=== PATIENT | male | born 1945 | race Caucasian/White ===

== ENCOUNTER 2024-02-08 11:16 | Inpatient (IN) | payer OTHER, MEDICARE, SELFPAY ==
[2024-02-08] VITALS (98 sets, daily range): BP systolic 82–140; BP diastolic 42–91; PULSE 88–160; RESP 0–41; TEMP 36.3–39.5; O2SAT 48–100; BMI 31.7
--- NOTE | 2024-02-08 11:29 | XRR_ITS ---
PROCEDURE INFORMATION: Exam: XR Chest Exam date and time: 02/08/2024 12:00 PM Age: 78 years old Clinical indication: Fever; Prior surgery; Surgery date: 1-6 months; Surgery type: Heart valve replacement September 2023; Pacemaker 6+ months ago; Patient HX: PT was at [facility], bystanders called EMS d/t PT weakness and confusion. PT C/O trouble urinating since yesterday. EMS states PT BP was 50s/30s, EMS gave 500mls fluid in route. EMS states PT heart rate ranged from 60-160 TECHNIQUE: Imaging protocol: Radiologic exam of the chest. Views: 1 view. COMPARISON: CR XR chest 1V [id number] 09/21/2018 1:13 PM FINDINGS: Tubes, catheters and devices: There is a dual-lead AICD with leads positioned in the right atrium and right ventricle. Aortic valve prosthesis and sternal reconstruction hardware is visible. Lungs: Lungs are clear. Pleural spaces: There is no pleural effusion or pneumothorax. Heart/Mediastinum: There is mild enlargement of the cardiac silhouette. Bones/joints: There is mild degenerative disease at both shoulders. No acute osseous findings. XR/XR chest 1V portable [id number] IMPRESSION: 1. Lungs are clear. 2. Mild cardiac enlargement. 3. 2 lead AICD in expected position.
--- NOTE | 2024-02-08 11:31 | ECG_ITS ---
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 Measurements Intervals [place] Rate: 146 P: 0 [place]: 0 QRS: -54 QRSD: 106 T: 111 QT: 305 QTc: 476 Interpretive Statements ATRIAL FIBRILLATION WITH RAPID VENTRICULAR RESPONSE LOW QRS VOLTAGE IN PRECORDIAL LEADS LEFT VENTRICULAR HYPERTROPHY AND ST-T CHANGE POSSIBLE SEPTAL MYOCARDIAL INFARCTION , PROBABLY OLD No previous ECG available for comparison Electronically Signed On 02-08-2024 14:02:16 EXTERNAL GRINDER TENDER by Raven Brito M.D. [email or web address]
[2024-02-08] MEDS: acetaminophen 325 mg Tablet 1000 MG PO (11:58)
[2024-02-08] MEDS: cefTRIAXone 1,000 mg SDV 1000 MG IVP (11:59)
[2024-02-08 12:00] LABS: Basophils % 0.3 %; Hematocrit 28.9 % (37-53); Lymphocytes # 0.9 10^3/uL (0.8-4.8); Lymphocytes % 8.2 %; Mean Corpuscular HGB Conc 28.7 g/dL (30-55); Mean Platelet Volume 10.7 fL (7.4-10.4); Monocytes # 0.5 10^3/uL (0.2-0.9); Monocytes % 4.1 %; Neutrophils # 9.44 10^3/uL (1.8-7.7); Neutrophils % 86.8 %; Nucleated Red Blood Cells % 0 %; Platelet Count 205 10^3/cmm (157-399); Red Blood Count 3.32 10^6/uL (3.85-5.65); White Blood Count 10.87 10^3/uL (3.29-11.43)
[2024-02-08] MEDS: sodium chloride 0.9% 1,000 ML 999 ML IV ×2 (12:00→14:42)
[2024-02-08] MEDS: dilTIAZem 5 mg/mL SDV 5 mL 10 MG IVP (12:00)
[2024-02-08 12:22] LABS: Alanine Aminotransferase 11 U/L (0-41); Albumin Level 2.9 g/dL (3.5-5.2); Alkaline Phosphatase 137 U/L (40-130); Anion Gap 16.3 (5-19); Aspartate Amino Transferase 12 U/L (0-40); Blood Urea Nitrogen 18 mg/dL (8-23); Calcium 7.5 mg/dL (8.5-10.5); Carbon Dioxide 22 mmol/L (22-29); Chloride 102 mmol/L (98-107); Creatinine Clr Calc Pharmacy 60.8659; Globulin 3.4 g/dL (1.3-4.6); Glucose 136 mg/dL (65-115); Osmolality Calculated 286 mOsm/kg (285-295); Potassium 4.3 mmol/L (3.5-5.1); Sodium 136 mmol/L (136-145); Total Bilirubin 0.4 mg/dL (0.15-1.2); Total Protein 6.3 g/dL (6.6-8.7)
[2024-02-08 12:23] LABS: Lactic Sepsis W/Reflex 2.4 mmol/L (0.5-2.2)
[2024-02-08 12:58] LABS: Bilirubin Urine Negative (Negative); Blood Urine Negative (Negative); Glucose Urine UA Negative (Normal); Ketones Urine Trace (Negative); Leukocyte Esterase Urine 1+ (Negative); Nitrate Urine Positive (Negative); Protein Urine Trace (Negative); Specific Gravity, Urine 1.022 (1.005-1.030); Urine Appearance Cloudy (CLEAR); Urine Color Yellow (Yellow); pH Urine 5.5 (5-7)
[2024-02-08 13:03] LABS: Add Urine Microscopic? YES; Bacteria Urine 4+ /hpf; RBC Urine 0-2 /hpf (0-2); Squamous Epithelial Cell Urine 0-5 /hpf (0-5)
[2024-02-08 13:13] LABS: Add Urine Culture? Yes
[2024-02-08 13:44] LABS: Reflex Lactate Order REFLEX LACTIC ORDERD
--- NOTE | 2024-02-08 14:01 | ED_ITS ---
HPI - Weakness 2 General: Chief complaint: Weakness Stated complaint: AMS; weakness Time Seen by Provider: 02/08/24 11:19 History of Present Illness: This patient is a 78-year-old white male who presents to the emergency department stating that he has had trouble urinating for the past few days. He has been incontinent at times. Is not having any dysuria or abdominal pain. He has been running a fever. His temp here is 103.1. Patient denies cough or congestion. Denies chest pain. Denies shortness of breath. Denies nausea, vomiting and diarrhea. Patient does have a history of coronary artery disease and according to family member he does have a history of atrial fibrillation. Associated symptoms: Reports fever(s) Review of Systems 2 General: Reports: 10 or more systems reviewed and unremarkable except in HPI and below Const: Reports: fever(s) : Reports: urinary dribbling and urinary incontinence Physical Exam 2 Const: COMMON NORMALS: patient oriented x3 GENERAL APPEARANCE: cooperative HENMT: COMMON NORMALS: normocephalic, atraumatic, Normal nasal mucous membranes and turbinates present, moist oral mucous membranes and oropharynx normal HEAD & SCALP: normal to inspection, normocephalic and atraumatic F SUZY & SINUS: normal facial exam NOSE: Normal nasal mucous membranes and turbinates present Eye: COMMON NORMALS: Equal, round and reactive pupils present, EOMs intact bilaterally and conjunctivae normal GENERAL EYE: appearance normal, both eyes and all related structures CONJUNCTIVA: Yes conjunctivae normal PUPIL: Yes Equal, round and reactive pupils present Neck/C-Spine: COMMON NORMALS: supple Chest: COMMONS NORMALS: normal inspection of the chest Resp: COMMON NORMALS: normal respiratory effort and clear to auscultation bilaterally AUSCULTATION: clear to auscultation bilaterally Cardio: RATE: tachycardic RHYTHM: abnormal rhythm irregularly irregular GI: COMMON NORMALS: Normal to inspection, nondistended, normoactive bowel sounds present, Soft to palpation and non-tender AUSCULTATION: Yes normoactive bowel sounds PALPATION: Yes Soft to palpation : COMMON NORMALS: Yes no CVA tenderness BLADDER/KIDNEY EXAM: Yes no CVA tenderness Back/Pelvis: COMMON NORMALS: no CVA tenderness and thoracic and lumbar spine normal to inspection Extremity: COMMON NORMALS: normal to inspection Neuro: COMMON NORMALS: patient oriented x3 and CN's II-XII intact bilaterally Psych: COMMON NORMALS: mental status grossly normal, Normal thought process present and cooperative THOUGHT PROCESS: Normal thought process present Skin: COMMON NORMALS: no rashes or lesions noted, turgor normal and no jaundice GENERAL SKIN EXAM: no rashes or lesions noted and turgor normal Course 2 Vital Signs: Vital signs: Vital Signs Temperature 103.1 F H 02/08/24 11:17 Pulse Rate 100 02/08/24 13:09 Respiratory Rate 18 02/08/24 11:28 Blood Pressure 90/55 02/08/24 14:40 Pulse Oximetry 95 02/08/24 13:09 Oxygen Delivery Me thod Room Air 02/08/24 13:09 MDM - Weakness Medical Decision Making Upon arrival the patient's heart rate was in the 160s. He appeared to be in atrial fibrillation with rapid ventricular response. His EKG does confirm A-fib with RVR with V rate of 146. Chest x-ray was normal. CBC revealed a hemoglobin of 8.3. CMP normal. Lactic acid 2.4. Urine analysis is consistent with a urinary tract infection. Patient was started on Cardizem drip and given a Cardizem bolus. He was given several boluses of normal saline due to hypotension. He was given 1 g of Rocephin for the urinary tract infection. We did get his heart rate down to around 100 with the above measures. Systolic blood pressures in the 90s. I discussed the case with Dr. Hernadez, hospitalist. She would like a CT scan of the abdomen pelvis just to be sure he does not have an obstructed ureter. We did obtain that and that CT was read by the radiologist as normal. Dr. Hernadez has accepted the patient. Patient will be admitted to the intensive care unit. He is stable. Lab Data 02/08/24 11:50 02/08/24 11:50 Radiology Impressions Chest X-Ray 02/08/24 11:29 IMPRESSION: 1. Lungs are clear. 2. Mild cardiac enlargement. 3. 2 lead AICD in expected position. Abdomen/Pelvis CT 02/08/24 14:32 IMPRESSION: 1. No obstructive uropathy. No stones. 2. Trace simple dependent bilateral pleural effusions. 3. Incidental findings above. Laboratory Results WBC 10.87 10^3/uL (3.29-11.43) 02/08/24 11:50 RBC 3.32 10^6/uL (3.85-5.65) L 02/08/24 11:50 Hgb 8.30 g/dL (11.27-16.99) L 02/08/24 11:50 Hct 28.9 % (37-53) L 02/08/24 11:50 MCV 87.0 fl (82-101) 02/08/24 11:50 MCH 25.0 pg (27-33) L 02/08/24 11:50 MCHC 28.7 g/dL (30-55) L 02/08/24 11:50 RDW 16.0 % (12.1-15.1) H 02/08/24 11:50 Plt Count 205 10^3/cmm (157-399) 02/08/24 11:50 MPV 10.7 fL (7.4-10.4) H 02/08/24 11:50 Neut % (Auto) 86.8 % 02/08/24 11:50 Lymph % (Auto) 8.2 % 02/08/24 11:50 [place] % (Auto) 4.1 % 02/08/24 11:50 Eos % (Auto) 0.0 % 02/08/24 11:50 Baso % (Auto) 0.3 % 02/08/24 11:50 Neut # (Auto) 9.44 10^3/uL (1.8-7.7) H 02/08/24 11:50 Lymph # (Auto) 0.9 10^3/uL (0.8-4.8) 02/08/24 11:50 [place] # (Auto) 0.5 10^3/uL (0.2-0.9) 02/08/24 11:50 Eos # (Auto) 0.0 10^3/uL (0.0-0.8) 02/08/24 11:50 Baso # (Auto) 0.0 10^3/uL (0.0-0.1) 02/08/24 11:50 Nucleated RBC % (auto) 0 % 02/08/24 11:50 Nucleated RBCs # 0.0 /100WBC 02/08/24 11:50 Sodium 136 mmol/L (136-145) 02/08/24 11:50 Potassium 4.3 mmol/L (3.5-5.1) 02/08/24 11:50 Chloride 102 mmol/L (98-107) 02/08/24 11:50 Carbon Dioxide 22 mmol/L (22-29) 02/08/24 11:50 Anion Gap 16.3 (5-19) 02/08/24 11:50 BUN 18 mg/dL (8-23) 02/08/24 11:50 Creatinine 1.3 mg/dL (0.7-1.2) H 02/08/24 11:50 GFR Calculation Not Reportable 02/08/24 11:50 Glucose 136 mg/dL (65-115) H 02/08/24 11:50 Calculated Osmolality 286 mOsm/kg (285-295) 02/08/24 11:50 Lactic Acid 2.4 mmol/L (0.5-2.2) H 02/08/24 11:50 Calcium 7.5 mg/dL (8.5-10.5) L 02/08/24 11:50 Total Bilirubin 0.4 mg/dL (0.15-1.2) 02/08/24 11:50 AST 12 U/L (0-40) 02/08/24 11:50 ALT 11 U/L (0-41) 02/08/24 11:50 Alkaline Phosphatase 137 U/L (40-130) H 02/08/24 11:50 Total Protein 6.3 g/dL (6.6-8.7) L 02/08/24 11:50 Albumin 2.9 g/dL (3.5-5.2) L 02/08/24 11:50 Globulin 3.4 g/dL (1.3-4.6) 02/08/24 11:50 Urine Color Yellow (Yellow) 02/08/24 12:50 Urine Appearance Cloudy (CLEAR) A 02/08/24 12:50 Urine pH 5.5 (5-7) 02/08/24 12:50 Ur Specific [place] 1.022 (1.005-1.030) 02/08/24 12:50 Urine Protein Trace (Negative) A 02/08/24 12:50 Urine Glucose (UA) Negative (Normal) 02/08/24 12:50 Urine Ketones Trace (Negative) 02/08/24 12:50 Urine Blood Negative (Negative) 02/08/24 12:50 Urine Nitrate Positive (Negative) A 02/08/24 12:50 Urine Bilirubin Negative (Negative) 02/08/24 12:50 Urine Urobilinogen 1.0 mg/dL (Negative) 02/08/24 12:50 Ur Leukocyte Esterase 1+ (Negative) A 02/08/24 12:50 Urine RBC 0-2 /hpf (0-2) 02/08/24 12:50 Urine WBC 11-20 /hpf (0-5) H 02/08/24 12:50 Ur Squamous Epith Cells 0-5 /hpf (0-5) 02/08/24 12:50 Amorphous Sediment Not Reportable 02/08/24 12:50 Urine Bacteria 4+ /hpf (NONE) H 02/08/24 12:50 Hyaline Casts 3.30 /lpf 02/08/24 12:50 All radiology interpretation(s) finalized by discharge Discharge Plan Discharge Patient Disposition: Admitted As Inpatient Clinical Impression: Sepsis, Acute UTI, Atrial fibrillation with rapid ventricular response Condition: Stable Prescriptions: No Action No Known Home Medications Referrals: WESTON PARSON, [Family Provider] - Coding Level of Care Code ED Life Skills Consultant for g Fwd Related Data Home Medications Medication Instructions Recorded Confirmed No Known Home Medications 02/08/24 02/08/24 Allergies Allergy/AdvReac Type Severity Reaction Status Date / Time No Known Allergies Allergy Verified 02/08/24 11:47
--- NOTE | 2024-02-08 14:32 | CTR_ITS ---
PROCEDURE INFORMATION: Exam: CT Abdomen And Pelvis Without Contrast Exam date and time: 02/08/2024 3:59 PM Age: 78 years old Clinical indication: Other: Urosepsis, R/O obstruction TECHNIQUE: Imaging protocol: Computed tomography of the abdomen and pelvis without contrast. Radiation optimization: All CT scans at this facility use at least one of these dose optimization techniques: automated exposure control; mA and/or kV adjustment per patient size (includes targeted exams where dose is matched to clinical indication); or iterative reconstruction. COMPARISON: CR (CHEST, ) 02/08/2024 12:00 PM RADIATION DOSE METRICS: Total DLP (mGy-cm): 1008.5 FINDINGS: Lungs: There is subsegmental atelectasis in the lung bases. Pleural spaces: There are trace simple dependent bilateral pleural effusions. Heart: Trace pericardial effusion. Diaphragm: There is a small sliding-type hiatal hernia. Liver: The liver is normal. Gallbladder and biliary ducts: Cholelithiasis is present. There is no sign of cholecystitis. There is no intrahepatic or extrahepatic bile duct dilation. Pancreas: There is mild atrophy of the pancreas. Spleen: The spleen is unremarkable. Adrenal glands: The adrenal glands are unremarkable. Kidneys and ureters: The kidneys are unremarkable. No hydronephrosis or stones. No ureteral dilation. Stomach and bowel: The stomach is nondistended, limiting assessment of wall thickness. The small bowel is nondilated. There is mild distal descending and sigmoid colonic diverticulosis without evidence of diverticulitis. Appendix: The appendix is normal. Intraperitoneal space: There is no free air or significant intraperitoneal free fluid. Vasculature: There is moderate aortic atherosclerotic disease. Lymph nodes: There is no lymphadenopathy in the retroperitoneum, mesentery, pelvis or inguinal regions. Urinary bladder: The urinary bladder is unremarkable. Reproductive: There is nonspecific mild enlargement of the prostate gland. Bones/joints: There is moderate degenerative disease in the lumbar spine. There is mild degenerative disease of both hips. The bony pelvis is intact. Soft tissues: The abdominal wall is intact. CT/CT abdomen pelvis wo con [id number] IMPRESSION: 1. No obstructive uropathy. No stones. 2. Trace simple dependent bilateral pleural effusions. 3. Incidental findings above.
[2024-02-08 17:45] LABS: Glucose Point of Care 122 mg/dL (70-110)
--- NOTE | 2024-02-08 18:31 | PM.HP ---
Providers/Chief Complaint Admitting Physician: Airam Hernadez MD Chief Complaint: AMS; weakness History of Present Illness Jose Matthew is a 78 year old male with a past medical history of aortic stenosis, status post recent TAVR at [address] [place] [address] on December 30, 2023. Prior history also of CHF, history of CAD with multiple stents in the past, currently has a pacemaker in place. Patient was recently admitted at [facility] for TAVR. It appears hospital course may have been complicated and he did require Impella. Patient believes he may have had a stroke after Impella was removed as he had transient dysarthria, however states that at the time of discharge this was excluded by a normal CT head. Patient was discharged to rehab to recover from his acute illness, however he elected to leave AMA on Friday (today is Friday), so he could get out and work. Since returning home he had been ambulating. He was feeling like he is back to baseline. He went to [facility] this evening where [facility] members noted him to be unwell and sent him to the ER for evaluation. Upon arrival he had a fever of 103 Fahrenheit. Blood pressure was soft between 87-91 systolic. He was in A-fib with RVR with heart rate up to 160. He received a bolus of Cardizem 10 mg and was started on a Cardizem infusion. This has been discontinued upon arrival to the ICU as his heart rate is currently 93/min, blood pressure 108/72 mmHg.. Previously in the ER blood pressure was ranging 91/58 mmHg. He denies any cough chest pain dyspnea or palpitations. He does not believe he has any active urinary symptoms though his urine did test positive for nitrates, leukocyte Estrace, WBC 11-20. Denies any past history of UTIs. Review of Systems General: Reports: 10 or more systems reviewed and unremarkable except in HPI and below Const: Denies: fever(s), chills or body aches Eyes: Denies: change in vision, blurry vision or photophobia ENMT: Reports: hoarseness; Denies: throat pain, enlarged tonsils, odynophagia or nasal congestion Card: Denies: chest pain, palpitations, irregular heart rhythm, edema, swelling of feet/ankles, lightheadedness, pre-syncope, dyspnea on exertion or orthopnea Resp: Denies: dyspnea, productive cough, non-productive cough, wheezing, stridor, pain on inspiration, change in phlegm color, hemoptysis or chest congestion GI: Denies: abdominal pain, nausea, vomiting, hematemesis, coffee ground emesis, dysphagia, heartburn, diarrhea, constipation, GI cramping, change in stool character, hematochezia or melena : Denies: flank pain, dysuria, urinary frequency, urinary urgency, urinary hesitancy or hematuria Musc: Denies: neck pain, back pain, extremity pain, joint swelling, joint warmth or deformity Neuro: Denies: headache(s), numbness in extremities, weakness in extremities, sensory changes, difficulty walking, frequent falls, dizziness, vertigo, behavioral changes, Slurred speech present or seizure-like activity Psych: Denies: anxiety, depression, suicidal ideation or homicidal ideation Endo: Denies: polyuria, polydipsia, tired all the time, cold intolerance or hot flashes [place]/Lymph: Denies: easy bruising or easy bleeding Medications/Allergies Home Medications Medication Instructions Recorded Confirmed Last Taken Type apixaban 2.5 mg tablet (Eliquis) 2.5 mg PO BID 02/08/24 Unknown History carvedilol 3.125 mg tablet 3.125 mg PO Q12H 02/08/24 Unknown History insulin glargine 100 unit/mL 13 unit SUBCUT QPM 02/08/24 Unknown History subcutaneous cartridge lovastatin 10 mg tablet 10 mg PO DAILY 02/08/24 Unknown History Allergies Allergy/AdvReac Type Severity Reaction Status Date / Time No Known Allergies Allergy Verified 02/08/24 11:47 PFSH Acute PFSH: Medical History (Updated 02/08/24 @ 18:40 by Airam Hernadez MD) Valvular heart disease Pacemaker Surgical History (Updated 02/08/24 @ 18:36 by Airam Hernadez MD) History of heart artery stent History of heart valve repair Vitals/I&O/Wt Last Vital Signs Temp 103.1 F H 02/08/24 11:17 Pulse 93 02/08/24 15:58 Resp 18 02/08/24 11:28 BP 91/58 02/08/24 15:58 Pulse Ox 98 02/08/24 15:58 O2 Del Method Room Air 02/08/24 13:09 02/08/24 02/08/24 02/08/24 06:59 14:59 22:59 Intake Total 1000 / 1000 Balance 1000 / 1000 Weight last 48 hrs Weight 106.141 kg Weight 106.141 kg Physical Exam Narrative: General: No acute distress, AO x3 HEENT: PERRLA, pupils bilaterally equal and reactive, pallors not present Chest: Normal vesicular breath sounds, no added sounds, equal good air entry bilaterally CVS: S1-S2 regular, no murmurs, no tachycardia, no gallops, no rubs Abdomen: Soft, nontender, no organomegaly, bowel sounds present Neuro: No focal deficits, no facial deformity, AO x3, power 5/5 in all limbs Data 02/08/24 11:50 02/08/24 11:50 Micro: Microbiology 02/08/24 11:39 Blood Culture - Preliminary Blood SPECIMEN COLLECTED 02/08/24 11:50 Blood Culture - Preliminary Blood SPECIMEN COLLECTED A&P Assessment and plan (1) Atrial fibrillation with rapid ventricular response: Patient with a recent history of TAVR at [facility] presenting today with A-fib RVR, hypotension, and fever 103 Fahrenheit. Patient is typically on carvedilol 3.125 mg p.o. every 12 hours He was noted to be in A-fib with RVR with heart rate in the 160s upon initial arrival. Likely this was being driven by fever of 103 Fahrenheit and acute infection. Patient received Cardizem bolus in the emergency room and was started on Cardizem infusion. This did result in hypotension with blood pressure systolic ranging between 87 to 91 mmHg. Cardizem has been discontinued at this point. Instead switch to amiodarone 150 mg bolus over 15 minutes followed by infusion. If blood pressure improves will aim to resume beta-blockers at some point. For now may need transient pressor support along with amiodarone infusion. No recent echocardiogram available. 1 has been ordered. Requested recent records from [facility]. Anticoagulation continued with Eliquis 2.5 mg p.o. twice daily. I am uncertain why patient is on a lower dose of Eliquis currently. Will need to request and review records. (2) Acute UTI: Fever 103 Fahrenheit, currently presumed to be from a UTI given positive nitrate and leukocyte esterase on UA. Patient denies any yu symptoms of dysuria, however states he has been having some increased frequency recently. Urine culture taken in the emergency room Blood culture taken in the emergency room He received ceftriaxone 1 g IV every 24 hours Will start Zosyn empirically while pending urine and blood cultures. Check COVID PCR. Chest x-ray without any evidence of consolidation CT of the abdomen and pelvis without any obstructive uropathy. No stones. There are trace dependent bilateral pleural effusions. (3) CHF (congestive heart failure): Acute on chronic CHF exacerbation. Patient typically also takes Lasix at home. States that CHF was the indication for TAVR. He has received 2 L IV fluid bolus in the emergency room Will hold off on any further fluids since patient has 2+ pitting edema bilateral lower extremity. Appears to be clinically in CHF. I do not know at this time if he has systolic or diastolic heart failure, as stated records have been requested from [facility]. Lasix 40 mg IV now. Further doses to be dependent on urine output and kidney function. Closely monitor I&O's. May need pressor support to allow blood pressure room to be given Lasix. Check BNP. Has bilateral dependent pleural effusions likely from fluid overload. Plan Diabetes mellitus: Continue home dose of Lantus 13 units, insulin sliding scale additionally Premeal. DVT prophylaxis: Currently on Eliquis 2.5 mg twice daily Full code Attestations Medical Necessity Statement*: Greater than 2 midnight admission is anticipated. Currently in the ICU for amiodarone infusion, possible need to start pressor support, need for IV diuresis and infectious evaluation. Critical Care Time: The high probability of a clinically significant, sudden or life threatening deterioration of the patient's [cardiac, respiratory] system(s) required my full and direct attention, intervention and personal management. The critical care time is as shown. This time is in addition to time spent performing any reported procedures but includes the following: [x] Data and vital sign review and interpretation [x] Patient assessment, examination and intervention [x] Documentation [x] Medication orders and management Critical Care Time (min): 55 Coding Level of Care Code Critical Care >/= 30 minutes Diagnoses Atrial fibrillation with rapid ventricular response I48.91 Acute UTI N39.0 CHF (congestive heart failure) I50.9
[2024-02-08 18:57] LABS: NT Pro B Type Natriuretic Pept 9386 pg/mL (0-450)
[2024-02-08] MEDS: amiodarone 150 MG/100 ML PREMIX 400 MG IV (19:25)
[2024-02-08] MEDS: FUROsemide 10 mg/mL SDV 4mL 40 MG IVP (19:25)
[2024-02-08] MEDS: piperacillin-tazobactam 3.375 GM in sodium chloride 0.9% (plus) 50 ML IV (19:26)
[2024-02-08 20:03] LABS: Covid PCR NEGATIVE (Negative); Influenza A NEGATIVE (Negative); Influenza B NEGATIVE (Negative); Respiratory Syncytial Virus Ce NEGATIVE (Negative)
[2024-02-08 20:34] LABS: Glucose Point of Care 170 mg/dL (70-110)
[2024-02-08] MEDS: insulin lispro 100 unit/1 mL SUBCUT (20:56)
[2024-02-08] MEDS: apixaban 5 mg Tablet 2.5 MG PO (20:57)
[2024-02-08] MEDS: insulin glargine 100 units/1 mL 13 UNIT SUBCUT (21:23)
[2024-02-09] VITALS (215 sets, daily range): BP systolic 71–157; BP diastolic 51–122; PULSE 88–127; RESP 0–36; TEMP 36.7–37.8; O2SAT 74–100
--- NOTE | 2024-02-09 00:43 | ECG_ITS ---
[facility] Test Date: 2024-02-09 Pat Name: Jose Matthew Department: Room: ICU11 Gender: Male Intellectual Property Manager: : 1945 Requested By: Jimmy Weller Order Number: [id number] Mamie MD: Guilherme Do M.D. Measurements Intervals [place] Rate: 90 P: 189 [place]: 289 QRS: -53 QRSD: 114 T: 147 QT: 397 QTc: 487 Interpretive Statements ELECTRONIC ATRIAL PACEMAKER LEFT ANTERIOR FASCICULAR BLOCK [QRS AXIS <= -45, QR IN I, RS IN II] LEFT VENTRICULAR HYPERTROPHY AND ST-T CHANGE [VOLTAGE CRITERIA PLUS ST/T ABNORMALITY] POSSIBLE ANTEROSEPTAL MYOCARDIAL INFARCTION , OF INDETERMINATE AGE [30 ms Q WAVE IN V1-V4] INTERPRETATION BASED ON A DEFAULT AGE OF 40 YEARS Compared to ECG 02/08/2024 11:28:14 Left anterior fascicular block now present Atrial fibrillation no longer present ST (T wave) deviation still present Myocardial infarct finding still present Electronically Signed On 02-12-2024 21:59:22 LANGUAGE INSTRUCTOR by Guilherme Do M.D. [email or web address]
--- NOTE | 2024-02-09 00:55 | ECG_ITS ---
[facility] Test Date: 2024-02-09 Pat Name: Jose Matthew Department: Room: [facility] Gender: Male Sales Assistant Entertainment And Media: : 1945 Requested By: Jimmy Weller Order Number: [id number] Mamie MD: Guilherme Do M.D. Measurements Intervals [place] Rate: 90 P: 191 [place]: 292 QRS: -52 QRSD: 111 T: 148 QT: 406 QTc: 498 Interpretive Statements ELECTRONIC ATRIAL PACEMAKER ELECTRONIC VENTRICULAR PACEMAKER -- CONTOUR ANALYSIS BASED ON INTRINSIC RHYTHM LEFT ANTERIOR FASCICULAR BLOCK [QRS AXIS <= -45, QR IN I, RS IN II] LEFT VENTRICULAR HYPERTROPHY AND ST-T CHANGE [VOLTAGE CRITERIA PLUS ST/T ABNORMALITY] POSSIBLE ANTEROSEPTAL MYOCARDIAL INFARCTION , OF INDETERMINATE AGE [30 ms Q WAVE IN V1-V4] INTERPRETATION BASED ON A DEFAULT AGE OF 40 YEARS Compared to ECG 02/09/2024 00:44:39 No significant changes Electronically Signed On 02-12-2024 21:59:32 BRIDGE BUILDER by Guilherme Do M.D. [email or web address]
[2024-02-09 01:09] LABS: Basophils % 0.2 %; Hematocrit 25.5 % (37-53); Lymphocytes % 8.2 %; Mean Corpuscular HGB Conc 29.4 g/dL (30-55); Mean Corpuscular Hemoglobin 24.7 pg (27-33); Mean Corpuscular Volume 83.9 fl (82-101); Mean Platelet Volume 10.1 fL (7.4-10.4); Monocytes # 0.5 10^3/uL (0.2-0.9); Monocytes % 3.8 %; Neutrophils # 10.51 10^3/uL (1.8-7.7); Neutrophils % 87.4 %; Nucleated Red Blood Cells % 0 %; Platelet Count 156 10^3/cmm (157-399); Red Blood Count 3.04 10^6/uL (3.85-5.65); White Blood Count 12.02 10^3/uL (3.29-11.43)
--- NOTE | 2024-02-09 01:25 | P.PN_ITS ---
Subjective 2 Subjective: I was called to bedside to evaluate rhythm change with ST segment elevation. The patient had recent TAVR valve placed within the last couple of weeks at a tertiary care facility from which we do not have records yet. I am told he was then staying at the [place] facility that he left AMA. Patient denies chest pain states he feels fine he goes in and out of this rhythm. Vitals/I&O/Wt Last Vital Signs Temp 98.1 F 02/09/24 00:00 Pulse 90 02/09/24 01:05 Resp 16 02/09/24 01:05 BP 96/52 02/09/24 01:05 Pulse Ox 99 02/09/24 01:05 O2 Del Method Room Air 02/08/24 13:09 02/08/24 02/08/24 02/09/24 14:59 22:59 06:59 Intake Total 1000 / 1000 480 / 1480 50 / 1530 Output Total 500 / 500 Balance 1000 / 1000 -20 / 980 50 / 1030 Weight last 48 hrs Weight 106.141 kg Weight 106.141 kg Physical Exam 2 Narrative: General Well-developed well-nourished overweight male in no acute cardiopulmonary distress CV regular rate and rhythm no loud murmur in the right upper and left upper sternal border Data 02/09/24 01:01 02/08/24 11:50 Micro: Microbiology 02/08/24 11:39 Blood Culture - Preliminary Blood SPECIMEN COLLECTED 02/08/24 11:50 Blood Culture - Preliminary Blood SPECIMEN COLLECTED EKG 1: My Interpretation: This shows sinus rhythm with frequent ectopy. Intermittently he goes to a RV paced rhythm with left bundle branch block that shows with that and ST segment is uninterpretable in that situation. At baseline no ST segment abnormality. I saw him go in and out of paced rhythm and I do not see bradycardia or any good explanation for why he is going into a paced rhythm. A&P Assessment and plan (1) Atrial fibrillation with rapid ventricular response: Was started on amiodarone for atrial fibrillation and converted to sinus with frequent PACs is unclear to me why he has prolonged pacing without preceding bradycardia (2) Pacemaker: Cannot exclude pacemaker malfunction. If not more apparent to the incoming hospitalist potentially could be reviewed by cardiology. We obtain rhythm strips and EKGs Attestations 2 Medical Necessity Statement*: Patient's hospitalization will span greater than 2 midnights Coding Level of Care Code Acute Code for Chg Fwd Diagnoses Atrial fibrillation with rapid ventricular response I48.91 Pacemaker Z95.0
[2024-02-09 01:37] LABS: Troponin(5th) Baseline 56 ng/L (0-15)
[2024-02-09 01:40] LABS: Alanine Aminotransferase 12 U/L (0-41); Albumin Level 2.8 g/dL (3.5-5.2); Alkaline Phosphatase 128 U/L (40-130); Anion Gap 14.2 (5-19); Aspartate Amino Transferase 15 U/L (0-40); Blood Urea Nitrogen 20 mg/dL (8-23); Calcium 7.4 mg/dL (8.5-10.5); Carbon Dioxide 23 mmol/L (22-29); Chloride 103 mmol/L (98-107); Creatinine Clr Calc Pharmacy 56.5183; Globulin 2.7 g/dL (1.3-4.6); Glucose 164 mg/dL (65-115); Magnesium 1.8 mg/dL (1.7-2.3); Osmolality Calculated 288 mOsm/kg (285-295); Potassium 4.2 mmol/L (3.5-5.1); Sodium 136 mmol/L (136-145); Total Bilirubin 0.3 mg/dL (0.15-1.2); Total Protein 5.5 g/dL (6.6-8.7)
[2024-02-09] MEDS: piperacillin-tazobactam 3.375 GM in sodium chloride 0.9% (plus) 50 ML IV ×2 (02:27→11:49)
--- NOTE | 2024-02-09 02:38 | ECG_ITS ---
[employer] Test Date: 2024-02-09 Pat Name: Jose Matthew Department: Room: ICU11 Gender: Male Customer Trainer: : 1945 Requested By: Jimmy Weller Order Number: [id number] Reading MD: MARYJANE GREENE Measurements Intervals [place] Rate: 90 P: -48 RI: 308 QRS: -54 QRSD: 101 T: 122 QT: 394 QTc: 483 Interpretive Statements ELECTRONIC ATRIAL PACEMAKER LEFT AXIS DEVIATION [QRS AXIS < -30] MODERATE VOLTAGE CRITERIA FOR LVH, CONSIDER NORMAL VARIANT [MEETS CRITERIA IN ONE OF: R(aVL), S(V1), R(V5), R(V5/V6)+S(V1)] POSSIBLE ANTEROSEPTAL MYOCARDIAL INFARCTION , OF INDETERMINATE AGE [30 ms Q WAVE IN V1-V4] MODERATE T-WAVE ABNORMALITY, CONSIDER LATERAL ISCHEMIA [-0.1+ mV T-WAVE IN I/aVL/V5/V6] Electronically Signed On 02-13-2024 00:43:39 FINANCIAL SERVICES MANAGER by MARYJANE GREENE [id number]
[2024-02-09 03:48] LABS: Troponin 5 2HR 52.49 ng/L (0-15); Troponin 5 2HR Delta -3.51 ABS# (0-10)
--- NOTE | 2024-02-09 06:55 | ECG_ITS ---
[employer] Test Date: 2024-02-09 Pat Name: Jose Matthew Department: Room: ICU11 Gender: Male Micromatic Hone Operator: : 1945 Requested By: Jimmy Weller Order Number: [id number] Reading MD: MARYJANE GREENE Measurements Intervals [place] Rate: 97 P: 93 CA: 252 QRS: -54 QRSD: 99 T: 98 QT: 342 QTc: 436 Interpretive Statements ELECTRONIC ATRIAL PACEMAKER LEFT AXIS DEVIATION [QRS AXIS < -30] MODERATE VOLTAGE CRITERIA FOR LVH, CONSIDER NORMAL VARIANT [MEETS CRITERIA IN ONE OF: R(aVL), S(V1), R(V5), R(V5/V6)+S(V1)] ANTEROSEPTAL MYOCARDIAL INFARCTION , OF INDETERMINATE AGE [40+ ms Q WAVE IN V1-V4] MODERATE T-WAVE ABNORMALITY, CONSIDER LATERAL ISCHEMIA [-0.1+ mV T-WAVE IN I/aVL/V5/V6] Compared to ECG 02/09/2024 02:38:55 No significant changes Electronically Signed On 02-13-2024 00:42:46 LICENSING REPRESENTATIVE by MARYJANE GREENE [id number]
[2024-02-09 07:33] LABS: Troponin 5 6HR 46.12 ng/L (0-15)
[2024-02-09 07:40] LABS: Glucose Point of Care 157 mg/dL (70-110)
[2024-02-09 07:51] LABS: Troponin 5 6HR Delta -9.88 ng/L (0-12)
[2024-02-09] MEDS: apixaban 5 mg Tablet 2.5 MG PO ×2 (08:43→20:13)
[2024-02-09] MEDS: insulin lispro 100 unit/1 mL SUBCUT ×4 (08:43→20:13)
[2024-02-09] MEDS: pantoprazole DR 40 mg Tablet PO (08:43)
[2024-02-09] MEDS: atorvastatin 40 mg Tablet 20 MG PO (08:43)
--- NOTE | 2024-02-09 11:40 | XR_ITS ---
WS: [id number] XR chest 1V portable [id number] REASON FOR EXAM: SOB FINDINGS: Compared to the examination of the previous day there are now all reticular interstitial lung opaciti es in the right lower lung field with slight accentuation of the minor fissure. There may be similar findings on the left which are equivocal. The findings are most compatible with congestive heart fail ure. XR/XR chest 1V portable [id number] IMPRESSION: Interval change in the chest which may represent early congestive heart failure .
[2024-02-09 11:43] LABS: Glucose Point of Care 177 mg/dL (70-110)
[2024-02-09] MEDS: ondansetron 2 mg/ML SDV 2 mL 4 MG IVP (12:17)
--- NOTE | 2024-02-09 13:46 | PM.CONSULT ---
Documented by User: Romy Torres NP 02/09/24 14:12 Providers/Reason For Consult Consulting Physician/Specialty*: Prem David MD Reason for Consult*: Atrial fibrillation with RVR Requesting Physician: Dr. Santamaria Attending Physician: Iraida Santamaria MD History of Present Illness History of Present Illness Jose Matthew is a very pleasant 78 year old male with a past medical history of aortic stenosis, status post recent surgical aortic valve replacement with bioprosthetic at [address] [place] [address] on December 30, 2023. Prior history also of CHF, carotid artery stenosis, bicuspid aortic valve, history of CAD with multiple stents in the past one to the LAD, currently has a pacemaker in place that he states was placeed a couple of years ago. Patient was recently admitted at [facility] for open heart aortic valve replacement with impella placement. Patient believes he may have had a stroke after Impella was removed as he had transient dysarthria, however states that at the time of discharge this was excluded by a normal CT head. Patient was discharged to rehab to recover from his acute illness, however he elected to leave A, so he could get out and work. Since returning home he had been ambulating. He was feeling like he is back to baseline. He went to [facility] where jewish members noted him to be unwell and sent him to the ER for evaluation. Upon arrival he had a fever of 103 Fahrenheit. Blood pressure was soft between 87-91 systolic. He was in A-fib with RVR with heart rate up to 160. He received a bolus of Cardizem 10 mg and was started on a Cardizem infusion. This has been discontinued. He was given an amiodarone bolus with drip. BP stable at 127/79. Heart rate still elevated. When I was assessing patient it was around 106-110, but with activity went up to 114-115, but quickly returned back down. He has anemia with hemoglobin at 7.5. Systolic murmur 3/6 in the aortic space auscultated. He denies any cough chest pain dyspnea or palpitations. He currently has evidence of UTI. He has positive blood cultures for Streptococcus. CBC shows left shift with white blood cell count at 12.02. Patient has a current low-grade fever at 100. He is receiving Zosyn. Review of Systems Narrative: Consitutional: denies fever, chills, body aches, or changes in appetite, denies abnormal weight loss Eyes: Denies changes in vision Card: Denies chest pain, palpitations, edema, syncope, shortness of breath, orthopnea, leg pain with exertion Resp: Denies shortness of breath, denies hemoptysis, denies cough : reports difficulty urinating Musc: Denies extremity pain, denies limited range of motion or recent injury Skin: reports sternotomy scar from previous open heart surgery Neuro: Denies nubmness in extremities, h/a, s/s of stroke [place]: Denies easy bruiding/bleeding All: Denies s/s of allergies Medications/Allergies Home Medications Medication Instructions Recorded Confirmed Last Taken Type apixaban 2.5 mg tablet (Eliquis) 2.5 mg PO BID 02/08/24 02/09/24 Unknown History carvedilol 3.125 mg tablet 3.125 mg PO Q12H 02/08/24 02/09/24 Unknown History insulin glargine 100 unit/mL 13 unit SUBCUT QPM 02/08/24 02/09/24 Unknown History subcutaneous cartridge lovastatin 10 mg tablet 10 mg PO DAILY 02/08/24 02/09/24 Unknown History Allergies Allergy/AdvReac Type Severity Reaction Status Date / Time No Known Allergies Allergy Verified 02/08/24 11:47 Current Medications Generic Name Dose Route Start Last Admin Trade Name Freq PRN Reason Stop Dose Admin Apixaban 2.5 mg 02/08/24 21:00 02/09/24 08:43 Apixaban 5 Mg Tablet PO 2.5 mg BID@0900,2100 FELIPE Administration Atorvastatin Calcium 20 mg 02/09/24 09:00 02/09/24 08:43 Atorvastatin 40 Mg Tablet PO 20 mg DAILY FELIPE Administration Amiodarone HCl/Dextrose 360 mg in 200 mls @ 0 mls/hr 02/08/24 18:30 02/09/24 02:28 Nexterone IV 0.5 mg/min .Q0M FELIPE 16.67 mls/hr Administration Protocol Per Protocol Piperacillin Sod/Tazobactam 50 mls @ 12.5 mls/hr 02/08/24 19:15 02/09/24 11:49 Sod 3.375 gm/ Sodium Chloride IV 12.5 mls/hr Q8H FELIPE Administration Insulin Glargine 13 unit 02/08/24 21:00 02/08/24 21:23 Insulin Glargine 100 Units/1 Ml SUBCUT 13 unit BEDTIME FELIPE Administration Insulin Human Lispro 0 unit 02/08/24 21:00 02/09/24 11:49 Insulin Lispro 100 Unit/1 Ml SUBCUT 2 unit WM&BEDTIME FELIPE Administration Protocol Ondansetron HCl 4 mg 02/08/24 18:24 02/09/24 12:17 Ondansetron 2 Mg/Ml Sdv 2 Ml IVP 4 mg Q8H PRN Administration vomiting, or N/V if npo Pantoprazole Sodium 40 mg 02/09/24 09:00 02/09/24 08:[address] 40 Mg Tablet PO 40 mg DAILY FELIPE Administration PFSH Acute PFSH: Medical History (Updated 02/09/24 @ 14:10 by Romy Torres NP) Valvular heart disease Pacemaker Surgical History (Updated 02/08/24 @ 18:36 by Airam Hernadez MD) History of heart artery stent History of heart valve repair Vitals/I&O/Wt Last Vital Signs Temp 100.0 F H 02/09/24 13:18 Pulse 114 H 02/09/24 12:05 Resp 21 H 02/09/24 12:05 BP 127/79 02/09/24 12:05 Pulse Ox 94 02/09/24 12:05 O2 Del Method Room Air 02/08/24 13:09 02/08/24 02/09/24 02/09/24 22:59 06:59 14:59 Intake Total 480 / 1480 624.426 / 2104.426 480 / 480 Output Total 500 / 500 800 / 1300 495 / 495 Balance -20 / 980 -175.574 / 804.426 -15 / -15 Weight last 48 hrs Weight 234 lb 12.677 oz Weight 234 lb Weight 234 lb Physical Exam Narrative: General: No apparent distress, healthy appearing, well nourished HENMT: normoceophalic Eye: PERRL Neck: No carotid bruit bilaterally Muskuloskeletal: Full ROM Respiratory: Normal respiratory effort, slightly diminished bilateral lower lobes, otherwise clear, no use of accessory muscles Cardio: No JVD, irregular rate and rhythm, S1 S2 normal, grade 3/6 murmur auscultated in the aortic space, peripheral pulses 2+ throughout Extremities: Full ROM, normal, normal capillary refill, no cyanosis or edema Neuro: Alert and oriented x4, no focal motor deficits Psych: Affect normal, denies suicidal ideation, mental status grossly normal Skin: Previous sternotomy wound healed, no s/s of infection present Data 02/09/24 14:25 02/09/24 14:25 Micro: Microbiology 02/08/24 11:39 Blood Culture - Preliminary Blood NEGATIVE TO DATE 02/08/24 11:50 Blood Culture - Preliminary Blood Streptococcus species 02/08/24 12:50 Urine Culture - Preliminary Urine,Clean Catch Gram Negative Rods A&P Assessment and plan (1) Atrial fibrillation with rapid ventricular response: Patient received Cardizem bolus with drip but developed hypotension thus it was discontinued. Agree with amiodarone drip. Will continue at this time. Heart rate sustaining 90-110 is okay. In the presence of sepsis we may avoid adding beta-isaiah at this time to avoid potential hypotensive response. (2) Aortic valve stenosis: Patient status post aortic valve replacement with bioprosthetic valve via open heart surgery about a month and a half ago at [facility] by Dr. Griffin. He does have a murmur present with fever. Will need echo at this time. Qualifiers: Cardiac valve disease etiology: etiology unspecified Qualified Code(s): I35.0 - Nonrheumatic aortic (valve) stenosis (3) Pacemaker: S/P pacemaker placement. Patient incision site well healed w/o s/s of infection present. Patient is a paced at times. (4) CHF (congestive heart failure): Patient's most recent echo around May of this year showed EF to be about 50 to 55%. Will repeat echo to evaluate heart failure status Qualifiers: Heart failure chronicity: acute on chronic Heart failure type: diastolic Qualified Code(s): I50.33 - Acute on chronic diastolic (congestive) heart failure (5) Sepsis: Patient receiving antibiotics. Per hospitalist team. Blood culture was positive for Streptococcus. If patient's EF is okay on the echo may give fluid bolus. Qualifiers: Sepsis acute organ dysfunction status: without acute organ dysfunction Sepsis type: sepsis due to unspecified organism Qualified Code(s): A41.9 - Sepsis, unspecified organism (6) Acute UTI: Per hospitalist team. Receiving antibiotics at this time. Gram-negative bacteria in patient's urine. (7) Coronary artery disease: Patient status post PCI in the past. No evidence of acute ischemia at this time. Denies chest pain or shortness of breath Qualifiers: Associated angina: without angina Coronary Disease-Associated Artery/Lesion type: [place] artery [place] vs. transplanted heart: [place] heart Qualified Code(s): I25.10 - Atherosclerotic heart disease of [place] coronary artery without angina pectoris Plan At this time the plan for this very pleasant 78-year-old gentleman is to obtain an echocardiogram. If EF is okay may give fluid bolus. Patient's heart rate is elevated but due to patient being septic will wait to add on beta blocking agents. Hopefully this will improve when anemia and infection starts to clear. Further recommendations to be made after echo. Thank you for allowing us to take care of this very pleasant 78-year-old gentleman. Consult Attestations Medical Necessity Statement: Defer to primary. Coding Level of Care Code Acute Code for [facility] Fwd Diagnoses Atrial fibrillation with rapid ventricular response I48.91 Aortic valve stenosis, etiology of cardiac valve disease unspecified I35.0 Cardiac valve disease etiology: etiology unspecified Pacemaker Z95.0 Acute on chronic diastolic congestive heart failure I50.33 Heart failure chronicity: acute on chronic Heart failure type: diastolic Sepsis A41.9 Sepsis acute organ dysfunction status: without acute organ dysfunction Sepsis type: sepsis due to unspecified organism Acute UTI N39.0 Coronary artery disease involving [place] coronary artery of [place] heart without angina pectoris I25.10 Associated angina: without angina Coronary Disease-Associated Artery/Lesion type: [place] artery [place] vs. transplanted heart: [place] heart Documented by User: Prem David MD 02/09/24 22:42 History of Present Illness History of Present Illness Attestation: Patient was evaluated and cared for in conjunction with an advanced practice practitioner. I personally examined the patient and reviewed the chart and all pertinent data including imaging, telemetry, and laboratory results. I discussed the patient in detail with the advanced practice practitioner. Please see their note for complete H&P testing result and agreed upon plan of care for the patient. GENERAL: Patient is alert, awake and oriented x3. HEART: Regular S1 and S2. No murmur, rub or gallop. LUNGS: Clear to auscultate bilaterally. CENTRAL NERVOUS SYSTEM: Grossly nonfocal. EXTREMITIES: Lower extremities with out edema bilaterally. Assessment and plan Atrial fibrillation Urosepsis History of coronary artery disease History of bioprosthetic aortic valve New LV dysfunction Continue IV antibiotic Atrial fibrillation rapid ventricular found most likely secondary sepsis continue amiodarone add metoprolol to tartrate 12.5 mg p.o. twice daily Once stable blood pressure kenny I agree with SP to rule out prosthetic valve endocarditis Once cleared from infection before discharge may consider left heart catheterization to rule out ischemic etiology for LV dysfunction Once blood pressure stable will start patient on guideline medical therapy for heart failure and ischemic heart disease Jose Matthew is a very pleasant 78 year old male with a past medical history of aortic stenosis, status post recent surgical aortic valve replacement with bioprosthetic at [address] [place] [address] on December 30, 2023. Prior history also of CHF, carotid artery stenosis, bicuspid aortic valve, history of CAD with multiple stents in the past one to the LAD, currently has a pacemaker in place that he states was placeed a couple of years ago. Patient was recently admitted at [facility] for open heart aortic valve replacement with impella placement. Patient believes he may have had a stroke after Impella was removed as he had transient dysarthria, however states that at the time of discharge this was excluded by a normal CT head. Patient was discharged to rehab to recover from his acute illness, however he elected to leave A, so he could get out and work. Since returning home he had been ambulating. He was feeling like he is back to baseline. He went to [facility] where jewish members noted him to be unwell and sent him to the ER for evaluation. Upon arrival he had a fever of 103 Fahrenheit. Blood pressure was soft between 87-91 systolic. He was in A-fib with RVR with heart rate up to 160. He received a bolus of Cardizem 10 mg and was started on a Cardizem infusion. This has been discontinued. He was given an amiodarone bolus with drip. BP stable at 127/79. Heart rate still elevated. When I was assessing patient it was around 106-110, but with activity went up to 114-115, but quickly returned back down. He has anemia with hemoglobin at 7.5. Systolic murmur 3/6 in the aortic space auscultated. He denies any cough chest pain dyspnea or palpitations. He currently has evidence of UTI. He has positive blood cultures for Streptococcus. CBC shows left shift with white blood cell count at 12.02. Patient has a current low-grade fever at 100. He is receiving Zosyn. Medications/Allergies Home Medications Medication Instructions Recorded Confirmed Last Taken Type apixaban 2.5 mg tablet (Eliquis) 2.5 mg PO BID 02/08/24 02/09/24 Unknown History carvedilol 3.125 mg tablet 3.125 mg PO Q12H 02/08/24 02/09/24 Unknown History insulin glargine 100 unit/mL 13 unit SUBCUT QPM 02/08/24 02/09/24 Unknown History subcutaneous cartridge lovastatin 10 mg tablet 10 mg PO DAILY 02/08/24 02/09/24 Unknown History Allergies Allergy/AdvReac Type Severity Reaction Status Date / Time No Known Allergies Allergy Verified 02/08/24 11:47 PFSH Acute PFSH: Medical History (Updated 02/09/24 @ 14:10 by Romy Torres NP) Valvular heart disease Pacemaker Surgical History (Updated 02/08/24 @ 18:36 by Airam Hernadez MD) History of heart artery stent History of heart valve repair Data 02/09/24 14:25 02/09/24 14:25 A&P Assessment and plan (1) Atrial fibrillation with rapid ventricular response: (2) Aortic valve stenosis: Qualifiers: Cardiac valve disease etiology: etiology unspecified Qualified Code(s): I35.0 - Nonrheumatic aortic (valve) stenosis (3) Pacemaker: (4) CHF (congestive heart failure): Qualifiers: Heart failure chronicity: acute on chronic Heart failure type: diastolic Qualified Code(s): I50.33 - Acute on chronic diastolic (congestive) heart failure (5) Sepsis: Qualifiers: Sepsis acute organ dysfunction status: without acute organ dysfunction Sepsis type: sepsis due to unspecified organism Qualified Code(s): A41.9 - Sepsis, unspecified organism (6) Acute UTI: (7) Coronary artery disease: Qualifiers: Associated angina: without angina Coronary Disease-Associated Artery/Lesion type: [place] artery [place] vs. transplanted heart: [place] heart Qualified Code(s): I25.10 - Atherosclerotic heart disease of [place] coronary artery without angina pectoris Coding Level of Care Code Acute Code for Chg Fwd Diagnoses Atrial fibrillation with rapid ventricular response I48.91 Aortic valve stenosis, etiology of cardiac valve disease unspecified I35.0 Cardiac valve disease etiology: etiology unspecified Pacemaker Z95.0 Acute on chronic diastolic congestive heart failure I50.33 Heart failure chronicity: acute on chronic Heart failure type: diastolic Sepsis A41.9 Sepsis acute organ dysfunction status: without acute organ dysfunction Sepsis type: sepsis due to unspecified organism Acute UTI N39.0 Coronary artery disease involving [place] coronary artery of [place] heart without angina pectoris I25.10 Associated angina: without angina Coronary Disease-Associated Artery/Lesion type: [place] artery [place] vs. transplanted heart: [place] heart
[2024-02-09 14:58] LABS: Basophils % 0.3 %; Hematocrit 28.2 % (37-53); Lymphocytes # 0.6 10^3/uL (0.8-4.8); Lymphocytes % 4.1 %; Mean Corpuscular HGB Conc 30.5 g/dL (30-55); Mean Corpuscular Hemoglobin 25.6 pg (27-33); Mean Corpuscular Volume 83.9 fl (82-101); Monocytes # 0.4 10^3/uL (0.2-0.9); Monocytes % 2.8 %; Neutrophils # 13.98 10^3/uL (1.8-7.7); Neutrophils % 92.3 %; Nucleated Red Blood Cells % 0 %; Platelet Count 192 10^3/cmm (157-399); Red Blood Count 3.36 10^6/uL (3.85-5.65); Red Cell Distribution Width 16.3 % (12.1-15.1); White Blood Count 15.14 10^3/uL (3.29-11.43)
[2024-02-09 15:19] LABS: Troponin(5th) Baseline 60 ng/L (0-15)
[2024-02-09 15:22] LABS: Anion Gap 17.5 (5-19); Blood Urea Nitrogen 26 mg/dL (8-23); Calcium 7.8 mg/dL (8.5-10.5); Carbon Dioxide 21 mmol/L (22-29); Chloride 100 mmol/L (98-107); Creatinine Clr Calc Pharmacy 49.5333; Glucose 190 mg/dL (65-115); Magnesium 1.8 mg/dL (1.7-2.3); Osmolality Calculated 288 mOsm/kg (285-295); Potassium 4.5 mmol/L (3.5-5.1); Sodium 134 mmol/L (136-145)
--- NOTE | 2024-02-09 15:42 | P.PHAVANC_ITS ---
Vancomycin Goal - Goal Vancomycin Goal:: 10-15 mg/L Vancomycin Indication:: Other (SUSPECTED INFECTION) - Therapy Current therapy:: Pip/Tazo (3.375 IVPB Q12H) Day of therpy:: Day [1]of [] . Actual body weight (kg): 106.5 kg [place] body weight: 77.6 kg Dosing weight (kg): 106.5 kg - Data Labs: WBC 15.14 10^3/uL (3.29-11.43) H 02/09/24 14:25 RBC 3.36 10^6/uL (3.85-5.65) L 02/09/24 14:25 Hgb 8.60 g/dL (11.27-16.99) L 02/09/24 14:25 Hct 28.2 % (37-53) L 02/09/24 14:25 MCV 83.9 fl (82-101) 02/09/24 14:25 MCH 25.6 pg (27-33) L 02/09/24 14:25 MCHC 30.5 g/dL (30-55) 02/09/24 14:25 RDW 16.3 % (12.1-15.1) H 02/09/24 14:25 Sodium 134 mmol/L (136-145) L 02/09/24 14:25 Potassium 4.5 mmol/L (3.5-5.1) 02/09/24 14:25 Chloride 100 mmol/L (98-107) 02/09/24 14:25 Carbon Dioxide 21 mmol/L (22-29) L 02/09/24 14:25 Anion Gap 17.5 (5-19) 02/09/24 14:25 BUN 26 mg/dL (8-23) H 02/09/24 14:25 Creatinine 1.6 mg/dL (0.7-1.2) H 02/09/24 14:25 GFR Calculation Not Reportable 02/09/24 14:25 Last dialysis session:: N/A Drug administration history:: Medications Vancomycin HCl (Vancocin) 2,000 mg in 400 mls @ 200 mls/hr IV ONCE ONE Stop: 02/09/24 17:44 Vancomycin HCl 1,000 mg/ (Sodium Chloride) 250 mls @ 250 mls/hr IV Q12H FELIPE Piperacillin Sod/Tazobactam (Sod 3.375 gm/ Sodium Chloride) 50 mls @ 12.5 mls/hr IV Q8H FELIPE Last Admin: 02/09/24 11:49 Dose: 12.5 mls/hr Treatment plan:: new consult Regimen:: Vancomycin 2000 mg loading dose followed by 1 gm q12h Follow up:: Pharmacy to monitor daily. Scr daily with AM labs
--- NOTE | 2024-02-09 15:45 | ECG_ITS ---
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: : 1945 Requested By: Iraida Santamaria Order Number: [id number] Reading MD: MARYJANE GREENE Measurements Intervals [place] Rate: 97 P: 181 UT: 231 QRS: -55 QRSD: 114 T: 126 QT: 366 QTc: 466 Interpretive Statements ELECTRONIC ATRIAL PACEMAKER ELECTRONIC VENTRICULAR PACEMAKER ABNORMAL RHYTHM ECG Compared to ECG 02/09/2024 09:42:53 Left-axis deviation no longer present Myocardial infarct finding no longer present T-wave abnormality no longer present Possible ischemia no longer present Electronically Signed On 02-13-2024 00:42:14 PLUG CUTTER by MARYJANE GREENE [email or web address]
[2024-02-09 15:46] LABS: Lactic Sepsis W/Reflex 1.9 mmol/L (0.5-2.2)
--- NOTE | 2024-02-09 16:24 | PM.TDS ---
Transfer Summary Providers Date of Admission: 02/08/24 15:23 Date of Discharge/Transfer: 02/09/24 Attending Provider at Admission: Airam Hernadez MD Attending Provider at Transfer: Iraida Santamaria MD Primary Care Provider: Gatito Hall Transfer Plans: Anticipated date of transfer: 02/09/24. Receiving Facility: [facility]. Receiving Provider: Dr. Griffin. Diagnoses at Discharge Discharge Diagnosis (1) Atrial fibrillation with rapid ventricular response: Status: Acute (2) Aortic valve stenosis: Status: Acute Qualifiers: Cardiac valve disease etiology: etiology unspecified Qualified Code(s): I35.0 - Nonrheumatic aortic (valve) stenosis (3) Pacemaker: Status: Acute (4) CHF (congestive heart failure): Status: Acute Qualifiers: Heart failure type: diastolic Heart failure chronicity: acute on chronic Qualified Code(s): I50.33 - Acute on chronic diastolic (congestive) heart failure (5) Sepsis: Status: Acute Qualifiers: Sepsis acute organ dysfunction status: without acute organ dysfunction Sepsis type: sepsis due to unspecified organism Qualified Code(s): A41.9 - Sepsis, unspecified organism (6) Acute UTI: Status: Acute (7) Coronary artery disease: Status: Acute Qualifiers: Coronary Disease-Associated Artery/Lesion type: [place] artery [place] vs. transplanted heart: [place] heart Associated angina: without angina Qualified Code(s): I25.10 - Atherosclerotic heart disease of [place] coronary artery without angina pectoris Reason for Visit Reason for Visit AMS; weakness Brief History: Jose Matthew is a 78 year old male with a past medical history of aortic stenosis, status post recent TAVR at [address] [place] [address] on December 30, 2023. Prior history also of CHF, history of CAD with multiple stents in the past, currently has a pacemaker in place. Patient was recently admitted at [facility] for TAVR. It appears hospital course may have been complicated and he did require Impella. Patient believes he may have had a stroke after Impella was removed as he had transient dysarthria, however states that at the time of discharge this was excluded by a normal CT head. Patient was discharged to rehab to recover from his acute illness, however he elected to leave AMA on Friday (today is Friday), so he could get out and work. Since returning home he had been ambulating. He was feeling like he is back to baseline. He went to [employer] this evening where [employer] members noted him to be unwell and sent him to the ER for evaluation. Upon arrival he had a fever of 103 Fahrenheit. Blood pressure was soft between 87-91 systolic. He was in A-fib with RVR with heart rate up to 160. He received a bolus of Cardizem 10 mg and was started on a Cardizem infusion. This has been discontinued upon arrival to the ICU as his heart rate is currently 93/min, blood pressure 108/72 mmHg.. Previously in the ER blood pressure was ranging 91/58 mmHg. He denies any cough chest pain dyspnea or palpitations. He does not believe he has any active urinary symptoms though his urine did test positive for nitrates, leukocyte Estrace, WBC 11-20. Denies any past history of UTIs. 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 He was febrile on admission fever 103. Was in A-fib with RVR. Currently on an amiodarone drip. Continue Eliquis. Urinalysis positive but unsure if sample was clean. Blood culture from admission positive for out of 4 bottles for Streptococcus species. Patient placed on vancomycin and Zosyn initially however after speaking to CT surgery at [facility] will switch to meropenem as per the recommendation. CT abdomen pelvis without any obstructive uropathy. No stones. Trace dependent bilateral pleural effusions present. No evidence of pneumonia on scan. Patient also has a UTI. Patient did receive 2 L IV fluid bolus in the ER as a septic bolus. However further fluids were held and he was given 1 dose of Lasix. He has been febrile today as well. We currently do not have infectious disease specialty available at our hospital. David england discuss with ID over the phone. TTE negative for vegetations at this time. SP has been ordered. Discussed with cardiology team. We may be able to possibly get that done by tomorrow if patient is still here. Discussed with CT surgery team at [facility]. Discussed with patient's surgeon Dr. Hinojosa who accepted patient for transfer for further management and workup as he has had a recent CABG and TAVR. Family informed over the phone. Discussed with patient who is agreeable to transfer at this time. Currently stable for transfer. Physical Exam Narrative: General Well-developed well-nourished overweight male in no acute cardiopulmonary distress CV regular rate and rhythm no loud murmur in the right upper and left upper sternal border Currently on amiodarone drip Saturating 98% on 2 L nasal cannula Abdomen soft nontender 1+ bilateral lower extremity edema. Sternal wound appears clean no erythema TS Data Studies Completed and Pending Pending at discharge Category Date Time Status Blood Culture Stat Lab 02/08/24 11:39 Results Blood Culture Stat Lab 02/09/24 14:27 Results Troponin(5th) 2 Hour. Timed Lab 02/09/24 16:25 Ordered Troponin(5th) 6 hour. Timed Lab 02/09/24 20:25 Ordered Urine Culture Stat Lab 02/08/24 12:50 Results Completed Studies During Hospitalization Category Date Time Status CT abdomen pelvis wo con [id number] Stat Cat Scan 02/08/24 14:32 Completed XR chest 1V portable [id number] Stat Exams 02/08/24 11:29 Completed XR chest 1V portable [id number] Stat Exams 02/09/24 11:40 Completed CV. echo complete* [id number] Routine Ultrasound 02/09/24 18:40 Completed Laboratory Last Values WBC 15.14 10^3/uL (3.29-11.43) H 02/09/24 14:25 RBC 3.36 10^6/uL (3.85-5.65) L 02/09/24 14:25 Hgb 8.60 g/dL (11.27-16.99) L 02/09/24 14:25 Hct 28.2 % (37-53) L 02/09/24 14:25 MCV 83.9 fl (82-101) 02/09/24 14:25 MCH 25.6 pg (27-33) L 02/09/24 14:25 MCHC 30.5 g/dL (30-55) 02/09/24 14:25 RDW 16.3 % (12.1-15.1) H 02/09/24 14:25 Plt Count 192 10^3/cmm (157-399) 02/09/24 14:25 MPV 11.0 fL (7.4-10.4) H 02/09/24 14:25 Neut % (Auto) 92.3 % 02/09/24 14:25 Lymph % (Auto) 4.1 % 02/09/24 14:25 Benson % (Auto) 2.8 % 02/09/24 14:25 Eos % (Auto) 0.0 % 02/09/24 14:25 Baso % (Auto) 0.3 % 02/09/24 14:25 Neut # (Auto) 13.98 10^3/uL (1.8-7.7) H 02/09/24 14:25 Lymph # (Auto) 0.6 10^3/uL (0.8-4.8) L 02/09/24 14:25 Benson # (Auto) 0.4 10^3/uL (0.2-0.9) 02/09/24 14:25 Eos # (Auto) 0.0 10^3/uL (0.0-0.8) 02/09/24 14:25 Baso # (Auto) 0.0 10^3/uL (0.0-0.1) 02/09/24 14:25 Nucleated RBC % (auto) 0 % 02/09/24 14:25 Nucleated RBCs # 0.0 /100WBC 02/09/24 14:25 Sodium 134 mmol/L (136-145) L 02/09/24 14:25 Potassium 4.5 mmol/L (3.5-5.1) 02/09/24 14:25 Chloride 100 mmol/L (98-107) 02/09/24 14:25 Carbon Dioxide 21 mmol/L (22-29) L 02/09/24 14:25 Anion Gap 17.5 (5-19) 02/09/24 14:25 BUN 26 mg/dL (8-23) H 02/09/24 14:25 Creatinine 1.6 mg/dL (0.7-1.2) H 02/09/24 14:25 GFR Calculation Not Reportable 02/09/24 14:25 Glucose 190 mg/dL (65-115) H 02/09/24 14:25 POC Glucose 177 mg/dL (70-110) H 02/09/24 11:34 Calculated Osmolality 288 mOsm/kg (285-295) 02/09/24 14:25 Lactic Acid 1.9 mmol/L (0.5-2.2) 02/09/24 14:25 Lactic Acid (Sepsis) 1.0 mmol/L (0.5-2.2) 02/08/24 14:58 Calcium 7.8 mg/dL (8.5-10.5) L 02/09/24 14:25 Magnesium 1.8 mg/dL (1.7-2.3) 02/09/24 14:25 Total Bilirubin 0.3 mg/dL (0.15-1.2) 02/09/24 01:01 AST 15 U/L (0-40) 02/09/24 01:01 ALT 12 U/L (0-41) 02/09/24 01:01 Alkaline Phosphatase 128 U/L (40-130) 02/09/24 01:01 Troponin T Baseline 60 ng/L (0-15) H 02/09/24 14:25 Troponin T 120 Minute 52.49 ng/L (0-15) H 02/09/24 02:53 Delta Troponin T -3.51 ABS# (0-10) L 02/09/24 02:53 Troponin T Hi Sens 6Hr 46.12 ng/L (0-15) H 02/09/24 06:58 Troponin T Hi Sens 6Hr Delta -9.88 ng/L (0-12) L 02/09/24 06:58 NT-Pro-B Natriuret Pep 9386 pg/mL (0-450) H 02/08/24 11:50 Total Protein 5.5 g/dL (6.6-8.7) L 02/09/24 01:01 Albumin 2.8 g/dL (3.5-5.2) L 02/09/24 01:01 Globulin 2.7 g/dL (1.3-4.6) 02/09/24 01:01 TSH 0.40 uIU/mL (0.27-4.20) 02/08/24 11:50 Urine Color Yellow (Yellow) 02/08/24 12:50 Urine Appearance Cloudy (CLEAR) A 02/08/24 12:50 Urine pH 5.5 (5-7) 02/08/24 12:50 Ur Specific [place] 1.022 (1.005-1.030) 02/08/24 12:50 Urine Protein Trace (Negative) A 02/08/24 12:50 Urine Glucose (UA) Negative (Normal) 02/08/24 12:50 Urine Ketones Trace (Negative) 02/08/24 12:50 Urine Blood Negative (Negative) 02/08/24 12:50 Urine Nitrate Positive (Negative) A 02/08/24 12:50 Urine Bilirubin Negative (Negative) 02/08/24 12:50 Urine Urobilinogen 1.0 mg/dL (Negative) 02/08/24 12:50 Ur Leukocyte Esterase 1+ (Negative) A 02/08/24 12:50 Urine RBC 0-2 /hpf (0-2) 02/08/24 12:50 Urine WBC 11-20 /hpf (0-5) H 02/08/24 12:50 Ur Squamous Epith Cells 0-5 /hpf (0-5) 02/08/24 12:50 Amorphous Sediment Not Reportable 02/08/24 12:50 Urine Bacteria 4+ /hpf (NONE) H 02/08/24 12:50 Hyaline Casts 3.30 /lpf 02/08/24 12:50 Coronavirus (PCR) Negative (Negative) 02/08/24 19:10 Influenza A (PCR) Negative (Negative) 02/08/24 19:10 Influenza Type B (PCR) Negative (Negative) 02/08/24 19:10 RSV (PCR) Negative (Negative) 02/08/24 19:10 Radiology Impressions Abdomen/Pelvis CT 02/08/24 14:32 IMPRESSION: 1. No obstructive uropathy. No stones. 2. Trace simple dependent bilateral pleural effusions. 3. Incidental findings above. Chest X-Ray 02/09/24 11:40 IMPRESSION: Interval change in the chest which may represent early congestive heart failure. Recent Clincial Data Last Vital Signs Temp 100.0 F H 02/09/24 13:18 Pulse 103 H 02/09/24 16:10 Resp 20 H 02/09/24 12:25 BP 125/64 02/09/24 16:10 Pulse Ox 100 02/09/24 16:10 O2 Del Method Room Air 02/08/24 13:09 Vital Signs Temp Pulse Resp BP Pulse Ox 02/09/24 16:10 103 H 125/64 100 02/09/24 16:05 105 H 125/64 98 02/09/24 16:00 117 H 109/63 98 02/09/24 15:55 109 H 109/63 96 02/09/24 15:50 110 H 109/63 96 02/09/24 15:45 95 109/63 100 02/09/24 15:40 98 114/74 100 02/09/24 15:35 97 114/74 100 02/09/24 15:30 99 108/58 100 02/09/24 15:25 98 108/58 100 02/09/24 15:20 99 108/58 99 02/09/24 15:15 99 108/58 100 02/09/24 15:10 105 H 109/89 100 02/09/24 15:05 114 H 109/89 96 02/09/24 15:00 108 H 117/69 100 02/09/24 14:55 111 H 117/69 99 02/09/24 14:50 116 H 117/69 96 02/09/24 14:45 107 H 112/64 98 02/09/24 14:40 98 112/64 96 02/09/24 14:35 99 112/64 92 02/09/24 14:30 105 H 112/64 89 L 02/09/24 14:25 104 H 91/69 91 02/09/24 14:20 107 H 91/69 86 L 02/09/24 14:15 105 H 91/69 93 02/09/24 14:10 108 H 115/70 95 02/09/24 14:05 107 H 115/70 96 02/09/24 14:00 112 H 83/63 90 02/09/24 13:55 111 H 83/63 96 02/09/24 13:50 113 H 83/63 100 02/09/24 13:45 112 H 100/68 93 02/09/24 13:40 117 H 98 02/09/24 13:35 111 H 90 02/09/24 13:30 111 H 118/66 97 02/09/24 13:25 108 H 118/66 93 02/09/24 13:20 115 H 118/66 84 L 02/09/24 13:18 100.0 F H 02/09/24 13:15 111 H 110/68 99 02/09/24 13:10 116 H 110/68 100 02/09/24 13:05 110 H 110/68 87 L 02/09/24 13:00 112 H 88/71 95 02/09/24 12:55 110 H 88/71 100 02/09/24 12:50 106 H 88/71 96 02/09/24 12:45 117 H 88/71 100 02/09/24 12:40 115 H 109/67 99 02/09/24 12:35 117 H 109/67 89 L 02/09/24 12:30 120 H 157/84 94 02/09/24 12:25 119 H 20 H 157/84 02/09/24 12:20 120 H 29 H 157/84 02/09/24 12:15 127 H 21 H 127/79 96 02/09/24 12:10 127/79 97 02/09/24 12:05 114 H 21 H 127/79 94 02/09/24 12:00 120 H 19 H 127/79 90 02/09/24 11:55 123 H 31 H 150/122 98 02/09/24 11:50 120 H 31 H 150/122 85 L 02/09/24 11:45 119 H 36 H 127/70 02/09/24 11:40 115 H 32 H 127/70 86 L 02/09/24 11:35 120 H 23 H 127/70 92 02/09/24 11:30 117 H 25 H 127/70 97 02/09/24 11:25 118 H 32 H 100/75 98 02/09/24 11:20 114 H 26 H 100/75 95 02/09/24 11:15 110 H 24 H 100/75 94 02/09/24 11:10 111 H 23 H 118/77 100 02/09/24 11:05 109 H 24 H 118/77 99 02/09/24 11:00 106 H 17 118/77 100 02/09/24 10:55 110 H 16 100 02/09/24 10:50 113 H 20 H 100 02/09/24 10:45 113 H 26 H 120/67 94 02/09/24 10:40 96 27 H 120/67 100 02/09/24 10:35 98 16 120/67 100 02/09/24 10:30 100 27 H 120/67 100 02/09/24 10:25 106 H 20 H 136/63 100 02/09/24 10:20 102 H 32 H 136/63 99 02/09/24 10:15 105 H 23 H 136/63 100 02/09/24 10:10 99 22 H 135/67 95 02/09/24 10:05 108 H 23 H 135/67 98 02/09/24 10:00 103 H 26 H 135/67 97 02/09/24 09:55 107 H 25 H 135/90 100 02/09/24 09:50 101 H 27 H 135/90 99 02/09/24 09:45 98 31 H 135/90 100 02/09/24 09:40 99 20 H 112/77 100 02/09/24 09:35 92 23 H 112/77 74 L 02/09/24 09:30 97 18 112/77 02/09/24 09:25 97 25 H 98/69 02/09/24 09:20 96 26 H 98/69 02/09/24 09:15 99 25 H 121/76 02/09/24 09:10 95 21 H 121/76 81 L 02/09/24 09:05 98 26 H 121/76 75 L 02/09/24 09:00 99 24 H 127/80 02/09/24 08:55 99 18 127/80 02/09/24 08:50 93 22 H 127/80 02/09/24 08:45 97 29 H 124/71 02/09/24 08:40 108 H 28 H 124/71 02/09/24 08:35 105 H 24 H 124/71 02/09/24 08:30 99 21 H 97/60 81 L 02/09/24 08:25 98 24 H 97/60 02/09/24 08:20 96 23 H 97/60 02/09/24 08:15 92 21 H 126/69 02/09/24 08:10 91 18 126/69 96 02/09/24 08:05 99 15 126/69 99 02/09/24 08:00 102 H 17 97/73 02/09/24 08:00 91 18 126/69 91 02/09/24 07:45 93 20 H 114/68 02/09/24 07:40 91 17 114/68 02/09/24 07:35 98 24 H 114/68 02/09/24 07:30 90 23 H 118/64 02/09/24 07:25 90 25 H 118/64 90 02/09/24 07:10 93 21 H 95/70 02/09/24 07:05 90 18 95/70 96 02/09/24 07:00 89 15 102/74 100 02/09/24 06:55 90 20 H 102/74 97 02/09/24 06:50 90 6 L 102/74 96 02/09/24 06:45 90 6 L 104/60 95 02/09/24 06:40 90 6 L 104/60 99 02/09/24 06:35 90 14 104/60 99 02/09/24 06:30 90 16 102/59 96 02/09/24 06:25 91 13 102/59 96 02/09/24 06:20 90 5 L 102/59 97 02/09/24 06:15 90 1 L 81/52 98 02/09/24 06:10 90 3 L 81/52 99 02/09/24 06:05 88 17 81/52 96 02/09/24 06:00 91 0 L 92/65 98 02/09/24 06:00 90 02/09/24 05:55 90 14 92/65 96 02/09/24 05:50 90 0 L 92/65 97 02/09/24 05:45 90 5 L 100/65 98 02/09/24 05:40 90 17 100/65 99 02/09/24 05:35 90 4 L 100/65 99 02/09/24 05:30 90 3 L 104/64 98 02/09/24 05:25 90 6 L 104/64 98 02/09/24 05:20 90 17 104/64 96 02/09/24 05:15 90 4 L 99/60 99 02/09/24 05:10 90 17 99/60 96 02/09/24 05:05 90 2 L 99/60 100 02/09/24 05:00 90 3 L 95/60 99 02/09/24 04:55 90 2 L 95/60 99 02/09/24 04:50 90 5 L 95/60 100 02/09/24 04:45 90 14 107/63 87 L 02/09/24 04:40 90 0 L 107/63 99 02/09/24 04:35 90 9 L 107/63 93 02/09/24 04:30 90 15 102/61 Intake & Output/Weight 02/07/24 02/08/24 02/09/24 02/10/24 07:59 06:59 06:59 06:59 Intake Total 2104.426 / 210.426 730 / 730 Output Total 1300 / 1300 495 / 495 Balance 804.426 / 804.426 235 / 235 Weight 106.5 kg Vitals Last Vital Signs Temp 100.0 F H 02/09/24 13:18 Pulse 103 H 02/09/24 16:10 Resp 20 H 02/09/24 12:25 BP 125/64 02/09/24 16:10 Pulse Ox 100 02/09/24 16:10 O2 Del Method Room Air 02/08/24 13:09 TS Medications Medications Acetaminophen (Acetaminophen 325 Mg Tablet) 650 mg PO Q6H PRN PRN Reason: Mild/Mod Pain Or Temp >/= 101 Apixaban (Apixaban 5 Mg Tablet) 2.5 mg PO BID@0900,2100 [facility] Last Admin: 02/09/24 08:43 Dose: 2.5 mg Atorvastatin Calcium (Atorvastatin 40 Mg Tablet) 20 mg PO DAILY FELIPE Last Admin: 02/09/24 08:43 Dose: 20 mg Glucagon (Glucagon 1 Mg/Ml Kit 1 Ml) 1 mg IM ONCE PRN; Protocol PRN Reason: Adult Acute Hypoglycemia Nursing Prot. Dextrose (D5w) 500 mls @ 0 mls/hr IV ONCE PRN; Protocol PRN Reason: Adult Acute Hypoglycemia Prot Dextrose (D10w) 125 mls @ 750 mls/hr IV PRN PRN; Protocol PRN Reason: Adult Acute Hypoglycemia Nursing Protocol Dextrose (D10w) 250 mls @ 1,000 mls/hr IV PRN PRN; Protocol PRN Reason: Adult Acute Hypoglycemia Nursing Protocol Amiodarone HCl/Dextrose (Nexterone) 360 mg in 200 mls @ 0 mls/hr IV .Q0M FELIPE; Protocol Last Admin: 02/09/24 14:28 Dose: 0.5 mg/min, 16.67 mls/hr Norepinephrine Bitartrate (Levophed) 4 mg in 250 mls @ 0 mls/hr IV .Q0M FELIPE; Protocol Vancomycin HCl (Vancocin) 2,000 mg in 400 mls @ 200 mls/hr IV ONCE ONE Stop: 02/09/24 17:44 Vancomycin HCl 1,000 mg/ (Sodium Chloride) 250 mls @ 250 mls/hr IV Q12H FELIPE Meropenem 2,000 mg/ Sodium (Chloride) 50 mls @ 100 mls/hr IV Q8H FELIPE; Protocol Insulin Glargine (Insulin Glargine 100 Units/1 Ml) 13 unit SUBCUT BEDTIME FELIPE Last Admin: 02/08/24 21:23 Dose: 13 unit Insulin Human Lispro (Insulin Lispro 100 Unit/1 Ml) 0 unit SUBCUT WM&BEDTIME FELIPE; Protocol Last Admin: 02/09/24 11:49 Dose: 2 unit Ondansetron HCl (Ondansetron 2 Mg/Ml Sdv 2 Ml) 4 mg IVP Q8H PRN PRN Reason: vomiting, or N/V if npo Last Admin: 02/09/24 12:17 Dose: 4 mg Pantoprazole Sodium (Pantoprazole Dr 40 Mg Tablet) 40 mg PO DAILY FELIPE Last Admin: 02/09/24 08:43 Dose: 40 mg Vancomycin HCl (Vancomycin 1,000 Mg Sdv (Pharmacy Mix)) 0 mg XX PRN PRN PRN Reason: Pharmacy to Dose Discontinued Medications Acetaminophen (Acetaminophen 325 Mg Tablet) 1,000 mg PO ONCE ONE Stop: 02/08/24 11:30 Last Admin: 02/08/24 11:58 Dose: 1,000 mg Ceftriaxone Sodium (Ceftriaxone 1,000 Mg Sdv) 1,000 mg IVP ONCE ONE; Protocol Stop: 02/08/24 11:30 Last Admin: 02/08/24 11:59 Dose: 1,000 mg Diltiazem HCl (Diltiazem 5 Mg/Ml Sdv 5 Ml) 10 mg IVP ONCE ONE Stop: 02/08/24 11:34 Last Admin: 02/08/24 12:00 Dose: 10 mg Furosemide (Furosemide 10 Mg/Ml Sdv 4ml) 40 mg IVP ONCE ONE Stop: 02/08/24 18:25 Last Admin: 02/08/24 19:25 Dose: 40 mg Furosemide (Furosemide 10 Mg/Ml Sdv 4ml) 40 mg IVP ONCE ONE Stop: 02/09/24 12:22 Sodium Chloride (Sodium Chloride 0.9%) 1,000 mls @ 999 mls/hr IV .Q1H1M ONE Stop: 02/08/24 12:29 Last Infusion: 02/08/24 14:42 Dose: Infused Diltiazem HCl 100 mg/ Sodium (Chloride) 100 mls @ 0 mls/hr IV .Q0M FELIPE; Protocol Sodium Chloride (Sodium Chloride 0.9%) 1,000 mls @ 999 mls/hr IV .Q1H1M ONE Stop: 02/08/24 13:30 Last Admin: 02/08/24 14:42 Dose: 999 mls/hr Piperacillin Sod/Tazobactam (Sod / Sodium Chloride) 50 mls @ 0 mls/hr [id number] CONT FELIPE; Protocol Amiodarone HCl/Dextrose (Nexterone) 150 mg in 100 mls @ 400 mls/hr IV ONCE ONE Stop: 02/08/24 18:44 Last Infusion: 02/09/24 04:20 Dose: Infused Piperacillin Sod/Tazobactam (Sod 3.375 gm/ Sodium Chloride) 50 mls @ 12.5 mls/hr IV Q8H [facility] Last Infusion: 02/09/24 16:14 Dose: Infused Sodium Chloride (Sodium Chloride 0.9%) 500 mls @ 500 mls/hr IV ONCE ONE Stop: 02/09/24 15:49 Allergies No Known Allergies Allergy (Verified 02/08/24 11:47) Home Medications apixaban 2.5 mg tablet (Eliquis) 2.5 mg PO BID 02/08/24 [History Confirmed 02/09/24] carvedilol 3.125 mg tablet 3.125 mg PO Q12H 02/08/24 [History Confirmed 02/09/24] insulin glargine 100 unit/mL subcutaneous cartridge 13 unit SUBCUT QPM 02/08/24 [History Confirmed 02/09/24] lovastatin 10 mg tablet 10 mg PO DAILY 02/08/24 [History Confirmed 02/09/24] Discharge Plan Discharge Patient Disposition: Xfer Other Condition: Stable Prescriptions: No Action Eliquis 2.5 mg Tablet 2.5 mg PO BID carvedilol 3.125 mg Tablet 3.125 mg PO Q12H Rx Instructions: must administer with a meal/food lovastatin 10 mg Tablet 10 mg PO DAILY Lantus U-100 Insulin 100 unit/mL Cartridge 13 unit SUBCUT QPM Referrals: WESTON PARSON, [Family Provider] - Patient Instructions: Opioid Safety Transfer Attestations Time Spent in Transfer Care: greater than 30 min Quality Metrics Clinical Quality Measures [ No reported AMI, CVA or VTE this stay] Coding Level of Care Code 95916 Total time (in minutes) for Discharge: 75 Diagnoses Atrial fibrillation with rapid ventricular response I48.91 Aortic valve stenosis, etiology of cardiac valve disease unspecified I35.0 Cardiac valve disease etiology: etiology unspecified Pacemaker Z95.0 Acute on chronic diastolic congestive heart failure I50.33 Heart failure type: diastolic Heart failure chronicity: acute on chronic Sepsis A41.9 Sepsis acute organ dysfunction status: without acute organ dysfunction Sepsis type: sepsis due to unspecified organism Acute UTI N39.0 Coronary artery disease involving [place] coronary artery of [place] heart without angina pectoris I25.10 Coronary Disease-Associated Artery/Lesion type: [place] artery [place] vs. transplanted heart: [place] heart Associated angina: without angina
[2024-02-09] MEDS: MEROPENEM 2,000 MG in sodium chloride 0.9% (plus) 50 ML 100 MG IV (16:43)
[2024-02-09] MEDS: vancomycin 2,000 MG/400 ML PIGGYBACK 200 MG IV (16:43)
[2024-02-09 17:27] LABS: Troponin 5 2HR 63.63 ng/L (0-15); Troponin 5 2HR Delta 3.63 ABS# (0-10)
[2024-02-09 18:30] LABS: Glucose Point of Care 181 mg/dL (70-110)
--- NOTE | 2024-02-09 18:40 | USCV_ITS ---
Jose Matthew Age: 78 Gender: M : 1945 Exam Date: 02/09/2024 07:30 Ordering Phys: Airam Hernadez MD Technologist: [place] [facility] [place]: cp BP: 103 / 60 HR: 474 Rhythm: Sinus Technical Quality: Adequate MEASUREMENTS (Male / Female) Normal Values 2D ECHO LV Diastolic Diameter PLAX 5.6 cm 4.2 - 5.9 / 3.9 - 5.3 cm IVS Diastolic Thickness 1.4 cm 0.6 - 1.0 / 0.6 - 0.9 cm IVS Systolic Thickness 1.9 cm LVPW Diastolic Thickness 1.3 cm 0.6 - 1.0 / 0.6 - 0.9 cm LVPW Systolic Thickness 1.3 cm LVOT Diameter 2.1 cm LV Ejection Fraction 2D Teich 14.5 % LV Ejection Fraction MOD 4C 42.7 % LV Ejection Fraction MOD 2C 53.7 % LV Ejection Fraction 2C AL 54.6 % LA Diameter 4.3 cm RA Systolic Volume 4C AL 120.5 ml RA Systolic Volume 4C MOD 113.3 ml Aorta at Sinotubular Diameter 3.5 cm M-MODE LA Ao Ratio MM 1.3 AV Cusp Separation MM 1.8 cm DOPPLER AV Peak Velocity 96.7 cm/s LVOT Peak Velocity 89.0 cm/s AV Area Cont Eq vti 3.8 cm squared AV Area Cont Eq pk 3.1 cm squared MV Area PHT 6.7 cm squared Mitral E to A Ratio 3.6 TR Peak Velocity 178.0 cm/s TR Peak Gradient 12.7 mmHg TV Peak E Velocity 101.0 cm/s Right Atrial Pressure 3.0 mmHg Pulmonary Artery Systolic Pressu 15.7 mmHg PV Peak Velocity 88.0 cm/s FINDINGS Left Ventricle Moderately increased left ventricular cavity size. Severely decreased left ventricular systolic function. Left ventricular ejection fraction is estimated at 25 %. There appeared to be mid to distal anterior septal and apical akinesis consistent with ischemic heart disease. In the presence of atrial fibrillation diastolic function cannot be assessed accurately. Right Ventricle The right ventricle is normal in size and function. Right Atrium The right atrium is normal in size. Left Atrium Moderately increased left atrial size. Mitral Valve Moderately thickened mitral valve. Mitral annular calcification. Moderate-severe mitral valve regurgitation. Aortic Valve Bioprosthetic aortic valve was sitting in a normal position no significant valvular regurgitation noticed. Tricuspid Valve Structurally normal tricuspid valve without significant stenosis or regurgitation. Pulmonary artery systolic pressure is normal. Pulmonic Valve Structurally normal pulmonic valve without significant stenosis. There is no pulmonic regurgitation. Pericardium Normal pericardium without effusion. Aorta Normal ascending aorta dimension. IVC The inferior vena cava appears normal. CONCLUSIONS Moderately increased left ventricular cavity size. Severely decreased left ventricular systolic function. Left ventricular ejection fraction is estimated at 25 %. There appeared to be mid to distal anterior septal and apical akinesis consistent with ischemic heart disease.diastolic function cannot be assessed accurately in the presence of atrial for. Moderately increased left atrial size. Moderately thickened mitral valve. Mitral annular calcification. Moderate-severe mitral valve regurgitation. Bioprosthetic aortic valve was sitting in a normal position no significant valvular regurgitation noticed. There is no pericardial effusion. If there is suspicion for endocarditis transesophageal echocardiogram is a better modality to assess for vegetation. Prem David MD (Electronically Signed) Final Date: 09 February 2024 15:35 S
[2024-02-09 20:05] LABS: Glucose Point of Care 173 mg/dL (70-110)
[2024-02-09] MEDS: metoprolol tartrate 25 mg Tablet 12.5 MG PO (20:13)
[2024-02-09] MEDS: insulin glargine 100 units/1 mL 13 UNIT SUBCUT (20:13)
[2024-02-09 20:54] LABS: Troponin 5 6HR 56.29 ng/L (0-15)
[2024-02-09 20:55] LABS: Troponin 5 6HR Delta -3.71 ng/L (0-12)
[2024-02-10] VITALS (190 sets, daily range): BP systolic 83–141; BP diastolic 51–97; PULSE 86–127; RESP 0–27; TEMP 36.9; O2SAT 69–100
[2024-02-10] MEDS: MEROPENEM 2,000 MG in sodium chloride 0.9% (plus) 50 ML 100 MG IV ×3 (00:31→16:01)
[2024-02-10] MEDS: VANCOMYCIN ADD-Vantage 1,000 MG in 0.9% NaCl ADD-Vantage 250 ML 250 MG IV ×2 (03:37→16:02)
[2024-02-10 04:05] LABS: Basophils % 0.3 %; Eosinophils % 0.2 %; Hematocrit 28.4 % (37-53); Lymphocytes # 1.4 10^3/uL (0.8-4.8); Lymphocytes % 12.5 %; Mean Corpuscular HGB Conc 29.6 g/dL (30-55); Mean Corpuscular Hemoglobin 25.3 pg (27-33); Mean Corpuscular Volume 85.5 fl (82-101); Mean Platelet Volume 10.2 fL (7.4-10.4); Monocytes # 0.7 10^3/uL (0.2-0.9); Monocytes % 5.6 %; Neutrophils # 9.35 10^3/uL (1.8-7.7); Neutrophils % 80.9 %; Nucleated Red Blood Cells % 0 %; Platelet Count 168 10^3/cmm (157-399); Red Blood Count 3.32 10^6/uL (3.85-5.65); White Blood Count 11.56 10^3/uL (3.29-11.43)
[2024-02-10 04:23] LABS: Anion Gap 14.8 (5-19); Blood Urea Nitrogen 24 mg/dL (8-23); Calcium 7.8 mg/dL (8.5-10.5); Carbon Dioxide 24 mmol/L (22-29); Chloride 103 mmol/L (98-107); Creatinine Clr Calc Pharmacy 60.9641; Glucose 120 mg/dL (65-115); Osmolality Calculated 291 mOsm/kg (285-295); Potassium 3.8 mmol/L (3.5-5.1); Sodium 138 mmol/L (136-145)
[2024-02-10 08:35] LABS: Glucose Point of Care 94 mg/dL (70-110)
[2024-02-10] MEDS: atorvastatin 40 mg Tablet 20 MG PO (08:46)
[2024-02-10] MEDS: pantoprazole DR 40 mg Tablet PO (08:46)
[2024-02-10] MEDS: metoprolol tartrate 25 mg Tablet 12.5 MG PO ×2 (08:47→21:36)
[2024-02-10] MEDS: apixaban 5 mg Tablet 2.5 MG PO ×2 (08:47→21:36)
--- NOTE | 2024-02-10 10:03 | PM.CONSULT ---
Providers/Reason For Consult Consulting Physician/Specialty*: Airam Hernadez MD / Infectious Disease Reason for Consult*: Infective endocarditis Requesting Physician: Iraida Santamaria MD Attending Physician: Iraida Santamaria MD Primary Care Provider: Gatito Hall History of Present Illness History of Present Illness Jose Matthew is a 78 year old male who was previously seen by me as a hospitalist. Patient is a 78-year-old male with a past medical history of coronary artery disease, aortic valve stenosis, CHF, A-fib RVR who was recently admitted at [facility] where he underwent aortic valve replacement with a bioprosthetic valve on December 30, 2023. It appears he had an extended stay and needed treatment for CHF perioperatively. He was sent to rehab to recover, however elected to leave AMA 1 week ago. He was admitted via the emergency room on February 08, 2024 when he presented with fever up to 103 Fahrenheit, signs of developing sepsis and A-fib RVR. Initially appeared to have a urinary tract infection, however subsequently his blood cultures have now been reported positive for Streptococcus species. 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 His chest x-ray was without any consolidation or signs of pneumonia. Patient denies having any had any sore throat cough or dyspnea recently. CT of the abdomen and pelvis did not show any obstructive urinary process. He denies any dysuria. Transthoracic echocardiogram showed moderately increased LVEF. Severely decreased LV systolic function. LVEF of 25%. Mid to distal anterior septal and apical akinesis consistent with ischemic heart disease. Moderately thickened mitral valve. Moderate to severe mitral valve regurgitation. Bioprosthetic aortic valve in a normal position. SP is planned and is currently pending. Last Tmax over 24 hours is 100 Fahrenheit. Patient was initially on treatment with piperacillin/tazobactam from 02/07-02/08. Currently on meropenem. Vancomycin was added on 02/08 after discussion with hospitalist. Review of Systems General: Reports: 10 or more systems reviewed and unremarkable except in HPI and below Const: Denies: fever(s), chills or body aches Eyes: Denies: change in vision, blurry vision or photophobia ENMT: Reports: hoarseness; Denies: throat pain, enlarged tonsils, odynophagia or nasal congestion Card: Denies: chest pain, palpitations, irregular heart rhythm, edema, swelling of feet/ankles, lightheadedness, pre-syncope, dyspnea on exertion or orthopnea Resp: Denies: dyspnea, productive cough, non-productive cough, wheezing, stridor, pain on inspiration, change in phlegm color, hemoptysis or chest congestion GI: Denies: abdominal pain, nausea, vomiting, hematemesis, coffee ground emesis, dysphagia, heartburn, diarrhea, constipation, GI cramping, change in stool character, hematochezia or melena : Denies: flank pain, dysuria, urinary frequency, urinary urgency, urinary hesitancy or hematuria Musc: Denies: neck pain, back pain, extremity pain, joint swelling, joint warmth or deformity Neuro: Denies: headache(s), numbness in extremities, weakness in extremities, sensory changes, difficulty walking, frequent falls, dizziness, vertigo, behavioral changes, Slurred speech present or seizure-like activity Psych: Denies: anxiety, depression, suicidal ideation or homicidal ideation Endo: Denies: polyuria, polydipsia, tired all the time, cold intolerance or hot flashes [place]/Lymph: Denies: easy bruising or easy bleeding Medications/Allergies Home Medications Medication Instructions Recorded Confirmed Last Taken Type apixaban 2.5 mg tablet (Eliquis) 2.5 mg PO BID 02/08/24 02/09/24 Unknown History carvedilol 3.125 mg tablet 3.125 mg PO Q12H 02/08/24 02/09/24 Unknown History insulin glargine 100 unit/mL 13 unit SUBCUT QPM 02/08/24 02/09/24 Unknown History subcutaneous cartridge lovastatin 10 mg tablet 10 mg PO DAILY 02/08/24 02/09/24 Unknown History Allergies Allergy/AdvReac Type Severity Reaction Status Date / Time No Known Allergies Allergy Verified 02/08/24 11:47 Current Medications Generic Name Dose Route Start Last Admin Trade Name Kokoq PRN Reason Stop Dose Admin Apixaban 2.5 mg 02/08/24 21:00 02/10/24 08:47 Apixaban 5 Mg Tablet PO 2.5 mg BID@0900,2100 FELIPE Administration Atorvastatin Calcium 20 mg 02/09/24 09:00 02/10/24 08:46 Atorvastatin 40 Mg Tablet PO 20 mg DAILY FELIPE Administration Amiodarone HCl/Dextrose 360 mg in 200 mls @ 0 mls/hr 02/08/24 18:30 02/10/24 03:40 Nexterone IV 0.5 mg/min .Q0M FELIPE 16.67 mls/hr Administration Protocol Per Protocol Vancomycin HCl 1,000 mg/ 250 mls @ 250 mls/hr 02/10/24 04:00 02/10/24 07:46 Sodium Chloride IV Infused Q12H FELIPE Infusion Meropenem 2,000 mg/ Sodium 50 mls @ 100 mls/hr 02/09/24 16:30 02/10/24 09:20 Chloride IV Infused Q8H FELIPE Infusion Protocol Insulin Glargine 13 unit 02/08/24 21:00 02/09/24 20:13 Insulin Glargine 100 Units/1 Ml SUBCUT 13 unit BEDTIME FELIPE Administration Insulin Human Lispro 0 unit 02/08/24 21:00 02/10/24 08:40 Insulin Lispro 100 Unit/1 Ml SUBCUT Not Given WM&BEDTIME FELIPE Protocol Metoprolol Tartrate 12.5 mg 02/09/24 21:00 02/10/24 08:47 Metoprolol Tartrate 25 Mg Tablet PO 12.5 mg BID@0900,2100 FELIPE Administration Ondansetron HCl 4 mg 02/08/24 18:24 02/09/24 12:17 Ondansetron 2 Mg/Ml Sdv 2 Ml IVP 4 mg Q8H PRN Administration vomiting, or N/V if npo Pantoprazole Sodium 40 mg 02/09/24 09:00 02/10/24 08:[address] 40 Mg Tablet PO 40 mg DAILY FELIPE Administration PFSH Acute PFSH: Medical History (Updated 02/10/24 @ 10:13 by Airam Hernadez MD) Valvular heart disease Pacemaker Surgical History (Updated 02/10/24 @ 10:12 by Airam Hernadez MD) History of heart artery stent History of heart valve repair Vitals/I&O/Wt Last Vital Signs Temp 98.1 F 02/09/24 20:40 Pulse 90 02/10/24 09:25 Resp 14 02/10/24 09:25 BP 111/69 02/10/24 09:25 Pulse Ox 95 02/10/24 09:25 O2 Del Method Room Air 02/08/24 13:09 02/09/24 02/10/24 02/10/24 22:59 06:59 14:59 Intake Total 620 / 1300 310 / 1610 300 / 300 Output Total 300 / 795 850 / 1645 Balance 320 / 505 -540 / -35 300 / 300 Weight last 48 hrs Weight 105 kg Weight 106.5 kg Weight 106.141 kg Weight 106.141 kg Physical Exam Narrative: General: No acute distress, AO x3 HEENT: PERRLA, pupils bilaterally equal and reactive, pallors not present Chest: Normal vesicular breath sounds, no added sounds, equal good air entry bilaterally CVS: S1-S2 regular, no murmurs, no tachycardia, no gallops, no rubs Abdomen: Soft, nontender, no organomegaly, bowel sounds present Neuro: No focal deficits, no facial deformity, AO x3, power 5/5 in all limbs Urinary Catheter Management: Posadas: Cath Placed During This Visit: yes Reason for Continuing Indwelling Catheter: Accurate Measurement of Urinary Output in Critically Ill Patients Urinary Catheter Date of Insertion: 02/09/24 Urinary Catheter Time of Insertion: 17:10 Data 02/10/24 03:56 02/10/24 03:56 Micro: Microbiology 02/08/24 12:50 Urine Culture - Final Urine,Clean Catch Klebsiella pneumonia esbl NAME: Jose Matthew [facility] #: [id number] LOC: ICU U #: [id number] AGE/SX: 78/M ROOM: [facility] RE02/08/[address]: Iraida Santamaria MD : 1945 BED: 1 DIS: FAX #: STATUS: ADM IN TLOC: Spec #: [id number] Arya: 02/08/24 Status: COMP Req #: [id number] Recd: 02/08/24-[address]: Juanito Chisholm MD Src: Urine CC SpDesc: Ordered: Procedure Result Verified Site Urine Culture Final 02/10/24 Organism 1 Klebsiella pneumonia esbl [place] Count >100,000 CFU/ml DAY 2 Klepnesbl M.I.C. RX --------- ------ * Amikacin <=16 S * Amoxicillin/Clavulanate >16/8 R * Ampicillin/Sulbactam >16/8 R * Aztreonam >16 R * Cefepime >16 R * Ceftriaxone >32 R * Cefuroxime >16 R * Ciprofloxacin 2 I * Gentamicin <=2 S * Imipenem <=1 S * Levofloxacin <=2 S * Nitrofurantoin 64 I * Tetracycline >8 R * Trimethoprim/Sulfamethoxazole >2/38 R * Piperacillin/Tazobactam <=16 S 02/09/24 14:27 Blood Culture - Preliminary Blood SPECIMEN COLLECTED 02/09/24 14:25 Blood Culture - Preliminary Blood SPECIMEN COLLECTED 02/08/24 11:39 Blood Culture - Preliminary Blood NEGATIVE TO DATE 02/08/24 11:50 Blood Culture - Preliminary Blood Streptococcus species NAME: Jose Matthew LOC: [facility] U #: [id number] AGE/SX: 78/M ROOM: [facility] RE02/08/[address]: Iraida Santamaria MD : 1945 BED: 1 DIS: FAX #: STATUS: ADM IN TLOC: Spec #: [id number] Arya: 02/08/24-1149 Status: RES Req #: [id number] Recd: 02/08/[address]: Juanito Chisholm MD Src: Blood SpDesc: Ordered: Bcult Procedure Result Verified Site Blood Culture Preliminary 02/09/24-6 4 OF 4 BOTTLES POSITIVE DIRECT GRAM STAIN: GRAM POSITIVE COCCI IN CHAINS RESULTS TO FOLLOW Organism 1 Streptococcus species Growth 4 BOTTLES Gram Stain Charge Charge for Gram Stain CRITICAL RESULT YES/NO: YES CRITICAL CALLED BY: DILLON TO AND READ BACK BY: GAEL DATE: 02/09/24 TIME: 414 Blood Culture Preliminary (changed) 02/09/24-414 2 OF 4 BOTTLES POSITIVE DIRECT GRAM STAIN: GRAM POSITIVE COCCI IN CHAINS RESULTS TO FOLLOW CRITICAL RESULT YES/NO: YES CRITICAL CALLED BY: DILLON TO AND READ BACK BY: GAEL DATE: 02/09/24 TIME: 414 Blood Culture Preliminary (changed) 02/08/24-1202 SPECIMEN COLLECTED Other data: Radiology Impressions Abdomen/Pelvis CT 02/08/24 14:32 IMPRESSION: 1. No obstructive uropathy. No stones. 2. Trace simple dependent bilateral pleural effusions. 3. Incidental findings above. Chest X-Ray 02/09/24 11:40 IMPRESSION: Interval change in the chest which may represent early congestive heart failure. Laboratory Results WBC 11.56 10^3/uL (3.29-11.43) H 02/10/24 03:56 RBC 3.32 10^6/uL (3.85-5.65) L 02/10/24 03:56 Hgb 8.40 g/dL (11.27-16.99) L 02/10/24 03:56 Hct 28.4 % (37-53) L 02/10/24 03:56 MCV 85.5 fl (82-101) 02/10/24 03:56 MCH 25.3 pg (27-33) L 02/10/24 03:56 MCHC 29.6 g/dL (30-55) L 02/10/24 03:56 RDW 16.0 % (12.1-15.1) H 02/10/24 03:56 Plt Count 168 10^3/cmm (157-399) 02/10/24 03:56 MPV 10.2 fL (7.4-10.4) 02/10/24 03:56 Neut % (Auto) 80.9 % 02/10/24 03:56 Lymph % (Auto) 12.5 % 02/10/24 03:56 [place] % (Auto) 5.6 % 02/10/24 03:56 Eos % (Auto) 0.2 % 02/10/24 03:56 Baso % (Auto) 0.3 % 02/10/24 03:56 Neut # (Auto) 9.35 10^3/uL (1.8-7.7) H 02/10/24 03:56 Lymph # (Auto) 1.4 10^3/uL (0.8-4.8) 02/10/24 03:56 [place] # (Auto) 0.7 10^3/uL (0.2-0.9) 02/10/24 03:56 Eos # (Auto) 0.0 10^3/uL (0.0-0.8) 02/10/24 03:56 Baso # (Auto) 0.0 10^3/uL (0.0-0.1) 02/10/24 03:56 Nucleated RBC % (auto) 0 % 02/10/24 03:56 Nucleated RBCs # 0.0 /100WBC 02/10/24 03:56 Sodium 138 mmol/L (136-145) 02/10/24 03:56 Potassium 3.8 mmol/L (3.5-5.1) 02/10/24 03:56 Chloride 103 mmol/L (98-107) 02/10/24 03:56 Carbon Dioxide 24 mmol/L (22-29) 02/10/24 03:56 Anion Gap 14.8 (5-19) 02/10/24 03:56 BUN 24 mg/dL (8-23) H 02/10/24 03:56 Creatinine 1.3 mg/dL (0.7-1.2) H 02/10/24 03:56 GFR Calculation Not Reportable 02/10/24 03:56 Glucose 120 mg/dL (65-115) H 02/10/24 03:56 POC Glucose 94 mg/dL (70-110) 02/10/24 08:31 Calculated Osmolality 291 mOsm/kg (285-295) 02/10/24 03:56 Lactic Acid 1.9 mmol/L (0.5-2.2) 02/09/24 14:25 Lactic Acid (Sepsis) 1.0 mmol/L (0.5-2.2) 02/08/24 14:58 Calcium 7.8 mg/dL (8.5-10.5) L 02/10/24 03:56 Magnesium 2.0 mg/dL (1.7-2.3) 02/10/24 03:56 Total Bilirubin 0.3 mg/dL (0.15-1.2) 02/09/24 01:01 AST 15 U/L (0-40) 02/09/24 01:01 ALT 12 U/L (0-41) 02/09/24 01:01 Alkaline Phosphatase 128 U/L (40-130) 02/09/24 01:01 Troponin T Baseline 60 ng/L (0-15) H 02/09/24 14:25 Troponin T 120 Minute 63.63 ng/L (0-15) H 02/09/24 16:37 Delta Troponin T 3.63 ABS# (0-10) 02/09/24 16:37 Troponin T Hi Sens 6Hr 56.29 ng/L (0-15) H 02/09/24 20:22 Troponin T Hi Sens 6Hr Delta -3.71 ng/L (0-12) L 02/09/24 20:22 NT-Pro-B Natriuret Pep 9386 pg/mL (0-450) H 02/08/24 11:50 Total Protein 5.5 g/dL (6.6-8.7) L 02/09/24 01:01 Albumin 2.8 g/dL (3.5-5.2) L 02/09/24 01:01 Globulin 2.7 g/dL (1.3-4.6) 02/09/24 01:01 TSH 0.40 uIU/mL (0.27-4.20) 02/08/24 11:50 Urine Color Yellow (Yellow) 02/08/24 12:50 Urine Appearance Cloudy (CLEAR) A 02/08/24 12:50 Urine pH 5.5 (5-7) 02/08/24 12:50 Ur Specific [place] 1.022 (1.005-1.030) 02/08/24 12:50 Urine Protein Trace (Negative) A 02/08/24 12:50 Urine Glucose (UA) Negative (Normal) 02/08/24 12:50 Urine Ketones Trace (Negative) 02/08/24 12:50 Urine Blood Negative (Negative) 02/08/24 12:50 Urine Nitrate Positive (Negative) A 02/08/24 12:50 Urine Bilirubin Negative (Negative) 02/08/24 12:50 Urine Urobilinogen 1.0 mg/dL (Negative) 02/08/24 12:50 Ur Leukocyte Esterase 1+ (Negative) A 02/08/24 12:50 Urine RBC 0-2 /hpf (0-2) 02/08/24 12:50 Urine WBC 11-20 /hpf (0-5) H 02/08/24 12:50 Ur Squamous Epith Cells 0-5 /hpf (0-5) 02/08/24 12:50 Amorphous Sediment Not Reportable 02/08/24 12:50 Urine Bacteria 4+ /hpf (NONE) H 02/08/24 12:50 Hyaline Casts 3.30 /lpf 02/08/24 12:50 Coronavirus (PCR) Negative (Negative) 02/08/24 19:10 Influenza A (PCR) Negative (Negative) 02/08/24 19:10 Influenza Type B (PCR) Negative (Negative) 02/08/24 19:10 RSV (PCR) Negative (Negative) 02/08/24 19:10 Ordering Provider/Ordering MD: Airam Hernadez MD Date of Service: 02/09/24 Procedure(s): CV. echo complete* [id number] CONCLUSIONS Moderately increased left ventricular cavity size. Severely decreased left ventricular systolic function. Left ventricular ejection fraction is estimated at 25 %. There appeared to be mid to distal anterior septal and apical akinesis consistent with ischemic heart disease.diastolic function cannot be assessed accurately in the presence of atrial for. Moderately increased left atrial size. Moderately thickened mitral valve. Mitral annular calcification. Moderate-severe mitral valve regurgitation. Bioprosthetic aortic valve was sitting in a normal position no significant valvular regurgitation noticed. There is no pericardial effusion. If there is suspicion for endocarditis transesophageal echocardiogram is a better modality to assess for vegetation. A&P Assessment and plan (1) Infective endocarditis: 78-year-old male with a recent history history of placement of a bioprosthetic aortic valve, presenting with fever and streptococcal bacteremia. Streptococcus species is not currently further identified, lab is working on typing and identification, to be set up today. TTE is currently showing moderately thickened mitral valve, moderate to severe mitral valve regurgitation,(no prior echocardiogram to compare) bioprosthetic aortic valve appears to be in normal position without significant valvular regurgitation within limits of the TTE. SP is recommended and is being planned for tomorrow 02/11/2024. At this given time clinical picture highly suspicious for infective endocarditis. Patient would meet modified [place] criteria for infective endocarditis with recovery of a typical organism, predisposing heart condition, fever, +/- pending information regarding dehiscence or valvular regurgitation of the aortic valve from SP, at a minimum we are seeing some mitral valve regurgitation, which is unknown at this time is new versus old. Patient is currently on meropenem 2 g IV every 8 hours which can continue pending further susceptibilities from streptococcal species. Meropenem would additionally cover for the ESBL Klebsiella pneumoniae isolated from the urine. Recommended to add vancomycin while pending strep identification and susceptibilities for possibility of penicillin resistant VGS. Once identification and susceptibilities are available and SP results are available, further treatment would likely involve a combination of beta-lactam plus gentamicin. Until these results are available, it is difficult to predict the right combination of antibiotics at this time. Patient needs continued follow-up with infectious disease cardiology and CT surgery to best optimize his care. Unfortunately, I will be away and not available to follow the patient until returning on 02/20/2024. Agree with transfer to [facility] where patient recently had his surgery. Case is already been discussed by primary team with patient's CT surgeon who has accepted the patient under his care. Qualifiers: Infective endocarditis organism: bacterial Chronicity: acute Qualified Code(s): I33.0 - Acute and subacute infective endocarditis (2) Aortic valve stenosis: Status post recent surgical intervention Qualifiers: Cardiac valve disease etiology: etiology unspecified Qualified Code(s): I35.0 - Nonrheumatic aortic (valve) stenosis (3) Atrial fibrillation with rapid ventricular response: Management per primary (4) Pacemaker: (5) Urinary tract infection: UTI versus colonization with ESBL Klebsiella pneumonia-patient currently does not report any urinary symptoms. Denies having had any dysuria, however difficult to assess in the presence of fever and other signs of infection if this is also contributing. Continue meropenem 2 g IV every 8 hours Consult Attestations Medical Necessity Statement: Per admitting Coding Level of Care Code Acute Code for Chg Fwd High MDM includes number and complexity of problems actively addressed during encounter, amount and/or complexity of data reviewed/ordered and described risk of complication, morbidity or mortality of management as documented Diagnoses Acute bacterial endocarditis I33.0 Infective endocarditis organism: bacterial Chronicity: acute Aortic valve stenosis, etiology of cardiac valve disease unspecified I35.0 Cardiac valve disease etiology: etiology unspecified Atrial fibrillation with rapid ventricular response I48.91 Pacemaker Z95.0 Urinary tract infection N39.0
--- NOTE | 2024-02-10 12:04 | P.PN_ITS ---
Documented by User: Romy Torres NP 02/10/24 12:17 Subjective 2 Subjective: Patient doing well this morning. Overall no complaints. Blood pressure stable. Pulse is improved consistently in the 90s. Patient's blood pressure has tolerated adding on of metoprolol. Patient is on amio drip. White cell has come down from yesterday. Denies fever chills or bodyaches. Denies chest pain shortness of breath. Medications: Reviewed: Yes Vitals/I&O/Wt Last Vital Signs Temp 98.1 F 02/09/24 20:40 Pulse 90 02/10/24 09:25 Resp 14 02/10/24 09:25 BP 111/69 02/10/24 09:25 Pulse Ox 95 02/10/24 09:25 O2 Del Method Room Air 02/08/24 13:09 02/09/24 02/10/24 02/10/24 22:59 06:59 14:59 Intake Total 620 / 1300 310 / 1610 300 / 300 Output Total 300 / 795 850 / 1645 Balance 320 / 505 -540 / -35 300 / 300 Weight last 48 hrs Weight 231 lb 7.766 oz Weight 234 lb 12.677 oz Weight 234 lb Physical Exam 2 Narrative: General: No apparent distress, healthy appearing, well nourished HENMT: normoceophalic Eye: PERRL Neck: No carotid bruit bilaterally Muskuloskeletal: Full ROM Lymphatic: no lymphedema noted Respiratory: Normal respiratory effort, clear to auscultation bilaterally throughout all lung angel, no use of accessory muscles Cardio: No JVD, regular rate, regular rhythm, S1 S2 normal, systolic murmur aortic space 2/3, peripheral pulses 2+ radial palpated bilaterally Extremities: Full ROM, normal, normal capillary refill, no cyanosis or edema Neuro: Alert and oriented x4, no focal motor deficits Psych: Affect normal, denies suicidal ideation, mental status grossly normal Skin: No rashes or lesions noted, no wounds Urinary Catheter Management: Posadas: Cath Placed During This Visit: yes Reason for Continuing Indwelling Catheter: Accurate Measurement of Urinary Output in Critically Ill Patients Urinary Catheter Date of Insertion: 02/09/24 Urinary Catheter Time of Insertion: 17:10 Data 02/10/24 03:56 02/10/24 03:56 Micro: Microbiology 02/08/24 12:50 Urine Culture - Final Urine,Clean Catch Klebsiella pneumonia esbl 02/09/24 14:27 Blood Culture - Preliminary Blood SPECIMEN COLLECTED 02/09/24 14:25 Blood Culture - Preliminary Blood SPECIMEN COLLECTED 02/08/24 11:39 Blood Culture - Preliminary Blood NEGATIVE TO DATE 02/08/24 11:50 Blood Culture - Preliminary Blood Streptococcus species Other data: Echo complete: CONCLUSIONS Moderately increased left ventricular cavity size. Severely decreased left ventricular systolic function. Left ventricular ejection fraction is estimated at 25 %. There appeared to be mid to distal anterior septal and apical akinesis consistent with ischemic heart disease.diastolic function cannot be assessed accurately in the presence of atrial for. Moderately increased left atrial size. Moderately thickened mitral valve. Mitral annular calcification. Moderate-severe mitral valve regurgitation. Bioprosthetic aortic valve was sitting in a normal position no significant valvular regurgitation noticed. There is no pericardial effusion. If there is suspicion for endocarditis transesophageal echocardiogram is a better modality to assess for vegetation. A&P Assessment and plan (1) Atrial fibrillation with rapid ventricular response: Patient's heart rate better controlled. Will transition to oral amiodarone 400 TIDx5 days, 400 BIDx5 days, then 400 daily. Continue metoprolol 12.5 twice daily. (2) Aortic valve stenosis: Patient status post aortic valve replacement with bioprosthetic valve via open heart surgery about a month and a half ago at [facility] by Dr. Griffin. He does have a murmur present with fever. Will need echo at this time. Qualifiers: Cardiac valve disease etiology: etiology unspecified Qualified Code(s): I35.0 - Nonrheumatic aortic (valve) stenosis (3) Pacemaker: S/P pacemaker placement. Patient incision site well healed w/o s/s of infection present. Patient is a paced at times. (4) CHF (congestive heart failure): Severely decreased EF at 25%. No s/s of fluid overload at this time. Qualifiers: Heart failure chronicity: acute on chronic Heart failure type: d iastolic Qualified Code(s): I50.33 - Acute on chronic diastolic (congestive) heart failure (5) Sepsis: Patient receiving antibiotics. Per hospitalist team. Blood culture was positive for Streptococcus. Patient getting SP today to evaluate aortic valve. Was ok on transthoracic echo. Qualifiers: Sepsis acute organ dysfunction status: without acute organ dysfunction Sepsis type: sepsis due to unspecified organism Qualified Code(s): A41.9 - Sepsis, unspecified organism (6) Acute UTI: Per hospitalist team. Receiving antibiotics at this time. Gram-negative bacteria in patient's urine. (7) Coronary artery disease: Patient status post PCI in the past. No evidence of acute ischemia at this time. Denies chest pain or shortness of breath Qualifiers: Associated angina: without angina Coronary Disease-Associated Artery/Lesion type: [place] artery [place] vs. transplanted heart: [place] heart Qualified Code(s): I25.10 - Atherosclerotic heart disease of [place] coronary artery without angina pectoris Plan At this time the plan for this very pleasant 78-year-old gentleman is to undergo a SP. Will transition patient to oral amiodarone. From a cardiology standpoint, patient most likely will not need surgical intervention of the aortic valve. Surgical replacement of the valve would not be necessary unless abscess was seen on SP. At this point, we recommend continue current care at this facility with appropriate abx therapy. Will leave decision to transfer up to the hospitalist team. Attestations 2 Medical Necessity Statement*: Deferred to primary Coding Level of Care Code Acute Code for [facility] Fwd Diagnoses Atrial fibrillation with rapid ventricular response I48.91 Aortic valve stenosis, etiology of cardiac valve disease unspecified I35.0 Cardiac valve disease etiology: etiology unspecified Pacemaker Z95.0 Acute on chronic diastolic congestive heart failure I50.33 Heart failure chronicity: acute on chronic Heart failure type: diastolic Sepsis A41.9 Sepsis acute organ dysfunction status: without acute organ dysfunction Sepsis type: sepsis due to unspecified organism Acute UTI N39.0 Coronary artery disease involving [place] coronary artery of [place] heart without angina pectoris I25.10 Associated angina: without angina Coronary Disease-Associated Artery/Lesion type: [place] artery [place] vs. transplanted heart: [place] heart Documented by User: Prem David MD 02/10/24 23:43 Subjective 2 Subjective: Patient was evaluated and cared for in conjunction with an advanced practice practitioner. I personally examined the patient and reviewed the chart and all pertinent data including imaging, telemetry, and laboratory results. I discussed the patient in detail with the advanced practice practitioner. Please see their note for complete H&P testing result and agreed upon plan of care for the patient. Patient did well this morning however had multiple episodes of short runs of nonsustained few beats ventricular tachycardia here there not more than 5-6 beats in a row GENERAL: Patient is alert, awake and oriented x3. Laying in the bed HEART: Regular S1 and S2. No murmur, rub or gallop. LUNGS: Clear to auscultate bilaterally. CENTRAL NERVOUS SYSTEM: Grossly nonfocal. Assessment and plan Atrial fibrillation rapid ventricular Short runs of VT LV dysfunction Sepsis Bioprosthetic aortic valve Positive blood culture Continue current management, add back IV amiodarone for short-term VT, keep mag around 2 and potassium in normal range of 4.0 Continue IV antibiotics as per medicine Once stable blood pressure kenny guideline medical therapy for heart failure will be added Patient doing well this morning. Overall no complaints. Blood pressure stable. Pulse is improved consistently in the 90s. Patient's blood pressure has tolerated adding on of metoprolol. Patient is on amio drip. White cell has come down from yesterday. Denies fever chills or bodyaches. Denies chest pain shortness of breath. Physical Exam 2 Urinary Catheter Management: Posadas: Cath Placed During This Visit: yes Data 02/10/24 03:56 02/10/24 03:56 A&P Assessment and plan (1) Atrial fibrillation with rapid ventricular response: (2) Aortic valve stenosis: Qualifiers: Cardiac valve disease etiology: etiology unspecified Qualified Code(s): I35.0 - Nonrheumatic aortic (valve) stenosis (3) Pacemaker: (4) CHF (congestive heart failure): Qualifiers: Heart failure chronicity: acute on chronic Heart failure type: d iastolic Qualified Code(s): I50.33 - Acute on chronic diastolic (congestive) heart failure (5) Sepsis: Qualifiers: Sepsis acute organ dysfunction status: without acute organ dysfunction Sepsis type: sepsis due to unspecified organism Qualified Code(s): A41.9 - Sepsis, unspecified organism (6) Acute UTI: (7) Coronary artery disease: Qualifiers: Associated angina: without angina Coronary Disease-Associated Artery/Lesion type: [place] artery [place] vs. transplanted heart: [place] heart Qualified Code(s): I25.10 - Atherosclerotic heart disease of [place] coronary artery without angina pectoris Coding Level of Care Code Acute Code for [facility] Fwd Diagnoses Atrial fibrillation with rapid ventricular response I48.91 Aortic valve stenosis, etiology of cardiac valve disease unspecified I35.0 Cardiac valve disease etiology: etiology unspecified Pacemaker Z95.0 Acute on chronic diastolic congestive heart failure I50.33 Heart failure chronicity: acute on chronic Heart failure type: diastolic Sepsis A41.9 Sepsis acute organ dysfunction status: without acute organ dysfunction Sepsis type: sepsis due to unspecified organism Acute UTI N39.0 Coronary artery disease involving [place] coronary artery of [place] heart without angina pectoris I25.10 Associated angina: without angina Coronary Disease-Associated Artery/Lesion type: [place] artery [place] vs. transplanted heart: cloverdale heart
[2024-02-10 12:28] LABS: Glucose Point of Care 100 mg/dL (70-110)
[2024-02-10] MEDS: amiodarone 200 mg Tablet 400 MG PO (16:01)
--- NOTE | 2024-02-10 16:05 | P.PN_ITS ---
Subjective 2 Subjective: seen today bcx sensitivity still pending talked with ID doc Dr. Hernadez. She wont be able to follow patient as she will be unavailable till february 19. ID recommeding transfer to [place] for ID services and CT surgery consult. Patient has been accepted to [place] under Dr. Griffin's care. Pat recently had CABG and TAVR (discussed with Dr. Griffin on 02/08 over the phone). Urine growing ESBL Klebsiella. pt on meropenem and vanc HR controlled. lopressor added by cardiology team pt having nonsustained beats of vtach had a discussion with pt who is agreeable for transfer at this time. tte appreacited with ef 25% prior EF in dec 2023 was 19%. Report in chart. Vitals/I&O/Wt Last Vital Signs Temp 98.1 F 02/09/24 20:40 Pulse 97 02/10/24 13:30 Resp 14 02/10/24 13:30 BP 95/59 02/10/24 13:30 Pulse Ox 100 02/10/24 13:30 O2 Del Method Room Air 02/08/24 13:09 02/10/24 02/10/24 02/10/24 06:59 14:59 22:59 Intake Total 310 / 1610 300 / 300 Output Total 850 / 1645 Balance -540 / -35 300 / 300 Weight last 48 hrs Weight 105 kg Weight 106.5 kg Physical Exam 2 Narrative: General Well-developed well-nourished overweight male in no acute cardiopulmonary distress CV regular rate and rhythm no loud murmur in the right upper and left upper sternal border Currently on amiodarone drip Saturating 98% on 2 L nasal cannula Abdomen soft nontender 1+ bilateral lower extremity edema. Sternal wound appears clean no erythema Urinary Catheter Management: Posadas: Cath Placed During This Visit: yes Reason for Continuing Indwelling Catheter: Accurate Measurement of Urinary Output in Critically Ill Patients Urinary Catheter Date of Insertion: 02/09/24 Urinary Catheter Time of Insertion: 17:10 Data 02/10/24 03:56 02/10/24 03:56 Micro: Microbiology 02/09/24 14:27 Blood Culture - Preliminary Blood NEGATIVE TO DATE 02/09/24 14:25 Blood Culture - Preliminary Blood NEGATIVE TO DATE 02/08/24 12:50 Urine Culture - Final Urine,Clean Catch Klebsiella pneumonia esbl 02/08/24 11:39 Blood Culture - Preliminary Blood NEGATIVE TO DATE 02/08/24 11:50 Blood Culture - Preliminary Blood Streptococcus species A&P Assessment and plan (1) Infective endocarditis: Qualifiers: Infective endocarditis organism: bacterial Chronicity: acute Qualified Code(s): I33.0 - Acute and subacute infective endocarditis (2) Aortic valve stenosis: Status post recent surgical intervention Qualifiers: Cardiac valve disease etiology: etiology unspecified Qualified Code(s): I35.0 - Nonrheumatic aortic (valve) stenosis (3) Atrial fibrillation with rapid ventricular response: (4) Pacemaker: (5) Urinary tract infection: UTI versus colonization with ESBL Klebsiella pneumonia-patient currently does not report any urinary symptoms. Denies having had any dysuria, however difficult to assess in the presence of fever and other signs of infection if this is also contributing. Continue meropenem 2 g IV every 8 hours Plan #Infective endocarditis #Strep bacteremia #Fever on admission #Recent CABG and TAVR #Chronic anticoagulation #Afib with RVR #NSVT #Systolic HF EF 25% #CAD #ESBL UTI - Urine growing Klebsiella ESBL. Continue meropenem every 8 hours. Will complete 7 days total. ? Repeat blood cultures from 02/08 are pending at this time. Initial blood cultures from admission are positive for Streptococcus species 4 bottles out of 4 bottles positive. Culture has been plated. Sensitivities are pending. They should be available in next 48 hours. ? ID consulted at this time. They recommend transfer to higher level of care for CT surgery and continued follow-up with ID service. Unfortunately this week we do not have ID available at our hospital. Discussed with patient's CT surgeon at [facility] , and patient has been accepted for transfer to higher level of care. ID consult appreciated. ? Amiodarone drip stopped by cardiology at this time. Switch to oral amiodarone as per cardiology recommendations ? Continue Lopressor 12.5 twice daily. ? Patient is having NSVT's. ? Systolic heart failure EF 25%. Previous EF 20%. Patient does appear to be euvolemic. Did get Lasix initially on admission. Will continue to watch. Will diurese with as needed Lasix as needed -Patient's family and patient agreeable to transfer at this time. -Patient will be going for SP in morning with cardiology. ? Continue to monitor for fever. Check CBC BMP, magnesium daily. -Continue with PT. ? Patient awaiting transfer to [facility]. Full code DVT prophylaxis: Continue Eliquis at this time Attestations 2 Medical Necessity Statement*: infective endocarditis workup, awaiting transfer to [place] Diagnoses Acute bacterial endocarditis I33.0 Infective endocarditis organism: bacterial Chronicity: acute Aortic valve stenosis, etiology of cardiac valve disease unspecified I35.0 Cardiac valve disease etiology: etiology unspecified Atrial fibrillation with rapid ventricular response I48.91 Pacemaker Z95.0 Urinary tract infection N39.0
[2024-02-10 17:08] LABS: Glucose Point of Care 163 mg/dL (70-110)
[2024-02-10] MEDS: insulin lispro 100 unit/1 mL SUBCUT ×2 (17:12→21:35)
[2024-02-10] MEDS: potassium chloride ER 20 mEq Tablet 40 MEQ PO (17:12)
[2024-02-10] MEDS: insulin glargine 100 units/1 mL 13 UNIT SUBCUT (21:36)
[2024-02-10 21:41] LABS: Glucose Point of Care 224 mg/dL (70-110)
[2024-02-11] VITALS (204 sets, daily range): BP systolic 81–140; BP diastolic 56–92; PULSE 89–97; RESP 0–28; TEMP 36.1–36.4; O2SAT 77–100
[2024-02-11] MEDS: MEROPENEM 2,000 MG in sodium chloride 0.9% (plus) 50 ML 100 MG IV ×3 (00:45→16:00)
[2024-02-11] MEDS: VANCOMYCIN ADD-Vantage 1,000 MG in 0.9% NaCl ADD-Vantage 250 ML 250 MG IV ×2 (03:37→16:01)
[2024-02-11 04:48] LABS: Basophils % 0.4 %; Eosinophils # 0.1 10^3/uL (0.0-0.8); Eosinophils % 0.6 %; Hematocrit 29.1 % (37-53); Lymphocytes # 1.1 10^3/uL (0.8-4.8); Lymphocytes % 10.9 %; Mean Corpuscular HGB Conc 28.9 g/dL (30-55); Mean Corpuscular Hemoglobin 24.3 pg (27-33); Mean Corpuscular Volume 84.3 fl (82-101); Mean Platelet Volume 11.8 fL (7.4-10.4); Monocytes # 0.7 10^3/uL (0.2-0.9); Monocytes % 6.4 %; Neutrophils # 8.42 10^3/uL (1.8-7.7); Nucleated Red Blood Cells % 0 %; Platelet Count 197 10^3/cmm (157-399); Red Blood Count 3.45 10^6/uL (3.85-5.65); White Blood Count 10.38 10^3/uL (3.29-11.43)
[2024-02-11 05:04] LABS: Anion Gap 11.4 (5-19); Blood Urea Nitrogen 24 mg/dL (8-23); Calcium 7.9 mg/dL (8.5-10.5); Carbon Dioxide 24 mmol/L (22-29); Chloride 104 mmol/L (98-107); Creatinine Clr Calc Pharmacy 56.2286; Glucose 142 mg/dL (65-115); Magnesium 2.1 mg/dL (1.7-2.3); Osmolality Calculated 286 mOsm/kg (285-295); Potassium 4.4 mmol/L (3.5-5.1); Sodium 135 mmol/L (136-145)
[2024-02-11 08:08] LABS: Glucose Point of Care 145 mg/dL (70-110)
[2024-02-11] MEDS: apixaban 5 mg Tablet 2.5 MG PO ×2 (08:42→20:07)
[2024-02-11] MEDS: pantoprazole DR 40 mg Tablet PO (08:42)
[2024-02-11] MEDS: atorvastatin 40 mg Tablet 20 MG PO (08:42)
[2024-02-11] MEDS: insulin lispro 100 unit/1 mL SUBCUT (08:43)
--- NOTE | 2024-02-11 10:32 | P.ANESASSM_ITS ---
Pre-Anesthetic Assessment Height/Weight: Height 1.83 m Weight 106.593 kg Temp Pulse Resp BP Pulse Ox O2 Del Method 96.9 F L 90 16 123/83 93 Room Air 02/11/24 08:00 02/11/24 09:00 02/11/24 09:00 02/11/24 09:00 02/11/24 09:00 02/08/24 13:09 SP Familial anesthetic complications: None Was Beta Lemuel taken within 24 hours: Yes Was Clonidine taken within 24 hours: N/A Last intake: > 8hrs Social No alcohol and No tobacco Exam alert, oriented x 3, clear to auscultation bilaterally and regular rate & rhythm Airway Mallampati: Class I Dentition: full CV/HEM Atrial Fibrillation, Coronary Artery Disease (cabg), Congestive Heart Failure and Hypertension pacemaker EF 25% Anesthetic Plan ASA status: 4 Anesthesia: MAC Risk of > 500 ml blood loss (7ml/kg in children): No Medications/Allergies Home Medications Medication Instructions Recorded Confirmed Last Taken Type apixaban 2.5 mg tablet (Eliquis) 2.5 mg PO BID 02/08/24 02/09/24 Unknown History carvedilol 3.125 mg tablet 3.125 mg PO Q12H 02/08/24 02/09/24 Unknown History insulin glargine 100 unit/mL 13 unit SUBCUT QPM 02/08/24 02/09/24 Unknown History subcutaneous cartridge lovastatin 10 mg tablet 10 mg PO DAILY 02/08/24 02/09/24 Unknown History Allergies Allergy/AdvReac Type Severity Reaction Status Date / Time No Known Allergies Allergy Verified 02/08/24 11:47 Current Medications Generic Name Dose Route Start Last Admin Trade Name Freq PRN Reason Stop Dose Admin Apixaban 2.5 mg 02/08/24 21:00 02/11/24 08:42 Apixaban 5 Mg Tablet PO 2.5 mg BID@0900,2100 FELIPE Administration Atorvastatin Calcium 20 mg 02/09/24 09:00 02/11/24 08:42 Atorvastatin 40 Mg Tablet PO 20 mg DAILY FELIPE Administration Vancomycin HCl 1,000 mg/ 250 mls @ 250 mls/hr 02/10/24 04:00 02/11/24 03:37 Sodium Chloride IV 250 mls/hr Q12H FELIPE Administration Meropenem 2,000 mg/ Sodium 50 mls @ 100 mls/hr 02/09/24 16:30 02/11/24 08:42 Chloride IV 100 mls/hr Q8H FELIPE Administration Protocol Amiodarone HCl/Dextrose 360 mg in 200 mls @ 0 mls/hr 02/10/24 16:47 02/10/24 23:27 Nexterone IV 1 mg/min .Q0M FELIPE 33.33 mls/hr Administration Protocol Per Protocol Insulin Glargine 13 unit 02/08/24 21:00 02/10/24 21:36 Insulin Glargine 100 Units/1 Ml SUBCUT 13 unit BEDTIME FELIPE Administration Insulin Human Lispro 0 unit 02/08/24 21:00 02/11/24 08:43 Insulin Lispro 100 Unit/1 Ml SUBCUT 2 unit WM&BEDTIME FELIPE Administration Protocol Metoprolol Tartrate 12.5 mg 02/09/24 21:00 02/11/24 08:43 Metoprolol Tartrate 25 Mg Tablet PO Not Given BID@0900,2100 FELIPE Ondansetron HCl 4 mg 02/08/24 18:24 02/09/24 12:17 Ondansetron 2 Mg/Ml Sdv 2 Ml IVP 4 mg Q8H PRN Administration vomiting, or N/V if npo Pantoprazole Sodium 40 mg 02/09/24 09:00 02/11/24 08:[address] 40 Mg Tablet PO 40 mg DAILY FELIPE Administration PFSH Anesthesia Medical History (Updated 02/10/24 @ 10:13 by Airam Hernadez MD) Valvular heart disease Pacemaker Surgical History (Updated 02/10/24 @ 10:12 by Airam Hernadez MD) History of heart artery stent History of heart valve repair Data Anesthesia 02/11/24 04:35 02/11/24 04:35 Short CBC 02/09/24 02/10/24 02/11/24 Range/Units 14:25 03:56 04:35 WBC 15.14 H 11.56 H 10.38 (3.29-11.43) 10^3/uL Hgb 8.60 L 8.40 L 8.40 L (11.27-16.99) g/dL Hct 28.2 L 28.4 L 29.1 L (37-53) % MCV 83.9 85.5 84.3 (82-101) fl Plt Count 192 168 197 (157-399) 10^3/cmm Neut % (Auto) 92.3 80.9 81.0 % Neut # (Auto) 13.98 H 9.35 H 8.42 H (1.8-7.7) 10^3/uL BMP 02/09/24 02/10/24 02/11/24 14:25 03:56 04:35 Sodium 134 L 138 135 L Potassium 4.5 3.8 4.4 Chloride 100 103 104 Carbon Dioxide 21 L 24 24 BUN 26 H 24 H 24 H Creatinine 1.6 H 1.3 H 1.4 H Glucose 190 H 120 H 142 H Calcium 7.8 L 7.8 L 7.9 L Cardiac Enzymes 02/09/24 02/09/24 02/09/24 Range/Units 14:25 16:37 20:22 Troponin T Baseline 60 H (0-15) ng/L Troponin T 120 Minute 63.63 H (0-15) ng/L Delta Troponin T 3.63 (0-10) ABS# Troponin T Hi Sens 6Hr 56.29 H (0-15) ng/L Troponin T Hi Sens 6Hr Delta -3.71 L (0-12) ng/L Microbiology 02/09/24 14:27 Blood Culture - Preliminary Blood NEGATIVE TO DATE 02/09/24 14:25 Blood Culture - Preliminary Blood NEGATIVE TO DATE 02/08/24 12:50 Urine Culture - Final Urine,Clean Catch Klebsiella pneumonia esbl Cardiac Studies: 2 Echocardiogram 02/09/24
--- NOTE | 2024-02-11 11:00 | USCV_ITS ---
Jose Matthew Age: 78 Gender: M : 1945 Exam Date: 02/11/2024 11:55 Ordering Phys: Romy Torres NP Technologist: Rohan Armas [place] [facility] [place]: ? veg BP: / HR: Rhythm: Sinus Technical Quality: MEASUREMENTS (Male / Female) Normal Values Medications Patient given IV sedation by anesthesia service, for details please refer to the anesthesia report. Complications None. Proc. Components FINDINGS Left Ventricle Moderately increased left ventricular cavity size. Severely decreased left ventricular systolic function. Global left ventricular hypokinesis. Left ventricular ejection fraction is estimated at 20-25 %. Grade II/IV diastolic dysfunction, moderately elevated filling pressures. Right Ventricle The right ventricle is normal in size and function. Right Atrium The right atrium is normal in size. Left Atrium Moderately increased left atrial size. LA Appendage No thrombus visualized in the left atrial appendage. IA Septum No [id number] shunt seen at the atrial level. No right-to- left shunt seen at the atrial level with contrast. Mitral Valve Moderately thickened mitral valve. No mitral valve stenosis. Mild mitral valve regurgitation. Aortic Valve Bioprosthetic aortic valve. No prosthetic stenosis or regurgitation. No obvious vegetation Tricuspid Valve Thickened tricuspid valve. No tricuspid valve stenosis. Mild tricuspid valve regurgitation. Pulmonic Valve Structurally normal pulmonic valve without significant stenosis. There is no pulmonic regurgitation. Pericardium Normal pericardium without effusion. Aorta Normal ascending aorta dimension. CONCLUSIONS Moderately increased left ventricular cavity size. Severely decreased left ventricular systolic function. Global left ventricular hypokinesis. Left ventricular ejection fraction is estimated at 20-25 %. Grade II/IV diastolic dysfunction, moderately elevated filling pressures. Moderately increased left atrial size. No [id number] shunt seen at the atrial level. No right-to- left shunt seen at the atrial level with contrast. Moderately thickened mitral valve. No mitral valve stenosis. Mild mitral valve regurgitation. Bioprosthetic aortic valve. No prosthetic stenosis or regurgitation. No obvious vegetation There is no pericardial effusion. No thrombus visualized in the left atrial appendage. No [id number] shunt seen at the atrial level. No right-to- left shunt seen at the atrial level with contrast. No obvious intracardiac source for infection identified Prem David MD (Electronically Signed) Final Date: 12 February 2024 21:57 S
[2024-02-11 13:00] LABS: Glucose Point of Care 127 mg/dL (70-110)
--- NOTE | 2024-02-11 14:58 | P.PN_ITS ---
Documented by User: Romy Torres NP 02/11/24 16:35 Subjective 2 Subjective: Patient went for SP today. No evidence of vegetation/endocarditis seen. Patient tolerated well without complication. He did have a 10 beat run of V. tach this morning. Apparently blood pressure got soft during the SP and a 500 cc bolus was given to the patient. Medications: Reviewed: Yes Vitals/I&O/Wt Last Vital Signs Temp 96.9 F L 02/11/24 08:00 Pulse 90 02/11/24 12:50 Resp 19 H 02/11/24 12:50 BP 108/75 02/11/24 12:50 Pulse Ox 89 L 02/11/24 12:50 O2 Del Method Room Air 02/08/24 13:09 02/10/24 02/11/24 02/11/24 22:59 06:59 14:59 Intake Total 620 / 920 450 / 1370 300 / 300 Output Total 350 / 350 350 / 700 Balance 270 / 570 100 / 670 300 / 300 Weight last 48 hrs Weight 234 lb 15.951 oz Weight 231 lb 7.766 oz Physical Exam 2 Narrative: General: No apparent distress, healthy appearing, well nourished Muskuloskeletal: Full ROM Lymphatic: no lymphedema noted Respiratory: Normal respiratory effort, bilateral lower lobes crackles, no use of accessory muscles Cardio: No JVD, regular rate, regular rhythm, S1 S2 normal, no murmurs, peripheral pulses 2+ throughout GI: Normal to inspection, nondistended Extremities: 2+ pitting edema bilateral lower extremity Neuro: Alert and oriented x4, no focal motor deficits Psych: Affect normal, denies suicidal ideation, mental status grossly normal Skin: No rashes or lesions noted, no wounds Urinary Catheter Management: Posadas: Cath Placed During This Visit: yes Reason for Continuing Indwelling Catheter: Accurate Measurement of Urinary Output in Critically Ill Patients Urinary Catheter Date of Insertion: 02/09/24 Urinary Catheter Time of Insertion: 17:10 Data 02/11/24 04:35 02/11/24 04:35 Micro: Microbiology 02/09/24 14:27 Blood Culture - Preliminary Blood NEGATIVE TO DATE 02/09/24 14:25 Blood Culture - Preliminary Blood NEGATIVE TO DATE A&P Assessment and plan (1) Atrial fibrillation with rapid ventricular response: Patient had episodes of nonsustained V. tach anywhere from 3-10 beats. Oral amiodarone was stopped. Drip was placed at 1 mg/h. Continue metoprolol 12.5 twice daily. (2) Aortic valve stenosis: Patient status post aortic valve replacement with bioprosthetic valve via open heart surgery about a month and a half ago at [facility] by Dr. Griffin. He will need continued antibiotics. From cardiology standpoint no evidence of endocarditis present on SP. Qualifiers: Cardiac valve disease etiology: etiology unspecified Qualified Code(s): I35.0 - Nonrheumatic aortic (valve) stenosis (3) Pacemaker: S/P pacemaker placement. Patient incision site well healed w/o s/s of infection present. Patient is a paced at times. (4) CHF (congestive heart failure): Severely decreased EF at 25%. No s/s of fluid overload at this time. Qualifiers: Heart failure chronicity: acute on chronic Heart failure type: d iastolic Qualified Code(s): I50.33 - Acute on chronic diastolic (congestive) heart failure (5) Sepsis: Patient receiving antibiotics. Per hospitalist team. Blood culture was positive for Streptococcus. SP today did not show vegitation. Qualifiers: Sepsis acute organ dysfunction status: without acute organ dysfunction Sepsis type: sepsis due to unspecified organism Qualified Code(s): A41.9 - Sepsis, unspecified organism (6) Acute UTI: Per hospitalist team. Receiving antibiotics at this time. Gram-negative bacteria in patient's urine. (7) Coronary artery disease: Patient status post PCI in the past. No evidence of acute ischemia at this time. Denies chest pain or shortness of breath Qualifiers: Associated angina: without angina Coronary Disease-Associated Artery/Lesion type: [place] artery [place] vs. transplanted heart: [place] heart Qualified Code(s): I25.10 - Atherosclerotic heart disease of [place] coronary artery without angina pectoris (8) NSVT (nonsustained ventricular tachycardia): Plan At this time the plan for this very pleasant 78-year-old gentleman is to continue rate control, transition amio to oral after 1 dose d/c drip, continue metoprolol, continue abx therapy, continue monitoring for arrhythmias. Patient asymptomatic at this time. Patient does have some signs of fluid overload with pitting edema and crackles in bilateral lower lobes. Oxygen saturation is stable 97% on room air. Will give one-time dose of Lasix 40 mg with potassium 20 meq. Attestations 2 Medical Necessity Statement*: Deferred to primary Coding Level of Care Code Acute Code for [facility] Fwd Diagnoses Atrial fibrillation with rapid ventricular response I48.91 Aortic valve stenosis, etiology of cardiac valve disease unspecified I35.0 Cardiac valve disease etiology: etiology unspecified Pacemaker Z95.0 Acute on chronic diastolic congestive heart failure I50.33 Heart failure chronicity: acute on chronic Heart failure type: diastolic Sepsis A41.9 Sepsis acute organ dysfunction status: without acute organ dysfunction Sepsis type: sepsis due to unspecified organism Acute UTI N39.0 Coronary artery disease involving [place] coronary artery of [place] heart without angina pectoris I25.10 Associated angina: without angina Coronary Disease-Associated Artery/Lesion type: [place] artery [place] vs. transplanted heart: [place] heart NSVT (nonsustained ventricular tachycardia) I47.29 Documented by User: Prem David MD 02/11/24 19:34 Subjective 2 Subjective: Patient went for SP today. No evidence of vegetation seen. Patient tolerated well without complication. He did have a 10 beat run of V. tach this morning. Apparently blood pressure got soft during the SP and a 500 cc bolus was given to the patient. Physical Exam 2 Urinary Catheter Management: Posadas: Cath Placed During This Visit: yes Data 02/11/24 04:35 02/11/24 04:35 A&P Assessment and plan (1) Atrial fibrillation with rapid ventricular response: Patient was evaluated and cared for in conjunction with an advanced practice practitioner. I personally examined the patient and reviewed the chart and all pertinent data including imaging, telemetry, and laboratory results. I discussed the patient in detail with the advanced practice practitioner. Please see their note for complete H&P testing result and agreed upon plan of care for the patient. GENERAL: Patient is alert, awake and oriented x3. HEART: Regular S1 and S2. No murmur, rub or gallop. LUNGS: Clear to auscultate bilaterally. CENTRAL NERVOUS SYSTEM: Grossly nonfocal. EXTREMITIES: Lower extremities with out edema bilaterally. Assessment and plan A-fib with RVR NSVT Severely depressed left ventricle ejection fraction 30 to 35% History of coronary artery disease prior PCI Status post TAVR Sepsis with bacteremia Transesophageal echocardiogram was performed which showed well-seated bioprosthetic aortic valve no obvious vegetation noted on mitral aortic tricuspid or pulmonic valve. There was no significant suspicious regurgitation, patient has known severely depressed left ventricular ejection fraction. Plan continue amiodarone for A-fib/NSVT Continue IV antibiotics Plan for left heart cath rule out ischemic etiology of shortness of ventricular tachycardia Optimize beta-isaiah Patient had episodes of nonsustained V. tach anywhere from 3-10 beats. Oral amiodarone was stopped. Drip was placed at 1 mg/h. Continue metoprolol 12.5 twice daily. (2) Aortic valve stenosis: Qualifiers: Cardiac valve disease etiology: etiology unspecified Qualified Code(s): I35.0 - Nonrheumatic aortic (valve) stenosis (3) Pacemaker: (4) CHF (congestive heart failure): Qualifiers: Heart failure chronicity: acute on chronic Heart failure type: d iastolic Qualified Code(s): I50.33 - Acute on chronic diastolic (congestive) heart failure (5) Sepsis: Qualifiers: Sepsis acute organ dysfunction status: without acute organ dysfunction Sepsis type: sepsis due to unspecified organism Qualified Code(s): A41.9 - Sepsis, unspecified organism (6) Acute UTI: (7) Coronary artery disease: Qualifiers: Associated angina: without angina Coronary Disease-Associated Artery/Lesion type: [place] artery [place] vs. transplanted heart: [place] heart Qualified Code(s): I25.10 - Atherosclerotic heart disease of [place] coronary artery without angina pectoris (8) NSVT (nonsustained ventricular tachycardia): Patient has short runs of ventricular tachycardia 7-10 beats nonsustained without any hemodynamic compromise. Denies any chest pain, he is slightly volume overloaded we will give IV diuretics. Once clear with more sepsis plan for left heart cath to rule out ischemic etiology. For now continue amiodarone which was switched to p.o. Coding Level of Care Code Acute Code for [facility] Fwd Diagnoses Atrial fibrillation with rapid ventricular response I48.91 Aortic valve stenosis, etiology of cardiac valve disease unspecified I35.0 Cardiac valve disease etiology: etiology unspecified Pacemaker Z95.0 Acute on chronic diastolic congestive heart failure I50.33 Heart failure chronicity: acute on chronic Heart failure type: diastolic Sepsis A41.9 Sepsis acute organ dysfunction status: without acute organ dysfunction Sepsis type: sepsis due to unspecified organism Acute UTI N39.0 Coronary artery disease involving [place] coronary artery of [place] heart without angina pectoris I25.10 Associated angina: without angina Coronary Disease-Associated Artery/Lesion type: [place] artery [place] vs. transplanted heart: [place] heart NSVT (nonsustained ventricular tachycardia) I47.29
--- NOTE | 2024-02-11 15:01 | P.PN_ITS ---
Subjective 2 Subjective: Seen this morning. No acute events overnight. Blood cultures are still pending at this time however lab does indicate to me that it is alphahemolytic Streptococcus. It is not strep pneumo. There is a possibility of sanguinous versus viridans or mutations at this point. SP was performed today. No sign of vegetations as per cardiology. Patient did have hypotension with anesthesia and had to be given Scooter-Synephrine pushes. Blood pressure did drop down to 60s. Currently he is resting comfortably in bed and blood pressure seems to be stable. On 2 L nasal cannula at this time. Vitals/I&O/Wt Last Vital Signs Temp 96.9 F L 02/11/24 08:00 Pulse 90 02/11/24 12:50 Resp 19 H 02/11/24 12:50 BP 108/75 02/11/24 12:50 Pulse Ox 89 L 02/11/24 12:50 O2 Del Method Room Air 02/08/24 13:09 02/11/24 02/11/24 02/11/24 06:59 14:59 22:59 Intake Total 450 / 1370 300 / 300 Output Total 350 / 700 Balance 100 / 670 300 / 300 Weight last 48 hrs Weight 106.593 kg Weight 105 kg Physical Exam 2 Narrative: General Well-developed well-nourished overweight male in no acute cardiopulmonary distress. Sedated at this time from being postop from SP anesthesia. CV regular rate and rhythm no loud murmur in the right upper and left upper sternal border Currently on amiodarone drip Saturating 98% on 2 L nasal cannula Abdomen soft nontender 1+ bilateral lower extremity edema. Sternal wound appears clean no erythema Urinary Catheter Management: Posadas: Cath Placed During This Visit: yes Reason for Continuing Indwelling Catheter: Accurate Measurement of Urinary Output in Critically Ill Patients Urinary Catheter Date of Insertion: 02/09/24 Urinary Catheter Time of Insertion: 17:10 Data 02/11/24 04:35 02/11/24 04:35 Micro: Microbiology 02/09/24 14:27 Blood Culture - Preliminary Blood NEGATIVE TO DATE 02/09/24 14:25 Blood Culture - Preliminary Blood NEGATIVE TO DATE A&P Assessment and plan (1) Infective endocarditis: Qualifiers: Infective endocarditis organism: bacterial Chronicity: acute Qualified Code(s): I33.0 - Acute and subacute infective endocarditis (2) Aortic valve stenosis: Status post recent surgical intervention Qualifiers: Cardiac valve disease etiology: etiology unspecified Qualified Code(s): I35.0 - Nonrheumatic aortic (valve) stenosis (3) Atrial fibrillation with rapid ventricular response: (4) Pacemaker: (5) Urinary tract infection: UTI versus colonization with ESBL Klebsiella pneumonia-patient currently does not report any urinary symptoms. Denies having had any dysuria, however difficult to assess in the presence of fever and other signs of infection if this is also contributing. Continue meropenem 2 g IV every 8 hours Plan #Infective endocarditis #Strep bacteremia #Fever on admission #Recent CABG and TAVR #Chronic anticoagulation #Afib with RVR #NSVT #Systolic HF EF 25% #CAD #ESBL UTI - Urine growing Klebsiella ESBL. Continue meropenem every 8 hours. Will complete 7 days total. ? Repeat blood cultures from 02/08 are pending at this time. Initial blood cultures from admission are positive for Streptococcus species 4 bottles out of 4 bottles positive. Culture has been plated. Sensitivities are pending. They should be available in next 48 hours. ? ID consulted at this time. They recommend transfer to higher level of care for CT surgery and continued follow-up with ID service. Unfortunately this week we do not have ID available at our hospital. Discussed with patient's CT surgeon at [facility] , and patient has been accepted for transfer to higher level of care. ID consult appreciated. ? Amiodarone drip stopped by cardiology at this time. Switch to oral amiodarone as per cardiology recommendations ? Continue Lopressor 12.5 twice daily. ? Patient is having NSVT's. ? Systolic heart failure EF 25%. Previous EF 20%. Patient does appear to be euvolemic. Did get Lasix initially on admission. Will continue to watch. Will diurese with as needed Lasix as needed -Patient's family and patient agreeable to transfer at this time. -Patient will be going for SP in morning with cardiology. ? Continue to monitor for fever. Check CBC BMP, magnesium daily. -Continue with PT. ? Patient awaiting transfer to [facility]. Full code DVT prophylaxis: Continue Eliquis at this time 02/11/2024 Blood cultures are possibly alphahemolytic Streptococcus mu times sanguinous or burdens at this time. Discussed with lab personally over the phone. All 4 bottles are positive from admission. Repeat cultures are negative to date so far. 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 Another possibility of possible source may be sternal plate that patient has. He will definitely need evaluation by CT surgery for that. Patient will need tagged WBC scan to isolate the source at this time. ? He will need 6 weeks of IV antibiotics going forward and continued ID follow- up. He is still awaiting transfer to [facility] at this time. He was having nonsustained V. tach yesterday and was continued on amiodarone drip at this time. Will discuss with cardiology regarding switching the dose for that. EF 30 to 35% on SP as per cardiology. Official report is pending at this time. ? Patient currently sedated secondary to postop anesthesia. Will continue to monitor vital signs in the ICU. Continue meropenem and vancomycin. Attestations 2 Medical Necessity Statement*: infective endocarditis workup, awaiting transfer to [place] Diagnoses Acute bacterial endocarditis I33.0 Infective endocarditis organism: bacterial Chronicity: acute Aortic valve stenosis, etiology of cardiac valve disease unspecified I35.0 Cardiac valve disease etiology: etiology unspecified Atrial fibrillation with rapid ventricular response I48.91 Pacemaker Z95.0 Urinary tract infection N39.0
[2024-02-11 17:24] LABS: Glucose Point of Care 119 mg/dL (70-110)
[2024-02-11] MEDS: FUROsemide 10 mg/mL SDV 4mL 40 MG IVP (17:27)
[2024-02-11] MEDS: potassium chloride ER 20 mEq Tablet PO (17:27)
[2024-02-11] MEDS: amiodarone 200 mg Tablet 400 MG PO (20:07)
[2024-02-11] MEDS: metoprolol tartrate 25 mg Tablet 12.5 MG PO (20:08)
[2024-02-11 20:17] LABS: Glucose Point of Care 149 mg/dL (70-110)
[2024-02-11] MEDS: insulin glargine 100 units/1 mL 13 UNIT SUBCUT (20:37)
[2024-02-12] VITALS (38 sets, daily range): BP systolic 86–137; BP diastolic 56–92; PULSE 86–92; RESP 6–20; TEMP 36.2–37.1; O2SAT 90–98
[2024-02-12] MEDS: MEROPENEM 2,000 MG in sodium chloride 0.9% (plus) 50 ML 100 MG IV ×3 (01:07→18:08)
[2024-02-12 03:40] LABS: Vancomycin Trough 23.1 ug/mL (10-15)
[2024-02-12 07:43] LABS: Glucose Point of Care 114 mg/dL (70-110)
[2024-02-12] MEDS: atorvastatin 40 mg Tablet 20 MG PO (09:11)
[2024-02-12] MEDS: pantoprazole DR 40 mg Tablet PO (09:12)
[2024-02-12] MEDS: metoprolol tartrate 25 mg Tablet 12.5 MG PO ×2 (09:12→20:40)
[2024-02-12] MEDS: amiodarone 200 mg Tablet 400 MG PO ×3 (09:12→20:41)
[2024-02-12 10:35] LABS: Basophils % 0.5 %; Eosinophils # 0.1 10^3/uL (0.0-0.8); Eosinophils % 0.8 %; Hematocrit 34.2 % (37-53); Lymphocytes # 0.9 10^3/uL (0.8-4.8); Mean Corpuscular HGB Conc 28.7 g/dL (30-55); Mean Corpuscular Hemoglobin 24.1 pg (27-33); Mean Corpuscular Volume 84.2 fl (82-101); Mean Platelet Volume 11.2 fL (7.4-10.4); Monocytes # 0.6 10^3/uL (0.2-0.9); Monocytes % 6.5 %; Neutrophils # 7.09 10^3/uL (1.8-7.7); Neutrophils % 81.7 %; Nucleated Red Blood Cells % 0 %; Platelet Count 217 10^3/cmm (157-399); Red Blood Count 4.06 10^6/uL (3.85-5.65); White Blood Count 8.67 10^3/uL (3.29-11.43)
[2024-02-12 10:52] LABS: Anion Gap 11.4 (5-19); Blood Urea Nitrogen 19 mg/dL (8-23); Calcium 8.1 mg/dL (8.5-10.5); Carbon Dioxide 28 mmol/L (22-29); Chloride 105 mmol/L (98-107); Glucose 98 mg/dL (65-115); Magnesium 2.1 mg/dL (1.7-2.3); Osmolality Calculated 292 mOsm/kg (285-295); Potassium 4.4 mmol/L (3.5-5.1); Sodium 140 mmol/L (136-145)
--- NOTE | 2024-02-12 11:30 | PC.NURSE ---
Pt to [employer] lab[employer].
--- NOTE | 2024-02-12 11:40 | W.PM.OPSUD ---
Surgery/Procedure H&P Update DATE OF PROCEDURE: February 12, 2024 DATE H&P PERFORMED: 02/10/24 H&P UPDATE INFORMATION: I have reviewed H&P completed within last 30 days, I have examined patient prior to procedure and No changes to prior documentation CHANGES TO PREVIOUS DOCUMENTATION: Ventricular tachycardia nonsustained PREOP DIAGNOSIS: Short nonsustained VT's PATIENT REASSESSED PRIOR TO SEDATION, WITH NO CHANGE NOTED: Yes PHYSICAL EXAM: alert, oriented x 3, clear to auscultation bilaterally, regular rate & rhythm and operative site marked OTHER PERTINENT EXAM FINDINGS: Mallampati 2
[2024-02-12 11:45] LABS: Glucose Point of Care 127 mg/dL (70-110)
--- NOTE | 2024-02-12 12:24 | PC.SOCIAL ---
Home Health Patient has been accepted @ [facility] and they have auth from [facility] for when patient DC's.
--- NOTE | 2024-02-12 12:53 | PM.PN ---
Subjective Subjective: Patient underwent left heart catheterization today he was noted to have patent previously placed mid LAD stent with mild in-stent restenosis, left main left circumflex and RCA has luminal irregularities without significant stenosis. Bioprosthetic valve was not crossed. Medications: Reviewed: Yes Vitals/I&O/Wt Last Vital Signs Temp 97.1 F L 02/12/24 07:30 Pulse 90 02/12/24 11:00 Resp 11 L 02/12/24 11:00 BP 125/84 02/12/24 11:00 Pulse Ox 96 02/12/24 11:00 O2 Del Method Room Air 02/12/24 11:00 02/11/24 02/12/24 02/12/24 22:59 06:59 14:59 Intake Total 708.901 / 1008.901 50 / 1058.901 Output Total 900 / 900 2550 / 3450 Balance -191.099 / 108.901 -2500 / -2391.099 Weight last 48 hrs Weight 229 lb 14.4 oz Weight 234 lb 15.951 oz Physical Exam Const: COMMON NORMALS: alert Resp: COMMON NORMALS: clear to auscultation bilaterally AUSCULTATION: clear to auscultation bilaterally Neuro: SENSORIUM/ORIENTATION: Yes alert Urinary Catheter Management: Posadas: Cath Placed During This Visit: yes Reason for Continuing Indwelling Catheter: Accurate Measurement of Urinary Output in Critically Ill Patients Urinary Catheter Date of Insertion: 02/09/24 Urinary Catheter Time of Insertion: 17:10 Data 02/12/24 10:20 02/12/24 10:20 A&P Assessment and plan (1) Atrial fibrillation with rapid ventricular response: On today's visit dated 02/12/2024 patient underwent left heart catheterization noted to have patent previously placed mid LAD stent. Patient has 50 to 60% ostial diagonal stenosis, patient has left circumflex left main and RCA without significant stenosis. Does not appear to me that his very short runs of nonsustained ventricular tachycardia were ischemic most likely sepsis and scarring, currently appear to be stable continue p.o. amiodarone recommend LifeVest and optimization of heart failure medication including Entresto if tolerated blood pressure kenny. Resume apixaban from tonight Patient was evaluated and cared for in conjunction with an advanced practice practitioner. I personally examined the patient and reviewed the chart and all pertinent data including imaging, telemetry, and laboratory results. I discussed the patient in detail with the advanced practice practitioner. Please see their note for complete H&P testing result and agreed upon plan of care for the patient. GENERAL: Patient is alert, awake and oriented x3. HEART: Regular S1 and S2. No murmur, rub or gallop. LUNGS: Clear to auscultate bilaterally. CENTRAL NERVOUS SYSTEM: Grossly nonfocal. EXTREMITIES: Lower extremities with out edema bilaterally. Assessment and plan A-fib with RVR NSVT Severely depressed left ventricle ejection fraction 30 to 35% History of coronary artery disease prior PCI Status post TAVR Sepsis with bacteremia Transesophageal echocardiogram was performed which showed well-seated bioprosthetic aortic valve no obvious vegetation noted on mitral aortic tricuspid or pulmonic valve. There was no significant suspicious regurgitation, patient has known severely depressed left ventricular ejection fraction. Plan continue amiodarone for A-fib/NSVT Continue IV antibiotics Plan for left heart cath rule out ischemic etiology of shortness of ventricular tachycardia Optimize beta-isaiah Patient had episodes of nonsustained V. tach anywhere from 3-10 beats. Oral amiodarone was stopped. Drip was placed at 1 mg/h. Continue metoprolol 12.5 twice daily. (2) Aortic valve stenosis: Aortic valve bioprosthetic sitting in a good position working normally without significant valvular or paravalvular leak. No obvious source of endocarditis or vegetation noted on any valves. Continue IV antibiotic as per medicine recommendation Qualifiers: Cardiac valve disease etiology: etiology unspecified Qualified Code(s): I35.0 - Nonrheumatic aortic (valve) stenosis (3) Pacemaker: S/P pacemaker placement. Patient incision site well healed w/o s/s of infection present. Patient is a paced at times. (4) CHF (congestive heart failure): Appear to be compensated however ejection fraction below 35%. Add Entresto continue beta-isaiah once blood pressure improved and out of sepsis Qualifiers: Heart failure type: diastolic Heart failure chronicity: acute on chronic Qualified Code(s): I50.33 - Acute on chronic diastolic (congestive) heart failure (5) Sepsis: Antibiotics as per hospital team Qualifiers: Sepsis acute organ dysfunction status: without acute organ dysfunction Sepsis type: sepsis due to unspecified organism Qualified Code(s): A41.9 - Sepsis, unspecified organism (6) Acute UTI: Per hospitalist team. Receiving antibiotics at this time. Gram-negative bacteria in patient's urine. (7) Coronary artery disease: Patient status post PCI in the past patient is not on Plavix, his mid LAD stent was more than 2-year ago we will reconfirm through record will ask for medical records. Left heart cath as defined above did not show significant stenosis. Qualifiers: Coronary Disease-Associated Artery/Lesion type: [place] artery [place] vs. transplanted heart: [place] heart Associated angina: without angina Qualified Code(s): I25.10 - Atherosclerotic heart disease of [place] coronary artery without angina pectoris (8) NSVT (nonsustained ventricular tachycardia): Much better and improved continue amiodarone rule out ischemic etiology with left heart catheter Plan Continue as above Attestations Medical Necessity Statement*: Patient is admitted and requiring continuation hospitalization as defined above. Coding Level of Care Code Acute Code for [facility] Fwd Diagnoses Atrial fibrillation with rapid ventricular response I48.91 Aortic valve stenosis, etiology of cardiac valve disease unspecified I35.0 Cardiac valve disease etiology: etiology unspecified Pacemaker Z95.0 Acute on chronic diastolic congestive heart failure I50.33 Heart failure type: diastolic Heart failure chronicity: acute on chronic Sepsis A41.9 Sepsis acute organ dysfunction status: without acute organ dysfunction Sepsis type: sepsis due to unspecified organism Acute UTI N39.0 Coronary artery disease involving [place] coronary artery of [place] heart without angina pectoris I25.10 Coronary Disease-Associated Artery/Lesion type: [place] artery [place] vs. transplanted heart: [place] heart Associated angina: without angina NSVT (nonsustained ventricular tachycardia) I47.29
--- NOTE | 2024-02-12 13:00 | PC.NURSE ---
Pt arrives back to ICU from lab specialist. RIght groin soft, no bleeding or hematoma noted. Right dorasal pedis pulse remains faint. Pt instructed to lie flat and not move that leg for 5 hours as ordered.
--- NOTE | 2024-02-12 13:47 | P.PN_ITS ---
Subjective 2 Subjective: seen this am going for cath this am ct surgery requested cardiac cath for patient. dr. huber spoke with dr paulson on phone. still waiting for Vitals/I&O/Wt Last Vital Signs Temp 97.1 F L 02/12/24 07:30 Pulse 90 02/12/24 11:00 Resp 11 L 02/12/24 11:00 BP 125/84 02/12/24 11:00 Pulse Ox 96 02/12/24 11:00 O2 Del Method Room Air 02/12/24 11:00 02/11/24 02/12/24 02/12/24 22:59 06:59 14:59 Intake Total 708.901 / 1008.901 50 / 1058.901 Output Total 900 / 900 2550 / 3450 Balance -191.099 / 108.901 -2500 / -2391.099 Weight last 48 hrs Weight 104.281 kg Weight 106.593 kg Physical Exam 2 Narrative: General no acute distress laying in bed CV regular rate and rhythm no loud murmur in the right upper and left upper sternal border on room air Abdomen soft nontender trace bilateral lower extremity edema. Sternal wound appears clean no erythema Urinary Catheter Management: Posadas: Cath Placed During This Visit: yes Reason for Continuing Indwelling Catheter: Accurate Measurement of Urinary Output in Critically Ill Patients Urinary Catheter Date of Insertion: 02/09/24 Urinary Catheter Time of Insertion: 17:10 Data 02/12/24 10:20 02/12/24 10:20 A&P Assessment and plan (1) Infective endocarditis: Qualifiers: Infective endocarditis organism: bacterial Chronicity: acute Qualified Code(s): I33.0 - Acute and subacute infective endocarditis (2) Aortic valve stenosis: Status post recent surgical intervention Qualifiers: Cardiac valve disease etiology: etiology unspecified Qualified Code(s): I35.0 - Nonrheumatic aortic (valve) stenosis (3) Atrial fibrillation with rapid ventricular response: (4) Pacemaker: (5) Urinary tract infection: UTI versus colonization with ESBL Klebsiella pneumonia-patient currently does not report any urinary symptoms. Denies having had any dysuria, however difficult to assess in the presence of fever and other signs of infection if this is also contributing. Continue meropenem 2 g IV every 8 hours Plan #Infective endocarditis #Strep bacteremia #Fever on admission #Recent CABG and TAVR #Chronic anticoagulation #Afib with RVR #NSVT #Systolic HF EF 25% #CAD #ESBL UTI - Urine growing Klebsiella ESBL. Continue meropenem every 8 hours. Will complete 7 days total. ? Repeat blood cultures from 02/08 are pending at this time. Initial blood cultures from admission are positive for Streptococcus species 4 bottles out of 4 bottles positive. Culture has been plated. Sensitivities are pending. They should be available in next 48 hours. ? ID consulted at this time. They recommend transfer to higher level of care for CT surgery and continued follow-up with ID service. Unfortunately this week we do not have ID available at our hospital. Discussed with patient's CT surgeon at [place] , and patient has been accepted for transfer to higher level of care. ID consult appreciated. ? Amiodarone drip stopped by cardiology at this time. Switch to oral amiodarone as per cardiology recommendations ? Continue Lopressor 12.5 twice daily. ? Patient is having NSVT's. ? Systolic heart failure EF 25%. Previous EF 20%. Patient does appear to be euvolemic. Did get Lasix initially on admission. Will continue to watch. Will diurese with as needed Lasix as needed -Patient's family and patient agreeable to transfer at this time. -Patient will be going for SP in morning with cardiology. ? Continue to monitor for fever. Check CBC BMP, magnesium daily. -Continue with PT. ? Patient awaiting transfer to [place]. Full code DVT prophylaxis: Continue Eliquis at this time 02/12/2024 Blood cultures are possibly alphahemolytic Streptococcus mutans sanguinous or viridans at this time. All 4 bottles are positive from admission. Repeat cultures are negative to date so far. 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 Another possibility of possible source may be sternal plate that patient has. He will definitely need evaluation by CT surgery for that. Patient will need tagged WBC scan to isolate the source at this time. bcx speciation pending at this time. Discussed with lab today. Organism has still not been identified completely and sensitivities are still pending. I have been told that we will be available tomorrow 02/12. Will continue antibiotics for now. ? He will need 6 weeks of IV antibiotics going forward and continued ID follow- up. He is still awaiting transfer to [place] at this time. Nonsustained V. tach: continue oral amioEF 30 to 35% on SP as per cardiology. Official report is pending at this time. Going for cath today ? Continue meropenem and vancomycin. There seems to be a confusion regarding patient's CABG history. According to notes from [place] and records he had a PCI done in 2021. There seems to be some confusion regarding the CABG. When I spoke to Dr. huber on friday I was told that he had a CABG and a TAVR 2 months ago. However we cannot find record of that at this time. Discussed with cardiology team today. They will be reaching out to CT surgeon to clarify that. Attestations 2 Medical Necessity Statement*: infective endocarditis workup, awaiting transfer to [facility] Diagnoses Acute bacterial endocarditis I33.0 Infective endocarditis organism: bacterial Chronicity: acute Aortic valve stenosis, etiology of cardiac valve disease unspecified I35.0 Cardiac valve disease etiology: etiology unspecified Atrial fibrillation with rapid ventricular response I48.91 Pacemaker Z95.0 Urinary tract infection N39.0
[2024-02-12] MEDS: vancomycin 1,500 MG/300 ML PIGGYBACK 150 MG IV (14:42)
--- NOTE | 2024-02-12 18:00 | PC.NURSE ---
Bedrest completed. Right groin site remains soft with no hematomas or bleeding.
[2024-02-12 18:19] LABS: Glucose Point of Care 138 mg/dL (70-110)
--- NOTE | 2024-02-12 19:15 | PC.NURSE ---
Shift summary: Paced rhythm noted on monitor, [place] is very long. Occasionally axis on rhythm will flip and monitor will alarm V-tach. V- tach has not been present. Lungs sounds clear and diminished. Pt followed post cath restrictions with no problems. today. Ccath site soft with no hematomas noted. Left Ac IV infitrated at end of shift, area around AC puffy and edematous. No streaking or bright red noted. Pt requested hot blankets over area, they were provided. New IV insertion on right was Ultrasound guided. Meropenem and Vancomycin were his IV meds today. No shortness of breath, chest pains or dizziness complained of today. Urine output of 645 ml noted. No BM noted. Pt has two visitors today. Two daughters are travelling in and expect to be here to see him tonight. As of today no beds available at [facility] for his transfer.
[2024-02-12 20:34] LABS: Glucose Point of Care 200 mg/dL (70-110)
[2024-02-12] MEDS: insulin lispro 100 unit/1 mL SUBCUT (20:42)
[2024-02-12] MEDS: insulin glargine 100 units/1 mL 13 UNIT SUBCUT (20:43)
--- NOTE | 2024-02-12 21:36 | PC.NURSE ---
[facility] Transfer center called for update on patient status. No bed available for transfer at present time.
--- NOTE | 2024-02-12 23:47 | PC.NURSE ---
Patients daughters from out of state arrived at hospital. At bedside talking with patient and updated on plan of care. Questions answered.
[2024-02-13] VITALS (14 sets, daily range): BP systolic 95–123; BP diastolic 60–74; PULSE 90–91; RESP 10–20; TEMP 36.3–36.8; O2SAT 90–96
[2024-02-13] MEDS: MEROPENEM 2,000 MG in sodium chloride 0.9% (plus) 50 ML 100 MG IV ×3 (00:02→16:54)
[2024-02-13 05:18] LABS: Basophils % 0.3 %; Eosinophils # 0.1 10^3/uL (0.0-0.8); Eosinophils % 1.4 %; Hematocrit 32.4 % (37-53); Lymphocytes # 1.1 10^3/uL (0.8-4.8); Lymphocytes % 10.8 %; Mean Corpuscular Hemoglobin 24.2 pg (27-33); Mean Corpuscular Volume 83.5 fl (82-101); Mean Platelet Volume 11.7 fL (7.4-10.4); Monocytes # 0.7 10^3/uL (0.2-0.9); Monocytes % 7.1 %; Neutrophils # 7.79 10^3/uL (1.8-7.7); Neutrophils % 79.8 %; Nucleated Red Blood Cells % 0 %; Platelet Count 198 10^3/cmm (157-399); Red Blood Count 3.88 10^6/uL (3.85-5.65); Red Cell Distribution Width 16.2 % (12.1-15.1); White Blood Count 9.77 10^3/uL (3.29-11.43)
[2024-02-13 05:36] LABS: Anion Gap 11.3 (5-19); Blood Urea Nitrogen 20 mg/dL (8-23); Calcium 7.8 mg/dL (8.5-10.5); Carbon Dioxide 26 mmol/L (22-29); Chloride 103 mmol/L (98-107); Creatinine Clr Calc Pharmacy 71.5636; Glucose 93 mg/dL (65-115); Osmolality Calculated 284 mOsm/kg (285-295); Potassium 4.3 mmol/L (3.5-5.1); Sodium 136 mmol/L (136-145)
[2024-02-13] MEDS: pantoprazole DR 40 mg Tablet PO (08:42)
[2024-02-13] MEDS: atorvastatin 40 mg Tablet 20 MG PO (08:42)
[2024-02-13] MEDS: amiodarone 200 mg Tablet 400 MG PO (08:42)
[2024-02-13] MEDS: metoprolol tartrate 25 mg Tablet 12.5 MG PO ×2 (08:42→20:21)
[2024-02-13 09:09] LABS: Glucose Point of Care 93 mg/dL (70-110)
[2024-02-13 09:28] LABS: Glucose Point of Care 89 mg/dL (70-110)
[2024-02-13] MEDS: apixaban 5 mg Tablet 2.5 MG PO ×2 (10:50→20:21)
[2024-02-13] MEDS: polyethylene glycol 3350 Pkt 17 gm PO (10:50)
[2024-02-13] MEDS: sennosides-docusate Tablet 1 TAB PO ×2 (10:51→16:55)
--- NOTE | 2024-02-13 11:09 | P.PN_ITS ---
Subjective 2 Subjective: seen this morning blood cultures are still pending hr well controlled coronary angiogram negative from yesterday resting comfortably in bed. Vitals/I&O/Wt Last Vital Signs Temp 97.3 F L 02/13/24 08:00 Pulse 90 02/13/24 05:56 Resp 19 H 02/13/24 04:00 BP 106/68 02/13/24 04:00 Pulse Ox 94 02/13/24 04:00 O2 Del Method Room Air 02/13/24 04:00 02/12/24 02/13/24 02/13/24 22:59 06:59 14:59 Intake Total 850 / 1150 300 / 1450 350 / 350 Output Total 675 / 675 550 / 1225 100 / 100 Balance 175 / 475 -250 / 225 250 / 250 Weight last 48 hrs Weight 105 kg Weight 104.281 kg Physical Exam 2 Narrative: General no acute distress laying in bed CV regular rate and rhythm, loud murmur in the right upper and left upper sternal border on room air Abdomen soft nontender trace bilateral lower extremity edema. Sternal wound appears clean no erythema Urinary Catheter Management: Posadas: Cath Placed During This Visit: yes Reason for Continuing Indwelling Catheter: Accurate Measurement of Urinary Output in Critically Ill Patients Urinary Catheter Date of Insertion: 02/09/24 Urinary Catheter Time of Insertion: 17:10 Data 02/13/24 05:06 02/13/24 05:06 A&P Assessment and plan (1) Infective endocarditis: Qualifiers: Infective endocarditis organism: bacterial Chronicity: acute Qualified Code(s): I33.0 - Acute and subacute infective endocarditis (2) Aortic valve stenosis: Status post recent surgical intervention Qualifiers: Cardiac valve disease etiology: etiology unspecified Qualified Code(s): I35.0 - Nonrheumatic aortic (valve) stenosis (3) Atrial fibrillation with rapid ventricular response: (4) Pacemaker: (5) Urinary tract infection: UTI versus colonization with ESBL Klebsiella pneumonia-patient currently does not report any urinary symptoms. Denies having had any dysuria, however difficult to assess in the presence of fever and other signs of infection if this is also contributing. Continue meropenem 2 g IV every 8 hours Plan #Infective endocarditis #Strep bacteremia #Fever on admission #Recent CABG and TAVR #Chronic anticoagulation #Afib with RVR #NSVT #Systolic HF EF 25% #CAD #ESBL UTI - Urine growing Klebsiella ESBL. Continue meropenem every 8 hours. Will complete 7 days total. ? Repeat blood cultures from 02/08 are pending at this time. Initial blood cultures from admission are positive for Streptococcus species 4 bottles out of 4 bottles positive. Culture has been plated. Sensitivities are pending. They should be available in next 48 hours. ? ID consulted at this time. They recommend transfer to higher level of care for CT surgery and continued follow-up with ID service. Unfortunately this week we do not have ID available at our hospital. Discussed with patient's CT surgeon at [place] , and patient has been accepted for transfer to higher level of care. ID consult appreciated. ? Amiodarone drip stopped by cardiology at this time. Switch to oral amiodarone as per cardiology recommendations ? Continue Lopressor 12.5 twice daily. ? Patient is having NSVT's. ? Systolic heart failure EF 25%. Previous EF 20%. Patient does appear to be euvolemic. Did get Lasix initially on admission. Will continue to watch. Will diurese with as needed Lasix as needed -Patient's family and patient agreeable to transfer at this time. -Patient will be going for SP in morning with cardiology. ? Continue to monitor for fever. Check CBC BMP, magnesium daily. -Continue with PT. ? Patient awaiting transfer to [place]. Full code DVT prophylaxis: Continue Eliquis at this time 02/13/2024 Blood cultures are possibly alphahemolytic Streptococcus mutans sanguinous or viridans at this time. All 4 bottles are positive from admission. Repeat cultures are negative to date so far. 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 Another possibility of possible source may be sternal plate that patient has. He will definitely need evaluation by CT surgery for that. Patient will need tagged WBC scan to isolate the source at this time. bcx speciation pending at this time. Organism has still not been identified completely and sensitivities are still pending. CULTURES ARE STILL PENDING. Will continue antibiotics for now. ? He will need 6 weeks of IV antibiotics going forward and continued ID follow- up. He is still awaiting transfer to [place] at this time. Nonsustained V. tach: continue oral amioEF 30 to 35% on SP as per cardiology. Official report is pending at this time. Cath completed, negative. ? Continue meropenem and vancomycin. - Transfer to [facility] Attestations 2 Medical Necessity Statement*: infective endocarditis workup, awaiting transfer to [facility] Diagnoses Acute bacterial endocarditis I33.0 Infective endocarditis organism: bacterial Chronicity: acute Aortic valve stenosis, etiology of cardiac valve disease unspecified I35.0 Cardiac valve disease etiology: etiology unspecified Atrial fibrillation with rapid ventricular response I48.91 Pacemaker Z95.0 Urinary tract infection N39.0
[2024-02-13 12:24] LABS: Glucose Point of Care 148 mg/dL (70-110)
[2024-02-13] MEDS: insulin lispro 100 unit/1 mL SUBCUT ×2 (12:27→20:22)
[2024-02-13] MEDS: vancomycin 1,500 MG/300 ML PIGGYBACK 150 MG IV (12:28)
--- NOTE | 2024-02-13 15:44 | P.PN_ITS ---
Subjective 2 Subjective: Patient doing well and sitting up in chair today. Patient now in sinus rhythm. Heart rate maintaining in the 90s. Patient denies any significant shortness of breath or chest pain. Medications: Reviewed: Yes Vitals/I&O/Wt Last Vital Signs Temp 98.3 F 02/13/24 12:00 Pulse 90 02/13/24 05:56 Resp 19 H 02/13/24 04:00 BP 106/68 02/13/24 04:00 Pulse Ox 94 02/13/24 12:44 O2 Del Method Room Air 02/13/24 12:44 02/13/24 02/13/24 02/13/24 06:59 14:59 22:59 Intake Total 300 / 1450 350 / 350 Output Total 550 / 1225 300 / 300 Balance -250 / 225 50 / 50 Weight last 48 hrs Weight 231 lb 7.766 oz Weight 229 lb 14.4 oz Physical Exam 2 Narrative: General: No apparent distress, healthy appearing, well nourished HENMT: normoceophalic Lymphatic: no lymphedema noted Respiratory: Normal respiratory effort, clear to auscultation bilaterally throughout all lung angel, no use of accessory muscles Cardio: No JVD, regular rate, regular rhythm, S1 S2 normal, no murmurs Extremities:no cyanosis or edema Neuro: Alert and oriented x4, no focal motor deficits Psych: Affect normal, denies suicidal ideation, mental status grossly normal Urinary Catheter Management: Posadas: Cath Placed During This Visit: yes Reason for Continuing Indwelling Catheter: Accurate Measurement of Urinary Output in Critically Ill Patients Urinary Catheter Date of Insertion: 02/09/24 Urinary Catheter Time of Insertion: 17:10 Data 02/13/24 05:06 02/13/24 05:06 Micro: Microbiology 02/08/24 11:50 Blood Culture - Final Blood Streptococcus species Streptococcus mitis oralis 02/08/24 11:39 Blood Culture - Final Blood NO GROWTH AFTER 5 DAYS A&P Assessment and plan (1) Atrial fibrillation with rapid ventricular response: (2) Aortic valve stenosis: Patient status post aortic valve replacement with bioprosthetic valve via open heart surgery about a month and a half ago at [facility] by Dr. Griffin. He will need continued antibiotics. From cardiology standpoint no evidence of endocarditis present on SP. Qualifiers: Cardiac valve disease etiology: etiology unspecified Qualified Code(s): I35.0 - Nonrheumatic aortic (valve) stenosis (3) Pacemaker: Patient is a paced. (4) CHF (congestive heart failure): Severely decreased EF at 25%. No s/s of fluid overload at this time. Will need life vest upon discharge. Entresto may be added when blood pressures can tolerate. Qualifiers: Heart failure type: diastolic Heart failure chronicity: acute on chronic Qualified Code(s): I50.33 - Acute on chronic diastolic (congestive) heart failure (5) Sepsis: Patient receiving antibiotics. Per hospitalist team. Blood culture was positive for Streptococcus. SP today did not show vegitation. Qualifiers: Sepsis acute organ dysfunction status: without acute organ dysfunction Sepsis type: sepsis due to unspecified organism Qualified Code(s): A41.9 - Sepsis, unspecified organism (6) Acute UTI: Per hospitalist team. Receiving antibiotics at this time. Gram-negative bacteria in patient's urine. (7) Coronary artery disease: Patient status post PCI in the past. No evidence of acute ischemia at this time. Denies chest pain or shortness of breath Stent was patent on angiogram done yesterday. Qualifiers: Coronary Disease-Associated Artery/Lesion type: [place] artery [place] vs. transplanted heart: [place] heart Associated angina: without angina Qualified Code(s): I25.10 - Atherosclerotic heart disease of [place] coronary artery without angina pectoris (8) NSVT (nonsustained ventricular tachycardia): Continue oral amiodarone. Plan At this time the plan for this very pleasant 78-year-old gentleman is to continue rate control, continue oral amio and metoprol. Continue to monitor for arrhythmias. Attestations 2 Medical Necessity Statement*: Deferred to primary Coding Level of Care Code Acute Code for [facility] Fwd Diagnoses Atrial fibrillation with rapid ventricular response I48.91 Aortic valve stenosis, etiology of cardiac valve disease unspecified I35.0 Cardiac valve disease etiology: etiology unspecified Pacemaker Z95.0 Acute on chronic diastolic congestive heart failure I50.33 Heart failure type: diastolic Heart failure chronicity: acute on chronic Sepsis A41.9 Sepsis acute organ dysfunction status: without acute organ dysfunction Sepsis type: sepsis due to unspecified organism Acute UTI N39.0 Coronary artery disease involving [place] coronary artery of [place] heart without angina pectoris I25.10 Coronary Disease-Associated Artery/Lesion type: [place] artery [place] vs. transplanted heart: [place] heart Associated angina: without angina NSVT (nonsustained ventricular tachycardia) I47.29
[2024-02-13 17:09] LABS: Glucose Point of Care 162 mg/dL (70-110)
[2024-02-13 20:14] LABS: Glucose Point of Care 245 mg/dL (70-110)
[2024-02-13] MEDS: insulin glargine 100 units/1 mL 13 UNIT SUBCUT (20:22)
[2024-02-14] MEDS: MEROPENEM 2,000 MG in sodium chloride 0.9% (plus) 50 ML 100 MG IV ×2 (00:28→08:03)
[2024-02-14 03:15] VITALS: BP 114/82; PULSE 90; RESP 15; TEMP 36.8; O2SAT 91
[2024-02-14 04:09] LABS: Basophils % 0.4 %; Eosinophils # 0.2 10^3/uL (0.0-0.8); Eosinophils % 1.9 %; Hematocrit 29.7 % (37-53); Lymphocytes % 11.6 %; Mean Corpuscular HGB Conc 29.3 g/dL (30-55); Mean Corpuscular Hemoglobin 24.3 pg (27-33); Mean Platelet Volume 11.2 fL (7.4-10.4); Monocytes # 0.6 10^3/uL (0.2-0.9); Neutrophils # 7.05 10^3/uL (1.8-7.7); Neutrophils % 78.3 %; Nucleated Red Blood Cells % 0 %; Platelet Count 159 10^3/cmm (157-399); Red Blood Count 3.58 10^6/uL (3.85-5.65); Red Cell Distribution Width 16.3 % (12.1-15.1)
[2024-02-14 04:32] LABS: Anion Gap 11.5 (5-19); Blood Urea Nitrogen 24 mg/dL (8-23); Carbon Dioxide 25 mmol/L (22-29); Chloride 101 mmol/L (98-107); Creatinine Clr Calc Pharmacy 60.5538; Glucose 139 mg/dL (65-115); Osmolality Calculated 282 mOsm/kg (285-295); Potassium 4.5 mmol/L (3.5-5.1); Sodium 133 mmol/L (136-145)
[2024-02-14 04:41] VITALS: PULSE 90
[2024-02-14 06:27] LABS: Glucose Point of Care 154 mg/dL (70-110)
[2024-02-14 07:29] VITALS: BP 107/63; PULSE 92; RESP 18; TEMP 37; O2SAT 96
[2024-02-14] MEDS: insulin lispro 100 unit/1 mL SUBCUT ×2 (08:04→13:11)
[2024-02-14] MEDS: amiodarone 200 mg Tablet 400 MG PO (08:06)
[2024-02-14] MEDS: atorvastatin 40 mg Tablet 20 MG PO (08:07)
[2024-02-14] MEDS: pantoprazole DR 40 mg Tablet PO (08:07)
[2024-02-14] MEDS: sennosides-docusate Tablet 1 TAB PO (08:07)
[2024-02-14] MEDS: apixaban 5 mg Tablet 2.5 MG PO (08:14)
[2024-02-14] MEDS: metoprolol tartrate 25 mg Tablet 12.5 MG PO (08:14)
[2024-02-14 11:55] VITALS: BP 115/79; PULSE 90; RESP 20; TEMP 37; O2SAT 95
[2024-02-14 12:04] LABS: Glucose Point of Care 206 mg/dL (70-110)
--- NOTE | 2024-02-14 12:46 | PM.PN ---
Subjective Subjective: Patient awaiting transfer to [place] Bacteria has been identified as strep mitis oralis sensitive to beta-lactam ceftriaxone. Lyudmilaide discussed with ID physician on the phone. Patient will definitely need at least 2 weeks of gentamicin however we do not have gentamicin trough monitoring capabilities at our facility even as an outpatient. Recommendation is still to transfer patient to higher level of care for ID services. In the meantime patient to remain on vancomycin and meropenem NSVT's have improved. Patient is on oral amiodarone and metoprolol. Patient is resting comfortably in recliner. Looks a lot better compared to admission. Has been afebrile. White count normal. 2 daughters present at bedside, 1 daughter present on FaceTime. Updated daughters in detail. Spent greater than 30 minutes discussing patient's complete case current status and further management. He will need a LifeVest prior to discharge. Vitals/I&O/Wt Last Vital Signs Temp 98.6 F 02/14/24 11:55 Pulse 90 02/14/24 11:55 Resp 20 H 02/14/24 11:55 BP 115/79 02/14/24 11:55 Pulse Ox 95 02/14/24 11:55 O2 Del Method Room Air 02/14/24 11:55 02/13/24 02/14/24 02/14/24 22:59 06:59 14:59 Intake Total 520 / 870 410 / 1280 290 / 290 Output Total 550 / 850 Balance 520 / 570 -140 / 430 290 / 290 Weight last 48 hrs Weight 105 kg Physical Exam Narrative: General no acute distress laying in bed CV regular rate and rhythm, loud murmur in the right upper and left upper sternal border on room air Abdomen soft nontender trace bilateral lower extremity edema. Sternal wound appears clean no erythema Urinary Catheter Management: Posadas: Cath Placed During This Visit: yes Reason for Continuing Indwelling Catheter: Accurate Measurement of Urinary Output in Critically Ill Patients Urinary Catheter Date of Insertion: 02/09/24 Urinary Catheter Time of Insertion: 17:10 Data 02/14/24 03:53 02/14/24 03:53 Micro: Microbiology 02/08/24 11:50 Blood Culture - Final Blood Streptococcus species Streptococcus mitis oralis 02/08/24 11:39 Blood Culture - Final Blood NO GROWTH AFTER 5 DAYS A&P Assessment and plan (1) Infective endocarditis: Qualifiers: Infective endocarditis organism: bacterial Chronicity: acute Qualified Code(s): I33.0 - Acute and subacute infective endocarditis (2) Aortic valve stenosis: Status post recent surgical intervention Qualifiers: Cardiac valve disease etiology: etiology unspecified Qualified Code(s): I35.0 - Nonrheumatic aortic (valve) stenosis (3) Atrial fibrillation with rapid ventricular response: (4) Pacemaker: (5) Urinary tract infection: UTI versus colonization with ESBL Klebsiella pneumonia-patient currently does not report any urinary symptoms. Denies having had any dysuria, however difficult to assess in the presence of fever and other signs of infection if this is also contributing. Continue meropenem 2 g IV every 8 hours Plan #Infective endocarditis #Strep bacteremia #Fever on admission #Recent CABG and TAVR #Chronic anticoagulation #Afib with RVR #NSVT #Systolic HF EF 25% #CAD #ESBL UTI - Urine growing Klebsiella ESBL. Continue meropenem every 8 hours. Will complete 7 days total. ? Repeat blood cultures from 02/08 are pending at this time. Initial blood cultures from admission are positive for Streptococcus species 4 bottles out of 4 bottles positive. Culture has been plated. Sensitivities are pending. They should be available in next 48 hours. ? ID consulted at this time. They recommend transfer to higher level of care for CT surgery and continued follow-up with ID service. Unfortunately this week we do not have ID available at our hospital. Discussed with patient's CT surgeon at [place] , and patient has been accepted for transfer to higher level of care. ID consult appreciated. ? Amiodarone drip stopped by cardiology at this time. Switch to oral amiodarone as per cardiology recommendations ? Continue Lopressor 12.5 twice daily. ? Patient is having NSVT's. ? Systolic heart failure EF 25%. Previous EF 20%. Patient does appear to be euvolemic. Did get Lasix initially on admission. Will continue to watch. Will diurese with as needed Lasix as needed -Patient's family and patient agreeable to transfer at this time. -Patient will be going for SP in morning with cardiology. ? Continue to monitor for fever. Check CBC BMP, magnesium daily. -Continue with PT. ? Patient awaiting transfer to [place]. Full code DVT prophylaxis: Continue Eliquis at this time 02/14/2024 ID Blood cultures positive for strep mitis oralis 4 out of 4 bottles from admission. Patient recommended to have at least 2 weeks of gentamicin and 6 weeks of ceftriaxone. Florian discussed with ID over the phone however we do not have gentamicin trough monitoring capabilities at our facility. Patient will also need further evaluation with ID therefore recommendation is to still transfer to higher level of care. Discussed this with the daughter in detail. Repeat cultures have been negative. Urine culture positive for Klebsiella pneumonia ESBL. Meropenem should cover his UTI. Plan to keep patient on vancomycin and meropenem till the transfer to [place] at which point ID may decide to change antibiotics. Cardio NSVT: Continue amiodarone and metoprolol at this point. Continue Eliquis. ? Patient will be set up with a LifeVest. Echo completed, SP does not show any gross vegetations. 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 Possibly infective endocarditis as patient does make modified [place] criteria for endocarditis. Coronary angiogram completed no evidence of any obstruction. Previous stent is patent. Please see cath report for further details. Will order LifeVest for patient today. Patient awaiting transfer to [place]. Continue to work with physical therapy. Attestations Medical Necessity Statement*: Awaiting transfer to [place]. Coding Level of Care Code 15631 High Time for a total of 60 minutes, includes examining/interviewing patient, placing orders, counseling patient/family/other support, updating patient/family/other support, discussing plan of care with staff, communicating with other healthcare providers, documenting encounter and coordinating care Diagnoses Acute bacterial endocarditis I33.0 Infective endocarditis organism: bacterial Chronicity: acute Aortic valve stenosis, etiology of cardiac valve disease unspecified I35.0 Cardiac valve disease etiology: etiology unspecified Atrial fibrillation with rapid ventricular response I48.91 Pacemaker Z95.0 Urinary tract infection N39.0
[2024-02-14] MEDS: vancomycin 1,500 MG/300 ML PIGGYBACK 150 MG IV (13:11)
[2024-02-14 14:00] VITALS: PULSE 90
--- NOTE | 2024-02-14 14:51 | PC.NURSE ---
attempted to call report to [facility] at [phone], nurse has just went to lunch. Will call back.
[2024-02-14 16:31] VITALS: BP 124/74; PULSE 85; RESP 18; TEMP 36.8; O2SAT 95
== END 2024-02-14 16:33 | disposition short-term general hospital (02) | DRG 286 ==
LOC: ER 15:31 → ICU 15:33 → CSU 02-13 16:11
PROVIDERS: Internal Medicine; Internal Medicine Cardiovascular Disease; Admitting Provider Student in an Organized Health Care Education/Training Program; Emergency Provider Emergency Medicine; PCP Internal Medicine; Visit Provider Internal Medicine
PROC: B2111ZZ Fluoroscopy of Multiple Coronary Arteries using Low Osmolar Contrast (ICD-10-PCS; principal; 2024-02-12 11:45)
DX: T82.6XXA Infection and inflammatory reaction due to cardiac valve prosthesis, initial encounter (principal); A41.9 Sepsis, unspecified organism; I50.43 Acute on chronic combined systolic (congestive) and diastolic (congestive) heart failure; I33.0 Acute and subacute infective endocarditis; N39.0 Urinary tract infection, site not specified; Z16.12 Extended spectrum beta lactamase (ESBL) resistance; I47.20 Ventricular tachycardia, unspecified; Y71.8 Miscellaneous cardiovascular devices associated with adverse incidents, not elsewhere classified; I48.91 Unspecified atrial fibrillation; I25.10 Atherosclerotic heart disease of native coronary artery without angina pectoris; Z95.5 Presence of coronary angioplasty implant and graft; T82.855A Stenosis of coronary artery stent, initial encounter; Z95.3 Presence of xenogenic heart valve; Z79.01 Long term (current) use of anticoagulants; Z95.0 Presence of cardiac pacemaker; B95.5 Unspecified streptococcus as the cause of diseases classified elsewhere; B96.1 Klebsiella pneumoniae [K. pneumoniae] as the cause of diseases classified elsewhere; I35.1 Nonrheumatic aortic (valve) insufficiency
CPT/HCPCS: 0241U; 12345; 36415; 36416; 51701; 51702; 71045; 74176; 80048; 80053; 80202; 81001; 82962; 83605; 83735; 83880; 84443; 84484; 85025; 87040; 87077; 87086; 87186; 92523; 92526; 92610; 93005; 93306; 93312; 93320; 93325; 93454; 96365; 96366; 96372; 96374; 96375; 96376; 97110; 97116; 97163; 97530; 99152; 99291; A4222; C1760; C1769; C1887; C1894; G0269; J0283; J0696; J1644; J1815; J1940; J2185; J2250; J2405; J2543; J2704; J3010; J3370; J3372; J3490; J7030; J7050; Q9967

== ENCOUNTER 2024-07-29 09:21 | Inpatient (IN) | payer OTHER, SELFPAY ==
[2024-07-29] VITALS (11 sets, daily range): BP systolic 106–130; BP diastolic 66–87; PULSE 87–94; RESP 16–24; TEMP 36.4–36.9; O2SAT 93–100; BMI 29.2; BMI 32.5
--- NOTE | 2024-07-29 09:28 | CT_ITS ---
WS: [id number] CT HEAD TECHNIQUE: Noncontrast CT of the head obtained from the skullbase to the vertex. CLINICAL INFORMATION: Weakness and slurred speech x4 days. 4 days. COMPARISON: None. DLP: [address] scans at [facility] use at least one of these dose optimization techniques: automated exposure control; mA and/or kV adjustment per patient size (includes targeted exams where dose is matched to clinical indication); or iterative reconstruction. FINDINGS: No evidence of intracranial hemorrhage or mass effect. Ventricular system and basal cisterns are patent. Moderate small vessel changes with moderate parenchymal volume loss. Chronic lacunar infarcts in the beebe radiata and basal ganglia. Small chronic appearing infarct in the RIGHT cerebellum. Vascular calcification. Paranasal sinuses and mastoid air cells are well aerated. .Normal visualized soft tissues. CT/CT head thrombolytic 91809 IMPRESSION: 1. No evidence of intracranial hemorrhage or mass effect. 2. Moderate small vessel changes. Moderate parenchymal volume loss. 3. Chronic lacunar infarcts in the LEFT greater than RIGHT basal ganglia. Hydro Excavation Operator kayleigh infarct in the RIGHT cerebellum. 4. Vascular calcification. 5. Some images are degraded due to beam hardening and motion artifact. 6. No acute intracranial findings.
--- NOTE | 2024-07-29 09:39 | XR_ITS ---
WS: [id number] Exam: XR chest 1V portable [id number] Date/Time of Exam: 07/29/2024 9:47 AM Reason For Exam: dyspnea/cough Comparison 02/09/2024. Lungs are clear and fully expanded. Mild cardiac enlargement unchanged. No pleural effusion noted. Permanent cardiac pacer seen over the LEFT chest. The mediastinum is normal in contour. Signs of cardiac surgery and median sternotomy. Bony structures are intact. XR/XR chest 1V portable [id number] IMPRESSION: 1. Mild cardiac enlargement unchanged. No acute process noted.
--- NOTE | 2024-07-29 09:39 | W.ED.GENADLT ---
HPI - General Adult General: Chief complaint: Weakness Stated complaint: stroke symptoms Time Seen by Provider: 07/29/24 09:26 History of Present Illness: 79-year-old male presents to the emergency room with complaint of weakness and slurred speech. He is accompanied by his daughter. They state the slurred speech has started on Friday 4 days ago. He had a stroke in January of last year intermittently has slurred speech since then. His bigger complaint today is shortness of breath and weakness. He was seen in [place] 5 days ago I told him he had heart failure and he was discharged home he has been taking Lasix he feels like his breathing and exercise tolerance has continually worsened since then. He has chronic orthopnea and sleeps in a hospital bed with the head of the bed elevated at all times. He has a known history of heart disease and had bypass surgery in January 2024. Patient is on oral anticoagulants. His symptoms are present for greater than 24 hours. Last known well was 4 days ago Associated symptoms: Reports chest pain (Discomfort/pressure) and dyspnea; Deny rash Related Data Home Medications ?Medication ?Instructions ?Recorded ?Confirmed carvedilol 3.125 mg tablet 3.125 mg PO Q12H 02/08/24 07/29/24 insulin glargine 100 unit/mL 13 unit SUBCUT QPM 02/08/24 07/29/24 subcutaneous cartridge apixaban 5 mg tablet (Eliquis) 5 mg PO BID 07/29/24 07/29/24 atorvastatin 40 mg tablet 40 mg PO QPM 07/29/24 07/29/24 cholecalciferol (vitamin D3) 50 50 mcg PO DAILY 07/29/24 07/29/24 mcg (2,000 unit) capsule (Vitamin D3) clopidogrel 75 mg tablet 75 mg PO DAILY 07/29/24 07/29/24 furosemide 40 mg tablet 40 mg PO DAILY 07/29/24 07/29/24 magnesium 200 mg tablet 400 mg PO DAILY 07/29/24 07/29/24 metformin 1,000 mg tablet 1,000 mg PO BID 07/29/24 07/29/24 omeprazole 20 mg capsule,delayed 20 mg PO DAILY 07/29/24 07/29/24 release pramipexole 0.5 mg tablet 0.5 mg PO QPM 07/29/24 07/29/24 Allergies Allergy/AdvReac Type Severity Reaction Status Date / Time No Known Allergies Allergy Verified 02/08/24 11:47 Review of Systems Const: Denies: fever(s) or chills Card: Reports: chest pain (Discomfort/pressure), edema, swelling of feet/ankles and lightheadedness Resp: Reports: dyspnea GI: Denies: abdominal pain : Denies: dysuria, urinary frequency or urinary urgency Musc: Denies: neck pain or back pain Skin/Breast: Denies: rash Neuro: Reports: Slurred speech present (Onset 4 days ago) PFSH ED PFSH: Medical History Valvular heart disease Pacemaker Surgical History History of heart artery stent History of heart valve repair Physical Exam Const: GENERAL APPEARANCE: cooperative ORIENTATION/CONSCIOUSNESS: Yes awake, Yes oriented to person, Yes oriented to place and Yes oriented to time HENMT: COMMON NORMALS: normocephalic, atraumatic and hearing grossly normal bilaterally HEAD & SCALP: normocephalic and atraumatic Resp: COMMON NORMALS: normal respiratory effort, No retractions, No use of accessory muscles and clear to auscultation bilaterally AUSCULTATION: clear to auscultation bilaterally Cardio: COMMON NORMALS: regular rate, regular rhythm and No murmurs present (Cardio) RATE: regular rate RHYTHM: regular rhythm GI: COMMON NORMALS: Soft to palpation and No hepatosplenomegaly present AUSCULTATION: Yes normoactive bowel sounds PALPATION: Yes Soft to palpation, No Tenderness to palpation present (GI), No Guarding due to palpation present (GI) and Yes No hepatosplenomegaly present Extremity: COMMON NORMALS: normal to inspection, capillary refill normal and no calf tenderness OTHER: 2+ edema lower extremities Neuro: SENSORIUM/ORIENTATION: Yes oriented to person, Yes oriented to place and Yes oriented to time Skin: COMMON NORMALS: no rashes or lesions noted GENERAL SKIN EXAM: no rashes or lesions noted Course Vital Signs: Vital signs: Vital Signs Temperature 97.7 F 07/30/24 07:50 Pulse Rate 90 07/30/24 07:50 Respiratory Rate 24 H 07/30/24 07:50 Blood Pressure 110/67 07/30/24 07:50 Pulse Oximetry 100 07/30/24 07:50 Oxygen Delivery Me thod Nasal Cannula 07/30/24 07:50 Oxygen Flow Rate 2 07/29/24 16:05 MDM - General Adult Medical Decision Making Labs and imaging reviewed EKG reviewed as found in the chart no acute changes. Patient in decompensated congestive heart failure with acute kidney injury. Liver enzymes elevated. Suspect this is a result of his heart failure which is also likely causing his kidney issues. Discussed with hospitalist will admit. Orders written. Patient previous echo showed EF 20 to 25%. He also has mild hyperkalemia which was treated in the emergency room and his INR is elevated. Troponins trending negative. Patient has no chest pain at this time Differential Diagnosis Pneumonia congestive heart failure acute [place] Medical Records I reviewed the patient's medical records. Lab Data I reviewed the patient's lab results. 07/30/24 02:42 07/30/24 02:[address] 07/29/24 09:28 IMPRESSION: 1. No evidence of intracranial hemorrhage or mass effect. 2. Moderate small vessel changes. Moderate parenchymal volume loss. 3. Chronic lacunar infarcts in the LEFT greater than RIGHT basal ganglia. Chronic infarct in the RIGHT cerebellum. 4. Vascular calcification. 5. Some images are degraded due to beam hardening and motion artifact. 6. No acute intracranial findings. Chest X-Ray 07/29/24 09:39 IMPRESSION: 1. Mild cardiac enlargement unchanged. No acute process noted. Gallbladder Ultrasound 07/29/24 11:48 IMPRESSION: 1. Technically limited RIGHT upper quadrant ultrasound. 2. No cholelithiasis identified. Gallbladder ultrasound is limited. 3. Cirrhotic liver. 4. No intrahepatic duct dilatation. 5. Small complex RIGHT pleural effusion. Chest/Abdomen/Pelvis CT 07/29/24 13:48 IMPRESSION: 1. Moderate RIGHT and small LEFT pleural effusions. 2. Groundglass infiltrates worse in the RIGHT upper lobe described above compatible with pneumonitis. 3. Somewhat shrunken configuration to the liver can be seen with early cirrhosis. Recommend correlation with liver function test. Spleen size is normal. No visualized varices. 4. Moderate esophageal hiatal hernia. 5. Sigmoid constipation. 6. No other acute findings in the abdomen or pelvis. Laboratory Results WBC 7.03 10^3/uL (3.29-11.43) 07/29/24 09:45 RBC 4.07 10^6/uL (3.85-5.65) 07/29/24 09:45 Hgb 10.20 g/dL (11.27-16.99) L 07/29/24 09:45 Hct 36.8 % (37-53) L 07/29/24 09:45 MCV 90.4 fl (82-101) 07/29/24 09:45 MCH 25.1 pg (27-33) L 07/29/24 09:45 MCHC 27.7 g/dL (30-55) L 07/29/24 09:45 RDW 18.5 % (12.1-15.1) H 07/29/24 09:45 Plt Count 158 10^3/cmm (157-399) 07/29/24 09:45 MPV 12.1 fL (7.4-10.4) H 07/29/24 09:45 Neut % (Auto) 76.0 % 07/29/24 09:45 Lymph % (Auto) 13.9 % 07/29/24 09:45 [place] % (Auto) 9.5 % 07/29/24 09:45 Eos % (Auto) 0.0 % 07/29/24 09:45 Baso % (Auto) 0.3 % 07/29/24 09:45 Neut # (Auto) 5.34 10^3/uL (1.8-7.7) 07/29/24 09:45 Lymph # (Auto) 1.0 10^3/uL (0.8-4.8) 07/29/24 09:45 [place] # (Auto) 0.7 10^3/uL (0.2-0.9) 07/29/24 09:45 Eos # (Auto) 0.0 10^3/uL (0.0-0.8) 07/29/24 09:45 Baso # (Auto) 0.0 10^3/uL (0.0-0.1) 07/29/24 09:45 Nucleated RBC % (auto) 0 % 07/29/24 09:45 Nucleated RBCs # 0.0 /100WBC 07/29/24 09:45 PT 41.90 SECONDS (12.1-14.9) H 07/29/24 09:45 INR 4.11 (0.8-1.2) H 07/29/24 09:45 APTT 31.5 SECONDS (23.9-36.7) 07/29/24 09:45 Sodium 139 mmol/L (136-145) 07/29/24 13:51 Potassium 5.0 mmol/L (3.5-5.1) 07/29/24 13:51 Chloride 104 mmol/L (98-107) 07/29/24 13:51 Carbon Dioxide 23 mmol/L (22-29) 07/29/24 13:51 Anion Gap 17.0 (5-19) 07/29/24 13:51 BUN 47 mg/dL (8-23) H 07/29/24 13:51 Creatinine 2.5 mg/dL (0.7-1.2) H 07/29/24 13:51 GFR Calculation Not Reportable 07/29/24 13:51 Glucose 112 mg/dL (65-115) 07/29/24 13:51 POC Glucose 141 mg/dL (70-110) H 07/29/24 14:06 Estimat Average Glucose 134 07/29/24 09:45 Hemoglobin A1c 6.3 % (4.0-6.0) H 07/29/24 09:45 Calculated Osmolality 301 mOsm/kg (285-295) H 07/29/24 13:51 Calcium 9.0 mg/dL (8.5-10.5) 07/29/24 13:51 Iron 20 ug/dL (59-158) L 07/29/24 13:51 TIBC 328 mcg/dl 07/29/24 13:51 % Saturation 6.0 % (20-50) L 07/29/24 13:51 Unsat Iron Binding 308 ug/dL (112-347) 07/29/24 13:51 Ferritin 74 ng/mL (30-400) 07/29/24 13:51 Total Bilirubin 0.9 mg/dL (0.15-1.2) 07/29/24 13:51 AST 480 U/L (0-40) H 07/29/24 13:51 ALT 413 U/L (0-41) H 07/29/24 13:51 Alkaline Phosphatase 141 U/L (40-130) H 07/29/24 13:51 Troponin T Baseline 49 ng/L (0-15) H 07/29/24 09:45 Troponin T 120 Minute 49.22 ng/L (0-15) H 07/29/24 11:39 Delta Troponin T 0.22 ABS# (0-10) 07/29/24 11:39 C-Reactive Protein 9.8 mg/L (0.0-4.9) H 07/29/24 09:45 NT-Pro-B Natriuret Pep 04464 pg/mL (0-450) H 07/29/24 09:45 Total Protein 6.2 g/dL (6.6-8.7) L 07/29/24 13:51 Albumin 3.3 g/dL (3.5-5.2) L 07/29/24 13:51 Globulin 2.9 g/dL (1.3-4.6) 07/29/24 13:51 Triglycerides 65 mg/dL (0-150) 07/29/24 09:45 Cholesterol 101 mg/dL (0-200) 07/29/24 09:45 LDL Cholesterol, Calc 50 mg/dL (50-129) 07/29/24 09:45 HDL Cholesterol 38 mg/dL (60-100) L 07/29/24 09:45 LDL/HDL Ratio 1.32 RATIO (0.00-3.22) 07/29/24 09:45 Cholesterol/HDL Ratio 2.66 mg/dL (1.0-5.00) 07/29/24 09:45 Procalcitonin 0.08 ng/mL (0-0.5) 07/29/24 13:51 TSH 2.16 uIU/mL (0.27-4.20) 07/29/24 09:45 Urine Color Yellow (Yellow) 07/29/24 10:37 Urine Appearance Clear (CLEAR) 07/29/24 10:37 Urine pH 5.0 (5-7) 07/29/24 10:37 Ur Specific [place] 1.031 (1.005-1.030) H 07/29/24 10:37 Urine Protein 1+ (Negative) A 07/29/24 10:37 Urine Glucose (UA) 3+ (Normal) H 07/29/24 10:37 Urine Ketones Trace (Negative) 07/29/24 10:37 Urine Blood Negative (Negative) 07/29/24 10:37 Urine Nitrate Negative (Negative) 07/29/24 10:37 Urine Bilirubin Negative (Negative) 07/29/24 10:37 Urine Urobilinogen 1.0 mg/dL (Negative) 07/29/24 10:37 Ur Leukocyte Esterase Negative (Negative) 07/29/24 10:37 Urine RBC 0-2 /hpf (0-2) 07/29/24 10:37 Urine WBC 0-5 /hpf (0-5) 07/29/24 10:37 Ur Squamous Epith Cells 0-5 /hpf (0-5) 07/29/24 10:37 Amorphous Sediment Not Reportable 07/29/24 10:37 Urine Bacteria None seen /hpf (NONE) 07/29/24 10:37 Hyaline Casts 12.41 /lpf 07/29/24 10:37 Urine Opiates Screen Negative ng/mL (Negative) 07/29/24 10:37 Ur Barbiturates Screen Negative ng/mL (Negative) 07/29/24 10:37 Ur Phencyclidine Scrn Negative ng/mL (Negative) 07/29/24 10:37 Ur Amphetamines Screen Negative ng/mL (Negative) 07/29/24 10:37 U Benzodiazepines Scrn Negative ng/mL (Negative) 07/29/24 10:37 Urine Cocaine Screen Negative ng/mL (Negative) 07/29/24 10:37 U Marijuana (THC) Screen Negative ng/mL (Negative) 07/29/24 10:37 All radiology interpretation(s) finalized by discharge Discharge Plan Discharge Patient Disposition: Admitted As Inpatient Admit Provider: Iraida Santamaria Clinical Impression: Acute on chronic systolic heart failure, Decompensated heart failure, Supratherapeutic INR, Diabetes mellitus, Elevated liver enzymes, LAUREN (acute kidney injury), Hyperkalemia Condition: Stable Coding Level of Care Code ED Graphic Design Assistant for [place]
--- NOTE | 2024-07-29 09:40 | ECG_ITS ---
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 Measurements Intervals [place] Rate: 90 P: -85 MD: 247 QRS: -89 QRSD: 220 T: 79 QT: 501 QTc: 615 Interpretive Statements ELECTRONIC ATRIAL PACEMAKER ELECTRONIC VENTRICULAR PACEMAKER ABNORMAL RHYTHM ECG Compared to ECG 02/09/2024 15:45:16 No significant changes Electronically Signed On 07-30-2024 10:37:53 CDT by Guilherme Do M.D. [email or web address]
[2024-07-29 09:53] LABS: Basophils % 0.3 %; Hematocrit 36.8 % (37-53); Lymphocytes % 13.9 %; Mean Corpuscular HGB Conc 27.7 g/dL (30-55); Mean Corpuscular Hemoglobin 25.1 pg (27-33); Mean Corpuscular Volume 90.4 fl (82-101); Mean Platelet Volume 12.1 fL (7.4-10.4); Monocytes # 0.7 10^3/uL (0.2-0.9); Monocytes % 9.5 %; Neutrophils # 5.34 10^3/uL (1.8-7.7); Nucleated Red Blood Cells % 0 %; Platelet Count 158 10^3/cmm (157-399); Red Blood Count 4.07 10^6/uL (3.85-5.65); Red Cell Distribution Width 18.5 % (12.1-15.1); White Blood Count 7.03 10^3/uL (3.29-11.43)
[2024-07-29 10:09] LABS: INR 4.11 (0.8-1.2); Partial Thromboplastin Time 31.5 SECONDS (23.9-36.7)
[2024-07-29 10:16] LABS: Glucose Point of Care 166 mg/dL (70-110)
[2024-07-29 10:17] LABS: Troponin(5th) Baseline 49 ng/L (0-15)
[2024-07-29] MEDS: FUROsemide 10 mg/mL SDV 2mL 20 MG IVP (10:19)
[2024-07-29 10:47] LABS: Alanine Aminotransferase 357 U/L (0-41); Albumin Level 3.7 g/dL (3.5-5.2); Alkaline Phosphatase 161 U/L (40-130); Aspartate Amino Transferase 393 U/L (0-40); Blood Urea Nitrogen 48 mg/dL (8-23); C Reactive Protein 9.8 mg/L (0.0-4.9); Calcium 8.6 mg/dL (8.5-10.5); Carbon Dioxide 20 mmol/L (22-29); Chloride 103 mmol/L (98-107); Creatinine Clr Calc Pharmacy 30.0126; Glucose 164 mg/dL (65-115); NT Pro B Type Natriuretic Pept 23595 pg/mL (0-450); Osmolality Calculated 302 mOsm/kg (285-295); Sodium 138 mmol/L (136-145); Total Bilirubin 1.2 mg/dL (0.15-1.2); Total Protein 6.7 g/dL (6.6-8.7)
[2024-07-29 11:00] LABS: Anion Gap 20.8 (5-19); Potassium 5.8 mmol/L (3.5-5.1)
[2024-07-29 11:05] LABS: Bilirubin Urine Negative (Negative); Blood Urine Negative (Negative); Glucose Urine UA 3+ (Normal); Ketones Urine Trace (Negative); Leukocyte Esterase Urine Negative (Negative); Nitrate Urine Negative (Negative); Protein Urine 1+ (Negative); Urine Appearance Clear (CLEAR); Urine Color Yellow (Yellow)
[2024-07-29 11:09] LABS: Add Urine Microscopic? YES; Bacteria Urine None Seen /hpf; Hyaline Casts Urine 12.41 /lpf; RBC Urine 0-2 /hpf (0-2); Squamous Epithelial Cell Urine 0-5 /hpf (0-5); WBC Urine 0-5 /hpf (0-5)
[2024-07-29 11:11] LABS: Amphetamines Screen Urine Negative (Negative); Barbiturates Screen Urine Negative (Negative); Benzodiazepines Screen Urine Negative (Negative); Cocaine Screen Urine Negative (Negative); Opiate Screen Urine Negative (Negative); PCP Screen Urine Negative (Negative); Specific Gravity, Urine 1.031 (1.005-1.030); THC Screen Urine Negative (Negative); UA Slide Review UA Slide Review Perf
--- NOTE | 2024-07-29 11:48 | US_ITS ---
WS: [id number] RIGHT UPPER QUADRANT ULTRASOUND HISTORY: elevated lfts COMPARISON: CT 03/06/2024, portable chest 07/29/2024 Liver: 14.2 cm in length. Liver is poorly visualized. Liver appears cirrhotic with a nodular surface. No mass identified. Loss of the normal portal triads. Portal Vein: Mild to-and-fro waveform in the portal vein with slight decrease in velocity. Gallbladder: Limited. No stones identified. CBD: 0.4 cm Pancreas: Completely obscured by bowel gas. Right kidney: 7.9 cm in length. Kidney is not visualized in its entirety. There is cortical thinning. No obstruction. Aorta and IVC: Unremarkable abdominal aorta and IVC. No ascites. There is a small complex RIGHT pleural effusion. US/US gall bladder [id number] IMPRESSION: 1. Technically limited RIGHT upper quadrant ultrasound. 2. No cholelithiasis identified. Gallbladder ultrasound is limited. 3. Cirrhotic liver. 4. No intrahepatic duct dilatation. 5. Small complex RIGHT pleural effusion.
[2024-07-29] MEDS: insulin regular-human 100 units/1 mL 10 UNIT IVP (11:57)
[2024-07-29] MEDS: calcium chloride 10% Syr 10 mL 1 GM IVP (11:58)
[2024-07-29] MEDS: sodium bicarbonate 8.4% syr 150 MEQ in dextrose 5% 200 ML 700 MEQ IV (12:04)
[2024-07-29 12:08] LABS: Troponin 5 2HR 49.22 ng/L (0-15); Troponin 5 2HR Delta 0.22 ABS# (0-10)
[2024-07-29] MEDS: albuterol 2.5 MG/0.5 ML NEB 10 MG INHALATION (12:24)
--- NOTE | 2024-07-29 12:53 | ECG_ITS ---
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 Measurements Intervals [place] Rate: 90 P: 165 ID: [id number] QRS: 142 QRSD: 194 T: -20 QT: 462 QTc: 567 Interpretive Statements ELECTRONIC ATRIAL PACEMAKER ELECTRONIC VENTRICULAR PACEMAKER ABNORMAL RHYTHM ECG Compared to ECG 07/29/2024 09:45:29 No significant changes Electronically Signed On 07-30-2024 10:42:44 CDT by Guilherme Do M.D. [email or web address]
--- NOTE | 2024-07-29 13:29 | PM.HP ---
Providers/Chief Complaint Primary Care Provider: Gatito Hall Chief Complaint: stroke symptoms History of Present Illness Jose Matthew is a 79 year old male past medical history of aortic stenosis, status post recent TAVR at [address] [place] [address] on December 30, 2023. 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 Today he returns to the hospital with complaint of weakness and slurred speech accompanied by his daughter. Symptoms started on Friday about 5 days ago. He does have a history of a stroke in January last year and has had intermittent slurred speech since then. He states his slurred speech is intermittent. He went to [facility] 5 days ago and was told to continue his Lasix secondary to having decompensated heart failure. Today his main complaint is being more short of breath and decreased exercise tolerance. In the ER he has noted to have INR 4.11 does take Eliquis chronically, potassium 5.8, creatinine 2.5, AST ALT elevated 393, 357, alkaline phosphatase 161, troponin 49, 49.22, BNP 23,000. Previously in January BNP was 9300. Has chest pain at this time. He states he has a cardiac pacemaker. AST was not placed. He states he was supposed to see his pricing actuary possibly this week or last week however was not able to.. Gallbladder ultrasound obtained does not show cholelithiasis. There is evidence of cirrhotic liver. No intrahepatic duct dilation. Patient does have a small complex right pleural effusion. Patient keeps saying that shortness of breath is the main concern at this point however after we placed oxygen and gave him some medicine here , his breathing is starting to feel slightly better. Medications/Allergies Home Medications ?Medication ?Instructions ?Recorded ?Confirmed ?Last Taken ?Type carvedilol 3.125 mg tablet 3.125 mg PO Q12H 02/08/24 07/29/24 07/29/24 History insulin glargine 100 unit/mL 13 unit SUBCUT QPM 02/08/24 07/29/24 Unknown History subcutaneous cartridge apixaban 5 mg tablet (Eliquis) 5 mg PO BID 07/29/24 07/29/24 07/29/24 History atorvastatin 40 mg tablet 40 mg PO QPM 07/29/24 07/29/24 07/28/24 History cholecalciferol (vitamin D3) 50 50 mcg PO DAILY 07/29/24 07/29/24 07/29/24 History mcg (2,000 unit) capsule (Vitamin D3) clopidogrel 75 mg tablet 75 mg PO DAILY 07/29/24 07/29/24 07/29/24 History furosemide 40 mg tablet 40 mg PO DAILY 07/29/24 07/29/24 07/29/24 History magnesium 200 mg tablet 400 mg PO DAILY 07/29/24 07/29/24 Unknown History metformin 1,000 mg tablet 1,000 mg PO BID 07/29/24 07/29/24 07/29/24 History omeprazole 20 mg capsule,delayed 20 mg PO DAILY 07/29/24 07/29/24 07/29/24 History release pramipexole 0.5 mg tablet 0.5 mg PO QPM 07/29/24 07/29/24 07/28/24 History Allergies Allergy/AdvReac Type Severity Reaction Status Date / Time No Known Allergies Allergy Verified 02/08/24 11:47 PFSH Acute PFSH: Medical History Valvular heart disease Pacemaker Surgical History History of heart artery stent History of heart valve repair Vitals/I&O/Wt Last Vital Signs Temp 98.3 F 07/29/24 09:27 Pulse 90 07/29/24 12:34 Resp 18 07/29/24 12:21 BP 123/87 07/29/24 12:09 Pulse Ox 98 07/29/24 12:21 O2 Del Method Nasal Cannula 07/29/24 12:21 O2 Flow Rate 1.5 07/29/24 12:21 Weight last 48 hrs Weight 97.976 kg Physical Exam Narrative: General no acute distress, AO x 3 laying in bed CV regular rate and rhythm, loud murmur in the right upper sternal border, elevated JVD On 2 L nasal cannula. Lungs: Crackles b/l at bases, no wheezes or ronchi Abdomen soft nontender, positive hepatojugular reflux 3+ bilateral lower extremity edema up to thighs. Sternal wound appears clean no erythema Urinary Catheter Management: Posadas: Cath Placed During This Visit: yes Reason for Continuing Indwelling Catheter: Accurate Measurement of Urinary Output in Critically Ill Patients Urinary Catheter Date of Insertion: 02/09/24 Urinary Catheter Time of Insertion: 17:10 Data 07/29/24 09:45 07/29/24 09:45 A&P Assessment and plan (1) Decompensated heart failure: (2) CHF (congestive heart failure): Qualifiers: Heart failure chronicity: acute on chronic Heart failure type: diastolic Qualified Code(s): I50.33 - Acute on chronic diastolic (congestive) heart failure (3) History of heart valve repair: (4) Aortic valve stenosis: Qualifiers: Cardiac valve disease etiology: etiology unspecified Qualified Code(s): I35.0 - Nonrheumatic aortic (valve) stenosis (5) Coronary artery disease: Qualifiers: Associated angina: without angina Coronary Disease-Associated Artery/Lesion type: [place] artery [place] vs. transplanted heart: [place] heart Qualified Code(s): I25.10 - Atherosclerotic heart disease of [place] coronary artery without angina pectoris (6) Pacemaker: (7) Systolic heart failure: (8) Supratherapeutic INR: (9) Diabetes mellitus: (10) Shortness of breath: (11) Acute passive congestion of liver: (12) Elevated liver enzymes: (13) LAUREN (acute kidney injury): (14) Hyperkalemia: Plan #Acute on chronic systolic/diastolic HF, known EF 25%, status post pacemaker. #LAUREN #Hyperkalemia #Hx of CABG and TAVR #Hx of post-op endocarditis #Chronic anticoagulation #Congestive hepatopathy #Supratherapeutic INR #Hx of ESBL UTi #Hx of NSVT #Hx of strep bacteremia -Patient presents with shortness of breath with LAUREN hyperkalemia BNP 23,000 with elevated liver enzymes suggesting congestive hepatopathy, ultrasound abdomen does show evidence of liver cirrhosis. INR elevated 4.1. Patient is on chronic anticoagulation at home with apixaban and is on Plavix antiplatelet agent. Does have mild slurred speech from prior stroke which is intermittent. Generalized weakness most likely secondary to decompensated heart failure. ? He was previously transferred to [facility] for AICD evaluation and treatment of infective endocarditis postop from CABG and TAVR that was done last year in December. ? Patient appears to be in decompensated heart failure today. ? Check CT chest abdomen pelvis secondary to evidence of complex pleural effusion on right side and evaluation for LAUREN and to look for any intra-abdominal pathology. ? Liver enzymes are elevated possibly secondary to decompensated heart failure and congestive hepatopathy. Will check hepatitis profile as well ? Hold atorvastatin ? Patient hyperkalemic on admission with potassium 5.8. Was given 1 amp of bicarb. Will repeat CMP at this time. He also received 10 units of IV insulin, calcium chloride 1 g. 60 mg IV Lasix also given. ? Continue DuoNeb every 6 hours as needed ? Hold home metformin ? Continue omeprazole ? Consult nephrology. ? Most likely LAUREN secondary to cardiorenal syndrome due to fluid overload. We will continue to diurese patient ? Start Lasix 40 IV twice daily ? I will hold off on adding oral potassium and will replete as needed. ? Continue on cardiac telemetry ? Patient did describe some chest pressure which may be secondary to decompensated heart failure however secondary to his history will consult cardiology for further input. First 2 troponins delta negative. 6-hour troponin pending. EKG does show paced rhythm. - Hold home Lantus secondary to LAUREN. Continue on sliding scale insulin low-dose intensity ? Check lactic acid ? Check echocardiogram ? We will obtain records from [facility]. ? Hold Coreg at this time in setting of decompensated heart failure. ? Continue Plavix. ? Hold Eliquis today secondary to supratherapeutic INR. May restart in next 24 hours. - Patient states his slurred speech is intermittent. Neuroexam generally nonfocal. He is able to move all 4 extremities. Usually walks with a cane. Face symmetrical. He does appear quite deconditioned. ? Check pacemaker interrogation Full code DVT prophylaxis: INR supratherapeutic. I will hold off on adding subcu heparin at this time. PDMP PDMP Reviewed: Not Reviewed Attestations Medical Necessity Statement*: Decompensated heart failure, LAUREN, hyperkalemia Diagnoses Decompensated heart failure I50.9 Acute on chronic diastolic congestive heart failure I50.33 Heart failure chronicity: acute on chronic Heart failure type: diastolic History of heart valve repair Z98.890 Aortic valve stenosis, etiology of cardiac valve disease unspecified I35.0 Cardiac valve disease etiology: etiology unspecified Coronary artery disease involving [place] coronary artery of [place] heart without angina pectoris I25.10 Associated angina: without angina Coronary Disease-Associated Artery/Lesion type: [place] artery [place] vs. transplanted heart: [place] heart Pacemaker Z95.0 Systolic heart failure I50.20 Supratherapeutic INR R79.1 Diabetes mellitus E11.9 Shortness of breath R06.02 Acute passive congestion of liver K76.1 Elevated liver enzymes R74.8 LAUREN (acute kidney injury) N17.9 Hyperkalemia E87.5
--- NOTE | 2024-07-29 13:30 | USCV_ITS ---
Jose Matthew Age: 79 Gender: M : 1945 Exam Date: 07/29/2024 13:56 Ordering Phys: Iraida Santamaria MD Technologist: Exam Location: [facility] Indication: chf BP: 126 / 80 HR: Rhythm: Sinus Technical Quality: Adequate MEASUREMENTS (Male / Female) Normal Values 2D ECHO LV Diastolic Diameter PLAX 5.4 cm 4.2 - 5.9 / 3.9 - 5.3 cm IVS Diastolic Thickness 1.5 cm 0.6 - 1.0 / 0.6 - 0.9 cm IVS Systolic Thickness 1.7 cm LVPW Diastolic Thickness 1.2 cm 0.6 - 1.0 / 0.6 - 0.9 cm LVPW Systolic Thickness 1.4 cm LVOT Diameter 2.1 cm LV Ejection Fraction 2D Teich 38.6 % LV Ejection Fraction MOD 4C 37.1 % LV Ejection Fraction MOD 2C 38.2 % LV Ejection Fraction 2C AL 37.1 % LA Diameter 5.3 cm RA Systolic Volume 4C AL 102.4 ml RA Systolic Volume 4C MOD 101.2 ml Aorta at Sinotubular Diameter 2.4 cm IVC Diameter 2.9 cm M-MODE LA Ao Ratio MM 1.5 AV Cusp Separation MM 2.3 cm FINDINGS Left Ventricle Diffuse hypokinesis of the left ventricle. LV ejection fraction of 37% Right Ventricle Possibly normal size with a slightly diminished ejection fraction Right Atrium Right atrium not well visualized. Left Atrium Moderately increased left atrial size. Mitral Valve Mild mitral annular calcification. Aortic Valve ? Bioprosthetic valve. The leaflets could not be visualized well. Tricuspid Valve Tricuspid valve not well visualized. Pulmonic Valve Pulmonic valve not well visualized. Pericardium Normal pericardium without effusion. Aorta Normal aortic annulus size. IVC Mildly dilated IVC. CONCLUSIONS Diffuse hypokinesis of the left ventricle. LV ejection fraction of 37%. There is no pericardial effusion. Moderately increased left atrial size. Possible bioprosthetic aortic valve. The leaflets could not be visualized well. The right-sided structures could be visualized well Normal aortic annulus size. Technically difficult study Compared to the study from 02/09/2024, the ejection fraction appears to have improved Dr Guilherme Do MD [facility] (Electronically Signed) Final Date: 29 July 2024 21:12 S
--- NOTE | 2024-07-29 13:48 | CT_ITS ---
WS: [id number] CT CHEST, ABDOMEN, AND PELVIS TECHNIQUE: Noncontrast CT of the chest, abdomen, and pelvis with coronal and sagittal reformatted images. CLINICAL INFORMATION: right complex pleural effusion, cirhossis? HF? elevated LFT COMPARISON: CT 02/08/24 DLP: 1152.[address] scans at [facility] use at least one of these dose optimization techniques: automated exposure control; mA and/or kV adjustment per patient size (includes targeted exams where dose is matched to clinical indication); or iterative reconstruction. CT CHEST: Moderate RIGHT and small LEFT pleural effusions. Compressive atelectasis in the lung bases. Moderate esophageal hernia. Groundglass infiltrates in the RIGHT upper lobe and at the RIGHT lung apex compatible with pneumonitis. A few patchy LEFT hilar groundglass opacities. Aortic calcification. Normal caliber thoracic aorta. Sternotomy. Coronary calcification. aVR. Few reactive mediastinal lymph nodes. Moderate thoracic kyphosis. Ankylosis. CT ABDOMEN AND PELVIS: Slightly cirrhotic configuration to the liver may be due to early cirrhosis. Spleen size is normal. No visualized varices. Adrenal glands are normal. No hydronephrosis in either kidney. Normal caliber abdominal aorta. Aortic calcification. Dense sigmoid constipation. Normal appendix. No free fluid in the pelvis. Ankylosis lumbar spine. Moderate esophageal hernia. Atrophy of the pancreas. [facility]olelithiasis. CT[facility] [id number] IMPRESSION: 1. Moderate RIGHT and small LEFT pleural effusions. 2. Groundglass infiltrates worse in the RIGHT upper lobe described above reena tible with pneumonitis. 3. Somewhat shrunken configuration to the liver can be seen with early cirrhos is. Recommend correlation with liver function test. Spleen size is normal. No v isualized varices. 4. Moderate esophageal hiatal hernia. 5. Sigmoid constipation. 6. No other acute findings in the abdomen or pelvis.
[2024-07-29 14:14] LABS: Glucose Point of Care 141 mg/dL (70-110)
[2024-07-29 14:34] LABS: Alanine Aminotransferase 413 U/L (0-41); Albumin Level 3.3 g/dL (3.5-5.2); Alkaline Phosphatase 141 U/L (40-130); Blood Urea Nitrogen 47 mg/dL (8-23); Carbon Dioxide 23 mmol/L (22-29); Chloride 104 mmol/L (98-107); Creatinine Clr Calc Pharmacy 30.0126; Globulin 2.9 g/dL (1.3-4.6); Glucose 112 mg/dL (65-115); Osmolality Calculated 301 mOsm/kg (285-295); Sodium 139 mmol/L (136-145); Total Bilirubin 0.9 mg/dL (0.15-1.2); Total Protein 6.2 g/dL (6.6-8.7)
[2024-07-29 14:41] LABS: Procalcitonin 0.08 ng/mL (0-0.5)
--- NOTE | 2024-07-29 14:53 | PM.CONSULT ---
Providers/Reason For Consult Consulting Physician/Specialty*: kommana/Nephrology Reason for Consult*: LAUREN Attending Physician: Iraida Santamaria MD Primary Care Provider: Gatito Hall History of Present Illness History of Present Illness Jose Matthew is a 79 year old male Patient is a 79-year-old male with past medical history of coronary artery disease with multiple stents, CHF, prior CABG, history of aortic stenosis and TAVR prior history of endocarditis. He presented to emergency department complaining of generalized weakness and slurred speech. Also complains of shortness of breath in the emergency department his K was elevated at 5.8 creatinine was 2.5 and also has a sustained ALT elevated. BNP elevated at 23,000. Patient now admitted for possible decompensated CHF patient has CKD with a baseline creatinine in the mid 1 range previously and now has creatinine up to 2.[address] scan of the abdomen pelvis has showed bilateral pleural effusions. No hydronephrosis. Review of Systems Narrative: negative Medications/Allergies Home Medications ?Medication ?Instructions ?Recorded ?Confirmed ?Last Taken ?Type carvedilol 3.125 mg tablet 3.125 mg PO Q12H 02/08/24 07/29/24 07/29/24 History insulin glargine 100 unit/mL 13 unit SUBCUT QPM 02/08/24 07/29/24 Unknown History subcutaneous cartridge apixaban 5 mg tablet (Eliquis) 5 mg PO BID 07/29/24 07/29/24 07/29/24 History atorvastatin 40 mg tablet 40 mg PO QPM 07/29/24 07/29/24 07/28/24 History cholecalciferol (vitamin D3) 50 50 mcg PO DAILY 07/29/24 07/29/24 07/29/24 History mcg (2,000 unit) capsule (Vitamin D3) clopidogrel 75 mg tablet 75 mg PO DAILY 07/29/24 07/29/24 07/29/24 History furosemide 40 mg tablet 40 mg PO DAILY 07/29/24 07/29/24 07/29/24 History magnesium 200 mg tablet 400 mg PO DAILY 07/29/24 07/29/24 Unknown History metformin 1,000 mg tablet 1,000 mg PO BID 07/29/24 07/29/24 07/29/24 History omeprazole 20 mg capsule,delayed 20 mg PO DAILY 07/29/24 07/29/2425 History release pramipexole 0.5 mg tablet 0.5 mg PO QPM 07/29/24 07/29/24 07/28/24 History Allergies Allergy/AdvReac Type Severity Reaction Status Date / Time No Known Allergies Allergy Verified 02/08/24 11:47 PFSH Acute PFSH: Medical History Valvular heart disease Pacemaker Surgical History History of heart artery stent History of heart valve repair Vitals/I&O/Wt Last Vital Signs Temp 98.3 F 07/29/24 09:27 Pulse 89 07/29/24 14:39 Resp 18 07/29/24 12:21 BP 130/81 07/29/24 14:39 Pulse Ox 99 07/29/24 14:39 O2 Del Method Nasal Cannula 07/29/24 12:21 O2 Flow Rate 1.5 07/29/24 12:21 Weight last 48 hrs Weight 97.976 kg Physical Exam Narrative: awake , alert No distress on Room air s1 S2 RRR per report Lungs clear per report Abd -odt m non tender per report + Edema Urinary Catheter Management: Posadas: Cath Placed During This Visit: yes Reason for Continuing Indwelling Catheter: Accurate Measurement of Urinary Output in Critically Ill Patients Urinary Catheter Date of Insertion: 02/09/24 Urinary Catheter Time of Insertion: 17:10 Data 07/30/24 02:42 07/30/24 02:42 A&P Assessment and plan (1) LAUREN (acute kidney injury): 1. Acute on chronic kidney disease: Baseline creatinine in the mid 1 range. Patient now has LAUREN with a creatinine up to 2.5 likely cardiorenal. - Agree with IV Lasix , will increase to every 8 hours and add IV albumin 25 g every 8 hours - Strict intake and output, daily weights - No acute indication for dialysis currently 2. Hyperkalemia: Low K diet, monitor on repeat BMP 3. Anemia: Check iron studies, will add JEN 4. Cardiomyopathy, history of CABG, coronary stent ejection fraction 37% 5. Acute on chronic respiratory failure, multifactorial, diuresis as above 6. History of TAVR Patient evaluated using audiovisual cart. Time spent 40 minutes PDMP PDMP Reviewed: Not Reviewed Consult Attestations Medical Necessity Statement: per lisette Coding Level of Care Code Acute Code for Chg Fwd Diagnoses LAUREN (acute kidney injury) N17.9
[2024-07-29 15:04] LABS: Estmated Average Glucose 134; Hemoglobin A1C 6.3 % (4.0-6.0)
[2024-07-29 15:13] LABS: Chol HDL Ratio 2.66 mg/dL (1.0-5.00); Cholesterol 101 mg/dL (0-200); HDL Cholesterol 38 mg/dL (60-100); LDL Cholesterol Calculated 50 mg/dL (50-129); LDL HDL Ratio 1.32 RATIO (0.00-3.22); Thyroid Stimulating Hormone 2.16 uIU/mL (0.27-4.20); Triglycerides 65 mg/dL (0-150)
[2024-07-29 15:15] LABS: Aspartate Amino Transferase 480 U/L (0-40)
[2024-07-29 15:35] LABS: Ferritin 74 ng/mL (30-400); Iron 20 ug/dL (59-158)
--- NOTE | 2024-07-29 15:40 | ECG_ITS ---
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 Measurements Intervals [place] Rate: 90 P: 266 OR: 250 QRS: -85 QRSD: 212 T: 85 QT: 486 QTc: 596 Interpretive Statements ELECTRONIC ATRIAL PACEMAKER ELECTRONIC VENTRICULAR PACEMAKER ABNORMAL RHYTHM ECG Compared to ECG 07/29/2024 12:53:16 No significant changes Electronically Signed On 07-30-2024 10:42:16 CDT by Guilherme Do M.D. [email or web address]
--- NOTE | 2024-07-29 16:00 | PC.NURSE ---
Patient refused gerardo catheter at this time. Dr. Calabrese aware. Dr. Calabrese requested bladder scan. Patient states he urinated using a urinal x2 in the ER.
[2024-07-29 16:01] LABS: Total Iron Binding Capacity 328 mcg/dl; Unsaturated Iron Binding 308 ug/dL (112-347)
[2024-07-29] MEDS: FUROsemide 10 mg/mL SDV 4mL 40 MG IVP (16:02)
[2024-07-29] MEDS: levofloxacin-dextrose 5 % 750 MG/150 ML PREMIX 100 MG IV (16:37)
[2024-07-29 16:39] LABS: Troponin 5 6HR 46.34 ng/L (0-15)
[2024-07-29 16:43] LABS: Troponin 5 6HR Delta -2.66 ng/L (0-12)
[2024-07-29 17:52] LABS: Reflex Lactate Order REFLEX LACTIC ORDERD
--- NOTE | 2024-07-29 18:07 | PM.CONSULT ---
Providers/Reason For Consult Consulting Physician/Specialty*: FERNANDO Do MD/cardiology Reason for Consult*: The patient with a history of atherosclerotic heart diseas, aortic valve disease, status post AVR, presenting with progressive shortness of breath Requesting Physician: Dr. Santamaria Attending Physician: Iraida Santamaria MD Primary Care Provider: Gatito Hall History of Present Illness History of Present Illness Jose Matthew is a 79 year old male with history of atherosclerotic heart diseas, aortic valve replacement, multiple other medical problems, he is admitted to the hospital through the emergency room where he presented with complaints of progressive shortness of breath. He was found to have features of congestive heart failure. Cardiology consult is requested for further cardiac evaluation recommendations. Patient has an extensive and complicated cardiac history. In December of last year, he underwent SAVR at the [facility] in [place] with a bioprosthetic valve.. Following this surgery, he had a prolonged hospital stay for hemodynamic compromise. He had a an Impella for a long time. Then it was discontinued. Following this, he developed CVA from which, he almost recovered. He still has some residual right upper extremity weakness. He also did not have cardiomyopathy and chronic atrial fibrillation. Prior to the valve surgery, he had a PCI of the LAD. He also has a history of peripheral artery disease and had PTAs of the peripheral arteries. 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 Subsequently he was transferred to [facility] where he was treated with IV antibiotics. Following this he was discharged with continuation of IV antibiotics followed by p.o. The patient went to [place] to spent time with his family for and the . While being there, he apparently had a recurrence of fever for which he had to be readmitted to the hospital and was treated with IV antibiotics. From the hospital, he was transferred to a alf for another month of IV antibiotic treatment. After finishing the alf, he came back to [place]. He is currently being followed up by Dr. Funez, his clip coater at [place]. He had a repeat blood culture in [place] and results are pending. For the last week or 2, he has been having shortness of breath which has been getting worse. According the patient, his clip coater is not available until the next week and because of the worsening of his shortness of breath, he decided to come to our hospital. He has not had any chest pain or chest tightness. No fever or chills. He been getting extremely tired and weak with the shortness of breath. Also has been noticing some swelling of the lower extremities. No other associated symptoms. He had a permanent pacer implantation couple of years ago. Because of the severe LV systolic dysfunction, he was on a LifeVest for? 3 months or so. Recently he was advised to discontinue the LifeVest because of the improvement in the LV function?. Details are not available. He is on long-term oral anticoagulation for atrial fibrillation. Also is known to have chronic kidney disease , COPD, hypertension, dyslipidemia, type 2 diabetes, GERD and multiple medical problems. He has been taking the Lasix 20 mg for a while. Recently it was increased to 40 mg. Denies any other specific complaints at this time. Review of Systems Narrative: CONSTITUTIONAL: No fever or chills. EYES: No blurring of vision or other visual disturbances lately. ENT: No hoarseness of voice, auditory disturbances or sore throat. CARDIOVASCULAR: As mentioned above. RESPIRATORY: COPD/reactive airway disease GASTROINTESTINAL: No hematemesis or melena. GENITOURINARY: Chronic kidney disease INTEGUMENTARY: No skin rashes or history of skin cancer. NEURO: History of CVA as mentioned above PSYCHIATRIC: No history of psychosis or major depression. HEMATOLOGIC: No bleeding disorders or significant anemia. ENDOCRINE: Type 2 diabetes MUSCULOSKELETAL: No recent joint pain or swelling. ALLERGY/IMMUNOLOGY: As mentioned above. Medications/Allergies Home Medications ?Medication ?Instructions ?Recorded ?Confirmed ?Last Taken ?Type carvedilol 3.125 mg tablet 3.125 mg PO Q12H 02/08/24 07/29/24 07/29/24 History insulin glargine 100 unit/mL 13 unit SUBCUT QPM 02/08/24 07/29/24 Unknown History subcutaneous cartridge apixaban 5 mg tablet (Eliquis) 5 mg PO BID 07/29/24 07/29/24 07/29/24 History atorvastatin 40 mg tablet 40 mg PO QPM 07/29/24 07/29/24 07/28/24 History cholecalciferol (vitamin D3) 50 50 mcg PO DAILY 0407/29/24 07/29/24 History mcg (2,000 unit) capsule (Vitamin D3) clopidogrel 75 mg tablet 75 mg PO DAILY 07/29/24 07/29/24 07/29/24 History furosemide 40 mg tablet 40 mg PO DAILY 07/29/24 07/29/24 07/29/24 History magnesium 200 mg tablet 400 mg PO DAILY 07/29/24 07/29/24 Unknown History metformin 1,000 mg tablet 1,000 mg PO BID 07/29/24 07/29/24 07/29/24 History omeprazole 20 mg capsule,delayed 20 mg PO DAILY 07/29/24 07/29/24 07/29/24 History release pramipexole 0.5 mg tablet 0.5 mg PO QPM 07/29/24 07/29/24 07/28/24 History Allergies Allergy/AdvReac Type Severity Reaction Status Date / Time No Known Allergies Allergy Verified 02/08/24 11:47 Current Medications Generic Name Dose Route Start Last Admin Trade Name Freq PRN Reason Stop Dose Admin Furosemide 40 mg 07/29/24 14:46 07/29/24 16:02 Furosemide 10 Mg/Ml Sdv 4ml IVP 40 mg Q12H FELIPE Administration Levofloxacin/Dextrose 750 mg in 150 mls @ 100 mls/hr 07/29/24 17:00 07/29/24 16:37 Levaquin-D5w IV 100 mls/hr Q48H FELIPE Administration Protocol PFSH Acute PFSH: Medical History Valvular heart disease Pacemaker Surgical History History of heart artery stent History of heart valve repair Vitals/I&O/Wt Last Vital Signs Temp 97.6 F 07/29/24 16:00 Pulse 90 07/29/24 16:05 Resp 16 07/29/24 16:05 BP 129/80 07/29/24 16:00 Pulse Ox 100 07/29/24 16:05 O2 Del Method Nasal Cannula 07/29/24 16:05 O2 Flow Rate 2 07/29/24 16:05 07/29/24 07/29/24 07/29/24 06:59 14:59 22:59 Output Total 420 / 420 Balance -420 / -420 Weight last 48 hrs Weight 239 lb 13.807 oz Weight 216 lb Physical Exam Narrative: GENERAL: The patient is alert and oriented times three. Not in any acute distress. HEENT: No significant pallor, icterus or lymphadenopathy.Oral cavity: There are no mucous membrane lesions. NECK: Trachea appears to be central. No masses noted. No JVD or thyromegaly appreciated. RESPIRATORY: Chest is symmetrical. The sternotomy scar appears to have healed fairly well. No intercostals muscle retraction or any accessory muscle activation. There is no chest wall tenderness. Breath sounds are heard bilaterally. No rales or rhonchi heard. No evidence of any consolidation. The breath sounds are diminished at the bases. BREASTS: Deferred. HEART: The heart sounds are normal. No S3 or S4. No significant murmurs. No pericardial rub ABDOMEN: No vessel pulsations or distention. No tenderness. No organomegaly appreciated. Bowel sounds are normally heard. : Deferred. RECTAL: Deferred. LYMPHATIC: No lymphadenopathy noted in the neck. EXTREMITIES: 2+ edema both lower extremities. No cyanosis. Peripheral pulses are very weak bilaterally MUSCULOSKELETAL: No acute joint deformities or swelling SKIN: There are no significant rashes or ecchymosis NEUROPSYCHIATRIC: The patient is alert and oriented x3. Appears to be in a good mood. No tremors or rigidity noted. Urinary Catheter Management: Posadas: Cath Placed During This Visit: yes Reason for Continuing Indwelling Catheter: Accurate Measurement of Urinary Output in Critically Ill Patients Urinary Catheter Date of Insertion: 02/09/24 Urinary Catheter Time of Insertion: 17:10 Data 07/30/24 02:42 07/30/24 02:42 Other Labs: Laboratory Last Values WBC 7.03 10^3/uL (3.29-11.43) 07/29/24 09:45 RBC 4.07 10^6/uL (3.85-5.65) 07/29/24 09:45 Hgb 10.20 g/dL (11.27-16.99) L 07/29/24 09:45 Hct 36.8 % (37-53) L 07/29/24 09:45 MCV 90.4 fl (82-101) 07/29/24 09:45 MCH 25.1 pg (27-33) L 07/29/24 09:45 MCHC 27.7 g/dL (30-55) L 07/29/24 09:45 RDW 18.5 % (12.1-15.1) H 07/29/24 09:45 Plt Count 158 10^3/cmm (157-399) 07/29/24 09:45 MPV 12.1 fL (7.4-10.4) H 07/29/24 09:45 Neut % (Auto) 76.0 % 07/29/24 09:45 Lymph % (Auto) 13.9 % 07/29/24 09:45 [place] % (Auto) 9.5 % 07/29/24 09:45 Eos % (Auto) 0.0 % 07/29/24 09:45 Baso % (Auto) 0.3 % 07/29/24 09:45 Neut # (Auto) 5.34 10^3/uL (1.8-7.7) 07/29/24 09:45 Lymph # (Auto) 1.0 10^3/uL (0.8-4.8) 07/29/24 09:45 [place] # (Auto) 0.7 10^3/uL (0.2-0.9) 07/29/24 09:45 Eos # (Auto) 0.0 10^3/uL (0.0-0.8) 07/29/24 09:45 Baso # (Auto) 0.0 10^3/uL (0.0-0.1) 07/29/24 09:45 Nucleated RBC % (auto) 0 % 07/29/24 09:45 Nucleated RBCs # 0.0 /100WBC 07/29/24 09:45 PT 41.90 SECONDS (12.1-14.9) H 07/29/24 09:45 INR 4.11 (0.8-1.2) H 07/29/24 09:45 APTT 31.5 SECONDS (23.9-36.7) 07/29/24 09:45 Sodium 139 mmol/L (136-145) 07/29/24 13:51 Potassium 5.0 mmol/L (3.5-5.1) 07/29/24 13:51 Chloride 104 mmol/L (98-107) 07/29/24 13:51 Carbon Dioxide 23 mmol/L (22-29) 07/29/24 13:51 Anion Gap 17.0 (5-19) 07/29/24 13:51 BUN 47 mg/dL (8-23) H 07/29/24 13:51 Creatinine 2.5 mg/dL (0.7-1.2) H 07/29/24 13:51 GFR Calculation Not Reportable 07/29/24 13:51 Glucose 112 mg/dL (65-115) 07/29/24 13:51 POC Glucose 128 mg/dL (70-110) H 07/29/24 16:00 Estimat Average Glucose 134 07/29/24 09:45 Hemoglobin A1c 6.3 % (4.0-6.0) H 07/29/24 09:45 Calculated Osmolality 301 mOsm/kg (285-295) H 07/29/24 13:51 Lactic Acid 3.0 mmol/L (0.5-2.2) H 07/29/24 15:58 Lactic Acid (Sepsis) 2.3 mmol/L (0.5-2.2) H 07/29/24 18:02 Calcium 9.0 mg/dL (8.5-10.5) 07/29/24 13:51 Iron 20 ug/dL (59-158) L 07/29/24 13:51 TIBC 328 mcg/dl 07/29/24 13:51 % Saturation 6.0 % (20-50) L 07/29/24 13:51 Unsat Iron Binding 308 ug/dL (112-347) 07/29/24 13:51 Ferritin 74 ng/mL (30-400) 07/29/24 13:51 Total Bilirubin 0.9 mg/dL (0.15-1.2) 07/29/24 13:51 AST 480 U/L (0-40) H 07/29/24 13:51 ALT 413 U/L (0-41) H 07/29/24 13:51 Alkaline Phosphatase 141 U/L (40-130) H 07/29/24 13:51 Troponin T Baseline 49 ng/L (0-15) H 07/29/24 09:45 Troponin T 120 Minute 49.22 ng/L (0-15) H 07/29/24 11:39 Delta Troponin T 0.22 ABS# (0-10) 07/29/24 11:39 Troponin T Hi Sens 6Hr 46.34 ng/L (0-15) H 07/29/24 15:58 Troponin T Hi Sens 6Hr Delta -2.66 ng/L (0-12) L 07/29/24 15:58 C-Reactive Protein 9.8 mg/L (0.0-4.9) H 07/29/24 09:45 NT-Pro-B Natriuret Pep 41967 pg/mL (0-450) H 07/29/24 09:45 Total Protein 6.2 g/dL (6.6-8.7) L 07/29/24 13:51 Albumin 3.3 g/dL (3.5-5.2) L 07/29/24 13:51 Globulin 2.9 g/dL (1.3-4.6) 07/29/24 13:51 Triglycerides 65 mg/dL (0-150) 07/29/24 09:45 Cholesterol 101 mg/dL (0-200) 07/29/24 09:45 LDL Cholesterol, Calc 50 mg/dL (50-129) 07/29/24 09:45 HDL Cholesterol 38 mg/dL (60-100) L 07/29/24 09:45 LDL/HDL Ratio 1.32 RATIO (0.00-3.22) 07/29/24 09:45 Cholesterol/HDL Ratio 2.66 mg/dL (1.0-5.00) 07/29/24 09:45 Procalcitonin 0.08 ng/mL (0-0.5) 07/29/24 13:51 TSH 2.16 uIU/mL (0.27-4.20) 07/29/24 09:45 Urine Color Yellow (Yellow) 07/29/24 10:37 Urine Appearance Clear (CLEAR) 07/29/24 10:37 Urine pH 5.0 (5-7) 07/29/24 10:37 Ur Specific [place] 1.031 (1.005-1.030) H 07/29/24 10:37 Urine Protein 1+ (Negative) A 07/29/24 10:37 Urine Glucose (UA) 3+ (Normal) H 07/29/24 10:37 Urine Ketones Trace (Negative) 07/29/24 10:37 Urine Blood Negative (Negative) 07/29/24 10:37 Urine Nitrate Negative (Negative) 07/29/24 10:37 Urine Bilirubin Negative (Negative) 07/29/24 10:37 Urine Urobilinogen 1.0 mg/dL (Negative) 07/29/24 10:37 Ur Leukocyte Esterase Negative (Negative) 07/29/24 10:37 Urine RBC 0-2 /hpf (0-2) 07/29/24 10:37 Urine WBC 0-5 /hpf (0-5) 07/29/24 10:37 Ur Squamous Epith Cells 0-5 /hpf (0-5) 07/29/24 10:37 Amorphous Sediment Not Reportable 07/29/24 10:37 Urine Bacteria None seen /hpf (NONE) 07/29/24 10:37 Hyaline Casts 12.41 /lpf 07/29/24 10:37 Urine Opiates Screen Negative ng/mL (Negative) 07/29/24 10:37 Ur Barbiturates Screen Negative ng/mL (Negative) 07/29/24 10:37 Ur Phencyclidine Scrn Negative ng/mL (Negative) 07/29/24 10:37 Ur Amphetamines Screen Negative ng/mL (Negative) 07/29/24 10:37 U Benzodiazepines Scrn Negative ng/mL (Negative) 07/29/24 10:37 Urine Cocaine Screen Negative ng/mL (Negative) 07/29/24 10:37 U Marijuana (THC) Screen Negative ng/mL (Negative) 07/29/24 10:37 Other data: EKG showed atrial fibrillation with demand V paced rhythm A&P Assessment and plan (1) Acute on chronic systolic heart failure: Patient to be carefully treated with a diuretics and other symptomatic measures. Echocardiogram would be helpful to evaluate LV function and rule out any other abnormality. (2) Status post aortic valve replacement with bioprosthetic valve: The valve function appears to be appropriate. After reviewing the echocardiogram, further recommendations will be made. Will try to get the medical records from the [facility] (3) Atrial fibrillation with rapid ventricular response: The ventricular rate seems to be fairly under control. May continue on the anticoagulation and AV elvia blocking agents. (4) Atherosclerosis of coronary artery of [place] heart without angina pectoris: Since the patient has no specific symptoms of coronary insufficiency, is advised to continue on the current medications. We will continue on the risk modifying measures. Advised to contact our office, if the patient develop any significant chest pain or other ischemic symptoms Qualifiers: Coronary Disease-Associated Artery/Lesion type: [place] artery Qualified Code(s): I25.10 - Atherosclerotic heart disease of [place] coronary artery without angina pectoris (5) LAUREN (acute kidney injury): Need to be closely monitoring the kidney function. Possibly her kidney function getting worse with the IV dye also was discussed with patient in detail. Patient was premedicated with the prednisone the current status was discussed with the patient detail (6) Diabetes mellitus: Importance of appropriate blood sugar control, cardiovascular complications of uncontrolled diabetes and the need for dietary compliance were discussed. Patient seems to understand these well. Advised to have close follow-up with the primary care provider Qualifiers: Diabetes mellitus complication detail: with other arthropathy Diabetes mellitus complication status: with diabetic arthropathy Diabetes mellitus extermination inspector insulin use: with extermination inspector use Diabetes mellitus type: type 2 Qualified Code(s): E11.618 - Type 2 diabetes mellitus with other diabetic arthropathy; Z79.4 - retirement (current) use of insulin Plan Continue IV Lasix, may adjust the dose based on the renal output Continue Plavix and the Eliquis. Medical records from [facility] After review of the medical records and also based on the patient's clinical progress, further recommendations will be made. Thank you for the opportunity to evaluate this patient and make these recommendations PDMP PDMP Reviewed: Not Reviewed Consult Attestations Medical Necessity Statement: Patient requires continued hospital stay for close monitoring and further management Coding Level of Care Code 11850 Diagnoses Acute on chronic systolic heart failure I50.23 Status post aortic valve replacement with bioprosthetic valve Z95.3 Atrial fibrillation with rapid ventricular response I48.91 Atherosclerosis of [place] coronary artery of [place] heart without angina pectoris I25.10 Coronary Disease-Associated Artery/Lesion type: [place] artery LAUREN (acute kidney injury) N17.9 Type 2 diabetes mellitus with other diabetic arthropathy, with long-term current use of insulin E11.618; Z79.4 Diabetes mellitus complication detail: with other arthropathy Diabetes mellitus complication status: with diabetic arthropathy Diabetes mellitus extermination inspector insulin use: with extermination inspector use Diabetes mellitus type: type 2 Time Spent (min) 70
[2024-07-29 18:13] LABS: Glucose Point of Care 128 mg/dL (70-110)
[2024-07-29 18:29] LABS: Lactic Acid level (Lactate) 2.3 mmol/L (0.5-2.2)
[2024-07-29] MEDS: pramipexole 0.25 mg Tablet 0.5 MG PO (18:46)
[2024-07-29] MEDS: atorvastatin 40 mg Tablet PO (18:46)
[2024-07-29] MEDS: calcium carbonate 500 mg Chew Tablet 1000 MG PO (23:39)
[2024-07-30] VITALS (11 sets, daily range): BP systolic 95–110; BP diastolic 60–73; PULSE 89–99; RESP 14–24; TEMP 36.5–36.9; O2SAT 93–100
[2024-07-30 03:01] LABS: Basophils % 0.5 %; Eosinophils % 0.3 %; Lymphocytes # 0.9 10^3/uL (0.8-4.8); Lymphocytes % 14.5 %; Mean Corpuscular HGB Conc 27.5 g/dL (30-55); Mean Corpuscular Hemoglobin 24.3 pg (27-33); Mean Corpuscular Volume 88.4 fl (82-101); Mean Platelet Volume 11.1 fL (7.4-10.4); Monocytes # 0.7 10^3/uL (0.2-0.9); Monocytes % 10.3 %; Neutrophils # 4.67 10^3/uL (1.8-7.7); Nucleated Red Blood Cells % 0 %; Platelet Count 117 10^3/cmm (157-399); Red Blood Count 3.62 10^6/uL (3.85-5.65); Red Cell Distribution Width 18.4 % (12.1-15.1)
[2024-07-30 03:18] LABS: INR 3.22 (0.8-1.2)
[2024-07-30 03:32] LABS: Gamma Glutamyl Transferase 35 U/L (8-61)
[2024-07-30 03:35] LABS: Alanine Aminotransferase 354 U/L (0-41); Albumin Level 3.2 g/dL (3.5-5.2); Alkaline Phosphatase 138 U/L (40-130); Anion Gap 15.2 (5-19); Aspartate Amino Transferase 314 U/L (0-40); Blood Urea Nitrogen 50 mg/dL (8-23); Calcium 8.6 mg/dL (8.5-10.5); Carbon Dioxide 27 mmol/L (22-29); Chloride 103 mmol/L (98-107); Creatinine Clr Calc Pharmacy 29.1926; Globulin 2.7 g/dL (1.3-4.6); Glucose 144 mg/dL (65-115); Magnesium 2.7 mg/dL (1.7-2.3); Osmolality Calculated 308 mOsm/kg (285-295); Potassium 4.2 mmol/L (3.5-5.1); Sodium 141 mmol/L (136-145); Total Bilirubin 0.8 mg/dL (0.15-1.2); Total Protein 5.9 g/dL (6.6-8.7)
[2024-07-30] MEDS: FUROsemide 10 mg/mL SDV 4mL 40 MG IVP ×3 (03:51→22:30)
[2024-07-30 03:53] LABS: Hepatitis A Antibody IgM Non-Reactive (Nonreactive); Hepatitis B Core AB, Total Non-Reactive (Nonreactive); Hepatitis B Surface AB < 3.5 (11.5-1000); Hepatitis B Surface Antigen Non-Reactive (Nonreactive); Hepatitis C Virus Antibody Non-Reactive (Nonreactive)
[2024-07-30 06:07] LABS: Glucose Point of Care 130 mg/dL (70-110)
--- NOTE | 2024-07-30 07:16 | PM.PN ---
Subjective Subjective: Patient is feeling better. Denies any chest pain or palpitations. No fever. The vital signs are remaining stable. Medications: Medication Review Details: Current Medications Acetaminophen (Acetaminophen 325 Mg Tablet) 650 mg PO Q6H PRN PRN Reason: Mild/Mod Pain Or Temp >/= 101 Albuterol/Ipratropium (Ipratropium-Albuterol 3 Ml Neb) 3 ml INHALATION Q6H PRN PRN Reason: SHORTNESS OF BREATH Atorvastatin Calcium (Atorvastatin 40 Mg Tablet) 40 mg PO QPM FELIPE Last Admin: 07/29/24 18:46 Dose: 40 mg Clopidogrel Bisulfate (Clopidogrel 75 Mg Tablet) 75 mg PO DAILY FELIPE Furosemide (Furosemide 10 Mg/Ml Sdv 4ml) 40 mg IVP Q12H FELIPE Last Admin: 07/30/24 03:51 Dose: 40 mg Glucagon (Glucagon 1 Mg/Ml Kit 1 Ml) 1 mg IM ONCE PRN; Protocol PRN Reason: Adult Acute Hypoglycemia Nursing Prot. Dextrose (D5w) 500 mls @ 0 mls/hr IV ONCE PRN; Protocol PRN Reason: Adult Acute Hypoglycemia Prot Dextrose (D10w) 125 mls @ 750 mls/hr IV PRN PRN; Protocol PRN Reason: Adult Acute Hypoglycemia Nursing Protocol Dextrose (D10w) 250 mls @ 1,000 mls/hr IV PRN PRN; Protocol PRN Reason: Adult Acute Hypoglycemia Nursing Protocol Levofloxacin/Dextrose (Levaquin-D5w) 750 mg in 150 mls @ 100 mls/hr IV Q48H FELIPE; Protocol Last Infusion: 07/29/24 19:18 Dose: Infused Insulin Human Lispro (Insulin Lispro 100 Unit/1 Ml) 0 unit SUBCUT WM&BEDTIME [facility]; Protocol Last Admin: 07/30/24 06:52 Dose: Not Given Ondansetron HCl (Ondansetron 2 Mg/Ml Sdv 2 Ml) 4 mg IVP Q8H PRN PRN Reason: vomiting, or N/V if npo Pantoprazole Sodium (Pantoprazole Dr 40 Mg Tablet) 40 mg PO DAILY FELIPE Pantoprazole Sodium (Pantoprazole Dr 40 Mg Tablet) 40 mg PO DAILY FELIPE Pramipexole Dihydrochloride (Pramipexole 0.25 Mg Tablet) 0.5 mg PO QPM FELIPE Last Admin: 07/29/24 18:46 Dose: 0.5 mg Vitals/I&O/Wt Last Vital Signs Temp 97.7 F 07/30/24 05:00 Pulse 89 07/30/24 05:00 Resp 14 07/30/24 05:00 BP 95/62 07/30/24 05:00 Pulse Ox 95 07/30/24 03:57 O2 Del Method Nasal Cannula 07/30/24 03:57 O2 Flow Rate 2 07/29/24 16:05 07/29/24 07/30/24 07/30/24 22:59 06:59 14:59 Intake Total 600 / 600 240 / 840 Output Total 960 / 960 200 / 1160 Balance -360 / -360 40 / -320 Weight last 48 hrs Weight 242 lb 4.608 oz Weight 239 lb 13.807 oz Weight 216 lb Physical Exam Narrative: GENERAL: The patient is alert and oriented times three. Not in any acute distress. HEENT: No significant pallor, icterus or lymphadenopathy.Oral cavity: There are no mucous membrane lesions. NECK: Trachea appears to be central. No masses noted. No JVD or thyromegaly appreciated. RESPIRATORY: Chest is symmetrical. The sternotomy scar appears to have healed fairly well. No intercostals muscle retraction or any accessory muscle activation. There is no chest wall tenderness. Breath sounds are heard bilaterally. No rales or rhonchi heard. No evidence of any consolidation. The breath sounds are diminished at the bases. BREASTS: Deferred. HEART: The heart sounds are normal. No S3 or S4. Short systolic murmur at the base of the heart. No diastolic murmurs. No pericardial rub ABDOMEN: No vessel pulsations or distention. No tenderness. No organomegaly appreciated. Bowel sounds are normally heard. : Deferred. RECTAL: Deferred. LYMPHATIC: No lymphadenopathy noted in the neck. EXTREMITIES:1- 2+ edema both lower extremities. No cyanosis. Peripheral pulses are very weak bilaterally MUSCULOSKELETAL: No acute joint deformities or swelling SKIN: There are no significant rashes or ecchymosis NEUROPSYCHIATRIC: The patient is alert and oriented x3. Appears to be in a good mood. No tremors or rigidity noted. Urinary Catheter Management: Posadas: Cath Placed During This Visit: yes Reason for Continuing Indwelling Catheter: Accurate Measurement of Urinary Output in Critically Ill Patients Urinary Catheter Date of Insertion: 02/09/24 Urinary Catheter Time of Insertion: 17:10 Data 07/30/24 02:42 07/30/24 02:42 Other Labs: Laboratory Last Values WBC 6.40 10^3/uL (3.29-11.43) 07/30/24 02:42 RBC 3.62 10^6/uL (3.85-5.65) L 07/30/24 02:42 Hgb 8.80 g/dL (11.27-16.99) L 07/30/24 02:42 Hct 32.0 % (37-53) L 07/30/24 02:42 MCV 88.4 fl (82-101) 07/30/24 02:42 MCH 24.3 pg (27-33) L 07/30/24 02:42 MCHC 27.5 g/dL (30-55) L 07/30/24 02:42 RDW 18.4 % (12.1-15.1) H 07/30/24 02:42 Plt Count 117 10^3/cmm (157-399) L 07/30/24 02:42 MPV 11.1 fL (7.4-10.4) H 07/30/24 02:42 Neut % (Auto) 73.0 % 07/30/24 02:42 Lymph % (Auto) 14.5 % 07/30/24 02:42 [place] % (Auto) 10.3 % 07/30/24 02:42 Eos % (Auto) 0.3 % 07/30/24 02:42 Baso % (Auto) 0.5 % 07/30/24 02:42 Neut # (Auto) 4.67 10^3/uL (1.8-7.7) 07/30/24 02:42 Lymph # (Auto) 0.9 10^3/uL (0.8-4.8) 07/30/24 02:42 [place] # (Auto) 0.7 10^3/uL (0.2-0.9) 07/30/24 02:42 Eos # (Auto) 0.0 10^3/uL (0.0-0.8) 07/30/24 02:42 Baso # (Auto) 0.0 10^3/uL (0.0-0.1) 07/30/24 02:42 Nucleated RBC % (auto) 0 % 07/30/24 02:42 Nucleated RBCs # 0.0 /100WBC 07/30/24 02:42 PT 34.70 SECONDS (12.1-14.9) H 07/30/24 02:42 INR 3.22 (0.8-1.2) H 07/30/24 02:42 APTT 31.5 SECONDS (23.9-36.7) 07/29/24 09:45 Sodium 141 mmol/L (136-145) 07/30/24 02:42 Potassium 4.2 mmol/L (3.5-5.1) 07/30/24 02:42 Chloride 103 mmol/L (98-107) 07/30/24 02:42 Carbon Dioxide 27 mmol/L (22-29) 07/30/24 02:42 Anion Gap 15.2 (5-19) 07/30/24 02:42 BUN 50 mg/dL (8-23) H 07/30/24 02:42 Creatinine 2.7 mg/dL (0.7-1.2) H 07/30/24 02:42 GFR Calculation Not Reportable 07/30/24 02:42 Glucose 144 mg/dL (65-115) H 07/30/24 02:42 POC Glucose 130 mg/dL (70-110) H 07/30/24 06:03 Estimat Average Glucose 134 07/29/24 09:45 Hemoglobin A1c 6.3 % (4.0-6.0) H 07/29/24 09:45 Calculated Osmolality 308 mOsm/kg (285-295) H 07/30/24 02:42 Lactic Acid 3.0 mmol/L (0.5-2.2) H 07/29/24 15:58 Lactic Acid (Sepsis) 2.3 mmol/L (0.5-2.2) H 07/29/24 18:02 Calcium 8.6 mg/dL (8.5-10.5) 07/30/24 02:42 Phosphorus 4.0 mg/dL (2.5-4.5) 07/30/24 02:42 Magnesium 2.7 mg/dL (1.7-2.3) H 07/30/24 02:42 Iron 20 ug/dL (59-158) L 07/29/24 13:51 TIBC 328 mcg/dl 07/29/24 13:51 % Saturation 6.0 % (20-50) L 07/29/24 13:51 Unsat Iron Binding 308 ug/dL (112-347) 07/29/24 13:51 Ferritin 74 ng/mL (30-400) 07/29/24 13:51 Total Bilirubin 0.8 mg/dL (0.15-1.2) 07/30/24 02:42 GGT 35 U/L (8-61) 07/30/24 02:42 AST 314 U/L (0-40) H 07/30/24 02:42 ALT 354 U/L (0-41) H 07/30/24 02:42 Alkaline Phosphatase 138 U/L (40-130) H 07/30/24 02:42 Troponin T Baseline 49 ng/L (0-15) H 07/29/24 09:45 Troponin T 120 Minute 49.22 ng/L (0-15) H 07/29/24 11:39 Delta Troponin T 0.22 ABS# (0-10) 07/29/24 11:39 Troponin T Hi Sens 6Hr 46.34 ng/L (0-15) H 07/29/24 15:58 Troponin T Hi Sens 6Hr Delta -2.66 ng/L (0-12) L 07/29/24 15:58 C-Reactive Protein 9.8 mg/L (0.0-4.9) H 07/29/24 09:45 NT-Pro-B Natriuret Pep 18529 pg/mL (0-450) H 07/29/24 09:45 Total Protein 5.9 g/dL (6.6-8.7) L 07/30/24 02:42 Albumin 3.2 g/dL (3.5-5.2) L 07/30/24 02:42 Globulin 2.7 g/dL (1.3-4.6) 07/30/24 02:42 Triglycerides 65 mg/dL (0-150) 07/29/24 09:45 Cholesterol 101 mg/dL (0-200) 07/29/24 09:45 LDL Cholesterol, Calc 50 mg/dL (50-129) 07/29/24 09:45 HDL Cholesterol 38 mg/dL (60-100) L 07/29/24 09:45 LDL/HDL Ratio 1.32 RATIO (0.00-3.22) 07/29/24 09:45 Cholesterol/HDL Ratio 2.66 mg/dL (1.0-5.00) 07/29/24 09:45 Procalcitonin 0.08 ng/mL (0-0.5) 07/29/24 13:51 TSH 2.16 uIU/mL (0.27-4.20) 07/29/24 09:45 Urine Color Yellow (Yellow) 07/29/24 10:37 Urine Appearance Clear (CLEAR) 07/29/24 10:37 Urine pH 5.0 (5-7) 07/29/24 10:37 Ur Specific [place] 1.031 (1.005-1.030) H 07/29/24 10:37 Urine Protein 1+ (Negative) A 07/29/24 10:37 Urine Glucose (UA) 3+ (Normal) H 07/29/24 10:37 Urine Ketones Trace (Negative) 07/29/24 10:37 Urine Blood Negative (Negative) 07/29/24 10:37 Urine Nitrate Negative (Negative) 07/29/24 10:37 Urine Bilirubin Negative (Negative) 07/29/24 10:37 Urine Urobilinogen 1.0 mg/dL (Negative) 07/29/24 10:37 Ur Leukocyte Esterase Negative (Negative) 07/29/24 10:37 Urine RBC 0-2 /hpf (0-2) 07/29/24 10:37 Urine WBC 0-5 /hpf (0-5) 07/29/24 10:37 Ur Squamous Epith Cells 0-5 /hpf (0-5) 07/29/24 10:37 Amorphous Sediment Not Reportable 07/29/24 10:37 Urine Bacteria None seen /hpf (NONE) 07/29/24 10:37 Hyaline Casts 12.41 /lpf 07/29/24 10:37 Urine Opiates Screen Negative ng/mL (Negative) 07/29/24 10:37 Ur Barbiturates Screen Negative ng/mL (Negative) 07/29/24 10:37 Ur Phencyclidine Scrn Negative ng/mL (Negative) 07/29/24 10:37 Ur Amphetamines Screen Negative ng/mL (Negative) 07/29/24 10:37 U Benzodiazepines Scrn Negative ng/mL (Negative) 07/29/24 10:37 Urine Cocaine Screen Negative ng/mL (Negative) 07/29/24 10:37 U Marijuana (THC) Screen Negative ng/mL (Negative) 07/29/24 10:37 Hepatitis A IgM Ab Non-reactive (Nonreactive) 07/30/24 02:42 Hep Bs Antigen Non-reactive (Nonreactive) 07/30/24 02:42 Hep Bs Antibody < 3.5 (11.5-1000) L 07/30/24 02:42 Hep B Core Total Ab Non-reactive (Nonreactive) 07/30/24 02:42 Hepatitis C Antibody Non-reactive (Nonreactive) 07/30/24 02:42 A&P Assessment and plan (1) Acute on chronic systolic heart failure: The echocardiogram was reviewed. The LV ejection fraction was found to be around 37%. May continue on the current management. (2) Status post aortic valve replacement with bioprosthetic valve: The valve function appears to be appropriate. Patient had the endocarditis . Repeated blood culture report from [place] is pending. He has no clinical evidence of any active infection at this point. May continue on the current management. (3) Atrial fibrillation with rapid ventricular response: The ventricular rate seems to be fairly under control. May continue on the anticoagulation and AV elvia blocking agents. (4) Atherosclerosis of coronary artery of [place] heart without angina pectoris: Since the patient has no specific symptoms of coronary insufficiency, is advised to continue on the current medications. We will continue on the risk modifying measures. Advised to contact our office, if the patient develop any significant chest pain or other ischemic symptoms Qualifiers: Coronary Disease-Associated Artery/Lesion type: [place] artery Qualified Code(s): I25.10 - Atherosclerotic heart disease of [place] coronary artery without angina pectoris (5) Diabetes mellitus: The blood sugar seems to be in the normal range. Management as per the primary Qualifiers: Diabetes mellitus complication detail: with other arthropathy Diabetes mellitus complication status: with diabetic arthropathy Diabetes mellitus intermission coordinator insulin use: with group home use Diabetes mellitus type: type 2 Qualified Code(s): E11.618 - Type 2 diabetes mellitus with other diabetic arthropathy; Z79.4 - residential (current) use of insulin Plan Continue IV Lasix, may adjust the dose based on the renal output Continue Plavix and the Eliquis. Medical records from [facility] Also will try to get the blood culture report from [place]. After review of the medical records and also based on the patient's clinical progress, further management decisions will be made. I discussed the patient's condition and management options with his 2 daughters in [place]. All their questions were answered to her satisfaction. PDMP PDMP Reviewed: Not Reviewed Attestations Medical Necessity Statement*: Deferred to the primary Coding Level of Care Code 57917 Diagnoses Acute on chronic systolic heart failure I50.23 Status post aortic valve replacement with bioprosthetic valve Z95.3 Atrial fibrillation with rapid ventricular response I48.91 Atherosclerosis of [place] coronary artery of [place] heart without angina pectoris I25.10 Coronary Disease-Associated Artery/Lesion type: [place] artery Type 2 diabetes mellitus with other diabetic arthropathy, with long-term current use of insulin E11.618; Z79.4 Diabetes mellitus complication detail: with other arthropathy Diabetes mellitus complication status: with diabetic arthropathy Diabetes mellitus group home insulin use: with group home use Diabetes mellitus type: type 2
[2024-07-30] MEDS: pantoprazole DR 40 mg Tablet PO (08:55)
[2024-07-30] MEDS: clopidogrel 75 mg Tablet PO (08:55)
--- NOTE | 2024-07-30 10:08 | PC.SOCIAL ---
IMM Update Updated pt on IMM. No questions voiced. Provided pt a copy. Initialed, dated, & timed a copy & placed in chart.
[2024-07-30 11:26] LABS: Glucose Point of Care 229 mg/dL (70-110)
[2024-07-30] MEDS: insulin lispro 100 unit/1 mL SUBCUT ×2 (11:42→21:09)
--- NOTE | 2024-07-30 12:02 | P.PN_ITS ---
Subjective 2 Subjective: no new c/o Medications: Reviewed: Yes Vitals/I&O/Wt Last Vital Signs Temp 97.7 F 07/30/24 07:50 Pulse 90 07/30/24 08:13 Resp 16 07/30/24 08:13 BP 110/67 07/30/24 07:50 Pulse Ox 100 07/30/24 08:13 O2 Del Method Room Air 07/30/24 08:13 O2 Flow Rate 2 07/29/24 16:05 07/29/24 07/30/24 07/30/24 22:59 06:59 14:59 Intake Total 600 / 600 240 / 840 240 / 240 Output Total 960 / 960 200 / 1160 625 / 625 Balance -360 / -360 40 / -320 -385 / -385 Weight last 48 hrs Weight 109.9 kg Weight 108.8 kg Weight 97.976 kg Physical Exam 2 Narrative: awake , alert No distress on Room air s1 S2 RRR per report Lungs clear per report Abd -odt m non tender per report + Edema Urinary Catheter Management: Posadas: Cath Placed During This Visit: yes Reason for Continuing Indwelling Catheter: Accurate Measurement of Urinary Output in Critically Ill Patients Urinary Catheter Date of Insertion: 02/09/24 Urinary Catheter Time of Insertion: 17:10 Data 07/30/24 02:42 07/30/24 02:42 A&P Assessment and plan (1) LAUREN (acute kidney injury): 1. Acute on chronic kidney disease: Baseline creatinine in the mid 1 range. Patient now has LAUREN with a creatinine up to 2.5 likely cardiorenal. - Agree with IV Lasix , will increase to every 8 hours and add IV albumin 25 g every 8 hours - Strict intake and output, daily weights - No acute indication for dialysis currently 2. Hyperkalemia: Low K diet, monitor on repeat BMP 3. Anemia: Check iron studies, will add JEN 4. Cardiomyopathy, history of CABG, coronary stent ejection fraction 37% 5. Acute on chronic respiratory failure, multifactorial, diuresis as above 6. History of TAVR Patient evaluated using audiovisual cart. Time spent 40 minutes PDMP PDMP Reviewed: Not Reviewed Attestations 2 Medical Necessity Statement*: per cesardc Coding Level of Care Code Acute Code for [facility] Fwd Diagnoses LAUREN (acute kidney injury) N17.9
[2024-07-30] MEDS: albumin 25 G/100 ML BAG 60 G IV ×2 (12:16→21:09)
--- NOTE | 2024-07-30 12:30 | P.PN_ITS ---
Subjective 2 Subjective: seen today resting comfortably in bed, feels slightly better denies chest pain Vitals/I&O/Wt Last Vital Signs Temp 97.7 F 07/30/24 07:50 Pulse 90 07/30/24 08:13 Resp 16 07/30/24 08:13 BP 110/67 07/30/24 07:50 Pulse Ox 100 07/30/24 08:13 O2 Del Method Room Air 07/30/24 08:13 O2 Flow Rate 2 07/29/24 16:05 07/29/24 07/30/24 07/30/24 22:59 06:59 14:59 Intake Total 600 / 600 240 / 840 240 / 240 Output Total 960 / 960 200 / 1160 925 / 925 Balance -360 / -360 40 / -320 -685 / -685 Weight last 48 hrs Weight 109.9 kg Weight 108.8 kg Weight 97.976 kg Physical Exam 2 Narrative: General no acute distress, AO x 3 laying in bed CV regular rate and rhythm, loud murmur in the right upper sternal border, elevated JVD On 2 L nasal cannula. Lungs: Crackles b/l at bases, no wheezes or ronchi Abdomen soft nontender, positive hepatojugular reflux 3+ bilateral lower extremity edema up to thighs. Sternal wound appears clean no erythema Urinary Catheter Management: Posadas: Cath Placed During This Visit: yes Reason for Continuing Indwelling Catheter: Accurate Measurement of Urinary Output in Critically Ill Patients Urinary Catheter Date of Insertion: 02/09/24 Urinary Catheter Time of Insertion: 17:10 Data 07/30/24 02:42 07/30/24 02:42 A&P Assessment and plan (1) Decompensated heart failure: (2) CHF (congestive heart failure): Qualifiers: Heart failure type: diastolic Heart failure chronicity: acute on chronic Qualified Code(s): I50.33 - Acute on chronic diastolic (congestive) heart failure (3) History of heart valve repair: (4) Aortic valve stenosis: Qualifiers: Cardiac valve disease etiology: etiology unspecified Qualified Code(s): I35.0 - Nonrheumatic aortic (valve) stenosis (5) Coronary artery disease: Qualifiers: Coronary Disease-Associated Artery/Lesion type: [place] artery [place] vs. 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 #LAUREN #Hyperkalemia #Hx of CABG and TAVR #Hx of post-op endocarditis #Chronic anticoagulation #Congestive hepatopathy #Supratherapeutic INR #Hx of ESBL UTi #Hx of NSVT #Hx of strep bacteremia -Patient presents with shortness of breath with LAUREN hyperkalemia BNP 23,000 with elevated liver enzymes suggesting congestive hepatopathy, ultrasound abdomen does show evidence of liver cirrhosis. INR elevated 4.1. Patient is on chronic anticoagulation at home with apixaban and is on Plavix antiplatelet agent. Does have mild slurred speech from prior stroke which is intermittent. Generalized weakness most likely secondary to decompensated heart failure. ? 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 ? Patient appears to be in decompensated heart failure today. ? Check CT chest abdomen pelvis secondary to evidence of complex pleural effusion on right side and evaluation for LAUREN and to look for any intra- abdominal pathology. ? Liver enzymes are elevated possibly secondary to decompensated heart failure and congestive hepatopathy. Will check hepatitis profile as well ? Hold atorvastatin ? Patient hyperkalemic on admission with potassium 5.8. Was given 1 amp of bicarb. Will repeat CMP at this time. He also received 10 units of IV insulin, calcium chloride 1 g. 60 mg IV Lasix also given. ? Continue DuoNeb every 6 hours as needed ? Hold home metformin ? Continue omeprazole ? Consult nephrology. ? Most likely LAUREN secondary to cardiorenal syndrome due to fluid overload. We will continue to diurese patient ? Start Lasix 40 IV twice daily ? I will hold off on adding oral potassium and will replete as needed. ? Continue on cardiac telemetry ? Patient did describe some chest pressure which may be secondary to decompensated heart failure however secondary to his history will consult cardiology for further input. First 2 troponins delta negative. 6-hour troponin pending. EKG does show paced rhythm. - Hold home Lantus secondary to LAUREN. Continue on sliding scale insulin low-dose intensity ? Check lactic acid ? Check echocardiogram ? We will obtain records from [place]. ? Hold Coreg at this time in setting of decompensated heart failure. ? Continue Plavix. ? Hold Eliquis today secondary to supratherapeutic INR. May restart in next 24 hours. - Patient states his slurred speech is intermittent. Neuroexam generally nonfocal. He is able to move all 4 extremities. Usually walks with a cane. Face symmetrical. He does appear quite deconditioned. ? Check pacemaker interrogation Full code DVT prophylaxis: INR supratherapeutic. I will hold off on adding subcu heparin at this time. 07/30/2024 INR 3.2 today. May restart Eliquis in next 24 hours. INR most likely elevated due to underlying liver disease with component of being on Eliquis. Continue to hold Lantus Sliding scale low-dose intensity at this time. Continue to diurese patient Nephrology consulted. Liver enzymes improving slowly. Most likely secondary congestive hepatopathy. Hepatitis profile pending. Statin 2.7 today. Patient will need GI referral as an outpatient. Echocardiogram pending Cardiology consulted. Continue to follow recommendations. PDMP PDMP Reviewed: Not Reviewed Attestations 2 Medical Necessity Statement*: Greater than 2 midnight stay for management of decompensated heart failure. Diagnoses Decompensated heart failure I50.9 Acute on chronic diastolic congestive heart failure I50.33 Heart failure type: diastolic Heart failure chronicity: acute on chronic History of heart valve repair Z98.890 Aortic valve stenosis, etiology of cardiac valve disease unspecified I35.0 Cardiac valve disease etiology: etiology unspecified Coronary artery disease involving [place] coronary artery of [place] heart without angina pectoris I25.10 Coronary Disease-Associated Artery/Lesion type: [place] artery [place] vs. transplanted heart: [place] heart Associated angina: without angina Pacemaker Z95.0 Systolic heart failure I50.20 Supratherapeutic INR R79.1 Type 2 diabetes mellitus with other diabetic arthropathy, with long-term current use of insulin E11.618; Z79.4 Diabetes mellitus type: type 2 Diabetes mellitus chcf insulin use: with termination clerk use Diabetes mellitus complication status: with diabetic arthropathy Diabetes mellitus complication detail: with other arthropathy Shortness of breath R06.02 Acute passive congestion of liver K76.1 Elevated liver enzymes R74.8 LAUREN (acute kidney injury) N17.9 Hyperkalemia E87.5
[2024-07-30 17:14] LABS: Glucose Point of Care 176 mg/dL (70-110)
[2024-07-30] MEDS: pramipexole 0.25 mg Tablet 0.5 MG PO (17:19)
[2024-07-30] MEDS: atorvastatin 40 mg Tablet PO (17:19)
[2024-07-30 20:51] LABS: Glucose Point of Care 168 mg/dL (70-110)
[2024-07-31] VITALS (10 sets, daily range): BP systolic 97–125; BP diastolic 61–86; PULSE 90–98; RESP 17–22; TEMP 36.3–36.9; O2SAT 97–100
[2024-07-31] MEDS: ondansetron 2 mg/ML SDV 2 mL 4 MG IVP (00:01)
[2024-07-31] MEDS: albumin 25 G/100 ML BAG 60 G IV ×3 (04:29→20:44)
[2024-07-31 05:12] LABS: Basophils % 0.5 %; Eosinophils # 0.1 10^3/uL (0.0-0.8); Eosinophils % 1.6 %; Hematocrit 29.5 % (37-53); Lymphocytes # 0.9 10^3/uL (0.8-4.8); Lymphocytes % 15.9 %; Mean Corpuscular HGB Conc 28.1 g/dL (30-55); Mean Corpuscular Hemoglobin 24.9 pg (27-33); Mean Corpuscular Volume 88.3 fl (82-101); Mean Platelet Volume 11.7 fL (7.4-10.4); Monocytes # 0.5 10^3/uL (0.2-0.9); Monocytes % 9.2 %; Neutrophils # 4.16 10^3/uL (1.8-7.7); Neutrophils % 72.5 %; Nucleated Red Blood Cells % 0 %; Platelet Count 103 10^3/cmm (157-399); Red Blood Count 3.34 10^6/uL (3.85-5.65); Red Cell Distribution Width 18.2 % (12.1-15.1); White Blood Count 5.74 10^3/uL (3.29-11.43)
[2024-07-31 05:30] LABS: INR 1.82 (0.8-1.2)
[2024-07-31 05:39] LABS: Alanine Aminotransferase 412 U/L (0-41); Albumin Level 3.3 g/dL (3.5-5.2); Alkaline Phosphatase 123 U/L (40-130); Aspartate Amino Transferase 300 U/L (0-40); Blood Urea Nitrogen 50 mg/dL (8-23); Calcium 8.2 mg/dL (8.5-10.5); Carbon Dioxide 28 mmol/L (22-29); Chloride 100 mmol/L (98-107); Creatinine Clr Calc Pharmacy 30.4635; Globulin 2.5 g/dL (1.3-4.6); Glucose 130 mg/dL (65-115); Magnesium 2.4 mg/dL (1.7-2.3); Osmolality Calculated 301 mOsm/kg (285-295); Sodium 138 mmol/L (136-145); Total Bilirubin 0.7 mg/dL (0.15-1.2); Total Protein 5.8 g/dL (6.6-8.7)
--- NOTE | 2024-07-31 05:48 | PC.NURSE ---
Patient has BP of 99/63 with orders for 40 mg of lasix. Clarified order with Dr. Doe and received orders to hold this dose.
[2024-07-31 06:52] LABS: Glucose Point of Care 165 mg/dL (70-110)
[2024-07-31] MEDS: insulin lispro 100 unit/1 mL SUBCUT ×4 (08:18→20:43)
[2024-07-31] MEDS: pantoprazole DR 40 mg Tablet PO (08:18)
[2024-07-31] MEDS: clopidogrel 75 mg Tablet PO (08:18)
--- NOTE | 2024-07-31 09:38 | PM.PN ---
Subjective Subjective: seen today resting comfortably in bed, feels slightly better denies chest pain states is UOP has decreased a little bit today. Medications: Reviewed: Yes Vitals/I&O/Wt Last Vital Signs Temp 97.5 F L 07/31/24 08:00 Pulse 90 07/31/24 09:11 Resp 18 07/31/24 09:11 BP 112/67 07/31/24 08:00 Pulse Ox 100 07/31/24 09:11 O2 Del Method Nasal Cannula 07/31/24 09:11 O2 Flow Rate 2 07/31/24 09:11 07/30/24 07/31/24 07/31/24 22:59 06:59 14:59 Intake Total 340 / 680 800 / 1480 236 / 236 Output Total 600 / 2125 1025 / 3150 Balance -260 / -1445 -225 / -1670 236 / 236 Weight last 48 hrs Weight 238 lb 2 oz Weight 242 lb 4.608 oz Weight 239 lb 13.807 oz Physical Exam Narrative: General no acute distress, AO x 3 laying in bed CV regular rate and rhythm, loud murmur in the right upper sternal border, elevated JVD On 2 L nasal cannula. Lungs: faint bibasilar crackles b/l at bases, no wheezes or ronchi Abdomen soft nontender, positive hepatojugular reflux 2+ bilateral lower extremity edema up to thighs. Sternal wound appears clean no erythema Urinary Catheter Management: Posadas: Cath Placed During This Visit: yes Reason for Continuing Indwelling Catheter: Accurate Measurement of Urinary Output in Critically Ill Patients Urinary Catheter Date of Insertion: 02/09/24 Urinary Catheter Time of Insertion: 17:10 Data 07/31/24 04:27 07/31/24 04:27 A&P Assessment and plan (1) Decompensated heart failure: (2) CHF (congestive heart failure): Qualifiers: Heart failure chronicity: acute on chronic Heart failure type: diastolic Qualified Code(s): I50.33 - Acute on chronic diastolic (congestive) heart failure (3) History of heart valve repair: (4) Aortic valve stenosis: Qualifiers: Cardiac valve disease etiology: etiology unspecified Qualified Code(s): I35.0 - Nonrheumatic aortic (valve) stenosis (5) Coronary artery disease: Qualifiers: Associated angina: without angina Coronary Disease-Associated Artery/Lesion type: [place] artery [place] vs. transplanted heart: [place] heart Qualified Code(s): I25.10 - Atherosclerotic heart disease of [place] coronary artery without angina pectoris (6) Pacemaker: (7) Supratherapeutic INR: resolved (8) Diabetes mellitus: LDSSI and accuchecks Qualifiers: Diabetes mellitus complication detail: with other arthropathy Diabetes mellitus complication status: with diabetic arthropathy Diabetes mellitus senior living insulin use: with senior living use Diabetes mellitus type: type 2 Qualified Code(s): E11.618 - Type 2 diabetes mellitus with other diabetic arthropathy; Z79.4 - penitentiary (current) use of insulin (9) Shortness of breath: (10) Acute passive congestion of liver: (11) Elevated liver enzymes: slowly improving (12) LAUREN (acute kidney injury): slowly improving followed by nephro (13) Hyperkalemia: resolved Plan #Acute on chronic systolic/diastolic HF, known EF 25%, status post pacemaker. 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 INR elevated 4.1. Patient is on chronic anticoagulation at home with apixaban and is on Plavix antiplatelet agent. Does have mild slurred speech from prior stroke which is intermittent. Generalized weakness most likely secondary to decompensated heart failure. ? 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 ? Patient appears to be in decompensated heart failure today. ? Check CT chest abdomen pelvis secondary to evidence of complex pleural effusion on right side and evaluation for LAUREN and to look for any intra-abdominal pathology. ? Liver enzymes are elevated possibly secondary to decompensated heart failure and congestive hepatopathy. Will check hepatitis profile as well ? Hold atorvastatin ? Patient hyperkalemic on admission with potassium 5.8. Was given 1 amp of bicarb. Will repeat CMP at this time. He also received 10 units of IV insulin, calcium chloride 1 g. 60 mg IV Lasix also given. ? Continue DuoNeb every 6 hours as needed ? Hold home metformin ? Continue omeprazole ? Consult nephrology. ? Most likely LAUREN secondary to cardiorenal syndrome due to fluid overload. We will continue to diurese patient ? Start Lasix 40 IV twice daily ? I will hold off on adding oral potassium and will replete as needed. ? Continue on cardiac telemetry ? Patient did describe some chest pressure which may be secondary to decompensated heart failure however secondary to his history will consult cardiology for further input. First 2 troponins delta negative. 6-hour troponin pending. EKG does show paced rhythm. - Hold home Lantus secondary to LAUREN. Continue on sliding scale insulin low-dose intensity ? Check lactic acid ? Check echocardiogram ? We will obtain records from [facility]. ? Hold Coreg at this time in setting of decompensated heart failure. ? Continue Plavix. ? Hold Eliquis today secondary to supratherapeutic INR. May restart in next 24 hours. - Patient states his slurred speech is intermittent. Neuroexam generally nonfocal. He is able to move all 4 extremities. Usually walks with a cane. Face symmetrical. He does appear quite deconditioned. ? Check pacemaker interrogation Full code DVT prophylaxis: INR supratherapeutic. I will hold off on adding subcu heparin at this time. 07/30/2024 INR 3.2 today. May restart Eliquis in next 24 hours. INR most likely elevated due to underlying liver disease with component of being on Eliquis. Continue to hold Lantus Sliding scale low-dose intensity at this time. Continue to diurese patient Nephrology consulted. Liver enzymes improving slowly. Most likely secondary congestive hepatopathy. Hepatitis profile pending. Statin 2.7 today. Patient will need GI referral as an outpatient. Echocardiogram pending Cardiology consulted. Continue to follow recommendations. 07/31/24 -Eliquis 5mg BID -INR 1.82 (07/31) -levofloxacin, Cx from [place] pending -hyperkalemia has resolved -LDSSI with accuchecks -lasix 40mg IVP TID, continue albumin -has diuresed well -LFT's slowly improving. may require GI referral as outpatient setting -LAUREN slowly improving. continue albumin per nephrology. PDMP PDMP Reviewed: Not Reviewed Attestations Medical Necessity Statement*: will require 2 overnight stays due to CHF exacerbation Coding Level of Care Code 29368 Diagnoses Decompensated heart failure I50.9 Acute on chronic diastolic congestive heart failure I50.33 Heart failure chronicity: acute on chronic Heart failure type: diastolic History of heart valve repair Z98.890 Aortic valve stenosis, etiology of cardiac valve disease unspecified I35.0 Cardiac valve disease etiology: etiology unspecified Coronary artery disease involving [place] coronary artery of [place] heart without angina pectoris I25.10 Associated angina: without angina Coronary Disease-Associated Artery/Lesion type: [place] artery [place] vs. 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
--- NOTE | 2024-07-31 10:22 | P.PN_ITS ---
Subjective 2 Subjective: on 2l nc Medications: Reviewed: Yes Vitals/I&O/Wt Last Vital Signs Temp 97.5 F L 07/31/24 08:00 Pulse 90 07/31/24 09:11 Resp 18 07/31/24 09:11 BP 112/67 07/31/24 08:00 Pulse Ox 100 07/31/24 09:11 O2 Del Method Nasal Cannula 07/31/24 09:11 O2 Flow Rate 2 07/31/24 09:11 07/30/24 07/31/24 07/31/24 22:59 06:59 14:59 Intake Total 340 / 680 800 / 1480 236 / 236 Output Total 600 / 2125 1025 / 3150 Balance -260 / -1445 -225 / -1670 236 / 236 Weight last 48 hrs Weight 108.012 kg Weight 109.9 kg Weight 108.8 kg Physical Exam 2 Narrative: awake , alert No distress on Room air s1 S2 RRR per report Lungs clear per report Abd -odt m non tender per report + Edema Urinary Catheter Management: Posadas: Cath Placed During This Visit: yes Reason for Continuing Indwelling Catheter: Accurate Measurement of Urinary Output in Critically Ill Patients Urinary Catheter Date of Insertion: 02/09/24 Urinary Catheter Time of Insertion: 17:10 Data 07/31/24 04:27 07/31/24 04:27 A&P Assessment and plan (1) LAUREN (acute kidney injury): 1. Acute on chronic kidney disease: Baseline creatinine in the mid 1 range. Patient now has LAUREN with a creatinine up to 2.5 likely cardiorenal. - Agree with IV Lasix , continue lasix IV every 8 hours and add IV albumin 25 g every 8 hours, UOP reasonable - Strict intake and output, daily weights - No acute indication for dialysis currently 2. Hyperkalemia: Low K diet, improved 3. Anemia: Check iron studies, will add JEN 4. Cardiomyopathy, history of CABG, coronary stent ejection fraction 37% 5. Acute on chronic respiratory failure, multifactorial, diuresis as above 6. History of TAVR 7. Thrombocytopenia , mild monitor Patient evaluated using audiovisual cart. Time spent 40 minutes PDMP PDMP Reviewed: Not Reviewed Attestations 2 Medical Necessity Statement*: per [facility] Coding Level of Care Code Acute Code for [facility] Fwd Diagnoses LAUREN (acute kidney injury) N17.9
[2024-07-31 12:17] LABS: Glucose Point of Care 154 mg/dL (70-110)
[2024-07-31] MEDS: epoetin alfa-epbx 10,000 unit/ml SDV (ESRD) 10000 UNIT SUBCUT (12:54)
[2024-07-31] MEDS: FUROsemide 10 mg/mL SDV 4mL 40 MG IVP ×2 (12:55→21:56)
[2024-07-31] MEDS: levofloxacin-dextrose 5 % 750 MG/150 ML PREMIX 100 MG IV (16:46)
[2024-07-31] MEDS: polyethylene glycol 3350 Pkt 17 gm PO (16:55)
[2024-07-31] MEDS: atorvastatin 40 mg Tablet PO (16:55)
[2024-07-31] MEDS: pramipexole 0.25 mg Tablet 0.5 MG PO (16:55)
[2024-07-31 17:00] LABS: Glucose Point of Care 158 mg/dL (70-110)
--- NOTE | 2024-07-31 18:07 | PM.PN ---
Subjective Subjective: Feeling better, patient had showered today Medications: Reviewed: Yes Medication Review Details: Current Medications Acetaminophen (Acetaminophen 325 Mg Tablet) 650 mg PO Q6H PRN PRN Reason: Mild/Mod Pain Or Temp >/= 101 Albuterol/Ipratropium (Ipratropium-Albuterol 3 Ml Neb) 3 ml INHALATION Q6H PRN PRN Reason: SHORTNESS OF BREATH Atorvastatin Calcium (Atorvastatin 40 Mg Tablet) 40 mg PO QPM [facility] Last Admin: 07/29/24 18:46 Dose: 40 mg Clopidogrel Bisulfate (Clopidogrel 75 Mg Tablet) 75 mg PO DAILY FELIPE Furosemide (Furosemide 10 Mg/Ml Sdv 4ml) 40 mg IVP Q12H FELIPE Last Admin: 07/30/24 03:51 Dose: 40 mg Glucagon (Glucagon 1 Mg/Ml Kit 1 Ml) 1 mg IM ONCE PRN; Protocol PRN Reason: Adult Acute Hypoglycemia Nursing Prot. Dextrose (D5w) 500 mls @ 0 mls/hr IV ONCE PRN; Protocol PRN Reason: Adult Acute Hypoglycemia Prot Dextrose (D10w) 125 mls @ 750 mls/hr IV PRN PRN; Protocol PRN Reason: Adult Acute Hypoglycemia Nursing Protocol Dextrose (D10w) 250 mls @ 1,000 mls/hr IV PRN PRN; Protocol PRN Reason: Adult Acute Hypoglycemia Nursing Protocol Levofloxacin/Dextrose (Levaquin-D5w) 750 mg in 150 mls @ 100 mls/hr IV Q48H [facility]; Protocol Last Infusion: 07/29/24 19:18 Dose: Infused Insulin Human Lispro (Insulin Lispro 100 Unit/1 Ml) 0 unit SUBCUT WM&BEDTIME [facility]; Protocol Last Admin: 07/30/24 06:52 Dose: Not Given Ondansetron HCl (Ondansetron 2 Mg/Ml Sdv 2 Ml) 4 mg IVP Q8H PRN PRN Reason: vomiting, or N/V if npo Pantoprazole Sodium (Pantoprazole Dr 40 Mg Tablet) 40 mg PO DAILY FELIPE Pantoprazole Sodium (Pantoprazole Dr 40 Mg Tablet) 40 mg PO DAILY FELIPE Pramipexole Dihydrochloride (Pramipexole 0.25 Mg Tablet) 0.5 mg PO QPM [facility] Last Admin: 07/29/24 18:46 Dose: 0.5 mg Vitals/I&O/Wt Last Vital Signs Temp 97.8 F 07/31/24 16:00 Pulse 93 07/31/24 16:00 Resp 20 H 07/31/24 16:00 BP 110/78 07/31/24 16:00 Pulse Ox 99 07/31/24 16:00 O2 Del Method Nasal Cannula 07/31/24 16:00 O2 Flow Rate 2 07/31/24 16:00 07/31/24 07/31/24 07/31/24 06:59 14:59 22:59 Intake Total 800 / 1480 556 / 556 236 / 792 Output Total 1025 / 3150 460 / 460 700 / 1160 Balance -225 / -1670 96 / 96 -464 / -368 Weight last 48 hrs Weight 238 lb 2 oz Weight 242 lb 4.608 oz Physical Exam Const: OTHER: GENERAL: Patient is alert, awake and oriented x3. HEART: Regular S1 and S2. No murmur, rub or gallop. LUNGS: Reduced bilaterally. CENTRAL NERVOUS SYSTEM: Grossly nonfocal. EXTREMITIES: Lower extremities with out edema bilaterally. Urinary Catheter Management: Posadas: Cath Placed During This Visit: yes Reason for Continuing Indwelling Catheter: Accurate Measurement of Urinary Output in Critically Ill Patients Urinary Catheter Date of Insertion: 02/09/24 Urinary Catheter Time of Insertion: 17:10 Data 08/01/24 04:20 08/01/24 04:20 A&P Assessment and plan (1) Acute on chronic systolic heart failure: Improving, continue IV Lasix as per nephro (2) Status post aortic valve replacement with bioprosthetic valve: Awaiting record from the [facility] (3) Atrial fibrillation with rapid ventricular response: Controlled (4) Atherosclerosis of coronary artery of [place] heart without angina pectoris: Continue Plavix Qualifiers: Coronary Disease-Associated Artery/Lesion type: [place] artery Qualified Code(s): I25.10 - Atherosclerotic heart disease of [place] coronary artery without angina pectoris (5) Diabetes mellitus: As per medicine Qualifiers: Diabetes mellitus complication detail: with other arthropathy Diabetes mellitus complication status: with diabetic arthropathy 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 insulin use: with [facility] use Diabetes mellitus type: type 2 Qualified Code(s): E11.618 - Type 2 diabetes mellitus with other diabetic arthropathy; 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 - 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 insulin Plan Continue diuretics Continue Plavix and Eliquis PDMP PDMP Reviewed: Not Reviewed Attestations Medical Necessity Statement*: As per medicine Coding Level of Care Code Acute Code for [facility] Fwd Diagnoses Acute on chronic systolic heart failure I50.23 Status post aortic valve replacement with bioprosthetic valve Z95.3 Atrial fibrillation with rapid ventricular response I48.91 Atherosclerosis of [place] coronary artery of [place] heart without angina pectoris I25.10 Coronary Disease-Associated Artery/Lesion type: [place] artery Type 2 diabetes mellitus with other diabetic arthropathy, with long-term current use of insulin E11.618; Z79.4 Diabetes mellitus complication detail: with other arthropathy Diabetes mellitus complication status: with diabetic arthropathy Diabetes mellitus [facility] insulin use: with [facility] use Diabetes mellitus type: type 2
[2024-07-31 20:20] LABS: Glucose Point of Care 152 mg/dL (70-110)
[2024-07-31] MEDS: lactulose oral liq 20 gm/30 mL UDC 10 GM PO (20:43)
[2024-08-01] VITALS (7 sets, daily range): BP systolic 115–130; BP diastolic 75–91; PULSE 90–94; RESP 16–22; TEMP 36.4–36.8; O2SAT 90–100
[2024-08-01] MEDS: temazepam 15 mg Capsule PO ×2 (02:08→23:21)
[2024-08-01] MEDS: albumin 25 G/100 ML BAG 60 G IV ×3 (03:22→20:34)
[2024-08-01] MEDS: FUROsemide 10 mg/mL SDV 4mL 40 MG IVP ×3 (04:50→20:34)
[2024-08-01 05:07] LABS: Basophils % 0.4 %; Eosinophils # 0.1 10^3/uL (0.0-0.8); Eosinophils % 1.1 %; Hematocrit 28.5 % (37-53); Lymphocytes # 0.8 10^3/uL (0.8-4.8); Lymphocytes % 14.4 %; Mean Corpuscular HGB Conc 27.4 g/dL (30-55); Mean Corpuscular Hemoglobin 24.5 pg (27-33); Mean Corpuscular Volume 89.6 fl (82-101); Monocytes # 0.6 10^3/uL (0.2-0.9); Monocytes % 10.5 %; Neutrophils # 4.13 10^3/uL (1.8-7.7); Neutrophils % 73.1 %; Nucleated Red Blood Cells % 0 %; Platelet Count 86 10^3/cmm (157-399); Red Blood Count 3.18 10^6/uL (3.85-5.65); Red Cell Distribution Width 18.1 % (12.1-15.1); White Blood Count 5.64 10^3/uL (3.29-11.43)
[2024-08-01 05:21] LABS: INR 1.53 (0.8-1.2)
[2024-08-01 05:24] LABS: Alanine Aminotransferase 351 U/L (0-41); Albumin Level 4.1 g/dL (3.5-5.2); Alkaline Phosphatase 116 U/L (40-130); Anion Gap 13.9 (5-19); Aspartate Amino Transferase 206 U/L (0-40); Blood Urea Nitrogen 42 mg/dL (8-23); Calcium 8.3 mg/dL (8.5-10.5); Carbon Dioxide 30 mmol/L (22-29); Chloride 99 mmol/L (98-107); Creatinine Clr Calc Pharmacy 35.7019; Globulin 2.1 g/dL (1.3-4.6); Glucose 82 mg/dL (65-115); Osmolality Calculated 298 mOsm/kg (285-295); Potassium 3.9 mmol/L (3.5-5.1); Sodium 139 mmol/L (136-145); Total Bilirubin 0.8 mg/dL (0.15-1.2); Total Protein 6.2 g/dL (6.6-8.7)
[2024-08-01 06:24] LABS: Glucose Point of Care 93 mg/dL (70-110)
--- NOTE | 2024-08-01 07:18 | P.PN_ITS ---
Subjective 2 Subjective: good UOP Medications: Reviewed: Yes Vitals/I&O/Wt Last Vital Signs Temp 97.8 F 07/31/24 23:29 Pulse 94 08/01/24 06:28 Resp 16 08/01/24 03:32 BP 130/75 08/01/24 03:32 Pulse Ox 97 08/01/24 03:32 O2 Del Method Oxymask 08/01/24 03:32 O2 Flow Rate 2 08/01/24 03:32 07/31/24 08/01/24 08/01/24 22:59 06:59 14:59 Intake Total 486 / 1042 100 / 1142 Output Total 1630 / 2090 1275 / 3365 Balance -1144 / -1048 -1175 / -2223 Weight last 48 hrs Weight 107.456 kg Weight 108.012 kg Physical Exam 2 Narrative: awake , alert No distress on Room air s1 S2 RRR per report Lungs clear per report Abd -odt m non tender per report + Edema Urinary Catheter Management: Posadas: Cath Placed During This Visit: yes Reason for Continuing Indwelling Catheter: Accurate Measurement of Urinary Output in Critically Ill Patients Urinary Catheter Date of Insertion: 02/09/24 Urinary Catheter Time of Insertion: 17:10 Data 08/01/24 04:20 08/01/24 04:20 A&P Assessment and plan (1) LAUREN (acute kidney injury): 1. Acute on chronic kidney disease: Baseline creatinine in the mid 1 range. LAUREN likely cardiorenal. - continue lasix IV every 8 hours and IV albumin 25 g every 8 hours, UOP improved and Cr better - continue IV lasix and switch to PO lasix in 1-2 days - Strict intake and output, daily weights - No acute indication for dialysis currently 2. Hyperkalemia: Low K diet, improved 3. Anemia: Check iron studies, will add JEN 4. Cardiomyopathy, history of CABG, coronary stent ejection fraction 37% 5. Acute on chronic respiratory failure, multifactorial, diuresis as above 6. History of TAVR 7. Thrombocytopenia , mild monitor 8. Met alkalosis , sec to diuresis , monitor Patient evaluated using audiovisual cart. Time spent 40 minutes PDMP PDMP Reviewed: Not Reviewed Attestations 2 Medical Necessity Statement*: per [facility] Coding Level of Care Code Acute Code for [facility] Fwd Diagnoses LAUREN (acute kidney injury) N17.9
--- NOTE | 2024-08-01 07:26 | PC.NURSE ---
1940- Patient complaing of constipation. He received miralax on Day shift. Requesting second line bowel care. Per Dr. Doe given latulose 15ml PRN BID. 6- Patient requesting medication to help with sleep. per Dr. Doe okay to give restorial 15 mg once and turn on bed alarm. 519- Notified Dr. Doe of hgb 7.80. Per Dr. Doe it i above 7 so will let attendings decide in AM.
[2024-08-01] MEDS: polyethylene glycol 3350 Pkt 17 gm PO (08:01)
[2024-08-01] MEDS: pantoprazole DR 40 mg Tablet PO (08:01)
--- NOTE | 2024-08-01 09:34 | PM.PN ---
Subjective Subjective: seen today resting comfortably in bed, feels slightly better denies chest pain. on face mask as NC was drying out his nose good UOP Medications: Reviewed: Yes Vitals/I&O/Wt Last Vital Signs Temp 97.5 F L 08/01/24 08:00 Pulse 90 08/01/24 08:00 Resp 16 08/01/24 08:00 BP 115/80 08/01/24 08:00 Pulse Ox 94 08/01/24 08:00 O2 Del Method Oxymask 08/01/24 08:00 O2 Flow Rate 2 08/01/24 08:00 07/31/24 08/01/24 08/01/24 22:59 06:59 14:59 Intake Total 486 / 1042 100 / 1142 360 / 360 Output Total 1630 / 2450 1275 / 3725 1125 / 1125 Balance -1144 / -1408 -1175 / -2583 -765 / -765 Weight last 48 hrs Weight 236 lb 14.4 oz Weight 238 lb 2 oz Physical Exam Narrative: General no acute distress, AO x 3 laying in bed CV regular rate and rhythm, loud murmur in the right upper sternal border, elevated JVD On 2 L face mask Lungs: no bibasilar crackles at bases, no wheezes or ronchi Abdomen soft nontender, positive hepatojugular reflux 1+ bilateral lower extremity edema up to mid thighs. Sternal wound appears clean no erythema Urinary Catheter Management: Posadas: Cath Placed During This Visit: yes Reason for Continuing Indwelling Catheter: Accurate Measurement of Urinary Output in Critically Ill Patients Urinary Catheter Date of Insertion: 02/09/24 Urinary Catheter Time of Insertion: 17:10 Data 08/01/24 04:20 08/01/24 04:20 A&P Assessment and plan (1) Decompensated heart failure: (2) CHF (congestive heart failure): Qualifiers: Heart failure chronicity: acute on chronic Heart failure type: diastolic Qualified Code(s): I50.33 - Acute on chronic diastolic (congestive) heart failure (3) History of heart valve repair: (4) Aortic valve stenosis: Qualifiers: Cardiac valve disease etiology: etiology unspecified Qualified Code(s): I35.0 - Nonrheumatic aortic (valve) stenosis (5) Coronary artery disease: Qualifiers: Associated angina: without angina Coronary Disease-Associated Artery/Lesion type: [place] artery [place] vs. transplanted heart: [place] heart Qualified Code(s): I25.10 - Atherosclerotic heart disease of 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 INR elevated 4.1. Patient is on chronic anticoagulation at home with apixaban and is on Plavix antiplatelet agent. Does have mild slurred speech from prior stroke which is intermittent. Generalized weakness most likely secondary to decompensated heart failure. ? He was previously transferred to [place] for AICD evaluation and treatment of infective endocarditis postop from CABG and TAVR that was done last year in December. ? Patient appears to be in decompensated heart failure today. ? Check CT chest abdomen pelvis secondary to evidence of complex pleural effusion on right side and evaluation for LAUREN and to look for any intra-abdominal pathology. ? Liver enzymes are elevated possibly secondary to decompensated heart failure and congestive hepatopathy. Will check hepatitis profile as well ? Hold atorvastatin ? Patient hyperkalemic on admission with potassium 5.8. Was given 1 amp of bicarb. Will repeat CMP at this time. He also received 10 units of IV insulin, calcium chloride 1 g. 60 mg IV Lasix also given. ? Continue DuoNeb every 6 hours as needed ? Hold home metformin ? Continue omeprazole ? Consult nephrology. ? Most likely LAUREN secondary to cardiorenal syndrome due to fluid overload. We will continue to diurese patient ? Start Lasix 40 IV twice daily ? I will hold off on adding oral potassium and will replete as needed. ? Continue on cardiac telemetry ? Patient did describe some chest pressure which may be secondary to decompensated heart failure however secondary to his history will consult cardiology for further input. First 2 troponins delta negative. 6-hour troponin pending. EKG does show paced rhythm. - Hold home Lantus secondary to LAUREN. Continue on sliding scale insulin low-dose intensity ? Check lactic acid ? Check echocardiogram ? We will obtain records from [place]. ? Hold Coreg at this time in setting of decompensated heart failure. ? Continue Plavix. ? Hold Eliquis today secondary to supratherapeutic INR. May restart in next 24 hours. - Patient states his slurred speech is intermittent. Neuroexam generally nonfocal. He is able to move all 4 extremities. Usually walks with a cane. Face symmetrical. He does appear quite deconditioned. ? Check pacemaker interrogation Full code DVT prophylaxis: INR supratherapeutic. I will hold off on adding subcu heparin at this time. 07/30/2024 INR 3.2 today. May restart Eliquis in next 24 hours. INR most likely elevated due to underlying liver disease with component of being on Eliquis. Continue to hold Lantus Sliding scale low-dose intensity at this time. Continue to diurese patient Nephrology consulted. Liver enzymes improving slowly. Most likely secondary congestive hepatopathy. Hepatitis profile pending. Statin 2.7 today. Patient will need GI referral as an outpatient. Echocardiogram pending Cardiology consulted. Continue to follow recommendations. 07/31/24 -Eliquis 5mg BID -INR 1.82 (07/31) -levofloxacin, Cx from [place] pending -hyperkalemia has resolved -LDSSI with accuchecks -lasix 40mg IVP TID, continue albumin -has diuresed well -LFT's slowly improving. may require GI referral as outpatient setting -LAUREN slowly improving. continue albumin per nephrology. 08/01/24 -eliquis 5mg BID -INR 1.54 (08/01/24) -hyperkalemia resolved, transaminitis improving -Cr improved to 2.2 this AM -continue lasix 40mg IVP TID, continue albumin 25mg TID -can consider transition to PO lasix in 24-48hrs PDMP PDMP Reviewed: Not Reviewed Attestations Medical Necessity Statement*: will require 2 overnight stays due to CHF exacerbation Coding Level of Care Code 13231 Diagnoses Decompensated heart failure I50.9 Acute on chronic diastolic congestive heart failure I50.33 Heart failure chronicity: acute on chronic Heart failure type: diastolic History of heart valve repair Z98.890 Aortic valve stenosis, etiology of cardiac valve disease unspecified I35.0 Cardiac valve disease etiology: etiology unspecified Coronary artery disease involving [place] coronary artery of [place] heart without angina pectoris I25.10 Associated angina: without angina Coronary Disease-Associated Artery/Lesion type: [place] artery [place] vs. transplanted heart: [place] heart Pacemaker Z95.0 Supratherapeutic INR R79.1 Type 2 diabetes mellitus with other diabetic arthropathy, with long-term current use of insulin E11.618; Z79.4 Diabetes mellitus complication detail: with other arthropathy Diabetes mellitus complication status: with diabetic arthropathy Diabetes mellitus intermediate designer insulin use: with intermediate designer use Diabetes mellitus type: type 2 Shortness of breath R06.02 Acute passive congestion of liver K76.1 Elevated liver enzymes R74.8 LAUREN (acute kidney injury) N17.9 Hyperkalemia E87.5
[2024-08-01] MEDS: clopidogrel 75 mg Tablet PO (10:22)
[2024-08-01 11:37] LABS: Glucose Point of Care 240 mg/dL (70-110)
[2024-08-01] MEDS: insulin lispro 100 unit/1 mL SUBCUT ×3 (12:09→20:52)
--- NOTE | 2024-08-01 15:26 | P.PN_ITS ---
Subjective 2 Subjective: Sitting in the bed denies any complaint Medications: Reviewed: Yes Medication Review Details: Current Medications Acetaminophen (Acetaminophen 325 Mg Tablet) 650 mg PO Q6H PRN PRN Reason: Mild/Mod Pain Or Temp >/= 101 Albuterol/Ipratropium (Ipratropium-Albuterol 3 Ml Neb) 3 ml INHALATION Q6H PRN PRN Reason: SHORTNESS OF BREATH Atorvastatin Calcium (Atorvastatin 40 Mg Tablet) 40 mg PO QPM [facility] Last Admin: 07/29/24 18:46 Dose: 40 mg Clopidogrel Bisulfate (Clopidogrel 75 Mg Tablet) 75 mg PO DAILY FELIPE Furosemide (Furosemide 10 Mg/Ml Sdv 4ml) 40 mg IVP Q12H FELIPE Last Admin: 07/30/24 03:51 Dose: 40 mg Glucagon (Glucagon 1 Mg/Ml Kit 1 Ml) 1 mg IM ONCE PRN; Protocol PRN Reason: Adult Acute Hypoglycemia Nursing Prot. Dextrose (D5w) 500 mls @ 0 mls/hr IV ONCE PRN; Protocol PRN Reason: Adult Acute Hypoglycemia Prot Dextrose (D10w) 125 mls @ 750 mls/hr IV PRN PRN; Protocol PRN Reason: Adult Acute Hypoglycemia Nursing Protocol Dextrose (D10w) 250 mls @ 1,000 mls/hr IV PRN PRN; Protocol PRN Reason: Adult Acute Hypoglycemia Nursing Protocol Levofloxacin/Dextrose (Levaquin-D5w) 750 mg in 150 mls @ 100 mls/hr IV Q48H FELIPE; Protocol Last Infusion: 07/29/24 19:18 Dose: Infused Insulin Human Lispro (Insulin Lispro 100 Unit/1 Ml) 0 unit SUBCUT WM&BEDTIME [facility]; Protocol Last Admin: 07/30/24 06:52 Dose: Not Given Ondansetron HCl (Ondansetron 2 Mg/Ml Sdv 2 Ml) 4 mg IVP Q8H PRN PRN Reason: vomiting, or N/V if npo Pantoprazole Sodium (Pantoprazole Dr 40 Mg Tablet) 40 mg PO DAILY FELIPE Pantoprazole Sodium (Pantoprazole Dr 40 Mg Tablet) 40 mg PO DAILY FELIPE Pramipexole Dihydrochloride (Pramipexole 0.25 Mg Tablet) 0.5 mg PO QPM FELIPE Last Admin: 07/29/24 18:46 Dose: 0.5 mg Vitals/I&O/Wt Last Vital Signs Temp 97.5 F L 08/01/24 12:00 Pulse 90 08/01/24 12:00 Resp 16 08/01/24 12:00 BP 122/91 08/01/24 12:00 Pulse Ox 100 08/01/24 12:00 O2 Del Method Oxymask 08/01/24 12:00 O2 Flow Rate 2 08/01/24 12:00 08/01/24 08/01/24 08/01/24 06:59 14:59 22:59 Intake Total 100 / 1142 660 / 660 Output Total 1275 / 3725 1525 / 1525 Balance -1175 / -2583 -865 / -865 Weight last 48 hrs Weight 236 lb 14.4 oz Weight 238 lb 2 oz Physical Exam 2 Const: OTHER: GENERAL: Patient is alert, awake and oriented x3. HEART: Regular S1 and S2. No murmur, rub or gallop. LUNGS: Reduced bilaterally. CENTRAL NERVOUS SYSTEM: Grossly nonfocal. EXTREMITIES: Lower extremities with out edema bilaterally. Urinary Catheter Management: Posadas: Cath Placed During This Visit: yes Reason for Continuing Indwelling Catheter: Accurate Measurement of Urinary Output in Critically Ill Patients Urinary Catheter Date of Insertion: 02/09/24 Urinary Catheter Time of Insertion: 17:10 Data 08/01/24 04:20 08/01/24 04:20 A&P Assessment and plan (1) Acute on chronic systolic heart failure: Improving, continue IV Lasix as per nephro (2) Status post aortic valve replacement with bioprosthetic valve: Awaiting record from the [facility] (3) Atrial fibrillation with rapid ventricular response: Controlled (4) Atherosclerosis of coronary artery of [place] heart without angina pectoris: Continue Plavix Qualifiers: Coronary Disease-Associated Artery/Lesion type: [place] artery Qualified Code(s): I25.10 - Atherosclerotic heart disease of [place] coronary artery without angina pectoris (5) Diabetes mellitus: As per medicine Qualifiers: Diabetes mellitus type: type 2 Diabetes mellitus marine oil terminal superintendent insulin use: with marine oil terminal superintendent use Diabetes mellitus complication status: with diabetic arthropathy Diabetes mellitus complication detail: with other arthropathy Q ualified Code(s): E11.618 - Type 2 diabetes mellitus with other diabetic arthropathy; Z79.4 - shelter (current) use of insulin Plan Lasix 40 IV push every 8 Continue to monitor I's and O's and electrolytes Continue Plavix and Eliquis PDMP PDMP Reviewed: Not Reviewed Attestations 2 Medical Necessity Statement*: As per medicine Coding Level of Care Code Acute Code for Chg Fwd Diagnoses Acute on chronic systolic heart failure I50.23 Status post aortic valve replacement with bioprosthetic valve Z95.3 Atrial fibrillation with rapid ventricular response I48.91 Atherosclerosis of [place] coronary artery of [place] heart without angina pectoris I25.10 Coronary Disease-Associated Artery/Lesion type: [place] artery Type 2 diabetes mellitus with other diabetic arthropathy, with long-term current use of insulin E11.618; Z79.4 Diabetes mellitus type: type 2 Diabetes mellitus marine oil terminal superintendent insulin use: with usp use Diabetes mellitus complication status: with diabetic arthropathy Diabetes mellitus complication detail: with other arthropathy
[2024-08-01] MEDS: lactulose oral liq 20 gm/30 mL UDC 10 GM PO (16:50)
[2024-08-01] MEDS: atorvastatin 40 mg Tablet PO (16:50)
[2024-08-01] MEDS: pramipexole 0.25 mg Tablet 0.5 MG PO (16:50)
[2024-08-01 17:09] LABS: Glucose Point of Care 181 mg/dL (70-110)
[2024-08-01 20:50] LABS: Glucose Point of Care 198 mg/dL (70-110)
[2024-08-02] VITALS (8 sets, daily range): BP systolic 105–135; BP diastolic 71–87; PULSE 90–91; RESP 16–28; TEMP 36.3–36.8; O2SAT 96–100
[2024-08-02] MEDS: albumin 25 G/100 ML BAG 60 G IV ×3 (03:02→20:11)
[2024-08-02 03:44] LABS: Basophils % 0.3 %; Eosinophils # 0.1 10^3/uL (0.0-0.8); Eosinophils % 0.8 %; Hematocrit 30.2 % (37-53); Lymphocytes # 0.9 10^3/uL (0.8-4.8); Lymphocytes % 14.5 %; Mean Corpuscular HGB Conc 27.8 g/dL (30-55); Mean Corpuscular Hemoglobin 24.9 pg (27-33); Mean Corpuscular Volume 89.3 fl (82-101); Mean Platelet Volume 11.9 fL (7.4-10.4); Monocytes # 0.6 10^3/uL (0.2-0.9); Monocytes % 9.8 %; Neutrophils # 4.72 10^3/uL (1.8-7.7); Neutrophils % 74.3 %; Nucleated Red Blood Cells % 0 %; Platelet Count 77 10^3/cmm (157-399); Red Blood Count 3.38 10^6/uL (3.85-5.65); Red Cell Distribution Width 18.1 % (12.1-15.1); White Blood Count 6.35 10^3/uL (3.29-11.43)
[2024-08-02] MEDS: FUROsemide 10 mg/mL SDV 4mL 40 MG IVP ×3 (03:45→21:24)
[2024-08-02 04:08] LABS: Alanine Aminotransferase 260 U/L (0-41); Albumin Level 4.3 g/dL (3.5-5.2); Alkaline Phosphatase 115 U/L (40-130); Anion Gap 16.8 (5-19); Aspartate Amino Transferase 120 U/L (0-40); Blood Urea Nitrogen 42 mg/dL (8-23); Calcium 8.9 mg/dL (8.5-10.5); Carbon Dioxide 29 mmol/L (22-29); Chloride 98 mmol/L (98-107); Creatinine Clr Calc Pharmacy 35.6135; Globulin 2.3 g/dL (1.3-4.6); Glucose 90 mg/dL (65-115); Osmolality Calculated 300 mOsm/kg (285-295); Potassium 3.8 mmol/L (3.5-5.1); Sodium 140 mmol/L (136-145); Total Protein 6.6 g/dL (6.6-8.7)
--- NOTE | 2024-08-02 06:19 | PM.PN ---
Subjective Subjective: 79 year old male past medical history of aortic stenosis, status post recent TAVR at [facility] on December 30, 2023. 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 He is currently admitted here since 07/29 with complaint of weakness and slurred speech that started 5 days [employer]. In the ER he was noted to have INR 4.11 on Eliquis chronically, potassium 5.8, creatinine 2.5, AST ALT elevated 393, 357, alkaline phosphatase 161, troponin 49, 49.22, BNP 23,000.He has been receiving diuresis with iv lasix. Liver shows signs of cirrhosis, suspect may be related to CHF and chronic hepatic congestion.B/L pleural effusions with scattered infiltrates. Abx levofloxacin day 5 today, to be discontinued after today. Medications: Reviewed: Yes Medication Review Details: Current Medications Acetaminophen (Acetaminophen 325 Mg Tablet) 650 mg PO Q6H PRN PRN Reason: Mild/Mod Pain Or Temp >/= 101 Albuterol/Ipratropium (Ipratropium-Albuterol 3 Ml Neb) 3 ml INHALATION Q6H PRN PRN Reason: SHORTNESS OF BREATH Atorvastatin Calcium (Atorvastatin 40 Mg Tablet) 40 mg PO QPM FELIPE Last Admin: 07/29/24 18:46 Dose: 40 mg Clopidogrel Bisulfate (Clopidogrel 75 Mg Tablet) 75 mg PO DAILY FELIPE Furosemide (Furosemide 10 Mg/Ml Sdv 4ml) 40 mg IVP Q12H FELIPE Last Admin: 07/30/24 03:51 Dose: 40 mg Glucagon (Glucagon 1 Mg/Ml Kit 1 Ml) 1 mg IM ONCE PRN; Protocol PRN Reason: Adult Acute Hypoglycemia Nursing Prot. Dextrose (D5w) 500 mls @ 0 mls/hr IV ONCE PRN; Protocol PRN Reason: Adult Acute Hypoglycemia Prot Dextrose (D10w) 125 mls @ 750 mls/hr IV PRN PRN; Protocol PRN Reason: Adult Acute Hypoglycemia Nursing Protocol Dextrose (D10w) 250 mls @ 1,000 mls/hr IV PRN PRN; Protocol PRN Reason: Adult Acute Hypoglycemia Nursing Protocol Levofloxacin/Dextrose (Levaquin-D5w) 750 mg in 150 mls @ 100 mls/hr IV Q48H FELIPE; Protocol Last Infusion: 07/29/24 19:18 Dose: Infused Insulin Human Lispro (Insulin Lispro 100 Unit/1 Ml) 0 unit SUBCUT WM&BEDTIME [facility]; Protocol Last Admin: 07/30/24 06:52 Dose: Not Given Ondansetron HCl (Ondansetron 2 Mg/Ml Sdv 2 Ml) 4 mg IVP Q8H PRN PRN Reason: vomiting, or N/V if npo Pantoprazole Sodium (Pantoprazole Dr 40 Mg Tablet) 40 mg PO DAILY FELIPE Pantoprazole Sodium (Pantoprazole Dr 40 Mg Tablet) 40 mg PO DAILY [facility] Pramipexole Dihydrochloride (Pramipexole 0.25 Mg Tablet) 0.5 mg PO QPM [facility] Last Admin: 07/29/24 18:46 Dose: 0.5 mg Vitals/I&O/Wt Last Vital Signs Temp 97.5 F L 08/02/24 04:00 Pulse 90 08/02/24 04:00 Resp 20 H 08/02/24 04:00 BP 113/71 08/02/24 04:00 Pulse Ox 100 08/02/24 04:00 O2 Del Method Oxymask 08/02/24 04:00 O2 Flow Rate 2 08/01/24 16:00 08/01/24 08/01/24 08/02/24 14:59 22:59 06:59 Intake Total 660 / 660 640 / 1300 250 / 1550 Output Total 1525 / 1525 1025 / 2550 175 / 2725 Balance -865 / -865 -385 / -1250 75 / -1175 Weight last 48 hrs Weight 107.002 kg Weight 107.456 kg Weight 108.012 kg Physical Exam Narrative: General: No acute distress, AO x3 HEENT: PERRLA, pupils bilaterally equal and reactive, pallors not present Chest: crackles to auscultation B/L CVS: S1-S2 regular, no murmurs, no tachycardia, no gallops, no rubs Abdomen: Soft, nontender, no organomegaly, bowel sounds present Neuro: No focal deficits, no facial deformity, AO x3, power 5/5 in all limbs Urinary Catheter Management: Posadas: Cath Placed During This Visit: yes Reason for Continuing Indwelling Catheter: Accurate Measurement of Urinary Output in Critically Ill Patients Urinary Catheter Date of Insertion: 02/09/24 Urinary Catheter Time of Insertion: 17:10 Data 08/02/24 03:01 08/02/24 03:01 A&P Assessment and plan (1) Decompensated heart failure: (2) CHF (congestive heart failure): Qualifiers: Heart failure type: diastolic Heart failure chronicity: acute on chronic Qualified Code(s): I50.33 - Acute on chronic diastolic (congestive) heart failure (3) History of heart valve repair: (4) Aortic valve stenosis: Qualifiers: Cardiac valve disease etiology: etiology unspecified Qualified Code(s): I35.0 - Nonrheumatic aortic (valve) stenosis (5) Coronary artery disease: Qualifiers: Coronary Disease-Associated Artery/Lesion type: [place] artery [place] vs. transplanted heart: [place] heart Associated angina: without angina Qualified Code(s): I25.10 - Atherosclerotic heart disease of [place] coronary artery without angina pectoris (6) Pacemaker: (7) Supratherapeutic INR: resolved (8) Diabetes mellitus: LDSSI and accuchecks Qualifiers: Diabetes mellitus type: type 2 Diabetes mellitus marine oil terminal superintendent insulin use: with marine oil terminal superintendent use Diabetes mellitus complication status: with diabetic arthropathy Diabetes mellitus complication detail: with other arthropathy Qualified Code(s): E11.618 - Type 2 diabetes mellitus with other diabetic arthropathy; Z79.4 - rn long term care (current) use of insulin (9) Shortness of breath: (10) Acute passive congestion of liver: (11) Elevated liver enzymes: slowly improving (12) LAUREN (acute kidney injury): slowly improving followed by nephro (13) Hyperkalemia: resolved Plan #Acute on chronic systolic/diastolic HF, known EF 25%, status post pacemaker. 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 INR elevated 4.1. Patient is on chronic anticoagulation at home with apixaban and is on Plavix antiplatelet agent. Does have mild slurred speech from prior stroke which is intermittent. Generalized weakness most likely secondary to decompensated heart failure. ? He was previously transferred to [place] for AICD evaluation and treatment of infective endocarditis postop from CABG and TAVR that was done last year in December. ? Patient appears to be in decompensated heart failure today. ? Check CT chest abdomen pelvis secondary to evidence of complex pleural effusion on right side and evaluation for LAUREN and to look for any intra-abdominal pathology. ? Liver enzymes are elevated possibly secondary to decompensated heart failure and congestive hepatopathy. Will check hepatitis profile as well ? Hold atorvastatin ? Patient hyperkalemic on admission with potassium 5.8. Was given 1 amp of bicarb. Will repeat CMP at this time. He also received 10 units of IV insulin, calcium chloride 1 g. 60 mg IV Lasix also given. ? Continue DuoNeb every 6 hours as needed ? Hold home metformin ? Continue omeprazole ? Consult nephrology. ? Most likely LAUREN secondary to cardiorenal syndrome due to fluid overload. We will continue to diurese patient ? Start Lasix 40 IV twice daily ? I will hold off on adding oral potassium and will replete as needed. ? Continue on cardiac telemetry ? Patient did describe some chest pressure which may be secondary to decompensated heart failure however secondary to his history will consult cardiology for further input. First 2 troponins delta negative. 6-hour troponin pending. EKG does show paced rhythm. - Hold home Lantus secondary to LAUREN. Continue on sliding scale insulin low-dose intensity ? Check lactic acid ? Check echocardiogram ? We will obtain records from [place]. ? Hold Coreg at this time in setting of decompensated heart failure. ? Continue Plavix. ? Hold Eliquis today secondary to supratherapeutic INR. May restart in next 24 hours. - Patient states his slurred speech is intermittent. Neuroexam generally nonfocal. He is able to move all 4 extremities. Usually walks with a cane. Face symmetrical. He does appear quite deconditioned. ? Check pacemaker interrogation Full code DVT prophylaxis: INR supratherapeutic. I will hold off on adding subcu heparin at this time. 07/30/2024 INR 3.2 today. May restart Eliquis in next 24 hours. INR most likely elevated due to underlying liver disease with component of being on Eliquis. Continue to hold Lantus Sliding scale low-dose intensity at this time. Continue to diurese patient Nephrology consulted. Liver enzymes improving slowly. Most likely secondary congestive hepatopathy. Hepatitis profile pending. Statin 2.7 today. Patient will need GI referral as an outpatient. Echocardiogram pending Cardiology consulted. Continue to follow recommendations. 07/31/24 -Eliquis 5mg BID -INR 1.82 (07/31) -levofloxacin, Cx from [place] pending -hyperkalemia has resolved -LDSSI with accuchecks -lasix 40mg IVP TID, continue albumin -has diuresed well -LFT's slowly improving. may require GI referral as outpatient setting -LAUREN slowly improving. continue albumin per nephrology. 08/01/24 -eliquis 5mg BID -INR 1.54 (08/01/24) -hyperkalemia resolved, transaminitis improving -Cr improved to 2.2 this AM -continue lasix 40mg IVP TID, continue albumin 25mg TID -can consider transition to PO lasix in 24-48hrs August 02, 2024 Continues to be on IV diuresis with Lasix 40 mg every 8 hours. Net -600 cc last 24 hours. Overall net negative by 6 L. However patient states he does not feel significantly better.Currently on supplemental 02 at 1.5L. Platelet count at 77,000. Cr stable at 2.2. Eliquis and a/x on hold. Ct chest with moderate right and small left pleural effusion. Repeat chest x-ray as patient reports no significant improvement however objectively has reducing oxygen requirements currently. PDMP PDMP Reviewed: Not Reviewed Attestations Medical Necessity Statement*: Continued need for IV diuresis, repeat chest x-ray. Coding Level of Care Code Acute Code for Chg Fwd Diagnoses Decompensated heart failure I50.9 Acute on chronic diastolic congestive heart failure I50.33 Heart failure type: diastolic Heart failure chronicity: acute on chronic History of heart valve repair Z98.890 Aortic valve stenosis, etiology of cardiac valve disease unspecified I35.0 Cardiac valve disease etiology: etiology unspecified Coronary artery disease involving [place] coronary artery of [place] heart without angina pectoris I25.10 Coronary Disease-Associated Artery/Lesion type: [place] artery [place] vs. transplanted heart: [place] heart Associated angina: without angina Pacemaker Z95.0 Supratherapeutic INR R79.1 Type 2 diabetes mellitus with other diabetic arthropathy, with long-term current use of insulin E11.618; Z79.4 Diabetes mellitus type: type 2 Diabetes mellitus [facility] insulin use: with marine oil terminal superintendent use Diabetes mellitus complication status: with diabetic arthropathy Diabetes mellitus complication detail: with other arthropathy Shortness of breath R06.02 Acute passive congestion of liver K76.1 Elevated liver enzymes R74.8 LAUREN (acute kidney injury) N17.9 Hyperkalemia E87.5
[2024-08-02 06:37] LABS: Glucose Point of Care 116 mg/dL (70-110)
[2024-08-02] MEDS: clopidogrel 75 mg Tablet PO (08:12)
[2024-08-02] MEDS: pantoprazole DR 40 mg Tablet PO (08:12)
[2024-08-02] MEDS: polyethylene glycol 3350 Pkt 17 gm PO (08:13)
[2024-08-02 12:02] LABS: Glucose Point of Care 172 mg/dL (70-110)
[2024-08-02] MEDS: insulin lispro 100 unit/1 mL SUBCUT ×3 (12:48→21:24)
--- NOTE | 2024-08-02 13:30 | PC.SOCIAL ---
IMM Update pg 2 of IMM updated and reviewed w/ patient. Copy provided and copy dated, initialed and placed in chart.
--- NOTE | 2024-08-02 15:27 | P.PN_ITS ---
<Statement entered by Prem David MD - 08/02/24 20:12> Patient was evaluated and cared for in conjunction with an advanced practice practitioner. I personally examined the patient and reviewed the chart and all pertinent data including imaging, telemetry, and laboratory results. I discussed the patient in detail with the advanced practice practitioner. Please see their note for complete H&P testing result and agreed upon plan of care for the patient. Patient appeared to be euvolemic GENERAL: Patient is alert, awake and oriented x3. HEART: Regular S1 and S2. No murmur, rub or gallop. LUNGS: Clear to auscultate bilaterally. CENTRAL NERVOUS SYSTEM: Grossly nonfocal. EXTREMITIES: Lower extremities with out edema bilaterally. Assessment and plan Acute decompensated systolic heart failure Atrial fibrillation now controlled acute on chronic kidney disease Medicine nephrology on board, at this point patient may need can be transition to p.o. diuretics, will defer to nephrology since patient was managed by medicine and nephrology colleagues Continue rest of medications Subjective 2 Subjective: Patient is doing well this morning without complaints. Overall looks stable. He is negative for 10 over 24 hours. He continues Lasix IV Q8. Creatinine is stable at 2.2. Vitals/I&O/Wt Last Vital Signs Temp 98.0 F 08/02/24 12:20 Pulse 90 08/02/24 12:20 Resp 26 H 08/02/24 12:20 BP 135/82 08/02/24 12:20 Pulse Ox 98 08/02/24 12:20 O2 Del Method Nasal Cannula 08/02/24 08:40 O2 Flow Rate 1.5 08/02/24 08:40 08/02/24 08/02/24 08/02/24 06:59 14:59 22:59 Intake Total 250 / 1550 460 / 460 Output Total 175 / 2725 750 / 750 Balance 75 / -1175 -290 / -290 Weight last 48 hrs Weight 235 lb 14.4 oz Weight 236 lb 14.4 oz Physical Exam 2 Narrative: General: No apparent distress, healthy appearing, well nourished HENMT: normoceophalic Muskuloskeletal: Full ROM Lymphatic: no lymphedema noted Respiratory: Normal respiratory effort, clear to auscultation bilaterally throughout all lung angel, no use of accessory muscles Cardio: No JVD, regular rate, regular rhythm, S1 S2 normal, no murmurs, peripheral pulses 2+ radial palpated bilaterally GI: Normal to inspection, nondistended Extremities: Full ROM, normal, normal capillary refill, no cyanosis or edema Neuro: Alert and oriented x4, no focal motor deficits Psych: Affect normal, mental status grossly normal Skin: No rashes or lesions noted, no wounds Urinary Catheter Management: Posadas: Cath Placed During This Visit: yes Reason for Continuing Indwelling Catheter: Accurate Measurement of Urinary Output in Critically Ill Patients Urinary Catheter Date of Insertion: 02/09/24 Urinary Catheter Time of Insertion: 17:10 Data 08/02/24 03:01 08/02/24 03:01 A&P Assessment and plan (1) Acute on chronic systolic heart failure: (2) Status post aortic valve replacement with bioprosthetic valve: (3) Atrial fibrillation with rapid ventricular response: (4) Atherosclerosis of coronary artery of [place] heart without angina pectoris: Qualifiers: Coronary Disease-Associated Artery/Lesion type: [place] artery Qualified Code(s): I25.10 - Atherosclerotic heart disease of [place] coronary artery without angina pectoris (5) Diabetes mellitus: Qualifiers: Diabetes mellitus type: type 2 Diabetes mellitus [facility] insulin use: with ferry terminal agent use Diabetes mellitus complication status: with diabetic arthropathy Diabetes mellitus complication detail: with other arthropathy Q ualified Code(s): E11.618 - Type 2 diabetes mellitus with other diabetic arthropathy; Z79.4 - longterm (current) use of insulin Plan At this time patient looks like he is improving. He was negative for 10 over 24 hours. Will continue Lasix 40 every 8 at this time. Continue to monitor creatinine. May switch to p.o. diuretics tomorrow if patient continues to progress appropriately. Continue to monitor I&O and creatinine closely. Will restart heart failure medications once patient is euvolemic. PDMP PDMP Reviewed: Not Reviewed Attestations 2 Medical Necessity Statement*: Deferred to primary. Coding Level of Care Code Acute Code for Chg Fwd Diagnoses Acute on chronic systolic heart failure I50.23 Status post aortic valve replacement with bioprosthetic valve Z95.3 Atrial fibrillation with rapid ventricular response I48.91 Atherosclerosis of [place] coronary artery of [place] heart without angina pectoris I25.10 Coronary Disease-Associated Artery/Lesion type: [place] artery Type 2 diabetes mellitus with other diabetic arthropathy, with long-term current use of insulin E11.618; Z79.4 Diabetes mellitus type: type 2 Diabetes mellitus [facility] insulin use: with ferry terminal agent use Diabetes mellitus complication status: with diabetic arthropathy Diabetes mellitus complication detail: with other arthropathy
--- NOTE | 2024-08-02 15:34 | XRR_ITS ---
PROCEDURE INFORMATION: Exam: XR Chest Exam date and time: 08/02/2024 4:02 PM Age: 79 years old Clinical indication: Condition or disease; Lung condition and disease; Pleural effusion; Other: Not specified; Additional info: Follow up pleural effusion TECHNIQUE: Imaging protocol: Radiologic exam of the chest. Views: 1 view. COMPARISON: 1[place] [id number] 07/29/2024 2:31 PM 2. CR XR chest 1V portable [id number] 07/29/2024 9:48 AM FINDINGS: Tubes, catheters and devices: Dual lead cardiac pacemaker with left chest generator. Lungs: No consolidation. Mild biapical pleural-parenchymal thickening. Pleural spaces: Possible small bilateral pleural effusions. No large effusion. No pneumothorax. Heart/Mediastinum: Stable with prosthetic aortic valve. Bones/joints: Degenerative changes along the spine. Prior median sternotomy. XR/XR chest 1V portable [id number] IMPRESSION: Possible small bilateral pleural effusions. No large effusion.
--- NOTE | 2024-08-02 17:12 | P.PN_ITS ---
Subjective 2 Subjective: denies any complaints Medications: Reviewed: Yes Vitals/I&O/Wt Last Vital Signs Temp 97.9 F 08/02/24 16:00 Pulse 91 08/02/24 16:00 Resp 18 08/02/24 16:00 BP 131/75 08/02/24 16:00 Pulse Ox 100 08/02/24 16:00 O2 Del Method Nasal Cannula 08/02/24 16:00 O2 Flow Rate 2 08/02/24 16:00 08/02/24 08/02/24 08/02/24 06:59 14:59 22:59 Intake Total 250 / 1550 460 / 460 Output Total 175 / 2725 750 / 750 50 / 800 Balance 75 / -1175 -290 / -290 -50 / -340 Weight last 48 hrs Weight 107.002 kg Weight 107.456 kg Physical Exam 2 Narrative: awake , alert No distress on Room air s1 S2 RRR per report Lungs clear per report Abd -odt m non tender per report + Edema Urinary Catheter Management: Posadas: Cath Placed During This Visit: yes Reason for Continuing Indwelling Catheter: Accurate Measurement of Urinary Output in Critically Ill Patients Urinary Catheter Date of Insertion: 02/09/24 Urinary Catheter Time of Insertion: 17:10 Data 08/02/24 03:01 08/02/24 03:01 A&P Assessment and plan (1) LAUREN (acute kidney injury): 1. Acute on chronic kidney disease: Baseline creatinine in the mid 1 range. LAUREN likely cardiorenal. - continue lasix IV every 8 hours and IV albumin 25 g every 8 hours, UOP improved and Cr stable - continue IV lasix and switch to PO lasix in 1-2 days - ? if UOP is accurately documented - Strict intake and output, daily weights - No acute indication for dialysis currently 2. Hyperkalemia: Low K diet, improved 3. Anemia: Check iron studies, will add JEN 4. Cardiomyopathy, history of CABG, coronary stent ejection fraction 37% 5. Acute on chronic respiratory failure, multifactorial, diuresis as above 6. History of TAVR 7. Thrombocytopenia , mild monitor 8. Met alkalosis , sec to diuresis , monitor Patient evaluated using audiovisual cart. Time spent 40 minutes PDMP PDMP Reviewed: Not Reviewed Attestations 2 Medical Necessity Statement*: per lisette Coding Level of Care Code Acute Code for Chg Fwd Diagnoses LAUREN (acute kidney injury) N17.9
[2024-08-02] MEDS: pramipexole 0.25 mg Tablet 0.5 MG PO (17:37)
[2024-08-02] MEDS: levofloxacin-dextrose 5 % 750 MG/150 ML PREMIX 100 MG IV (17:37)
[2024-08-02] MEDS: atorvastatin 40 mg Tablet PO (17:37)
[2024-08-02 17:38] LABS: Glucose Point of Care 184 mg/dL (70-110)
[2024-08-02 20:47] LABS: Glucose Point of Care 242 mg/dL (70-110)
[2024-08-03] VITALS (7 sets, daily range): BP systolic 91–129; BP diastolic 65–77; PULSE 90–92; RESP 16–24; TEMP 36.2–36.8; O2SAT 91–100
[2024-08-03 03:13] LABS: Basophils % 0.2 %; Eosinophils % 0.3 %; Hematocrit 30.3 % (37-53); Lymphocytes % 15.9 %; Mean Corpuscular HGB Conc 28.1 g/dL (30-55); Mean Corpuscular Hemoglobin 25.1 pg (27-33); Mean Corpuscular Volume 89.4 fl (82-101); Mean Platelet Volume 11.4 fL (7.4-10.4); Monocytes # 0.7 10^3/uL (0.2-0.9); Monocytes % 10.4 %; Neutrophils # 4.62 10^3/uL (1.8-7.7); Neutrophils % 72.9 %; Nucleated Red Blood Cells % 0.3 %; Platelet Count 81 10^3/cmm (157-399); Red Blood Count 3.39 10^6/uL (3.85-5.65); Red Cell Distribution Width 17.8 % (12.1-15.1); White Blood Count 6.34 10^3/uL (3.29-11.43)
[2024-08-03 03:33] LABS: Alanine Aminotransferase 177 U/L (0-41); Albumin Level 4.5 g/dL (3.5-5.2); Alkaline Phosphatase 118 U/L (40-130); Anion Gap 15.4 (5-19); Aspartate Amino Transferase 80 U/L (0-40); Blood Urea Nitrogen 45 mg/dL (8-23); Calcium 9.1 mg/dL (8.5-10.5); Carbon Dioxide 33 mmol/L (22-29); Chloride 94 mmol/L (98-107); Creatinine Clr Calc Pharmacy 39.0954; Globulin 2.3 g/dL (1.3-4.6); Glucose 101 mg/dL (65-115); Magnesium 2.5 mg/dL (1.7-2.3); Osmolality Calculated 298 mOsm/kg (285-295); Potassium 4.4 mmol/L (3.5-5.1); Sodium 138 mmol/L (136-145); Total Bilirubin 1.5 mg/dL (0.15-1.2); Total Protein 6.8 g/dL (6.6-8.7)
[2024-08-03] MEDS: albumin 25 G/100 ML BAG 60 G IV (04:12)
[2024-08-03] MEDS: FUROsemide 10 mg/mL SDV 4mL 40 MG IVP (05:12)
[2024-08-03 07:30] LABS: Glucose Point of Care 117 mg/dL (70-110)
[2024-08-03] MEDS: clopidogrel 75 mg Tablet PO (08:56)
[2024-08-03] MEDS: pantoprazole DR 40 mg Tablet PO (08:56)
[2024-08-03] MEDS: polyethylene glycol 3350 Pkt 17 gm PO (08:56)
--- NOTE | 2024-08-03 09:21 | PM.PN ---
Subjective Subjective: no new complaints Medications: Reviewed: Yes Vitals/I&O/Wt Last Vital Signs Temp 97.2 F L 08/03/24 08:00 Pulse 90 08/03/24 08:00 Resp 20 H 08/03/24 08:00 BP 121/77 08/03/24 08:00 Pulse Ox 92 08/03/24 08:00 O2 Del Method Room Air 08/03/24 08:00 O2 Flow Rate 2 08/03/24 07:53 08/02/24 08/03/24 08/03/24 22:59 06:59 14:59 Intake Total 490 / 950 460 / 1410 120 / 120 Output Total 250 / 1000 1200 / 2200 Balance 240 / -50 -740 / -790 120 / 120 Weight last 48 hrs Weight 108.182 kg Weight 107.002 kg Physical Exam Narrative: awake , alert No distress on Room air s1 S2 RRR per report Lungs clear per report Abd -odt m non tender per report + Edema Urinary Catheter Management: Posadas: Cath Placed During This Visit: yes Reason for Continuing Indwelling Catheter: Accurate Measurement of Urinary Output in Critically Ill Patients Urinary Catheter Date of Insertion: 02/09/24 Urinary Catheter Time of Insertion: 17:10 Data 08/04/24 03:50 08/04/24 03:50 A&P Assessment and plan (1) LAUREN (acute kidney injury): 1. Acute on chronic kidney disease: Baseline creatinine in the mid 1 range. LAUREN likely cardiorenal. - on lasix IV every 8 hours and IV albumin 25 g every 8 hours, UOP improved and Cr stable - Switch to po laix today - Strict intake and output, daily weights - Arrange Nephrology follow up @ dc 2. Hyperkalemia: Low K diet, improved 3. Anemia: Check iron studies, will add JEN 4. Cardiomyopathy, history of CABG, coronary stent ejection fraction 37% 5. Acute on chronic respiratory failure, multifactorial, diuresis as above 6. History of TAVR 7. Thrombocytopenia , mild monitor 8. Met alkalosis , sec to diuresis , monitor Patient evaluated using audiovisual cart. Time spent 40 minutes PDMP PDMP Reviewed: Not Reviewed Attestations Medical Necessity Statement*: per [facility] Coding Level of Care Code Acute Code for [facility] Fwd Diagnoses LAUREN (acute kidney injury) N17.9
[2024-08-03] MEDS: glycerin adult supp 1 EACH PR (10:27)
--- NOTE | 2024-08-03 10:41 | P.PN_ITS ---
Subjective 2 Subjective: Denies any new complaints today. He is on an oxygen mask at the time of this evaluation. 2 L/min supplemental O2. He states he prefers the OxyMask to the nasal cannula as he is a mouth breather. States that his breathing appears to be better today. Lower extremity edema is improving. Medications: Reviewed: Yes Medication Review Details: Current Medications Acetaminophen (Acetaminophen 325 Mg Tablet) 650 mg PO Q6H PRN PRN Reason: Mild/Mod Pain Or Temp >/= 101 Albuterol/Ipratropium (Ipratropium-Albuterol 3 Ml Neb) 3 ml INHALATION Q6H PRN PRN Reason: SHORTNESS OF BREATH Atorvastatin Calcium (Atorvastatin 40 Mg Tablet) 40 mg PO QPM FELIPE Last Admin: 07/29/24 18:46 Dose: 40 mg Clopidogrel Bisulfate (Clopidogrel 75 Mg Tablet) 75 mg PO DAILY [facility] Furosemide (Furosemide 10 Mg/Ml Sdv 4ml) 40 mg IVP Q12H FELIPE Last Admin: 07/30/24 03:51 Dose: 40 mg Glucagon (Glucagon 1 Mg/Ml Kit 1 Ml) 1 mg IM ONCE PRN; Protocol PRN Reason: Adult Acute Hypoglycemia Nursing Prot. Dextrose (D5w) 500 mls @ 0 mls/hr IV ONCE PRN; Protocol PRN Reason: Adult Acute Hypoglycemia Prot Dextrose (D10w) 125 mls @ 750 mls/hr IV PRN PRN; Protocol PRN Reason: Adult Acute Hypoglycemia Nursing Protocol Dextrose (D10w) 250 mls @ 1,000 mls/hr IV PRN PRN; Protocol PRN Reason: Adult Acute Hypoglycemia Nursing Protocol Levofloxacin/Dextrose (Levaquin-D5w) 750 mg in 150 mls @ 100 mls/hr IV Q48H FELIPE; Protocol Last Infusion: 07/29/24 19:18 Dose: Infused Insulin Human Lispro (Insulin Lispro 100 Unit/1 Ml) 0 unit SUBCUT WM&BEDTIME [facility]; Protocol Last Admin: 07/30/24 06:52 Dose: Not Given Ondansetron HCl (Ondansetron 2 Mg/Ml Sdv 2 Ml) 4 mg IVP Q8H PRN PRN Reason: vomiting, or N/V if npo Pantoprazole Sodium (Pantoprazole Dr 40 Mg Tablet) 40 mg PO DAILY FELIPE Pantoprazole Sodium (Pantoprazole Dr 40 Mg Tablet) 40 mg PO DAILY [facility] Pramipexole Dihydrochloride (Pramipexole 0.25 Mg Tablet) 0.5 mg PO QPM [facility] Last Admin: 07/29/24 18:46 Dose: 0.5 mg Vitals/I&O/Wt Last Vital Signs Temp 97.2 F L 08/03/24 08:00 Pulse 90 08/03/24 08:00 Resp 20 H 08/03/24 08:00 BP 121/77 08/03/24 08:00 Pulse Ox 92 08/03/24 08:00 O2 Del Method Room Air 08/03/24 08:00 O2 Flow Rate 2 08/03/24 07:53 08/02/24 08/03/24 08/03/24 22:59 06:59 14:59 Intake Total 490 / 950 460 / 1410 120 / 120 Output Total 250 / 1000 1200 / 2200 Balance 240 / -50 -740 / -790 120 / 120 Weight last 48 hrs Weight 108.182 kg Weight 107.002 kg Physical Exam 2 Narrative: General: No acute distress, AO x3 HEENT: PERRLA, pupils bilaterally equal and reactive, pallors not present Chest: crackles to auscultation B/L CVS: S1-S2 regular, no murmurs, no tachycardia, no gallops, no rubs Abdomen: Soft, nontender, no organomegaly, bowel sounds present Neuro: No focal deficits, no facial deformity, AO x3, power 5/5 in all limbs Urinary Catheter Management: Posadas: Cath Placed During This Visit: yes Reason for Continuing Indwelling Catheter: Accurate Measurement of Urinary Output in Critically Ill Patients Urinary Catheter Date of Insertion: 02/09/24 Urinary Catheter Time of Insertion: 17:10 Data 08/03/24 02:45 08/03/24 02:45 Micro: Microbiology 08/03/24 09:49 Blood Culture - Preliminary Blood SPECIMEN COLLECTED 08/03/24 09:41 Blood Culture - Preliminary Blood SPECIMEN COLLECTED A&P Assessment and plan (1) Decompensated heart failure: (2) CHF (congestive heart failure): Qualifiers: Heart failure type: diastolic Heart failure chronicity: acute on chronic Qualified Code(s): I50.33 - Acute on chronic diastolic (congestive) heart failure (3) History of heart valve repair: (4) Aortic valve stenosis: Qualifiers: Cardiac valve disease etiology: etiology unspecified Qualified Code(s): I35.0 - Nonrheumatic aortic (valve) stenosis (5) Coronary artery disease: Qualifiers: Coronary Disease-Associated Artery/Lesion type: [place] artery [place] vs. 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 insulin use: with detention use Diabetes mellitus complication status: with diabetic arthropathy Diabetes mellitus complication detail: with other arthropathy Q ualified Code(s): E11.618 - Type 2 diabetes mellitus with other diabetic arthropathy; Z79.4 - superintendent container terminal (current) use of insulin (9) Shortness of breath: (10) Acute passive congestion of liver: (11) Elevated liver enzymes: slowly improving (12) LAUREN (acute kidney injury): slowly improving followed by nephro (13) Hyperkalemia: resolved Plan #Acute on chronic systolic/diastolic HF, known EF 25%, status post pacemaker. 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 INR elevated 4.1. Patient is on chronic anticoagulation at home with apixaban and is on Plavix antiplatelet agent. Does have mild slurred speech from prior stroke which is intermittent. Generalized weakness most likely secondary to decompensated heart failure. ? 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 ? Patient appears to be in decompensated heart failure today. ? Check CT chest abdomen pelvis secondary to evidence of complex pleural effusion on right side and evaluation for LAUREN and to look for any intra- abdominal pathology. ? Liver enzymes are elevated possibly secondary to decompensated heart failure and congestive hepatopathy. Will check hepatitis profile as well ? Hold atorvastatin ? Patient hyperkalemic on admission with potassium 5.8. Was given 1 amp of bicarb. Will repeat CMP at this time. He also received 10 units of IV insulin, calcium chloride 1 g. 60 mg IV Lasix also given. ? Continue DuoNeb every 6 hours as needed ? Hold home metformin ? Continue omeprazole ? Consult nephrology. ? Most likely LAUREN secondary to cardiorenal syndrome due to fluid overload. We will continue to diurese patient ? Start Lasix 40 IV twice daily ? I will hold off on adding oral potassium and will replete as needed. ? Continue on cardiac telemetry ? Patient did describe some chest pressure which may be secondary to decompensated heart failure however secondary to his history will consult cardiology for further input. First 2 troponins delta negative. 6-hour troponin pending. EKG does show paced rhythm. - Hold home Lantus secondary to LAUREN. Continue on sliding scale insulin low-dose intensity ? Check lactic acid ? Check echocardiogram ? We will obtain records from [place]. ? Hold Coreg at this time in setting of decompensated heart failure. ? Continue Plavix. ? Hold Eliquis today secondary to supratherapeutic INR. May restart in next 24 hours. - Patient states his slurred speech is intermittent. Neuroexam generally nonfocal. He is able to move all 4 extremities. Usually walks with a cane. Face symmetrical. He does appear quite deconditioned. ? Check pacemaker interrogation Full code DVT prophylaxis: INR supratherapeutic. I will hold off on adding subcu heparin at this time. 07/30/2024 INR 3.2 today. May restart Eliquis in next 24 hours. INR most likely elevated due to underlying liver disease with component of being on Eliquis. Continue to hold Lantus Sliding scale low-dose intensity at this time. Continue to diurese patient Nephrology consulted. Liver enzymes improving slowly. Most likely secondary congestive hepatopathy. Hepatitis profile pending. Statin 2.7 today. Patient will need GI referral as an outpatient. Echocardiogram pending Cardiology consulted. Continue to follow recommendations. 07/31/24 -Eliquis 5mg BID -INR 1.82 (07/31) -levofloxacin, Cx from [place] pending -hyperkalemia has resolved -LDSSI with accuchecks -lasix 40mg IVP TID, continue albumin -has diuresed well -LFT's slowly improving. may require GI referral as outpatient setting -LAUREN slowly improving. continue albumin per nephrology. 08/01/24 -eliquis 5mg BID -INR 1.54 (08/01/24) -hyperkalemia resolved, transaminitis improving -Cr improved to 2.2 this AM -continue lasix 40mg IVP TID, continue albumin 25mg TID -can consider transition to PO lasix in 24-48hrs August 02, 2024 Continues to be on IV diuresis with Lasix 40 mg every 8 hours. Net -600 cc last 24 hours. Overall net negative by 6 L. However patient states he does not feel significantly better.Currently on supplemental 02 at 1.5L. Platelet count at 77,000. Cr stable at 2.2. Eliquis and a/x on hold. Ct chest with moderate right and small left pleural effusion. Repeat chest x-ray as patient reports no significant improvement however objectively has reducing oxygen requirements currently. August 03, 2024 Net -6.4 L now.Creatinine is improving at 2.0. Urine output 2200 cc last 24 hours. IV Lasix transitioned to Lasix 40 mg p.o. twice daily today. Appreciate nephrology recommendations. Hemoglobin at 8.5 today. In trending previous numbers patient has had chronic anemia dating back to at least February 2024. Hemoglobin ranging between 7.5 in February 2024 to 8.5 now. 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 Transferrin saturation of 6%, iron level of 20, ferritin of 74. Patient has not had a bowel movement yet to enable occult blood testing. Start IV iron sucrose 200 mg, plan to complete transfusion for 5 days for iron deficiency anemia and thrombocytopenia. Add multivitamin B12 folate supplementation. Eliquis has been on hold this current admission due to following platelet count. Currently thrombocytopenia has stabilized at 81,000. Suspect that this may be related to a combination of iron deficiency and liver cirrhosis as seen on CT on admission. Spleen is noted to be normal. Will obtain peripheral smear additionally to assess for any potential hemolysis given the rising T. bili. Check haptoglobin levels additionally. Check blood cultures given recent history of endocarditis. In reviewing the chart, patient had strep mitis oralis bacteremia in February 2024. He was transferred to [facility] for endocarditis at the time. He states that he had an extended course of antibiotics though his SP was reported negative. He states that after his discharge from [place] he traveled to [place] for New Year's and was readmitted at [facility] in [place] for another infection. He is unable to tell me if this was endocarditis or not. We have requested records today. Encourage out of bed today, PT OT assessment PDMP PDMP Reviewed: Not Reviewed Attestations 2 Medical Necessity Statement*: Transition IV to oral diuretics today, encourage ambulation, start IV iron, requesting prior records, therapy assessments Coding Level of Care Code Acute Code for Chg Fwd High MDM includes number and complexity of problems actively addressed during encounter, amount and/or complexity of data reviewed/ordered and described risk of complication, morbidity or mortality of management as documented Diagnoses Decompensated heart failure I50.9 Acute on chronic diastolic congestive heart failure I50.33 Heart failure type: diastolic Heart failure chronicity: acute on chronic History of heart valve repair Z98.890 Aortic valve stenosis, etiology of cardiac valve disease unspecified I35.0 Cardiac valve disease etiology: etiology unspecified Coronary artery disease involving poarch coronary artery of [place] heart without angina pectoris I25.10 Coronary Disease-Associated Artery/Lesion type: [place] artery [place] vs. 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
[2024-08-03] MEDS: carvedilol 3.125 mg Tablet PO (12:10)
[2024-08-03] MEDS: multivitamin therapeutic Tablet 1 TAB PO (12:10)
[2024-08-03] MEDS: iron sucrose 200 MG in sodium chloride 0.9% (100 ml) 100 ML 220 MG IV (12:11)
[2024-08-03 12:19] LABS: Glucose Point of Care 140 mg/dL (70-110)
--- NOTE | 2024-08-03 14:22 | P.PN_ITS ---
<Statement entered by Prem David MD - 08/08/24 11:28> Patient was evaluated and cared for in conjunction with an advanced practice practitioner. I personally examined the patient and reviewed the chart and all pertinent data including imaging, telemetry, and laboratory results. I discussed the patient in detail with the advanced practice practitioner. Please see their note for complete H&P testing result and agreed upon plan of care for the patient. Subjective 2 Subjective: Patient doing well at this time. -1150 over 24 hours. Still anemic at 8.5/30. Eliquis is being held due to this. Blood pressure soft at 91/65. Overall he is doing well without complaints. Vitals/I&O/Wt Last Vital Signs Temp 97.6 F 08/03/24 12:00 Pulse 90 08/03/24 12:00 Resp 24 H 08/03/24 12:00 BP 129/75 08/03/24 12:00 Pulse Ox 95 08/03/24 12:00 O2 Del Method Room Air 08/03/24 12:00 O2 Flow Rate 2 08/03/24 07:53 08/02/24 08/03/24 08/03/24 22:59 06:59 14:59 Intake Total 490 / 950 460 / 1410 590 / 590 Output Total 250 / 1000 1200 / 2200 350 / 350 Balance 240 / -50 -740 / -790 240 / 240 Weight last 48 hrs Weight 238 lb 8 oz Weight 235 lb 14.4 oz Physical Exam 2 Narrative: General: No apparent distress, healthy appearing, well nourished HENMT: normoceophalic Muskuloskeletal: Full ROM Lymphatic: no lymphedema noted Respiratory: Normal respiratory effort, fine crackles bilateral lower lobes otherwise clear throughout other lung angel, no use of accessory muscles Cardio: No JVD, regular rate, regular rhythm, S1 S2 normal, no murmurs, peripheral pulses 2+ radial palpated bilaterally GI: Normal to inspection, nondistended Extremities: Full ROM, normal, normal capillary refill, no cyanosis or edema Neuro: Alert and oriented x4, no focal motor deficits Psych: Affect normal, mental status grossly normal Skin: No rashes or lesions noted, no wounds Urinary Catheter Management: Posadas: Cath Placed During This Visit: yes Reason for Continuing Indwelling Catheter: Accurate Measurement of Urinary Output in Critically Ill Patients Urinary Catheter Date of Insertion: 02/09/24 Urinary Catheter Time of Insertion: 17:10 Data 08/03/24 02:45 08/03/24 02:45 Micro: Microbiology 08/03/24 09:49 Blood Culture - Preliminary Blood SPECIMEN COLLECTED 08/03/24 09:41 Blood Culture - Preliminary Blood SPECIMEN COLLECTED A&P Assessment and plan (1) Acute on chronic systolic heart failure: (2) Status post aortic valve replacement with bioprosthetic valve: (3) Atrial fibrillation with rapid ventricular response: (4) Atherosclerosis of coronary artery of [place] heart without angina pectoris: Qualifiers: Coronary Disease-Associated Artery/Lesion type: [place] artery Qualified Code(s): I25.10 - Atherosclerotic heart disease of [place] coronary artery without angina pectoris (5) Diabetes mellitus: Qualifiers: Diabetes mellitus type: type 2 Diabetes mellitus residential insulin use: with residential use Diabetes mellitus complication status: with diabetic arthropathy Diabetes mellitus complication detail: with other arthropathy Q ualified Code(s): E11.618 - Type 2 diabetes mellitus with other diabetic arthropathy; Z79.4 - residential (current) use of insulin Plan At this time patient looks like he is improving. He was negative for 10 over 24 hours. Will continue Lasix per nephrology discretion. Creatinine stable at 2. Continue to monitor creatinine. Will restart heart failure medications once patient is euvolemic and blood pressure allows. PDMP PDMP Reviewed: Not Reviewed Attestations 2 Medical Necessity Statement*: Deferred to primary. Coding Level of Care Code Acute Code for Chg Fwd Diagnoses Acute on chronic systolic heart failure I50.23 Status post aortic valve replacement with bioprosthetic valve Z95.3 Atrial fibrillation with rapid ventricular response I48.91 Atherosclerosis of [place] coronary artery of [place] heart without angina pectoris I25.10 Coronary Disease-Associated Artery/Lesion type: [place] artery Type 2 diabetes mellitus with other diabetic arthropathy, with long-term current use of insulin E11.618; Z79.4 Diabetes mellitus type: type 2 Diabetes mellitus residential insulin use: with residential use Diabetes mellitus complication status: with diabetic arthropathy Diabetes mellitus complication detail: with other arthropathy
[2024-08-03] MEDS: pramipexole 0.25 mg Tablet 0.5 MG PO (16:48)
[2024-08-03] MEDS: atorvastatin 40 mg Tablet PO (16:48)
[2024-08-03] MEDS: FUROsemide 40 mg Tablet PO (16:48)
[2024-08-03] MEDS: lactulose oral liq 20 gm/30 mL UDC 10 GM PO (16:48)
[2024-08-03 17:21] LABS: Glucose Point of Care 244 mg/dL (70-110)
[2024-08-03] MEDS: insulin lispro 100 unit/1 mL SUBCUT ×2 (17:42→21:15)
[2024-08-03 20:42] LABS: Glucose Point of Care 253 mg/dL (70-110)
[2024-08-04] VITALS (20 sets, daily range): BP systolic 102–126; BP diastolic 65–105; PULSE 90–95; RESP 17–29; TEMP 36.3–37; O2SAT 85–100
[2024-08-04] MEDS: carvedilol 3.125 mg Tablet PO ×3 (00:04→22:53)
[2024-08-04 05:47] LABS: Basophils % 0.2 %; Eosinophils % 0.7 %; Hematocrit 27.8 % (37-53); Lymphocytes # 0.8 10^3/uL (0.8-4.8); Lymphocytes % 12.8 %; Mean Corpuscular HGB Conc 28.4 g/dL (30-55); Mean Corpuscular Hemoglobin 24.3 pg (27-33); Mean Corpuscular Volume 85.5 fl (82-101); Mean Platelet Volume 12.2 fL (7.4-10.4); Monocytes # 0.6 10^3/uL (0.2-0.9); Monocytes % 10.1 %; Neutrophils # 4.46 10^3/uL (1.8-7.7); Neutrophils % 75.9 %; Nucleated Red Blood Cells % 0 %; Platelet Count 80 10^3/cmm (157-399); Red Blood Count 3.25 10^6/uL (3.85-5.65); Red Cell Distribution Width 17.7 % (12.1-15.1); White Blood Count 5.87 10^3/uL (3.29-11.43)
[2024-08-04 06:14] LABS: Lactate Dehydrogenase 200 U/L (135-225)
[2024-08-04 06:17] LABS: Glucose Point of Care 100 mg/dL (70-110)
[2024-08-04 06:17] LABS: Bacillus cereus group Not Detected (NOT DETECT); Bacillus subtillis group Not Detected (NOT DETECT); Corynebacterium Not Detected (NOT DETECT); Cutibacterium acnes (P.acnes) Not Detected (NOT DETECT); Enterococcus Not Detected (NOT DETECT); Enterococcus faecalis Not Detected (NOT DETECT); Enterococcus faecium Not Detected (NOT DETECT); Lactobacillus species Not Detected (NOT DETECT); Listeria Not Detected (NOT DETECT); Listeria monocytogenes Not Detected (NOT DETECT); Micrococcus Not Detected (NOT DETECT); Pan Candida Not Detected (NOT DETECT); Pan Gram-Negative Not Detected (NOT DETECT); Staphylococcus epidermidis Not Detected (NOT DETECT); Staphylococcus lugdunensis Not Detected (NOT DETECT); Staphylococcus species Detected (NOT DETECT); Streptococcus agalactiae Not Detected (NOT DETECT); Streptococcus anginosus group Not Detected (NOT DETECT); Streptococcus pneumoniae Not Detected (NOT DETECT); Streptococcus pyogenes Not Detected (NOT DETECT); Streptococcus species Not Detected (NOT DETECT); mecA Detected (NOT DETECT); mecC Not Detected (NOT DETECT)
[2024-08-04 06:52] LABS: Alanine Aminotransferase 134 U/L (0-41); Albumin Level 4.1 g/dL (3.5-5.2); Alkaline Phosphatase 113 U/L (40-130); Anion Gap 15.7 (5-19); Aspartate Amino Transferase 63 U/L (0-40); Blood Urea Nitrogen 47 mg/dL (8-23); Calcium 8.7 mg/dL (8.5-10.5); Carbon Dioxide 31 mmol/L (22-29); Chloride 97 mmol/L (98-107); Creatinine Clr Calc Pharmacy 39.1431; Globulin 1.8 g/dL (1.3-4.6); Glucose 87 mg/dL (65-115); Osmolality Calculated 302 mOsm/kg (285-295); Potassium 3.7 mmol/L (3.5-5.1); Sodium 140 mmol/L (136-145); Total Bilirubin 1.6 mg/dL (0.15-1.2); Total Protein 5.9 g/dL (6.6-8.7)
[2024-08-04 07:22] LABS: LAB Peripheral Smear Sent for Review
[2024-08-04] MEDS: pantoprazole DR 40 mg Tablet PO ×2 (09:00→17:28)
[2024-08-04] MEDS: FUROsemide 40 mg Tablet PO ×2 (09:00→17:28)
[2024-08-04] MEDS: clopidogrel 75 mg Tablet PO (09:00)
[2024-08-04] MEDS: multivitamin therapeutic Tablet 1 TAB PO (09:00)
--- NOTE | 2024-08-04 10:14 | P.PN_ITS ---
Subjective 2 Subjective: no new c/oo Medications: Reviewed: Yes Vitals/I&O/Wt Last Vital Signs Temp 97.9 F 08/04/24 07:23 Pulse 90 08/04/24 09:00 Resp 18 08/04/24 09:00 BP 109/66 08/04/24 07:23 Pulse Ox 92 08/04/24 08:05 O2 Del Method Room Air 08/04/24 08:05 O2 Flow Rate 2 08/03/24 07:53 08/03/24 08/04/24 08/04/24 22:59 06:59 14:59 Intake Total 440 / 1030 100 / 1130 360 / 360 Output Total 875 / 1225 125 / 1350 Balance -435 / -195 -25 / -220 360 / 360 Weight last 48 hrs Weight 107.275 kg Weight 108.182 kg Physical Exam 2 Narrative: awake , alert No distress on 1L NC s1 S2 RRR per report Lungs clear per report Abd -odt m non tender per report + Edema Urinary Catheter Management: Posadas: Cath Placed During This Visit: yes Reason for Continuing Indwelling Catheter: Accurate Measurement of Urinary Output in Critically Ill Patients Urinary Catheter Date of Insertion: 02/09/24 Urinary Catheter Time of Insertion: 17:10 Data 08/04/24 03:50 08/04/24 03:50 Micro: Microbiology 08/03/24 09:49 Blood Culture - Preliminary Blood NEGATIVE TO DATE 08/03/24 09:41 Blood Culture - Preliminary Blood Staphylococcus species 08/03/24 19:00 Occult Blood (FIT) - Final Stool - Stool Aspirate A&P Assessment and plan (1) LAUREN (acute kidney injury): 1. Acute on chronic kidney disease: Baseline creatinine in the mid 1 range. LAUREN likely cardiorenal. - on lasix IV every 8 hours and IV albumin 25 g every 8 hours, UOP improved and Cr stable - Switched to po laix today - Strict intake and output, daily weights - Arrange Nephrology follow up @ dc 2. Hyperkalemia: Low K diet, improved 3. Anemia: + Hemooccult stool , will order JEN , Plan for tranfusion 4. Cardiomyopathy, history of CABG, coronary stent ejection fraction 37% 5. Acute on chronic respiratory failure, multifactorial, diuresis as above 6. History of TAVR 7. Thrombocytopenia , mild monitor 8. Met alkalosis , sec to diuresis , monitor Patient evaluated using audiovisual cart. Time spent 40 minutes PDMP PDMP Reviewed: Not Reviewed Attestations 2 Medical Necessity Statement*: per medicne Coding Level of Care Code Acute Code for Chg Fwd Diagnoses LAUREN (acute kidney injury) N17.9
[2024-08-04] MEDS: epoetin alfa-epbx 10,000 unit/ml SDV (ESRD) 10000 UNIT SUBCUT (11:22)
[2024-08-04] MEDS: iron sucrose 200 MG in sodium chloride 0.9% (100 ml) 100 ML 220 MG IV (11:22)
--- NOTE | 2024-08-04 11:49 | PHA.VACGOAL ---
Vancomycin Goal - Goal Vancomycin Goal:: 10-15 mg/L Vancomycin Indication:: Other - Therapy Day of therpy:: Day []of [] . Actual body weight (kg): 236 lb 8 oz - Data Labs: WBC 5.87 10^3/uL (3.29-11.43) 08/04/24 03:50 RBC 3.25 10^6/uL (3.85-5.65) L 08/04/24 03:50 Hgb 7.90 g/dL (11.27-16.99) L 08/04/24 03:50 Hct 27.8 % (37-53) L 08/04/24 03:50 MCV 85.5 fl (82-101) 08/04/24 03:50 MCH 24.3 pg (27-33) L 08/04/24 03:50 MCHC 28.4 g/dL (30-55) L 08/04/24 03:50 RDW 17.7 % (12.1-15.1) H 08/04/24 03:50 Sodium 140 mmol/L (136-145) 08/04/24 03:50 Potassium 3.7 mmol/L (3.5-5.1) 08/04/24 03:50 Chloride 97 mmol/L (98-107) L 08/04/24 03:50 Carbon Dioxide 31 mmol/L (22-29) H 08/04/24 03:50 Anion Gap 15.7 (5-19) 08/04/24 03:50 BUN 47 mg/dL (8-23) H 08/04/24 03:50 Creatinine 2.0 mg/dL (0.7-1.2) H 08/04/24 03:50 GFR Calculation Not Reportable 08/04/24 03:50 Treatment plan:: new consult Regimen:: 1500 MG Q24 H
--- NOTE | 2024-08-04 11:50 | PC.SOCIAL ---
IMM Updated pg 2 of IMM Updated and reviewed w/ patient. Copy provided and copy dated, initialed and placed in chart.
[2024-08-04 11:55] LABS: Glucose Point of Care 237 mg/dL (70-110)
[2024-08-04] MEDS: ipratropium-albuterol 3 mL Neb INHALATION (12:03)
--- NOTE | 2024-08-04 14:04 | P.PN_ITS ---
<Statement entered by Stephen Bui M.D - 08/06/24 10:07> Patient was cared for in conjunction with an advanced practice practitioner.? I reviewed the chart and all pertinent data including imaging, telemetry, and laboratory results.? I discussed the patient in detail with the advanced practice practitioner.? Please see? their note for complete progress note, testing results and agreed upon plan of care for the patient. Subjective 2 Subjective: Patient sitting up in bed with no acute distress. Blood cultures were positive for staph. He has a history of endocarditis status post AVR.Denies any chest pain or shortness of breath at this time. Vitals/I&O/Wt Last Vital Signs Temp 98.0 F 08/04/24 11:50 Pulse 90 08/04/24 12:06 Resp 18 08/04/24 12:02 BP 112/70 08/04/24 11:50 Pulse Ox 94 08/04/24 12:02 O2 Del Method Oxymask 08/04/24 12:02 O2 Flow Rate 1 08/04/24 12:02 08/03/24 08/04/24 08/04/24 22:59 06:59 14:59 Intake Total 440 / 1030 100 / 1130 600 / 600 Output Total 875 / 1225 125 / 1350 Balance -435 / -195 -25 / -220 600 / 600 Weight last 48 hrs Weight 236 lb 8 oz Weight 238 lb 8 oz Physical Exam 2 Narrative: General: No apparent distress, healthy appearing, well nourished HENMT: normoceophalic Muskuloskeletal: Full ROM Lymphatic: no lymphedema noted Respiratory: Normal respiratory effort, fine crackles bilateral lower lobes otherwise clear throughout other lung angel, no use of accessory muscles Cardio: No JVD, regular rate, regular rhythm, S1 S2 normal, no murmurs, peripheral pulses 2+ radial palpated bilaterally GI: Normal to inspection, nondistended Extremities: Full ROM, normal, normal capillary refill, no cyanosis or edema Neuro: Alert and oriented x4, no focal motor deficits Psych: Affect normal, mental status grossly normal Skin: No rashes or lesions noted, no wounds Urinary Catheter Management: Posadas: Cath Placed During This Visit: yes Reason for Continuing Indwelling Catheter: Accurate Measurement of Urinary Output in Critically Ill Patients Urinary Catheter Date of Insertion: 02/09/24 Urinary Catheter Time of Insertion: 17:10 Data 08/04/24 03:50 08/04/24 03:50 Micro: Microbiology 08/03/24 09:49 Blood Culture - Preliminary Blood NEGATIVE TO DATE 08/03/24 09:41 Blood Culture - Preliminary Blood Staphylococcus species 08/03/24 19:00 Occult Blood (FIT) - Final Stool - Stool Aspirate A&P Assessment and plan (1) Acute on chronic systolic heart failure: (2) Status post aortic valve replacement with bioprosthetic valve: (3) Atrial fibrillation with rapid ventricular response: (4) Atherosclerosis of coronary artery of [place] heart without angina pectoris: (5) Diabetes mellitus: Plan Creatinine stable at 2. Vitals are stable. He is anemic. It is my understanding they are going to get a GI workup. Further workup for possible endocarditis due to positive blood cultures if indicated. Continue coreg. Continue current medical management. PDMP PDMP Reviewed: Not Reviewed Attestations 2 Medical Necessity Statement*: Deferred to primary. 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
[2024-08-04] MEDS: vancomycin 1,500 MG/300 ML PIGGYBACK 200 MG IV (15:17)
--- NOTE | 2024-08-04 15:51 | P.PN_ITS ---
Subjective 2 Subjective: Patient states he feels okay with his breathing. Oxygen requirement down to 1 L/min today. Tolerating oral Lasix. Overnight blood culture reported positive 1 out of 4 for Staphylococcus species, yet to be identified with coag negative or coag positive staph. Medications: Reviewed: Yes Medication Review Details: Current Medications Acetaminophen (Acetaminophen 325 Mg Tablet) 650 mg PO Q6H PRN PRN Reason: Mild/Mod Pain Or Temp >/= 101 Albuterol/Ipratropium (Ipratropium-Albuterol 3 Ml Neb) 3 ml INHALATION Q6H PRN PRN Reason: SHORTNESS OF BREATH Atorvastatin Calcium (Atorvastatin 40 Mg Tablet) 40 mg PO QPM [facility] Last Admin: 07/29/24 18:46 Dose: 40 mg Clopidogrel Bisulfate (Clopidogrel 75 Mg Tablet) 75 mg PO DAILY [facility] Furosemide (Furosemide 10 Mg/Ml Sdv 4ml) 40 mg IVP Q12H FELIPE Last Admin: 07/30/24 03:51 Dose: 40 mg Glucagon (Glucagon 1 Mg/Ml Kit 1 Ml) 1 mg IM ONCE PRN; Protocol PRN Reason: Adult Acute Hypoglycemia Nursing Prot. Dextrose (D5w) 500 mls @ 0 mls/hr IV ONCE PRN; Protocol PRN Reason: Adult Acute Hypoglycemia Prot Dextrose (D10w) 125 mls @ 750 mls/hr IV PRN PRN; Protocol PRN Reason: Adult Acute Hypoglycemia Nursing Protocol Dextrose (D10w) 250 mls @ 1,000 mls/hr IV PRN PRN; Protocol PRN Reason: Adult Acute Hypoglycemia Nursing Protocol Levofloxacin/Dextrose (Levaquin-D5w) 750 mg in 150 mls @ 100 mls/hr IV Q48H FELIPE; Protocol Last Infusion: 07/29/24 19:18 Dose: Infused Insulin Human Lispro (Insulin Lispro 100 Unit/1 Ml) 0 unit SUBCUT WM&BEDTIME [facility]; Protocol Last Admin: 07/30/24 06:52 Dose: Not Given Ondansetron HCl (Ondansetron 2 Mg/Ml Sdv 2 Ml) 4 mg IVP Q8H PRN PRN Reason: vomiting, or N/V if npo Pantoprazole Sodium (Pantoprazole Dr 40 Mg Tablet) 40 mg PO DAILY FELIPE Pantoprazole Sodium (Pantoprazole Dr 40 Mg Tablet) 40 mg PO DAILY FELIPE Pramipexole Dihydrochloride (Pramipexole 0.25 Mg Tablet) 0.5 mg PO QPM [facility] Last Admin: 07/29/24 18:46 Dose: 0.5 mg Vitals/I&O/Wt Last Vital Signs Temp 97.7 F 08/04/24 15:42 Pulse 90 08/04/24 15:42 Resp 18 08/04/24 15:42 BP 113/80 08/04/24 15:42 Pulse Ox 100 08/04/24 15:42 O2 Del Method Oxymask 08/04/24 12:02 O2 Flow Rate 1 08/04/24 12:02 08/04/24 08/04/24 08/04/24 06:59 14:59 22:59 Intake Total 100 / 1130 600 / 600 110 / 710 Output Total 125 / 1350 350 / 350 Balance -25 / -220 600 / 600 -240 / 360 Weight last 48 hrs Weight 107.275 kg Weight 108.182 kg Physical Exam 2 Narrative: General: No acute distress, AO x3 HEENT: PERRLA, pupils bilaterally equal and reactive, pallors not present Chest: crackles to auscultation B/L CVS: S1-S2 regular, no murmurs, no tachycardia, no gallops, no rubs Abdomen: Soft, nontender, no organomegaly, bowel sounds present Neuro: No focal deficits, no facial deformity, AO x3, power 5/5 in all limbs Urinary Catheter Management: Posadas: Cath Placed During This Visit: yes Reason for Continuing Indwelling Catheter: Accurate Measurement of Urinary Output in Critically Ill Patients Urinary Catheter Date of Insertion: 02/09/24 Urinary Catheter Time of Insertion: 17:10 Data 08/04/24 03:50 08/04/24 03:50 Micro: Microbiology 08/03/24 09:49 Blood Culture - Preliminary Blood NEGATIVE TO DATE 08/03/24 09:41 Blood Culture - Preliminary Blood Staphylococcus species 08/03/24 19:00 Occult Blood (FIT) - Final Stool - Stool Aspirate A&P Assessment and plan (1) Decompensated heart failure: (2) CHF (congestive heart failure): (3) History of heart valve repair: (4) Aortic valve stenosis: (5) Coronary artery disease: (6) Pacemaker: (7) Supratherapeutic INR: resolved (8) Diabetes mellitus: LDSSI and accuchecks (9) Shortness of breath: (10) Acute passive congestion of liver: (11) Elevated liver enzymes: slowly improving (12) LAUREN (acute kidney injury): slowly improving followed by nephro (13) Hyperkalemia: resolved Plan #Acute on chronic systolic/diastolic HF, known EF 25%, status post pacemaker. 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 INR elevated 4.1. Patient is on chronic anticoagulation at home with apixaban and is on Plavix antiplatelet agent. Does have mild slurred speech from prior stroke which is intermittent. Generalized weakness most likely secondary to decompensated heart failure. ? He was previously transferred to [facility] for AICD evaluation and treatment of infective endocarditis postop from CABG and TAVR that was done last year in December. ? Patient appears to be in decompensated heart failure today. ? Check CT chest abdomen pelvis secondary to evidence of complex pleural effusion on right side and evaluation for LAUREN and to look for any intra- abdominal pathology. ? Liver enzymes are elevated possibly secondary to decompensated heart failure and congestive hepatopathy. Will check hepatitis profile as well ? Hold atorvastatin ? Patient hyperkalemic on admission with potassium 5.8. Was given 1 amp of bicarb. Will repeat CMP at this time. He also received 10 units of IV insulin, calcium chloride 1 g. 60 mg IV Lasix also given. ? Continue DuoNeb every 6 hours as needed ? Hold home metformin ? Continue omeprazole ? Consult nephrology. ? Most likely LAUREN secondary to cardiorenal syndrome due to fluid overload. We will continue to diurese patient ? Start Lasix 40 IV twice daily ? I will hold off on adding oral potassium and will replete as needed. ? Continue on cardiac telemetry ? Patient did describe some chest pressure which may be secondary to decompensated heart failure however secondary to his history will consult cardiology for further input. First 2 troponins delta negative. 6-hour troponin pending. EKG does show paced rhythm. - Hold home Lantus secondary to LAUREN. Continue on sliding scale insulin low-dose intensity ? Check lactic acid ? Check echocardiogram ? We will obtain records from [facility]. ? Hold Coreg at this time in setting of decompensated heart failure. ? Continue Plavix. ? Hold Eliquis today secondary to supratherapeutic INR. May restart in next 24 hours. - Patient states his slurred speech is intermittent. Neuroexam generally nonfocal. He is able to move all 4 extremities. Usually walks with a cane. Face symmetrical. He does appear quite deconditioned. ? Check pacemaker interrogation Full code DVT prophylaxis: INR supratherapeutic. I will hold off on adding subcu heparin at this time. 07/30/2024 INR 3.2 today. May restart Eliquis in next 24 hours. INR most likely elevated due to underlying liver disease with component of being on Eliquis. Continue to hold Lantus Sliding scale low-dose intensity at this time. Continue to diurese patient Nephrology consulted. Liver enzymes improving slowly. Most likely secondary congestive hepatopathy. Hepatitis profile pending. Statin 2.7 today. Patient will need GI referral as an outpatient. Echocardiogram pending Cardiology consulted. Continue to follow recommendations. 07/31/24 -Eliquis 5mg BID -INR 1.82 (07/31) -levofloxacin, Cx from [place] pending -hyperkalemia has resolved -LDSSI with accuchecks -lasix 40mg IVP TID, continue albumin -has diuresed well -LFT's slowly improving. may require GI referral as outpatient setting -LAUREN slowly improving. continue albumin per nephrology. 08/01/24 -eliquis 5mg BID -INR 1.54 (08/01/24) -hyperkalemia resolved, transaminitis improving -Cr improved to 2.2 this AM -continue lasix 40mg IVP TID, continue albumin 25mg TID -can consider transition to PO lasix in 24-48hrs August 02, 2024 Continues to be on IV diuresis with Lasix 40 mg every 8 hours. Net -600 cc last 24 hours. Overall net negative by 6 L. However patient states he does not feel significantly better.Currently on supplemental 02 at 1.5L. Platelet count at 77,000. Cr stable at 2.2. Eliquis and a/x on hold. Ct chest with moderate right and small left pleural effusion. Repeat chest x-ray as patient reports no significant improvement however objectively has reducing oxygen requirements currently. August 03, 2024 Net -6.4 L now.Creatinine is improving at 2.0. Urine output 2200 cc last 24 hours. IV Lasix transitioned to Lasix 40 mg p.o. twice daily today. Appreciate nephrology recommendations. Hemoglobin at 8.5 today. In trending previous numbers patient has had chronic anemia dating back to at least February 2024. Hemoglobin ranging between 7.5 in February 2024 to 8.5 now. Iron panel performed on admission manufacturer representative of iron deficiency anemia. Transferrin saturation of 6%, iron level of 20, ferritin of 74. Patient has not had a bowel movement yet to enable occult blood testing. Start IV iron sucrose 200 mg, plan to complete transfusion for 5 days for iron deficiency anemia and thrombocytopenia. Add multivitamin B12 folate supplementation. Eliquis has been on hold this current admission due to following platelet count. Currently thrombocytopenia has stabilized at 81,000. Suspect that this may be related to a combination of iron deficiency and liver cirrhosis as seen on CT on admission. Spleen is noted to be normal. Will obtain peripheral smear additionally to assess for any potential hemolysis given the rising T. bili. Check haptoglobin levels additionally. Check blood cultures given recent history of endocarditis. In reviewing the chart, patient had strep mitis oralis bacteremia in February 2024. He was transferred to [facility] for endocarditis at the time. He states that he had an extended course of antibiotics though his SP was reported negative. He states that after his discharge from [facility] he traveled to [place] for New ' and was readmitted at [facility] in [place] for another infection. He is unable to tell me if this was endocarditis or not. We have requested records today. Encourage out of bed today, PT OT assessment August 04, 2024 Urine output yesterday 900 cc. Clinically appearing to be euvolemic. 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 Blood cultures at that time were positive for strep mitis oralis which was penicillin susceptible. SP was negative for any gross vegetations however patient met criteria for possible endocarditis. He received treatment with ceftriaxone while remaining inpatient for 10 days between 02/08 to 02/18/2025. Thereafter he was transitioned to dalbavancin 1500 mg IV x 1 which was considered to be coverage for 2 weeks. Thereafter he was meant to transition to Keflex 1 g p.o. twice daily to end total 6 weeks of therapy on 03/21/2025. He was to be arranged with a [facility] at discharge. Following his discharge from [facility], he visited family in [place] around . He was admitted to [facility] in [place] with fever and diarrhea. C. difficile was negative however his blood cultures returned with Klebsiella pneumonia and Enterococcus fecalis. Review of discharge summary from this hospital, a SP performed there did not reveal any obvious vegetations.. ID service was consulted and recommended 6 weeks of treatment until May 09, 2024 with meropenem 1 g IV twice daily and vancomycin 1 g IV daily. Patient transitioned to a shelter thereafter. Due to recurrent bacteremia, and chronic anemia he did undergo both upper and lower GI endoscopies there. Upper GI endoscopy showed that the upper third of esophagus and middle third were normal. 1 cm of salmon-colored mucosa was encountered which appeared suspicious for Whaley's esophagus. Biopsy was contraindicated. A medium sized hiatal hernia was noted. Scattered moderate inflammation was found in the gastric antrum. Biopsies were taken at the time and showed mild chronic inactive gastritis without evidence of intestinal metaplasia or dysplasia or malignancy. No H. pylori was noted. Random biopsies of the duodenal bulb showed foveolar metaplasia, no active malignancy, second portion of the duodenum was normal on biopsy. Colonoscopy showed a 5 mm polyp 65 cm proximal to the anus. He was cleared to resume his Eliquis. It appears the capsule endoscopy was also recommended however not completed as he left the area. Currently patient had a bowel movement yesterday and his FOBT has returned positive. Patient has recently had extensive endoscopic evaluation as noted above at an outside hospital and there is no immediate indication to repeat endoscopic evaluation at this time. Patient is hemodynamically stable. His hemoglobin has been chronically low since at least February 2024. He has obvious signs of iron deficiency anemia. Source of positive FOBT may be gastritis as noted above on recent endoscopy. Will increase Protonix to 40 mg p.o. twice daily and add Carafate to his regimen. Hemoglobin today at 7.9, similar range, however given that patient has multiple cardiac comorbidities with a low ejection fraction with target hemoglobin threshold to be at 8.0 for transfusion. Will transfuse 1 unit packed red blood cell today. Can discontinue Venofer since he will be receiving blood transfusion today. Continue Plavix 75 mg p.o. daily. Platelet count noted to be stable Today at 80,000. Unlikely an ongoing hemolytic process given normal haptoglobin and LDH. Likely elevated T. bili at 1.6 related to hepatic congestion. AST ALT are trending down reassuringly. Normal alkaline phosphatase therefore doubt an obstructive process. We are awaiting peripheral smear. Suspect anemia and thrombocytopenia also contributed by iron deficiency and liver cirrhosis as noted on CT. Plan to resume DVT prophylaxis with heparin over the next 24 hours if platelet count remains stable. Blood cultures taken yesterday on 08/03/2024 revealed one of the 4 bottles positive for Staphylococcus species. We are awaiting further identification to see if this is coag negative versus coag positive staph. If final identification turns out to be Staph aureus, we will need to reevaluate for endocarditis. Repeat blood cultures. Start vancomycin while awaiting further identification of the staph species. PDMP PDMP Reviewed: Not Reviewed Attestations 2 Medical Necessity Statement*: Awaiting identification of staph species. Continue Lasix 40 mg p.o. twice daily. Other extensive record review as noted above. Coding Level of Care Code Acute Code for Chg Fwd High MDM includes number and complexity of problems actively addressed during encounter, amount and/or complexity of data reviewed/ordered and described risk of complication, morbidity or mortality of management as documented Diagnoses Decompensated heart failure I50.9 Acute on chronic diastolic congestive heart failure I50.33 Heart failure type: diastolic Heart failure chronicity: acute on chronic History of heart valve repair Z98.890 Aortic valve stenosis, etiology of cardiac valve disease unspecified I35.0 Cardiac valve disease etiology: etiology unspecified Coronary artery disease involving [place] coronary artery of [place] heart without angina pectoris I25.10 Coronary Disease-Associated Artery/Lesion type: [place] artery [place] vs. transplanted heart: [place] heart Associated angina: without angina Pacemaker Z95.0 Supratherapeutic INR R79.1 Type 2 diabetes mellitus with other diabetic arthropathy, with long-term current use of insulin E11.618; Z79.4 Diabetes mellitus type: type 2 Diabetes mellitus long chain beamer insulin use: with long chain beamer use Diabetes mellitus complication status: with diabetic arthropathy Diabetes mellitus complication detail: with other arthropathy Shortness of breath R06.02 Acute passive congestion of liver K76.1 Elevated liver enzymes R74.8 LAUREN (acute kidney injury) N17.9 Hyperkalemia E87.5
[2024-08-04 17:27] LABS: Glucose Point of Care 248 mg/dL (70-110)
[2024-08-04] MEDS: pramipexole 0.25 mg Tablet 0.5 MG PO (17:28)
[2024-08-04] MEDS: atorvastatin 40 mg Tablet PO (17:28)
[2024-08-04] MEDS: insulin lispro 100 unit/1 mL SUBCUT ×2 (17:29→21:18)
[2024-08-04] MEDS: sucralfate 1 gm Tablet PO ×2 (17:29→21:18)
[2024-08-04 20:44] LABS: Glucose Point of Care 199 mg/dL (70-110)
[2024-08-04] MEDS: FUROsemide 10 mg/mL SDV 2mL 20 MG IVP (21:18)
[2024-08-05] VITALS (13 sets, daily range): BP systolic 94–121; BP diastolic 60–74; PULSE 90–92; RESP 17–25; TEMP 36.4–36.6; O2SAT 90–100
[2024-08-05 05:18] LABS: Basophils % 0.2 %; Eosinophils % 0.6 %; Hematocrit 29.6 % (37-53); Lymphocytes # 0.6 10^3/uL (0.8-4.8); Mean Corpuscular HGB Conc 29.1 g/dL (30-55); Mean Corpuscular Hemoglobin 24.9 pg (27-33); Mean Corpuscular Volume 85.5 fl (82-101); Mean Platelet Volume 11.5 fL (7.4-10.4); Monocytes # 0.6 10^3/uL (0.2-0.9); Neutrophils # 5.04 10^3/uL (1.8-7.7); Neutrophils % 79.9 %; Nucleated Red Blood Cells % 0.3 %; Platelet Count 96 10^3/cmm (157-399); Red Blood Count 3.46 10^6/uL (3.85-5.65); Red Cell Distribution Width 17.8 % (12.1-15.1); White Blood Count 6.31 10^3/uL (3.29-11.43)
[2024-08-05 05:42] LABS: Alanine Aminotransferase 108 U/L (0-41); Albumin Level 3.9 g/dL (3.5-5.2); Alkaline Phosphatase 112 U/L (40-130); Anion Gap 13.5 (5-19); Aspartate Amino Transferase 50 U/L (0-40); Blood Urea Nitrogen 44 mg/dL (8-23); Calcium 8.6 mg/dL (8.5-10.5); Carbon Dioxide 32 mmol/L (22-29); Chloride 98 mmol/L (98-107); Creatinine Clr Calc Pharmacy 41.3453; Globulin 2.2 g/dL (1.3-4.6); Glucose 91 mg/dL (65-115); Osmolality Calculated 301 mOsm/kg (285-295); Potassium 3.5 mmol/L (3.5-5.1); Sodium 140 mmol/L (136-145); Total Bilirubin 2.2 mg/dL (0.15-1.2); Total Protein 6.1 g/dL (6.6-8.7)
[2024-08-05 06:12] LABS: Glucose Point of Care 111 mg/dL (70-110)
[2024-08-05] MEDS: sucralfate 1 gm Tablet PO ×4 (06:40→21:56)
--- NOTE | 2024-08-05 07:29 | PC.NURSE ---
2039- Patient complaining of being more SOB and coughing after the blood transfusion which ended around 1899. Patient has more crackles to left side than right. Notified Dr. Danielle and to put in orders for 20 mg of lasix.
[2024-08-05] MEDS: clopidogrel 75 mg Tablet PO (07:53)
[2024-08-05] MEDS: multivitamin therapeutic Tablet 1 TAB PO (07:53)
[2024-08-05] MEDS: FUROsemide 40 mg Tablet PO (07:53)
[2024-08-05] MEDS: pantoprazole DR 40 mg Tablet PO ×2 (07:53→16:54)
[2024-08-05] MEDS: carvedilol 3.125 mg Tablet PO ×2 (07:54→21:56)
[2024-08-05] MEDS: polyethylene glycol 3350 Pkt 17 gm PO (08:02)
[2024-08-05] MEDS: heparin 5,000 unit/mL INJ 1 mL 5000 UNIT SUBCUT ×2 (10:31→20:26)
[2024-08-05] MEDS: benzonatate 100 mg Capsule PO ×3 (10:32→20:25)
[2024-08-05] MEDS: cetylpyridinium Lozenge 1 EACH MUCOUS MEM ×2 (10:36→20:25)
[2024-08-05 11:28] LABS: Glucose Point of Care 165 mg/dL (70-110)
--- NOTE | 2024-08-05 11:50 | P.PN_ITS ---
<Statement entered by Stephen Bui M.D - 08/07/24 10:09> Patient was cared for in conjunction with an advanced practice practitioner.? I reviewed the chart and all pertinent data including imaging, telemetry, and laboratory results.? I discussed the patient in detail with the advanced practice practitioner.? Please see? their note for complete progress note, testing results and agreed upon plan of care for the patient. Subjective 2 Subjective: Patient stable at this time. He appears euvolemic. Blood pressures have been soft but stable. Heart rates are controlled. Still requiring oxygen via oxime mask. Creatinine is stable at 1.9. Vitals/I&O/Wt Last Vital Signs Temp 97.6 F 08/05/24 11:20 Pulse 90 08/05/24 11:20 Resp 17 08/05/24 11:20 BP 103/64 08/05/24 11:20 Pulse Ox 95 08/05/24 11:20 O2 Del Method Oxymask 08/05/24 11:20 O2 Flow Rate 2 08/05/24 10:53 08/04/24 08/05/24 08/05/24 22:59 06:59 14:59 Intake Total 1340 / 1940 100 / 2040 480 / 480 Output Total 950 / 950 500 / 1450 280 / 280 Balance 390 / 990 -400 / 590 200 / 200 Weight last 48 hrs Weight 238 lb 3.2 oz Weight 236 lb 8 oz Physical Exam 2 Narrative: General: No apparent distress, healthy appearing, well nourished HENMT: normoceophalic Muskuloskeletal: Full ROM Lymphatic: no lymphedema noted Respiratory: Normal respiratory effort, fine crackles bilateral lower lobes otherwise clear throughout other lung angel, no use of accessory muscles Cardio: No JVD, regular rate, regular rhythm, S1 S2 normal, no murmurs, peripheral pulses 2+ radial palpated bilaterally GI: Normal to inspection, nondistended Extremities: Full ROM, normal, normal capillary refill, no cyanosis or edema Neuro: Alert and oriented x4, no focal motor deficits Psych: Affect normal, mental status grossly normal Skin: No rashes or lesions noted, no wounds Urinary Catheter Management: Posadas: Cath Placed During This Visit: yes Reason for Continuing Indwelling Catheter: Accurate Measurement of Urinary Output in Critically Ill Patients Urinary Catheter Date of Insertion: 11/04/24 Urinary Catheter Time of Insertion: 17:10 Data 08/05/24 04:25 08/05/24 04:25 Micro: Microbiology 08/05/24 04:30 Blood Culture - Preliminary Blood SPECIMEN COLLECTED 08/05/24 04:25 Blood Culture - Preliminary Blood SPECIMEN COLLECTED 08/03/24 09:49 Blood Culture - Preliminary Blood NEGATIVE TO DATE A&P Assessment and plan (1) Acute on chronic systolic heart failure: (2) Status post aortic valve replacement with bioprosthetic valve: (3) Atrial fibrillation with rapid ventricular response: (4) Atherosclerosis of coronary artery of [place] heart without angina pectoris: (5) Diabetes mellitus: Plan Creatinine stable at 1.9. Vitals are stable. He is slightly anemic. Has a hx of chronic gastritis confirmed via scope at another facility. Agree with plan to start Eliquis for stroke prevention in afib once platelets come up and anemia is stable. Further workup for possible endocarditis due to positive blood cultures if indicated. Continue coreg. Continue current medical management. PDMP PDMP Reviewed: Not Reviewed Attestations 2 Medical Necessity Statement*: Deferred to primary Coding Level of Care Code Acute Code for g Fwd Diagnoses Acute on chronic systolic heart failure I50.23 Status post aortic valve replacement with bioprosthetic valve Z95.3 Atrial fibrillation with rapid ventricular response I48.91 Atherosclerosis of [place] coronary artery of [place] heart without angina pectoris I25.10 Coronary Disease-Associated Artery/Lesion type: [place] artery Type 2 diabetes mellitus with other diabetic arthropathy, with long-term current use of insulin E11.618; Z79.4 Diabetes mellitus type: type 2 Diabetes mellitus 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
[2024-08-05] MEDS: insulin lispro 100 unit/1 mL SUBCUT ×3 (12:12→20:26)
--- NOTE | 2024-08-05 14:14 | P.PN_ITS ---
Subjective 2 Subjective: Hemoglobin at 8.6 today. Platelet count at 96,000, improved over previous. Patient had increased coughing after blood transfusion, needed to be given Lasix 40 mg IV additional dose last evening. Creatinine of 1.9. Urine output 2000 mL, however not yet net negative last 24 hours. Oxygen requirement at 2 L/min today. Patient had blood-tinged sputum expectorated this morning. Closely monitoring for now. Medications: Reviewed: Yes Medication Review Details: Current Medications Acetaminophen (Acetaminophen 325 Mg Tablet) 650 mg PO Q6H PRN PRN Reason: Mild/Mod Pain Or Temp >/= 101 Albuterol/Ipratropium (Ipratropium-Albuterol 3 Ml Neb) 3 ml INHALATION Q6H PRN PRN Reason: SHORTNESS OF BREATH Atorvastatin Calcium (Atorvastatin 40 Mg Tablet) 40 mg PO QPM [facility] Last Admin: 07/29/24 18:46 Dose: 40 mg Clopidogrel Bisulfate (Clopidogrel 75 Mg Tablet) 75 mg PO DAILY FELIPE Furosemide (Furosemide 10 Mg/Ml Sdv 4ml) 40 mg IVP Q12H [facility] Last Admin: 07/30/24 03:51 Dose: 40 mg Glucagon (Glucagon 1 Mg/Ml Kit 1 Ml) 1 mg IM ONCE PRN; Protocol PRN Reason: Adult Acute Hypoglycemia Nursing Prot. Dextrose (D5w) 500 mls @ 0 mls/hr IV ONCE PRN; Protocol PRN Reason: Adult Acute Hypoglycemia Prot Dextrose (D10w) 125 mls @ 750 mls/hr IV PRN PRN; Protocol PRN Reason: Adult Acute Hypoglycemia Nursing Protocol Dextrose (D10w) 250 mls @ 1,000 mls/hr IV PRN PRN; Protocol PRN Reason: Adult Acute Hypoglycemia Nursing Protocol Levofloxacin/Dextrose (Levaquin-D5w) 750 mg in 150 mls @ 100 mls/hr IV Q48H FELIPE; Protocol Last Infusion: 07/29/24 19:18 Dose: Infused Insulin Human Lispro (Insulin Lispro 100 Unit/1 Ml) 0 unit SUBCUT WM&BEDTIME [facility]; Protocol Last Admin: 07/30/24 06:52 Dose: Not Given Ondansetron HCl (Ondansetron 2 Mg/Ml Sdv 2 Ml) 4 mg IVP Q8H PRN PRN Reason: vomiting, or N/V if npo Pantoprazole Sodium (Pantoprazole Dr 40 Mg Tablet) 40 mg PO DAILY [facility] Pantoprazole Sodium (Pantoprazole Dr 40 Mg Tablet) 40 mg PO DAILY [facility] Pramipexole Dihydrochloride (Pramipexole 0.25 Mg Tablet) 0.5 mg PO QPM [facility] Last Admin: 07/29/24 18:46 Dose: 0.5 mg Vitals/I&O/Wt Last Vital Signs Temp 97.6 F 08/05/24 11:20 Pulse 90 08/05/24 11:20 Resp 17 08/05/24 11:20 BP 103/64 08/05/24 11:20 Pulse Ox 95 08/05/24 11:20 O2 Del Method Oxymask 08/05/24 11:20 O2 Flow Rate 2 08/05/24 10:53 08/04/24 08/05/24 08/05/24 22:59 06:59 14:59 Intake Total 1340 / 1940 100 / 2040 840 / 840 Output Total 950 / 950 500 / 1450 570 / 570 Balance 390 / 990 -400 / 590 270 / 270 Weight last 48 hrs Weight 108.046 kg Weight 107.275 kg Physical Exam 2 Narrative: General: No acute distress, AO x3 HEENT: PERRLA, pupils bilaterally equal and reactive, pallors not present Chest: crackles to auscultation B/L CVS: S1-S2 regular, no murmurs, no tachycardia, no gallops, no rubs Abdomen: Soft, nontender, no organomegaly, bowel sounds present Neuro: No focal deficits, no facial deformity, AO x3, power 5/5 in all limbs Urinary Catheter Management: Posadas: Cath Placed During This Visit: yes Reason for Continuing Indwelling Catheter: Accurate Measurement of Urinary Output in Critically Ill Patients Urinary Catheter Date of Insertion: 02/09/24 Urinary Catheter Time of Insertion: 17:10 Data 08/05/24 04:25 08/05/24 04:25 Micro: Microbiology 08/05/24 04:30 Blood Culture - Preliminary Blood SPECIMEN COLLECTED 08/05/24 04:25 Blood Culture - Preliminary Blood SPECIMEN COLLECTED 08/03/24 09:49 Blood Culture - Preliminary Blood NEGATIVE TO DATE A&P Assessment and plan (1) Decompensated heart failure: (2) CHF (congestive heart failure): (3) History of heart valve repair: (4) Aortic valve stenosis: (5) Coronary artery disease: (6) Pacemaker: (7) Supratherapeutic INR: resolved (8) Diabetes mellitus: LDSSI and accuchecks (9) Shortness of breath: (10) Acute passive congestion of liver: (11) Elevated liver enzymes: slowly improving (12) LAUREN (acute kidney injury): slowly improving followed by nephro (13) Hyperkalemia: resolved Plan #Acute on chronic systolic/diastolic HF, known EF 25%, status post pacemaker. 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 INR elevated 4.1. Patient is on chronic anticoagulation at home with apixaban and is on Plavix antiplatelet agent. Does have mild slurred speech from prior stroke which is intermittent. Generalized weakness most likely secondary to decompensated heart failure. ? 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 ? Patient appears to be in decompensated heart failure today. ? Check CT chest abdomen pelvis secondary to evidence of complex pleural effusion on right side and evaluation for LAUREN and to look for any intra- abdominal pathology. ? Liver enzymes are elevated possibly secondary to decompensated heart failure and congestive hepatopathy. Will check hepatitis profile as well ? Hold atorvastatin ? Patient hyperkalemic on admission with potassium 5.8. Was given 1 amp of bicarb. Will repeat CMP at this time. He also received 10 units of IV insulin, calcium chloride 1 g. 60 mg IV Lasix also given. ? Continue DuoNeb every 6 hours as needed ? Hold home metformin ? Continue omeprazole ? Consult nephrology. ? Most likely LAUREN secondary to cardiorenal syndrome due to fluid overload. We will continue to diurese patient ? Start Lasix 40 IV twice daily ? I will hold off on adding oral potassium and will replete as needed. ? Continue on cardiac telemetry ? Patient did describe some chest pressure which may be secondary to decompensated heart failure however secondary to his history will consult cardiology for further input. First 2 troponins delta negative. 6-hour troponin pending. EKG does show paced rhythm. - Hold home Lantus secondary to LAUREN. Continue on sliding scale insulin low-dose intensity ? Check lactic acid ? Check echocardiogram ? We will obtain records from [facility]. ? Hold Coreg at this time in setting of decompensated heart failure. ? Continue Plavix. ? Hold Eliquis today secondary to supratherapeutic INR. May restart in next 24 hours. - Patient states his slurred speech is intermittent. Neuroexam generally nonfocal. He is able to move all 4 extremities. Usually walks with a cane. Face symmetrical. He does appear quite deconditioned. ? Check pacemaker interrogation Full code DVT prophylaxis: INR supratherapeutic. I will hold off on adding subcu heparin at this time. 07/30/2024 INR 3.2 today. May restart Eliquis in next 24 hours. INR most likely elevated due to underlying liver disease with component of being on Eliquis. Continue to hold Lantus Sliding scale low-dose intensity at this time. Continue to diurese patient Nephrology consulted. Liver enzymes improving slowly. Most likely secondary congestive hepatopathy. Hepatitis profile pending. Statin 2.7 today. Patient will need GI referral as an outpatient. Echocardiogram pending Cardiology consulted. Continue to follow recommendations. 07/31/24 -Eliquis 5mg BID -INR 1.82 (07/31) -levofloxacin, Cx from [place] pending -hyperkalemia has resolved -LDSSI with accuchecks -lasix 40mg IVP TID, continue albumin -has diuresed well -LFT's slowly improving. may require GI referral as outpatient setting -LAUREN slowly improving. continue albumin per nephrology. 08/01/24 -eliquis 5mg BID -INR 1.54 (08/01/24) -hyperkalemia resolved, transaminitis improving -Cr improved to 2.2 this AM -continue lasix 40mg IVP TID, continue albumin 25mg TID -can consider transition to PO lasix in 24-48hrs August 02, 2024 Continues to be on IV diuresis with Lasix 40 mg every 8 hours. Net -600 cc last 24 hours. Overall net negative by 6 L. However patient states he does not feel significantly better.Currently on supplemental 02 at 1.5L. Platelet count at 77,000. Cr stable at 2.2. Eliquis and a/x on hold. Ct chest with moderate right and small left pleural effusion. Repeat chest x-ray as patient reports no significant improvement however objectively has reducing oxygen requirements currently. August 03, 2024 Net -6.4 L now.Creatinine is improving at 2.0. Urine output 2200 cc last 24 hours. IV Lasix transitioned to Lasix 40 mg p.o. twice daily today. Appreciate nephrology recommendations. Hemoglobin at 8.5 today. In trending previous numbers patient has had chronic anemia dating back to at least February 2024. Hemoglobin ranging between 7.5 in February 2024 to 8.5 now. 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 Transferrin saturation of 6%, iron level of 20, ferritin of 74. Patient has not had a bowel movement yet to enable occult blood testing. Start IV iron sucrose 200 mg, plan to complete transfusion for 5 days for iron deficiency anemia and thrombocytopenia. Add multivitamin B12 folate supplementation. Eliquis has been on hold this current admission due to following platelet count. Currently thrombocytopenia has stabilized at 81,000. Suspect that this may be related to a combination of iron deficiency and liver cirrhosis as seen on CT on admission. Spleen is noted to be normal. Will obtain peripheral smear additionally to assess for any potential hemolysis given the rising T. bili. Check haptoglobin levels additionally. Check blood cultures given recent history of endocarditis. In reviewing the chart, patient had strep mitis oralis bacteremia in February 2024. He was transferred to [facility] for endocarditis at the time. He states that he had an extended course of antibiotics though his SP was reported negative. He states that after his discharge from [facility] he traveled to [place] for New 's and was readmitted at [facility] in [place] for another infection. He is unable to tell me if this was endocarditis or not. We have requested records today. Encourage out of bed today, PT OT assessment August 04, 2024 Urine output yesterday 900 cc. Clinically appearing to be euvolemic. 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 Blood cultures at that time were positive for strep mitis oralis which was penicillin susceptible. SP was negative for any gross vegetations however patient met criteria for possible endocarditis. He received treatment with ceftriaxone while remaining inpatient for 10 days between 02/08 to 02/18/2025. Thereafter he was transitioned to dalbavancin 1500 mg IV x 1 which was considered to be coverage for 2 weeks. Thereafter he was meant to transition to Keflex 1 g p.o. twice daily to end total 6 weeks of therapy on 03/21/2025. He was to be arranged with a [facility] at discharge. Following his discharge from [facility], he visited family in [place] around . He was admitted to [facility] in [place] with fever and diarrhea. C. difficile was negative however his blood cultures returned with Klebsiella pneumonia and Enterococcus fecalis. Review of discharge summary from this hospital, a SP performed there did not reveal any obvious vegetations.. ID service was consulted and recommended 6 weeks of treatment until May 09, 2024 with meropenem 1 g IV twice daily and vancomycin 1 g IV daily. Patient transitioned to a fdc thereafter. Due to recurrent bacteremia, and chronic anemia he did undergo both upper and lower GI endoscopies there. Upper GI endoscopy showed that the upper third of esophagus and middle third were normal. 1 cm of salmon-colored mucosa was encountered which appeared suspicious for Whaley's esophagus. Biopsy was contraindicated. A medium sized hiatal hernia was noted. Scattered moderate inflammation was found in the gastric antrum. Biopsies were taken at the time and showed mild chronic inactive gastritis without evidence of intestinal metaplasia or dysplasia or malignancy. No H. pylori was noted. Random biopsies of the duodenal bulb showed foveolar metaplasia, no active malignancy, second portion of the duodenum was normal on biopsy. Colonoscopy showed a 5 mm polyp 65 cm proximal to the anus. He was cleared to resume his Eliquis. It appears the capsule endoscopy was also recommended however not completed as he left the area. Currently patient had a bowel movement yesterday and his FOBT has returned positive. Patient has recently had extensive endoscopic evaluation as noted above at an outside hospital and there is no immediate indication to repeat endoscopic evaluation at this time. Patient is hemodynamically stable. His hemoglobin has been chronically low since at least February 2024. He has obvious signs of iron deficiency anemia. Source of positive FOBT may be gastritis as noted above on recent endoscopy. Will increase Protonix to 40 mg p.o. twice daily and add Carafate to his regimen. Hemoglobin today at 7.9, similar range, however given that patient has multiple cardiac comorbidities with a low ejection fraction with target hemoglobin threshold to be at 8.0 for transfusion. Will transfuse 1 unit packed red blood cell today. Can discontinue Venofer since he will be receiving blood transfusion today. Continue Plavix 75 mg p.o. daily. Platelet count noted to be stable Today at 80,000. Unlikely an ongoing hemolytic process given normal haptoglobin and LDH. Likely elevated T. bili at 1.6 related to hepatic congestion. AST ALT are trending down reassuringly. Normal alkaline phosphatase therefore doubt an obstructive process. We are awaiting peripheral smear. Suspect anemia and thrombocytopenia also contributed by iron deficiency and liver cirrhosis as noted on CT. Plan to resume DVT prophylaxis with heparin over the next 24 hours if platelet count remains stable. Blood cultures taken yesterday on 08/03/2024 revealed one of the 4 bottles positive for Staphylococcus species. We are awaiting further identification to see if this is coag negative versus coag positive staph. If final identification turns out to be Staph aureus, we will need to reevaluate for endocarditis. Repeat blood cultures. Start vancomycin while awaiting further identification of the staph species. August 05, 2024 Hemoglobin is improved today at 8.6. Status post 1 unit packed red blood cells yesterday. Needed extra dose of 20 mg IV push Lasix overnight. Oxygen requirement at 2 L/min today. Chest is clear to auscultation currently. Patient had some blood-tinged expectoration this morning. Closely monitor. For now we will continue with Plavix. Platelet count is improving at 90,000 today. Holding off on Eliquis until we can ensure he is not having any worsening hematemesis. Suspect that may be related to excessive coughing. Added Tessalon Perles 3 times daily as a cough suppressant and throat lozenges. If bleeding increases, will need to hold Plavix. Increase Lasix 60mg BID. Pending identification of Staphylococcus sp. to assess if he needs further assessment for endocarditis. PDMP PDMP Reviewed: Not Reviewed Attestations 2 Medical Necessity Statement*: identification of staph sp, increase lasix to 60mg BID Coding Level of Care Code Acute Code for Chg Fwd High MDM includes number and complexity of problems actively addressed during encounter, amount and/or complexity of data reviewed/ordered and described risk of complication, morbidity or mortality of management as documented Diagnoses Decompensated heart failure I50.9 Acute on chronic diastolic congestive heart failure I50.33 Heart failure type: diastolic Heart failure chronicity: acute on chronic History of heart valve repair Z98.890 Aortic valve stenosis, etiology of cardiac valve disease unspecified I35.0 Cardiac valve disease etiology: etiology unspecified Coronary artery disease involving [place] coronary artery of [place] heart without angina pectoris I25.10 Coronary Disease-Associated Artery/Lesion type: [place] artery [place] vs. transplanted heart: [place] heart Associated angina: without angina Pacemaker Z95.0 Supratherapeutic INR R79.1 Type 2 diabetes mellitus with other diabetic arthropathy, with long-term current use of insulin E11.618; Z79.4 Diabetes mellitus type: type 2 Diabetes mellitus long-term insulin use: with intermodal dispatcher use Diabetes mellitus complication status: with diabetic arthropathy Diabetes mellitus complication detail: with other arthropathy Shortness of breath R06.02 Acute passive congestion of liver K76.1 Elevated liver enzymes R74.8 LAUREN (acute kidney injury) N17.9 Hyperkalemia E87.5
[2024-08-05] MEDS: vancomycin 1,500 MG/300 ML PIGGYBACK 200 MG IV (14:38)
--- NOTE | 2024-08-05 14:39 | P.PN_ITS ---
Subjective 2 Subjective: on 2l nc Medications: Reviewed: Yes Vitals/I&O/Wt Last Vital Signs Temp 97.6 F 08/05/24 11:20 Pulse 90 08/05/24 11:20 Resp 17 08/05/24 11:20 BP 103/64 08/05/24 11:20 Pulse Ox 95 08/05/24 11:20 O2 Del Method Oxymask 08/05/24 11:20 O2 Flow Rate 2 08/05/24 10:53 08/04/24 08/05/24 08/05/24 22:59 06:59 14:59 Intake Total 1340 / 1940 100 / 2040 840 / 840 Output Total 950 / 950 500 / 1450 570 / 570 Balance 390 / 990 -400 / 590 270 / 270 Weight last 48 hrs Weight 108.046 kg Weight 107.275 kg Physical Exam 2 Narrative: awake , alert No distress on 1L NC s1 S2 RRR per report Lungs clear per report Abd -odt m non tender per report + Edema Urinary Catheter Management: Posadas: Cath Placed During This Visit: yes Reason for Continuing Indwelling Catheter: Accurate Measurement of Urinary Output in Critically Ill Patients Urinary Catheter Date of Insertion: 02/09/24 Urinary Catheter Time of Insertion: 17:10 Data 08/05/24 04:25 08/05/24 04:25 Micro: Microbiology 08/05/24 04:30 Blood Culture - Preliminary Blood SPECIMEN COLLECTED 08/05/24 04:25 Blood Culture - Preliminary Blood SPECIMEN COLLECTED 08/03/24 09:49 Blood Culture - Preliminary Blood NEGATIVE TO DATE A&P Assessment and plan (1) LAUREN (acute kidney injury): 1. Acute on chronic kidney disease: Baseline creatinine in the mid 1 range. LAUREN likely cardiorenal. - Cr stable - on Po lasix ,O2 requirement increased , will give a dose of iv lasix - Strict intake and output, daily weights - 2 gm Na and 1500 ml fluid restriction - Arrange Nephrology follow up @ dc 2. Hyperkalemia: Low K diet, improved 3. Anemia: + Hemooccult stool , will order JEN , Plan for tranfusion 4. Cardiomyopathy, history of CABG, coronary stent ejection fraction 37% 5. Acute on chronic respiratory failure, multifactorial, diuresis as above 6. History of TAVR 7. Thrombocytopenia , mild monitor 8. Met alkalosis , sec to diuresis , monitor Patient evaluated using audiovisual cart. Time spent 40 minutes PDMP PDMP Reviewed: Not Reviewed Attestations 2 Medical Necessity Statement*: per [facility] Coding Level of Care Code Acute Code for Chg Fwd Diagnoses LAUREN (acute kidney injury) N17.9
[2024-08-05] MEDS: FUROsemide 40 mg Tablet 60 MG PO (14:40)
[2024-08-05 16:04] LABS: Glucose Point of Care 238 mg/dL (70-110)
[2024-08-05] MEDS: pramipexole 0.25 mg Tablet 0.5 MG PO (16:53)
[2024-08-05] MEDS: atorvastatin 40 mg Tablet PO (16:55)
[2024-08-05 19:58] LABS: Glucose Point of Care 229 mg/dL (70-110)
[2024-08-05] MEDS: lactulose oral liq 20 gm/30 mL UDC 10 GM PO (23:27)
[2024-08-05] MEDS: ipratropium-albuterol 3 mL Neb INHALATION (23:45)
[2024-08-06] VITALS (7 sets, daily range): BP systolic 95–120; BP diastolic 68–76; PULSE 89–91; RESP 17–22; TEMP 36.4–36.7; O2SAT 95–99
[2024-08-06] MEDS: cetylpyridinium Lozenge 1 EACH MUCOUS MEM ×2 (03:58→11:30)
[2024-08-06 04:36] LABS: Basophils % 0.5 %; Eosinophils # 0.1 10^3/uL (0.0-0.8); Eosinophils % 0.8 %; Hematocrit 31.6 % (37-53); Lymphocytes # 0.8 10^3/uL (0.8-4.8); Lymphocytes % 13.9 %; Mean Corpuscular HGB Conc 28.8 g/dL (30-55); Mean Corpuscular Hemoglobin 25.3 pg (27-33); Mean Corpuscular Volume 87.8 fl (82-101); Mean Platelet Volume 11.9 fL (7.4-10.4); Monocytes # 0.6 10^3/uL (0.2-0.9); Monocytes % 10.8 %; Neutrophils # 4.39 10^3/uL (1.8-7.7); Neutrophils % 73.8 %; Nucleated Red Blood Cells % 0 %; Platelet Count 100 10^3/cmm (157-399); Red Cell Distribution Width 17.9 % (12.1-15.1); White Blood Count 5.95 10^3/uL (3.29-11.43)
[2024-08-06 04:53] LABS: Alanine Aminotransferase 96 U/L (0-41); Albumin Level 3.8 g/dL (3.5-5.2); Alkaline Phosphatase 123 U/L (40-130); Blood Urea Nitrogen 47 mg/dL (8-23); Calcium 8.8 mg/dL (8.5-10.5); Carbon Dioxide 29 mmol/L (22-29); Chloride 96 mmol/L (98-107); Creatinine Clr Calc Pharmacy 39.4844; Globulin 2.6 g/dL (1.3-4.6); Glucose 99 mg/dL (65-115); Osmolality Calculated 296 mOsm/kg (285-295); Sodium 137 mmol/L (136-145); Total Bilirubin 1.6 mg/dL (0.15-1.2); Total Protein 6.4 g/dL (6.6-8.7)
[2024-08-06 05:01] LABS: Anion Gap 15.8 (5-19); Aspartate Amino Transferase 57 U/L (0-40); Potassium 3.8 mmol/L (3.5-5.1)
[2024-08-06 06:01] LABS: Glucose Point of Care 111 mg/dL (70-110)
[2024-08-06] MEDS: sucralfate 1 gm Tablet PO ×4 (06:27→20:51)
--- NOTE | 2024-08-06 06:49 | P.PN_ITS ---
Subjective 2 Subjective: no new c/o Medications: Reviewed: Yes Vitals/I&O/Wt Last Vital Signs Temp 97.5 F L 08/06/24 04:00 Pulse 90 08/06/24 04:00 Resp 19 H 08/06/24 04:00 BP 100/68 08/06/24 04:00 Pulse Ox 98 08/06/24 04:00 O2 Del Method Aerosol Mask 08/06/24 04:00 O2 Flow Rate 2 08/05/24 23:45 08/05/24 08/05/24 08/06/24 14:59 22:59 06:59 Intake Total 840 / 840 540 / 1380 100 / 1480 Output Total 570 / 570 150 / 720 550 / 1270 Balance 270 / 270 390 / 660 -450 / 210 Weight last 48 hrs Weight 109.225 kg Weight 108.046 kg Physical Exam 2 Narrative: awake , alert No distress on 1L NC s1 S2 RRR per report Lungs clear per report Abd -odt m non tender per report + Edema Urinary Catheter Management: Posadas: Cath Placed During This Visit: yes Reason for Continuing Indwelling Catheter: Accurate Measurement of Urinary Output in Critically Ill Patients Urinary Catheter Date of Insertion: 02/09/24 Urinary Catheter Time of Insertion: 17:10 Data 08/06/24 03:46 08/06/24 03:46 Micro: Microbiology 08/05/24 04:30 Blood Culture - Preliminary Blood NEGATIVE TO DATE 08/05/24 04:25 Blood Culture - Preliminary Blood NEGATIVE TO DATE A&P Assessment and plan (1) LAUREN (acute kidney injury): 1. Acute on chronic kidney disease: Baseline creatinine in the mid 1 range. LAUREN likely cardiorenal. - Cr stable - on Po lasix 60 mg bid - Strict intake and output, daily weights - 2 gm Na and 1500 ml fluid restriction - Arrange Nephrology follow up @ dc 2. Hyperkalemia: Low K diet, improved 3. Anemia: + Hemooccult stool , will order JEN , Plan for tranfusion 4. Cardiomyopathy, history of CABG, coronary stent ejection fraction 37% 5. Acute on chronic respiratory failure, multifactorial, diuresis as above 6. History of TAVR 7. Thrombocytopenia , mild monitor 8. Met alkalosis , sec to diuresis , monitor Patient evaluated using audiovisual cart. Time spent 40 minutes PDMP PDMP Reviewed: Not Reviewed Attestations 2 Medical Necessity Statement*: per mediicne Coding Level of Care Code Acute Code for Chg Fwd Diagnoses LAUREN (acute kidney injury) N17.9
[2024-08-06] MEDS: pantoprazole DR 40 mg Tablet PO ×2 (07:53→18:11)
[2024-08-06] MEDS: FUROsemide 40 mg Tablet 60 MG PO ×2 (07:53→15:35)
[2024-08-06] MEDS: carvedilol 3.125 mg Tablet PO ×2 (07:53→22:02)
[2024-08-06] MEDS: multivitamin therapeutic Tablet 1 TAB PO (07:53)
[2024-08-06] MEDS: benzonatate 100 mg Capsule PO ×3 (07:53→20:51)
[2024-08-06] MEDS: clopidogrel 75 mg Tablet PO (07:53)
[2024-08-06] MEDS: heparin 5,000 unit/mL INJ 1 mL 5000 UNIT SUBCUT (07:54)
[2024-08-06] MEDS: polyethylene glycol 3350 Pkt 17 gm PO (07:54)
--- NOTE | 2024-08-06 08:14 | PC.SOCIAL ---
IMM Update pg 2 of IMM Updated and reviewed w/ patient. Copy provided and copy dated, initialed and placed in chart.
--- NOTE | 2024-08-06 09:55 | P.PN_ITS ---
<Statement entered by Stephen Bui M.D - 08/07/24 10:30> Patient was cared for in conjunction with an advanced practice practitioner.? I reviewed the chart and all pertinent data including imaging, telemetry, and laboratory results.? I discussed the patient in detail with the advanced practice practitioner.? Please see? their note for complete progress note, testing results and agreed upon plan of care for the patient. Subjective 2 Subjective: Patient is doing well w/o complaints. he is on nasal cannula at this time. He has some crackles in his lungs. Otherwise he is comfortable without distress. Blood cultures continue to be coag negative. Vitals/I&O/Wt Last Vital Signs Temp 97.8 F 08/06/24 08:00 Pulse 90 08/06/24 08:44 Resp 18 08/06/24 08:44 BP 105/74 08/06/24 08:00 Pulse Ox 99 08/06/24 08:44 O2 Del Method Nasal Cannula 08/06/24 08:44 O2 Flow Rate 2 08/06/24 08:44 08/05/24 08/06/24 08/06/24 22:59 06:59 14:59 Intake Total 540 / 1380 100 / 1480 240 / 240 Output Total 150 / 720 550 / 1270 Balance 390 / 660 -450 / 210 240 / 240 Weight last 48 hrs Weight 240 lb 12.8 oz Weight 238 lb 3.2 oz Physical Exam 2 Narrative: General: No apparent distress, healthy appearing, well nourished HENMT: normoceophalic Muskuloskeletal: Full ROM Lymphatic: no lymphedema noted Respiratory: Normal respiratory effort, fine crackles bilateral lower lobes otherwise clear throughout other lung angel, no use of accessory muscles Cardio: No JVD, regular rate, regular rhythm, S1 S2 normal, no murmurs, peripheral pulses 2+ radial palpated bilaterally GI: Normal to inspection, nondistended Extremities: Full ROM, normal, normal capillary refill, no cyanosis or edema Neuro: Alert and oriented x4, no focal motor deficits Psych: Affect normal, mental status grossly normal Skin: No rashes or lesions noted, no wounds Urinary Catheter Management: Posaads: Cath Placed During This Visit: yes Reason for Continuing Indwelling Catheter: Accurate Measurement of Urinary Output in Critically Ill Patients Urinary Catheter Date of Insertion: 02/09/24 Urinary Catheter Time of Insertion: 17:10 Data 05/02/25 03:46 08/06/24 03:46 Micro: Microbiology 08/05/24 04:30 Blood Culture - Preliminary Blood NEGATIVE TO DATE 08/05/24 04:25 Blood Culture - Preliminary Blood NEGATIVE TO DATE A&P Assessment and plan (1) Acute on chronic systolic heart failure: (2) Status post aortic valve replacement with bioprosthetic valve: (3) Atrial fibrillation with rapid ventricular response: (4) Atherosclerosis of coronary artery of [place] heart without angina pectoris: (5) Diabetes mellitus: Plan Creatinine stable at 2. Vitals are stable. He is slightly anemic. Has a hx of chronic gastritis confirmed via scope at another facility. Agree with plan to start Eliquis at 2.5 BID for stroke prevention in afib if ok with hospitalist from a GI perspective. Further workup for possible endocarditis due to positive blood cultures if indicated. Continue coreg. Continue current medical management. PDMP PDMP Reviewed: Not Reviewed Attestations 2 Medical Necessity Statement*: Deferred to primary Coding Level of Care Code Acute Code for Chg Fwd Diagnoses Acute on chronic systolic heart failure I50.23 Status post aortic valve replacement with bioprosthetic valve Z95.3 Atrial fibrillation with rapid ventricular response I48.91 Atherosclerosis of [place] coronary artery of [place] heart without angina pectoris I25.10 Coronary Disease-Associated Artery/Lesion type: [place] artery Type 2 diabetes mellitus with other diabetic arthropathy, with long-term current use of insulin E11.618; Z79.4 Diabetes mellitus type: type 2 Diabetes mellitus long-term insulin use: with long-term use Diabetes mellitus complication status: with diabetic arthropathy Diabetes mellitus complication detail: with other arthropathy
[2024-08-06 11:14] LABS: Glucose Point of Care 159 mg/dL (70-110)
[2024-08-06] MEDS: insulin lispro 100 unit/1 mL SUBCUT ×3 (11:28→21:08)
[2024-08-06 12:36] LABS: SARS Covid-2 Antigen Negative (Negative)
--- NOTE | 2024-08-06 14:19 | P.DS_ITS ---
Discharge Providers Date of Admission: 07/29/24 14:25 Date of Discharge: August 06, 2024 Attending Provider at Admission: Iraida Santamaria MD Attending Provider at Discharge: Airam Hernadez MD Primary Care Provider: Gatito Hall Diagnoses at Discharge Discharge Diagnosis (1) LAUREN (acute kidney injury): Status: Acute (2) CHF (congestive heart failure): Status: Acute Qualifiers: Heart failure type: diastolic Heart failure chronicity: acute on chronic Qualified Code(s): I50.33 - Acute on chronic diastolic (congestive) heart failure (3) Decompensated heart failure: Status: Acute (4) Systolic heart failure: Status: Acute (5) History of heart valve repair: Status: Acute (6) Status post aortic valve replacement with bioprosthetic valve: Status: Acute (7) Pacemaker: Status: Acute (8) Acute passive congestion of liver: Status: Acute (9) Elevated liver enzymes: Status: Acute (10) Thrombocytopenia: Status: Acute Reason for Visit Reason for Visit: stroke symptoms Hospital Course Hospital Course 79 year old male past medical history of aortic stenosis, status post TAVR at [facility] on December 30, 2023. 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 He is currently admitted here since 07/29 with complaint of weakness and slurred speech that started 5 days [employer]. In the ER he was noted to have INR 4.11 on Eliquis chronically, potassium 5.8, creatinine 2.5, AST ALT elevated 393, 357, alkaline phosphatase 161, troponin 49, 49.22, BNP 23,000. Ct head did not show any acute stroke. He was diagnosed with acute on chronic systolic heart failure. Echocardiogram was performed which showed an ejection fraction of 37%, which is improved over previously 20 to 25%. He received diuresis with IV Lasix with close monitoring of renal function and urine output and daily weights. His LAUREN settled, creatinine is now currently between 1.9-2.0. He is making around 1000 to 1500 cc of urine every day. Initially he received diuresis with IV Lasix which was transitioned to oral Lasix 60 mg twice daily at the time of discharge. He is net -5.7 L at the time of discharge. Imaging of the liver performed for transaminitis, shows signs of cirrhosis, suspect may be related to CHF and chronic hepatic congestion.B/L pleural effusions with scattered infiltrates. He received an empiric 5-day course of levofloxacin. He did not have any leukocytosis. He has remained afebrile during course of admission. 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 Reviewed patient's notes from admission at [facility] from February 2024 when he was transferred for streptococcal endocarditis. Blood cultures at that time were positive for strep mitis oralis which was penicillin susceptible. SP was negative for any gross vegetations however patient met criteria for possible endocarditis. He received treatment with ceftriaxone while remaining inpatient for 10 days between 02/08 to 02/18/2025. Thereafter he was transitioned to dalbavancin 1500 mg IV x 1 which was considered to be coverage for 2 weeks. Thereafter he transitioned to Keflex 1 g p.o. twice daily to end total 6 weeks of therapy on 03/21/2025. He was to be arranged with a LifeVest at discharge, however he doesnt have it at this time, likely as EF has improved to > 35%. Following his discharge from [facility], he visited family in [place] around . He was admitted to [facility] in [employer] with fever and diarrhea. C. difficile was negative however his blood cultures returned with Klebsiella pneumonia and Enterococcus fecalis. Review of discharge summary from this hospital, a SP performed there did not reveal any obvious vegetations.. ID service was consulted and recommended 6 weeks of treatment until May 09, 2024 with meropenem 1 g IV twice daily and vancomycin 1 g IV daily. Patient transitioned to a detention thereafter to complete treatment course. Due to recurrent bacteremia, and chronic iron deficiency anemia since at least Feb 2024, he did undergo both upper and lower GI endoscopies in [place]. Upper GI endoscopy showed that the upper third of esophagus and middle third were normal. 1 cm of salmon-colored mucosa was encountered which appeared suspicious for Whaley's esophagus. Biopsy was contraindicated. A medium sized hiatal hernia was noted. Scattered moderate inflammation was found in the gastric antrum. Biopsies were taken at the time and showed mild chronic inactive gastritis without evidence of intestinal metaplasia or dysplasia or malignancy. No H. pylori was noted. Random biopsies of the duodenal bulb showed foveolar metaplasia, no active malignancy, second portion of the duodenum was normal on biopsy. Colonoscopy showed a 5 mm polyp 65 cm proximal to the anus. He was cleared to resume his Eliquis at that time. It appears the capsule endoscopy was also recommended however not completed as he left the area. He has been provided a referral to see gastroenterology in [place] to complete the capsule endoscopy. On this current admission patient's FOBT has returned positive. Patient has recently had extensive endoscopic evaluation as noted above at an outside hospital and there is no immediate indication to repeat endoscopic evaluation at this time as there was no active hematemesis or melena. Patient is hemodynamically stable. His hemoglobin has been chronically low since at least February 2024. He has obvious signs of iron deficiency anemia. He received 1 unit of packed red blood cell transfusion for hemoglobin of 7.9 following which hemoglobin is improved at 9.1 today. Source of positive FOBT may be gastritis as noted above on recent endoscopy. We increased Protonix to 40 mg p.o. twice daily and added Carafate to his regimen. Iron supplementation has been added at discharge Continue Plavix 75 mg p.o. daily. Eliquis has been placed on hold until next follow-up with platelet count as patient was noted to have thrombocytopenia during course of admission. Likely from iron deficiency and cirrhosis. Cu rrently platelets are uptrending, on last check they were at 100,000. Recommend to repeat in 3 to 4 days of discharge, if continues with the uptrend of over 100,000, may resume Eliquis at a lower dose of 2.5 mg twice daily. Of note, blood cultures taken on 08/03/2024 revealed one of the 4 bottles positive for Staphylococcus species. Per PCR analysis this is not Staph aureus, however final species of Staphylococcus still needs to be identified via microscan. this may be a contaminant, however with a significant history of endocarditis as noted above, we need definite identification before dismissing it as such. If this is staph lugdunensis or other significant CoNs Staphylococcus species, patient will need workup for endocarditis again. His discharge summary has been completed, however discharge is pending final identification. Initially the identification was expected from lab at around 9 AM. However the micro scan was unable to give an ID this morning. Now the identification is expected to be at 3 PM. Discharge orders will be placed once we know the final organism. Physical Exam Narrative: General: No acute distress, AO x3 HEENT: PERRLA, pupils bilaterally equal and reactive, pallors not present Chest: Normal vesicular breath sounds, no added sounds, equal good air entry b ilaterally CVS: S1-S2 regular, no murmurs, no tachycardia, no gallops, no rubs Abdomen: Soft, nontender, no organomegaly, bowel sounds present Neuro: No focal deficits, no facial deformity, AO x3, power 5/5 in all limbs . Urinary Catheter Management: Posadas: Cath Placed During This Visit: yes Reason for Continuing Indwelling Catheter: Accurate Measurement of Urinary Output in Critically Ill Patients Urinary Catheter Date of Insertion: 02/09/24 Urinary Catheter Time of Insertion: 17:10 Discharge Data Studies Completed and Pending Completed Studies During Hospitalization Category Date Time Status CT chest abdomen pelvis [[place] [id number] Cat Scan 07/29/24 13:48 Completed ] Stat CT head thrombolytic [id number] Stat Cat Scan 07/29/24 09:28 Completed CXRP [XR chest 1V portable [id number]] Routine Exams 08/02/24 15:34 Completed XR chest 1V portable [id number] Stat Exams 07/29/24 09:39 Completed CV. echo limited [id number] Stat Ultrasound 07/29/24 13:30 Completed US gall bladder [id number] Stat Ultrasound 07/29/24 11:48 Completed Pending at discharge Category Date Time Status Blood Culture AM LABS Lab 08/05/24 04:30 Results Blood Culture Stat Lab 08/03/24 09:49 Results Vancomycin Trough Timed Lab 08/07/24 14:00 Ordered Radiology Impressions Head CT 07/29/24 09:28 IMPRESSION: 1. No evidence of intracranial hemorrhage or mass effect. 2. Moderate small vessel changes. Moderate parenchymal volume loss. 3. Chronic lacunar infarcts in the LEFT greater than RIGHT basal ganglia. Chronic infarct in the RIGHT cerebellum. 4. Vascular calcification. 5. Some images are degraded due to beam hardening and motion artifact. 6. No acute intracranial findings. Gallbladder Ultrasound 07/29/24 11:48 IMPRESSION: 1. Technically limited RIGHT upper quadrant ultrasound. 2. No cholelithiasis identified. Gallbladder ultrasound is limited. 3. Cirrhotic liver. 4. No intrahepatic duct dilatation. 5. Small complex RIGHT pleural effusion. Chest/Abdomen/Pelvis CT 07/29/24 13:48 IMPRESSION: 1. Moderate RIGHT and small LEFT pleural effusions. 2. Groundglass infiltrates worse in the RIGHT upper lobe described above compatible with pneumonitis. 3. Somewhat shrunken configuration to the liver can be seen with early cirrhosis. Recommend correlation with liver function test. Spleen size is normal. No visualized varices. 4. Moderate esophageal hiatal hernia. 5. Sigmoid constipation. 6. No other acute findings in the abdomen or pelvis. Chest X-Ray 08/02/24 15:34 IMPRESSION: Possible small bilateral pleural effusions. No large effusion. Laboratory Results WBC 5.95 10^3/uL (3.29-11.43) 08/06/24 03:46 RBC 3.60 10^6/uL (3.85-5.65) L 08/06/24 03:46 Hgb 9.10 g/dL (11.27-16.99) L 08/06/24 03:46 Hct 31.6 % (37-53) L 08/06/24 03:46 MCV 87.8 fl (82-101) 08/06/24 03:46 MCH 25.3 pg (27-33) L 08/06/24 03:46 MCHC 28.8 g/dL (30-55) L 08/06/24 03:46 RDW 17.9 % (12.1-15.1) H 08/06/24 03:46 Plt Count 100 10^3/cmm (157-399) L 08/06/24 03:46 MPV 11.9 fL (7.4-10.4) H 08/06/24 03:46 Neut % (Auto) 73.8 % 08/06/24 03:46 Lymph % (Auto) 13.9 % 08/06/24 03:46 [place] % (Auto) 10.8 % 08/06/24 03:46 Eos % (Auto) 0.8 % 08/06/24 03:46 Baso % (Auto) 0.5 % 08/06/24 03:46 Neut # (Auto) 4.39 10^3/uL (1.8-7.7) 08/06/24 03:46 Lymph # (Auto) 0.8 10^3/uL (0.8-4.8) 08/06/24 03:46 [place] # (Auto) 0.6 10^3/uL (0.2-0.9) 08/06/24 03:46 Eos # (Auto) 0.1 10^3/uL (0.0-0.8) 08/06/24 03:46 Baso # (Auto) 0.0 10^3/uL (0.0-0.1) 08/06/24 03:46 Nucleated RBC % (auto) 0 % 08/06/24 03:46 Nucleated RBCs # 0.0 /100WBC 08/06/24 03:46 Peripher Smr Path Cons Sent for review 08/04/24 03:50 Haptoglobin 134.0 mg/L (30-200) 08/04/24 03:50 PT 19.40 SECONDS (12.1-14.9) H 08/01/24 04:20 INR 1.53 (0.8-1.2) H 08/01/24 04:20 APTT 31.5 SECONDS (23.9-36.7) 07/29/24 09:45 Sodium 137 mmol/L (136-145) 08/06/24 03:46 Potassium 3.8 mmol/L (3.5-5.1) 08/06/24 03:46 Chloride 96 mmol/L (98-107) L 08/06/24 03:46 Carbon Dioxide 29 mmol/L (22-29) 08/06/24 03:46 Anion Gap 15.8 (5-19) 08/06/24 03:46 BUN 47 mg/dL (8-23) H 08/06/24 03:46 Creatinine 2.0 mg/dL (0.7-1.2) H 08/06/24 03:46 GFR Calculation Not Reportable 08/06/24 03:46 Glucose 99 mg/dL (65-115) 08/06/24 03:46 POC Glucose 159 mg/dL (70-110) H 08/06/24 11:07 Estimat Average Glucose 134 07/29/24 09:45 Hemoglobin A1c 6.3 % (4.0-6.0) H 07/29/24 09:45 Calculated Osmolality 296 mOsm/kg (285-295) H 08/06/24 03:46 Lactic Acid 3.0 mmol/L (0.5-2.2) H 07/29/24 15:58 Lactic Acid (Sepsis) 2.3 mmol/L (0.5-2.2) H 07/29/24 18:02 Calcium 8.8 mg/dL (8.5-10.5) 08/06/24 03:46 Phosphorus 4.0 mg/dL (2.5-4.5) 07/30/24 02:42 Magnesium 2.5 mg/dL (1.7-2.3) H 08/03/24 02:45 Iron 20 ug/dL (59-158) L 07/29/24 13:51 TIBC 328 mcg/dl 07/29/24 13:51 % Saturation 6.0 % (20-50) L 07/29/24 13:51 Unsat Iron Binding 308 ug/dL (112-347) 07/29/24 13:51 Ferritin 74 ng/mL (30-400) 07/29/24 13:51 Total Bilirubin 1.6 mg/dL (0.15-1.2) H 08/06/24 03:46 GGT 35 U/L (8-61) 07/30/24 02:42 AST 57 U/L (0-40) H 08/06/24 03:46 ALT 96 U/L (0-41) H 08/06/24 03:46 Alkaline Phosphatase 123 U/L (40-130) 08/06/24 03:46 Lactate Dehydrogenase 200 U/L (135-225) 08/04/24 03:50 Troponin T Baseline 49 ng/L (0-15) H 07/29/24 09:45 Troponin T 120 Minute 49.22 ng/L (0-15) H 07/29/24 11:39 Delta Troponin T 0.22 ABS# (0-10) 07/29/24 11:39 Troponin T Hi Sens 6Hr 46.34 ng/L (0-15) H 07/29/24 15:58 Troponin T Hi Sens 6Hr Delta -2.66 ng/L (0-12) L 07/29/24 15:58 C-Reactive Protein 9.8 mg/L (0.0-4.9) H 07/29/24 09:45 NT-Pro-B Natriuret Pep 24999 pg/mL (0-450) H 07/29/24 09:45 Total Protein 6.4 g/dL (6.6-8.7) L 08/06/24 03:46 Albumin 3.8 g/dL (3.5-5.2) 08/06/24 03:46 Globulin 2.6 g/dL (1.3-4.6) 08/06/24 03:46 Triglycerides 65 mg/dL (0-150) 07/29/24 09:45 Cholesterol 101 mg/dL (0-200) 07/29/24 09:45 LDL Cholesterol, Calc 50 mg/dL (50-129) 07/29/24 09:45 HDL Cholesterol 38 mg/dL (60-100) L 07/29/24 09:45 LDL/HDL Ratio 1.32 RATIO (0.00-3.22) 07/29/24 09:45 Cholesterol/HDL Ratio 2.66 mg/dL (1.0-5.00) 07/29/24 09:45 Procalcitonin 0.08 ng/mL (0-0.5) 07/29/24 13:51 TSH 2.16 uIU/mL (0.27-4.20) 07/29/24 09:45 Urine Color Yellow (Yellow) 07/29/24 10:37 Urine Appearance Clear (CLEAR) 07/29/24 10:37 Urine pH 5.0 (5-7) 07/29/24 10:37 Ur Specific Lamar 1.031 (1.005-1.030) H 07/29/24 10:37 Urine Protein 1+ (Negative) A 07/29/24 10:37 Urine Glucose (UA) 3+ (Normal) H 07/29/24 10:37 Urine Ketones Trace (Negative) 07/29/24 10:37 Urine Blood Negative (Negative) 07/29/24 10:37 Urine Nitrate Negative (Negative) 07/29/24 10:37 Urine Bilirubin Negative (Negative) 07/29/24 10:37 Urine Urobilinogen 1.0 mg/dL (Negative) 07/29/24 10:37 Ur Leukocyte Esterase Negative (Negative) 07/29/24 10:37 Urine RBC 0-2 /hpf (0-2) 07/29/24 10:37 Urine WBC 0-5 /hpf (0-5) 07/29/24 10:37 Ur Squamous Epith Cells 0-5 /hpf (0-5) 07/29/24 10:37 Amorphous Sediment Not Reportable 07/29/24 10:37 Urine Bacteria None seen /hpf (NONE) 07/29/24 10:37 Hyaline Casts 12.41 /lpf 07/29/24 10:37 Urine Opiates Screen Negative ng/mL (Negative) 07/29/24 10:37 Ur Barbiturates Screen Negative ng/mL (Negative) 07/29/24 10:37 Ur Phencyclidine Scrn Negative ng/mL (Negative) 07/29/24 10:37 Ur Amphetamines Screen Negative ng/mL (Negative) 07/29/24 10:37 U Benzodiazepines Scrn Negative ng/mL (Negative) 07/29/24 10:37 Urine Cocaine Screen Negative ng/mL (Negative) 07/29/24 10:37 U Marijuana (THC) Screen Negative ng/mL (Negative) 07/29/24 10:37 Hepatitis A IgM Ab Non-reactive (Nonreactive) 07/30/24 02:42 Hep Bs Antigen Non-reactive (Nonreactive) 07/30/24 02:42 Hep Bs Antibody < 3.5 (11.5-1000) L 07/30/24 02:42 Hep B Core Total Ab Non-reactive (Nonreactive) 07/30/24 02:42 Hepatitis C Antibody Non-reactive (Nonreactive) 07/30/24 02:42 SARS-CoV-2 Ag (Rapid) Negative (Negative) 08/06/24 12:00 Blood Type O Positive 08/03/24 09:41 Rho(D) Type Rh positive 08/03/24 09:41 Antibody Screen Negative 08/03/24 09:41 Crossmatch See Detail 08/03/24 09:41 Vitals Last Vital Signs Temp 97.6 F 08/06/24 11:28 Pulse 90 08/06/24 11:28 Resp 22 H 08/06/24 11:28 BP 95/68 08/06/24 11:28 Pulse Ox 95 08/06/24 11:28 O2 Del Method Oxymask 08/06/24 11:28 O2 Flow Rate 2 08/06/24 08:44 Discharge Plan Discharge Patient Disposition: Xfer SNF Condition: Stable Prescriptions: New ipratropium-albuterol 0.5 mg-3 mg(2.5 mg base)/3 mL Solution For Nebulization 3 ml inhalation Q6H PRN (Reason: Shortness Of Breath) 30 Days Qty: 30 0RF sucralfate 1 gram Tablet 1 g PO AC&BEDTIME 30 Days Qty: 30 0RF pantoprazole 40 mg Tablet,Delayed Release (Dr/Ec) 40 mg PO BID 30 Days Qty: 60 0RF insulin lispro [Humalog U-100 Insulin] 100 unit/mL Solution 0 unit SUBCUT WM&BEDTIME 30 Days Qty: 30 0RF lactulose 10 gram/15 mL Solution 10 g PO BID PRN (Reason: constipation) 30 Days Qty: 900 0RF multivitamin with folic acid [Thera] 400 mcg Tablet 1 tab PO DAILY 30 Days Qty: 30 0RF Continued carvedilol 3.125 mg Tablet 3.125 mg PO Q12H Rx Instructions: must administer with a meal/food atorvastatin 40 mg Tablet 40 mg PO QPM clopidogrel 75 mg Tablet 75 mg PO DAILY pramipexole 0.5 mg Tablet 0.5 mg PO QPM Rx Instructions: administer 2 - 3 hours before bedtime magnesium 200 mg Tablet 400 mg PO DAILY cholecalciferol (vitamin D3) [Vitamin D3] 50 mcg (2,000 unit) Capsule 50 mcg PO DAILY Changed furosemide 40 mg Tablet 60 mg PO BID 30 Days Qty: 90 0RF Held Eliquis 5 mg Tablet 5 mg PO BID Hold Instructions: Resume on 08/13/24. hold until next platelet check Discontinued Lantus U-100 Insulin 100 unit/mL Cartridge 13 unit SUBCUT QPM metformin 1,000 mg Tablet 1,000 mg PO BID omeprazole 20 mg Capsule,Delayed Release(Dr/Ec) 20 mg PO DAILY Referrals: [facility] - Gastroenterology [Other, Gastroenterology] - 2 weeks Referral Note: need for capsule endoscopy [facility] - [Other, Gastroenterology] - 2 weeks Referral Note: need for capsule endoscopy [facility] [Outside] Romy Torres NP [Nurse Practitioner, Cardiology] - 08/10/24 3:00 pm Gatito Hall MD [Primary Care Provider, Internal Medicine] - 08/10/24 1:00 pm Patient Instructions: Opioid Safety Activity Restrictions/Additional Instructions: patient is on supplemental 02 between 1.5-3lpm. he prefers to wear an oxymask check CBC for Hb and platelet in 3-4 days. IF platelet count remains > 100, can resume Eliquis at 2.5mg BID. He needs to be set up with gastroenterology for capsule endoscopy in [place]. Discharge Attestations Time Spent in Discharge Care*: greater than 30 min Quality Metrics Clinical Quality Measures [ No reported AMI, CVA or VTE this stay] Coding Level of Care Code Acute Code for Chg Fwd Diagnoses LAUREN (acute kidney injury) N17.9 Acute on chronic diastolic congestive heart failure I50.33 Heart failure type: diastolic Heart failure chronicity: acute on chronic Decompensated heart failure I50.9 Systolic heart failure I50.20 History of heart valve repair Z98.890 Status post aortic valve replacement with bioprosthetic valve Z95.3 Pacemaker Z95.0 Acute passive congestion of liver K76.1 Elevated liver enzymes R74.8 Thrombocytopenia D69.6
--- NOTE | 2024-08-06 15:29 | PC.NURSE ---
called [facility] Talked to Antonia of [facility] to verify if they can take pt's tomorrow or over the weekend, she confirmed that they can take the pt but our hospital has to provide transportation since their facility don't have transport over the weekend.
[2024-08-06] MEDS: vancomycin 1,500 MG/300 ML PIGGYBACK 200 MG IV (15:36)
[2024-08-06 17:14] LABS: Glucose Point of Care 240 mg/dL (70-110)
--- NOTE | 2024-08-06 17:43 | PC.NURSE ---
report called to [facility] Talked to DENNYS Sultana about pt's course of hospitalization,his o2 requirement,meds to be hold such as heparin and plavix, his coughing of blood, 1 BM today, and his discharge disposition to [facility].
[2024-08-06] MEDS: atorvastatin 40 mg Tablet PO (18:11)
[2024-08-06] MEDS: pramipexole 0.25 mg Tablet 0.5 MG PO (18:11)
--- NOTE | 2024-08-06 18:49 | PC.NURSE ---
notified daughter Saundra that pt was transferred to [facility] room 278-1. All pt's belongings are sent with pt.
[2024-08-06 20:30] LABS: Glucose Point of Care 335 mg/dL (70-110)
[2024-08-07] VITALS (8 sets, daily range): BP systolic 106–125; BP diastolic 65–83; PULSE 70–93; RESP 17–24; TEMP 36.4–36.9; O2SAT 95–100
[2024-08-07] MEDS: MELATONIN 3 MG TABLET PO (00:04)
[2024-08-07] MEDS: ipratropium-albuterol 3 mL Neb INHALATION (00:21)
[2024-08-07] MEDS: sucralfate 1 gm Tablet PO ×2 (06:24→10:18)
[2024-08-07 06:49] LABS: Glucose Point of Care 101 mg/dL (70-110)
[2024-08-07] MEDS: multivitamin therapeutic Tablet 1 TAB PO (10:12)
[2024-08-07] MEDS: FUROsemide 40 mg Tablet 60 MG PO (10:12)
[2024-08-07] MEDS: carvedilol 3.125 mg Tablet PO (10:12)
[2024-08-07] MEDS: benzonatate 100 mg Capsule PO (10:14)
[2024-08-07] MEDS: pantoprazole DR 40 mg Tablet PO (10:15)
[2024-08-07 12:10] LABS: Glucose Point of Care 174 mg/dL (70-110)
[2024-08-07] MEDS: insulin lispro 100 unit/1 mL SUBCUT (12:20)
--- NOTE | 2024-08-07 13:44 | PC.NURSE ---
report phoned to jarett at [facility].transportation provided by [facility]...discharged at this time via w/c
--- NOTE | 2024-08-07 15:05 | P.DS_ITS ---
Discharge Providers Date of Admission: 07/29/24 14:25 Date of Discharge: August 07, 2024 Attending Provider at Admission: Iraida Santamaria MD Attending Provider at Discharge: Airam Hernadez MD Primary Care Provider: Gatito Hall Diagnoses at Discharge Discharge Diagnosis (1) LAUREN (acute kidney injury): Status: Acute (2) CHF (congestive heart failure): Status: Acute Qualifiers: Heart failure type: diastolic Heart failure chronicity: acute on chronic Qualified Code(s): I50.33 - Acute on chronic diastolic (congestive) heart failure (3) Decompensated heart failure: Status: Acute (4) Systolic heart failure: Status: Acute (5) History of heart valve repair: Status: Acute (6) Status post aortic valve replacement with bioprosthetic valve: Status: Acute (7) Pacemaker: Status: Acute (8) Acute passive congestion of liver: Status: Acute (9) Elevated liver enzymes: Status: Acute (10) Thrombocytopenia: Status: Acute Reason for Visit Reason for Visit: stroke symptoms Hospital Course Hospital Course 79 year old male past medical history of aortic stenosis, status post TAVR at [facility] on December 30, 2023. 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 In the ER he was noted to have INR 4.11 on Eliquis chronically, potassium 5.8, creatinine 2.5, AST ALT elevated 393, 357, alkaline phosphatase 161, troponin 49, 49.22, BNP 23,000. Ct head did not show any acute stroke. He was diagnosed with acute on chronic systolic heart failure. Echocardiogram was performed which showed an ejection fraction of 37%, which is improved over previously 20 to 25%. He received diuresis with IV Lasix with close monitoring of renal function and urine output and daily weights. His LAUREN settled, creatinine is now currently between 1.9-2.0. He is making around 1000 to 1500 cc of urine every day. Initially he received diuresis with IV Lasix which was transitioned to oral Lasix 60 mg twice daily at the time of discharge. He is net -5.7 L at the time of discharge. Imaging of the liver performed for transaminitis, shows signs of cirrhosis, suspect may be related to CHF and chronic hepatic congestion.B/L pleural effusions with scattered infiltrates. He received an empiric 5-day course of levofloxacin. He did not have any leukocytosis. He has remained afebrile during course of admission. 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 Reviewed patient's notes from admission at [facility] from February 2024 when he was transferred for streptococcal endocarditis. Blood cultures at that time were positive for strep mitis oralis which was penicillin susceptible. SP was negative for any gross vegetations however patient met criteria for possible endocarditis. He received treatment with ceftriaxone while remaining inpatient for 10 days between 02/08 to 02/18/2025. Thereafter he was transitioned to dalbavancin 1500 mg IV x 1 which was considered to be coverage for 2 weeks. Thereafter he transitioned to Keflex 1 g p.o. twice daily to end total 6 weeks of therapy on 03/21/2025. He was to be arranged with a LifeVest at discharge, however he doesnt have it at this time, likely as EF has improved to > 35%. Following his discharge from [facility], he visited family in [place] around . He was admitted to [facility] in [place] with fever and diarrhea. C. difficile was negative however his blood cultures returned with Klebsiella pneumonia and Enterococcus fecalis. Review of discharge summary from this hospital, a SP performed there did not reveal any obvious vegetations.. ID service was consulted and recommended 6 weeks of treatment until May 09, 2024 with meropenem 1 g IV twice daily and vancomycin 1 g IV daily. Patient transitioned to a long-term thereafter to complete treatment course. Due to recurrent bacteremia, and chronic iron deficiency anemia since at least Feb 2024, he did undergo both upper and lower GI endoscopies in [place]. Upper GI endoscopy showed that the upper third of esophagus and middle third were normal. 1 cm of salmon-colored mucosa was encountered which appeared suspicious for Whaley's esophagus. Biopsy was contraindicated. A medium sized hiatal hernia was noted. Scattered moderate inflammation was found in the gastric antrum. Biopsies were taken at the time and showed mild chronic inactive gastritis without evidence of intestinal metaplasia or dysplasia or malignancy. No H. pylori was noted. Random biopsies of the duodenal bulb showed foveolar metaplasia, no active malignancy, second portion of the duodenum was normal on biopsy. Colonoscopy showed a 5 mm polyp 65 cm proximal to the anus. He was cleared to resume his Eliquis at that time. It appears the capsule endoscopy was also recommended however not completed as he left the area. He has been provided a referral to see gastroenterology in [place] to complete the capsule endoscopy. On this current admission patient's FOBT has returned positive. Patient has recently had extensive endoscopic evaluation as noted above at an outside hospital and there is no immediate indication to repeat endoscopic evaluation at this time as there was no active hematemesis or melena. Patient is hemodynamically stable. His hemoglobin has been chronically low since at least February 2024. He has obvious signs of iron deficiency anemia. He received 1 unit of packed red blood cell transfusion for hemoglobin of 7.9 following which hemoglobin is improved at 9.1 today. Source of positive FOBT may be gastritis as noted above on recent endoscopy. We increased Protonix to 40 mg p.o. twice daily and added Carafate to his regimen. Iron supplementation has been added at discharge Continue Plavix 75 mg p.o. daily. Eliquis has been placed on hold until next follow-up with platelet count as patient was noted to have thrombocytopenia during course of admission. Likely from iron deficiency and cirrhosis. Cu rrently platelets are uptrending, on last check they were at 100,000. Recommend to repeat in 3 to 4 days of discharge, if continues with the uptrend of over 100,000, may resume Eliquis at a lower dose of 2.5 mg twice daily. Of note, blood cultures taken on 08/03/2024 revealed one of the 4 bottles positive for Staphylococcus species. This was finally identified today to be Staph hominis. Repeat blood cultures from August 05, 2024 remain negative to date. Most likely the above blood cultures with Staph hominis are a contaminant, no directed therapy is currently indicated for the same. Unlikely to be endocarditis. Patient was discharged to intermediate facility as planned. Interim development of blood-streaked expectoration. No yu hemoptysis. Likely blood-tinged sputum as a result of nasal bleeding and postnasal drip as patient was additionally noted to have a patch of eroded nasal mucosa on the right side. As needed Afrin has been added alongside saline nasal spray.recommended to use humidified oxygen at the SNF. Eliquis remains on hold as above. Physical Exam Narrative: General: No acute distress, AO x3, siting up on EOb and self feeding HEENT: PERRLA, pupils bilaterally equal and reactive, pallors not present Chest: Normal vesicular breath sounds, no added sounds, equal good air entry bilaterally CVS: S1-S2 regular, no murmurs, no tachycardia, no gallops, no rubs Abdomen: Soft, nontender, no organomegaly, bowel sounds present Neuro: No focal deficits, no facial deformity, AO x3, power 5/5 in all limbs Extremities: improving LE edema Urinary Catheter Management: Posadas: Cath Placed During This Visit: yes Reason for Continuing Indwelling Catheter: Accurate Measurement of Urinary Output in Critically Ill Patients Urinary Catheter Date of Insertion: 02/09/24 Urinary Catheter Time of Insertion: 17:10 Discharge Data Studies Completed and Pending Completed Studies During Hospitalization Category Date Time Status CT chest abdomen pelvis [[place] [id number] Cat Scan 07/29/24 13:48 Completed ] Stat CT head thrombolytic [id number] Stat Cat Scan 07/29/24 09:28 Completed CXRP [XR chest 1V portable [id number]] Routine Exams 08/02/24 15:34 Completed XR chest 1V portable [id number] Stat Exams 07/29/24 09:39 Completed CV. echo limited [id number] Stat Ultrasound 07/29/24 13:30 Completed US gall bladder [id number] Stat Ultrasound 07/29/24 11:48 Completed Pending at discharge Category Date Time Status Blood Culture AM LABS Lab 08/05/24 04:30 Results Blood Culture Stat Lab 08/03/24 09:49 Results Radiology Impressions Head CT 07/29/24 09:28 IMPRESSION: 1. No evidence of intracranial hemorrhage or mass effect. 2. Moderate small vessel changes. Moderate parenchymal volume loss. 3. Chronic lacunar infarcts in the LEFT greater than RIGHT basal ganglia. Chronic infarct in the RIGHT cerebellum. 4. Vascular calcification. 5. Some images are degraded due to beam hardening and motion artifact. 6. No acute intracranial findings. Gallbladder Ultrasound 07/29/24 11:48 IMPRESSION: 1. Technically limited RIGHT upper quadrant ultrasound. 2. No cholelithiasis identified. Gallbladder ultrasound is limited. 3. Cirrhotic liver. 4. No intrahepatic duct dilatation. 5. Small complex RIGHT pleural effusion. Chest/Abdomen/Pelvis CT 07/29/24 13:48 IMPRESSION: 1. Moderate RIGHT and small LEFT pleural effusions. 2. Groundglass infiltrates worse in the RIGHT upper lobe described above compatible with pneumonitis. 3. Somewhat shrunken configuration to the liver can be seen with early cirrhosis. Recommend correlation with liver function test. Spleen size is normal. No visualized varices. 4. Moderate esophageal hiatal hernia. 5. Sigmoid constipation. 6. No other acute findings in the abdomen or pelvis. Chest X-Ray 08/02/24 15:34 IMPRESSION: Possible small bilateral pleural effusions. No large effusion. Laboratory Results WBC 5.95 10^3/uL (3.29-11.43) 08/06/24 03:46 RBC 3.60 10^6/uL (3.85-5.65) L 08/06/24 03:46 Hgb 9.10 g/dL (11.27-16.99) L 08/06/24 03:46 Hct 31.6 % (37-53) L 08/06/24 03:46 MCV 87.8 fl (82-101) 08/06/24 03:46 MCH 25.3 pg (27-33) L 08/06/24 03:46 MCHC 28.8 g/dL (30-55) L 08/06/24 03:46 RDW 17.9 % (12.1-15.1) H 08/06/24 03:46 Plt Count 100 10^3/cmm (157-399) L 08/06/24 03:46 MPV 11.9 fL (7.4-10.4) H 08/06/24 03:46 Neut % (Auto) 73.8 % 08/06/24 03:46 Lymph % (Auto) 13.9 % 08/06/24 03:46 Wilkes % (Auto) 10.8 % 08/06/24 03:46 Eos % (Auto) 0.8 % 08/06/24 03:46 Baso % (Auto) 0.5 % 08/06/24 03:46 Neut # (Auto) 4.39 10^3/uL (1.8-7.7) 08/06/24 03:46 Lymph # (Auto) 0.8 10^3/uL (0.8-4.8) 08/06/24 03:46 Wilkes # (Auto) 0.6 10^3/uL (0.2-0.9) 08/06/24 03:46 Eos # (Auto) 0.1 10^3/uL (0.0-0.8) 08/06/24 03:46 Baso # (Auto) 0.0 10^3/uL (0.0-0.1) 08/06/24 03:46 Nucleated RBC % (auto) 0 % 08/06/24 03:46 Nucleated RBCs # 0.0 /100WBC 08/06/24 03:46 Peripher Smr Path Cons Sent for review 08/04/24 03:50 Haptoglobin 134.0 mg/L (30-200) 08/04/24 03:50 PT 19.40 SECONDS (12.1-14.9) H 08/01/24 04:20 INR 1.53 (0.8-1.2) H 08/01/24 04:20 APTT 31.5 SECONDS (23.9-36.7) 07/29/24 09:45 Sodium 137 mmol/L (136-145) 08/06/24 03:46 Potassium 3.8 mmol/L (3.5-5.1) 08/06/24 03:46 Chloride 96 mmol/L (98-107) L 08/06/24 03:46 Carbon Dioxide 29 mmol/L (22-29) 08/06/24 03:46 Anion Gap 15.8 (5-19) 08/06/24 03:46 BUN 47 mg/dL (8-23) H 08/06/24 03:46 Creatinine 2.0 mg/dL (0.7-1.2) H 08/06/24 03:46 GFR Calculation Not Reportable 08/06/24 03:46 Glucose 99 mg/dL (65-115) 08/06/24 03:46 POC Glucose 174 mg/dL (70-110) H 08/07/24 12:08 Estimat Average Glucose 134 07/29/24 09:45 Hemoglobin A1c 6.3 % (4.0-6.0) H 07/29/24 09:45 Calculated Osmolality 296 mOsm/kg (285-295) H 08/06/24 03:46 Lactic Acid 3.0 mmol/L (0.5-2.2) H 07/29/24 15:58 Lactic Acid (Sepsis) 2.3 mmol/L (0.5-2.2) H 07/29/24 18:02 Calcium 8.8 mg/dL (8.5-10.5) 08/06/24 03:46 Phosphorus 4.0 mg/dL (2.5-4.5) 07/30/24 02:42 Magnesium 2.5 mg/dL (1.7-2.3) H 08/03/24 02:45 Iron 20 ug/dL (59-158) L 07/29/24 13:51 TIBC 328 mcg/dl 07/29/24 13:51 % Saturation 6.0 % (20-50) L 07/29/24 13:51 Unsat Iron Binding 308 ug/dL (112-347) 07/29/24 13:51 Ferritin 74 ng/mL (30-400) 07/29/24 13:51 Total Bilirubin 1.6 mg/dL (0.15-1.2) H 08/06/24 03:46 GGT 35 U/L (8-61) 07/30/24 02:42 AST 57 U/L (0-40) H 08/06/24 03:46 ALT 96 U/L (0-41) H 08/06/24 03:46 Alkaline Phosphatase 123 U/L (40-130) 08/06/24 03:46 Lactate Dehydrogenase 200 U/L (135-225) 08/04/24 03:50 Troponin T Baseline 49 ng/L (0-15) H 07/29/24 09:45 Troponin T 120 Minute 49.22 ng/L (0-15) H 07/29/24 11:39 Delta Troponin T 0.22 ABS# (0-10) 07/29/24 11:39 Troponin T Hi Sens 6Hr 46.34 ng/L (0-15) H 07/29/24 15:58 Troponin T Hi Sens 6Hr Delta -2.66 ng/L (0-12) L 07/29/24 15:58 C-Reactive Protein 9.8 mg/L (0.0-4.9) H 07/29/24 09:45 NT-Pro-B Natriuret Pep 19684 pg/mL (0-450) H 07/29/24 09:45 Total Protein 6.4 g/dL (6.6-8.7) L 08/06/24 03:46 Albumin 3.8 g/dL (3.5-5.2) 08/06/24 03:46 Globulin 2.6 g/dL (1.3-4.6) 08/06/24 03:46 Triglycerides 65 mg/dL (0-150) 07/29/24 09:45 Cholesterol 101 mg/dL (0-200) 07/29/24 09:45 LDL Cholesterol, Calc 50 mg/dL (50-129) 07/29/24 09:45 HDL Cholesterol 38 mg/dL (60-100) L 07/29/24 09:45 LDL/HDL Ratio 1.32 RATIO (0.00-3.22) 07/29/24 09:45 Cholesterol/HDL Ratio 2.66 mg/dL (1.0-5.00) 07/29/24 09:45 Procalcitonin 0.08 ng/mL (0-0.5) 07/29/24 13:51 TSH 2.16 uIU/mL (0.27-4.20) 07/29/24 09:45 Urine Color Yellow (Yellow) 07/29/24 10:37 Urine Appearance Clear (CLEAR) 07/29/24 10:37 Urine pH 5.0 (5-7) 07/29/24 10:37 Ur Specific [place] 1.031 (1.005-1.030) H 07/29/24 10:37 Urine Protein 1+ (Negative) A 07/29/24 10:37 Urine Glucose (UA) 3+ (Normal) H 07/29/24 10:37 Urine Ketones Trace (Negative) 07/29/24 10:37 Urine Blood Negative (Negative) 07/29/24 10:37 Urine Nitrate Negative (Negative) 07/29/24 10:37 Urine Bilirubin Negative (Negative) 07/29/24 10:37 Urine Urobilinogen 1.0 mg/dL (Negative) 07/29/24 10:37 Ur Leukocyte Esterase Negative (Negative) 07/29/24 10:37 Urine RBC 0-2 /hpf (0-2) 07/29/24 10:37 Urine WBC 0-5 /hpf (0-5) 07/29/24 10:37 Ur Squamous Epith Cells 0-5 /hpf (0-5) 07/29/24 10:37 Amorphous Sediment Not Reportable 07/29/24 10:37 Urine Bacteria None seen /hpf (NONE) 07/29/24 10:37 Hyaline Casts 12.41 /lpf 07/29/24 10:37 Urine Opiates Screen Negative ng/mL (Negative) 07/29/24 10:37 Ur Barbiturates Screen Negative ng/mL (Negative) 07/29/24 10:37 Ur Phencyclidine Scrn Negative ng/mL (Negative) 07/29/24 10:37 Ur Amphetamines Screen Negative ng/mL (Negative) 07/29/24 10:37 U Benzodiazepines Scrn Negative ng/mL (Negative) 07/29/24 10:37 Urine Cocaine Screen Negative ng/mL (Negative) 07/29/24 10:37 U Marijuana (THC) Screen Negative ng/mL (Negative) 07/29/24 10:37 Hepatitis A IgM Ab Non-reactive (Nonreactive) 07/30/24 02:42 Hep Bs Antigen Non-reactive (Nonreactive) 07/30/24 02:42 Hep Bs Antibody < 3.5 (11.5-1000) L 07/30/24 02:42 Hep B Core Total Ab Non-reactive (Nonreactive) 07/30/24 02:42 Hepatitis C Antibody Non-reactive (Nonreactive) 07/30/24 02:42 SARS-CoV-2 Ag (Rapid) Negative (Negative) 08/06/24 12:00 Blood Type O Positive 08/03/24 09:41 Rho(D) Type Rh positive 08/03/24 09:41 Antibody Screen Negative 08/03/24 09:41 Crossmatch See Detail 08/03/24 09:41 Vitals Last Vital Signs Temp 97.5 F L 08/07/24 13:47 Pulse 90 08/07/24 13:47 Resp 24 H 08/07/24 13:47 BP 116/83 08/07/24 13:47 Pulse Ox 98 08/07/24 13:47 O2 Del Method Oxymask 08/07/24 09:17 O2 Flow Rate 2 08/07/24 09:17 Discharge Plan Discharge Patient Disposition: Xfer [facility] Condition: Stable Prescriptions: New ipratropium-albuterol 0.5 mg-3 mg(2.5 mg base)/3 mL Solution For Nebulization 3 ml inhalation Q6H PRN (Reason: Shortness Of Breath) 30 Days Qty: 30 0RF sucralfate 1 gram Tablet 1 g PO AC&BEDTIME 30 Days Qty: 30 0RF pantoprazole 40 mg Tablet,Delayed Release (Dr/Ec) 40 mg PO BID 30 Days Qty: 60 0RF insulin lispro [Humalog U-100 Insulin] 100 unit/mL Solution 0 unit SUBCUT WM&BEDTIME 30 Days Qty: 30 0RF lactulose 10 gram/15 mL Solution 10 g PO BID PRN (Reason: constipation) 30 Days Qty: 900 0RF multivitamin with folic acid [Thera] 400 mcg Tablet 1 tab PO DAILY 30 Days Qty: 30 0RF ferrous sulfate 325 mg (65 mg iron) tablet,delayed release (DR/EC) 325 mg PO BID Qty: 30 0RF Afrin (oxymetazoline) 0.05 % mist 2 spray intranasal BID PRN (Reason: nasal congestion) 3 Days Qty: 15 0RF [place] Saline 0.65 % aerosol,spray 1 spray intranasal BID Qty: 50 0RF Continued carvedilol 3.125 mg Tablet 3.125 mg PO Q12H Rx Instructions: must administer with a meal/food atorvastatin 40 mg Tablet 40 mg PO QPM clopidogrel 75 mg Tablet 75 mg PO DAILY pramipexole 0.5 mg Tablet 0.5 mg PO QPM Rx Instructions: administer 2 - 3 hours before bedtime magnesium 200 mg Tablet 400 mg PO DAILY cholecalciferol (vitamin D3) [Vitamin D3] 50 mcg (2,000 unit) Capsule 50 mcg PO DAILY Changed furosemide 40 mg Tablet 60 mg PO BID 30 Days Qty: 90 0RF Held Eliquis 5 mg Tablet 5 mg PO BID Hold Instructions: Resume on 08/13/24. hold until next platelet check Discontinued Lantus U-100 Insulin 100 unit/mL Cartridge 13 unit SUBCUT QPM metformin 1,000 mg Tablet 1,000 mg PO BID omeprazole 20 mg Capsule,Delayed Release(Dr/Ec) 20 mg PO DAILY Discharge Orders: Discharge Order (Routine); Ordered 08/07/24 Ordered By: Airam Hernadez Referrals: [facility] - Gastroenterology [Other, Gastroenterology] - 2 weeks Referral Note: need for capsule endoscopy [facility] - [Other, Gastroenterology] - 2 weeks Referral Note: need for capsule endoscopy [facility] [Outside] Romy Torres NP [Nurse Practitioner, Cardiology] - 08/10/24 3:00 pm Gatito Hall MD [Primary Care Provider, Internal Medicine] - 08/10/24 1:00 pm Patient Instructions: Iron Supplements (By mouth), Sucralfate (By mouth), Multivitamins, Adult Formula (By mouth), Lactulose (By mouth), Pantoprazole (By mouth), Insulin Lispro (By injection) (Humalog, Humalog Pen, Lispro-PFC,..., Opioid Safety Activity Restrictions/Additional Instructions: patient is on supplemental 02 between 1.5-3lpm. Please humidify oxygen for use he prefers to wear an oxymask check CBC for Hb and platelet in 3-4 days. IF platelet count remains > 100, can resume Eliquis at 2.5mg BID. He needs to be set up with gastroenterology for capsule endoscopy in [place]. Discharge Attestations Time Spent in Discharge Care*: greater than 30 min Quality Metrics Clinical Quality Measures [ No reported AMI, CVA or VTE this stay] Coding Level of Care Code Acute Code for Chg Fwd Diagnoses LAUREN (acute kidney injury) N17.9 Acute on chronic diastolic congestive heart failure I50.33 Heart failure type: diastolic Heart failure chronicity: acute on chronic Decompensated heart failure I50.9 Systolic heart failure I50.20 History of heart valve repair Z98.890 Status post aortic valve replacement with bioprosthetic valve Z95.3 Pacemaker Z95.0 Acute passive congestion of liver K76.1 Elevated liver enzymes R74.8 Thrombocytopenia D69.6
== END 2024-08-07 13:49 | disposition skilled nursing facility (03) | DRG 291 ==
LOC: ER 09:39 → CSU 14:25 → MEDSURG 08-06 18:25
PROVIDERS: Family Medicine; Admitting Provider Internal Medicine; Emergency Provider Family Medicine; PCP Internal Medicine; Visit Provider Student in an Organized Health Care Education/Training Program
DX: I50.43 Acute on chronic combined systolic (congestive) and diastolic (congestive) heart failure (principal); J96.21 Acute and chronic respiratory failure with hypoxia; N17.9 Acute kidney failure, unspecified; E87.3 Alkalosis; I42.9 Cardiomyopathy, unspecified; Z95.0 Presence of cardiac pacemaker; E11.9 Type 2 diabetes mellitus without complications; E87.5 Hyperkalemia; I35.0 Nonrheumatic aortic (valve) stenosis; I25.10 Atherosclerotic heart disease of native coronary artery without angina pectoris; D64.9 Anemia, unspecified; D69.6 Thrombocytopenia, unspecified; D50.9 Iron deficiency anemia, unspecified; I48.91 Unspecified atrial fibrillation; E11.618 Type 2 diabetes mellitus with other diabetic arthropathy; K76.1 Chronic passive congestion of liver; I69.328 Other speech and language deficits following cerebral infarction; Z95.2 Presence of prosthetic heart valve; Z95.1 Presence of aortocoronary bypass graft; Z79.01 Long term (current) use of anticoagulants; Z79.4 Long term (current) use of insulin; Z95.3 Presence of xenogenic heart valve; K29.70 Gastritis, unspecified, without bleeding
CPT/HCPCS: 36415; 36416; 36430; 51798; 70450; 71045; 71250; 74176; 76705; 80053; 80061; 80306; 80503; 81001; 82274; 82728; 82962; 82977; 83010; 83036; 83540; 83550; 83605; 83615; 83735; 83880; 84100; 84145; 84443; 84484; 85025; 85610; 85730; 86140; 86705; 86706; 86709; 86803; 86850; 86900; 86920; 87040; 87077; 87150; 87186; 87205; 87340; 87426; 93005; 93308; 94640; 96372; 96374; 96375; 96376; 97116; 97161; 97166; 97530; 97535; 99285; A9270; J1644; J1756; J1815; J1940; J1956; J2405; J3370; J3490; J7060; J7611; J9999; P9040; P9046; Q3014; Q5105

== ENCOUNTER → 2024-08-10 14:45 | Outpatient (BNVA) | payer MEDICARE, SELFPAY | PROVIDERS: PCP Internal Medicine; Visit Provider Nurse Practitioner Family | DX: Z09 Encounter for follow-up examination after completed treatment for conditions other than malignant neoplasm (principal); I48.20 Chronic atrial fibrillation, unspecified; Z79.01 Long term (current) use of anticoagulants; I35.0 Nonrheumatic aortic (valve) stenosis; I50.33 Acute on chronic diastolic (congestive) heart failure; D69.6 Thrombocytopenia, unspecified; Z95.2 Presence of prosthetic heart valve; Z95.0 Presence of cardiac pacemaker; Z95.5 Presence of coronary angioplasty implant and graft; Z87.891 Personal history of nicotine dependence | CPT/HCPCS: 99213 ==